=== PATIENT | female | born 1945 | race Caucasian/White ===

== ENCOUNTER 2019-05-09 17:51 | Emergency (ER) | payer MEDICARE, OTHER ==
[~2019-05-09] VITALS: Ht 157.5 cm; Wt 109.1 kg
[2019-05-09] MEDS ORDERED: ALBUTEROL SULFATE 2.5 MG/0.5 ML INH NEB SOLN INH ONE (18:15)
[2019-05-09] MEDS ORDERED: IPRATROPIUM 0.5MG/ALBUTEROL 2.5MG INH SOL UD 3ML (DUONEB)(J7620) NEB ONE (18:15)
[2019-05-09 18:57] LABS: BASO % 0.4 % (0.0-1.0); EOS # 0.2 10^3/uL (0.0-0.5); EOS % 2.1 % (0.0-3.0); HEMATOCRIT 40.2 % (36.0-47.0); HEMOGLOBIN 12.8 g/dl (12.0-15.5); LYMPH # 1.9 10^3/uL (1.5-5.0); LYMPH % 26.2 % (24.0-44.0); MEAN CORPUSCULAR HEMOGLOBIN 29.3 pg (27.0-33.0); MEAN CORPUSCULAR HGB CONC 31.8 g/dl (32.0-36.5); MONO # 0.3 10^3/uL (0.0-0.8); MONO % 4.4 % (0.0-5.0); NEUTROPHILS # 4.8 10^3/uL (1.5-8.5); NEUTROPHILS % 66.5 % (36.0-66.0); PLATELET COUNT, AUTOMATED 215 10^3/uL (150-450); RED BLOOD COUNT 4.37 10^6/uL (4.00-5.40); WHITE BLOOD COUNT 7.3 10^3/uL (4.0-10.0)
[2019-05-09] MEDS ORDERED: FLUO10CA8 (19:01)
[2019-05-09] MEDS ORDERED: ALBU0.63 NEB (19:01)
[2019-05-09] MEDS ORDERED: GLIP10TA18 (19:01)
[2019-05-09] MEDS ORDERED: MELA5CAP2 PO (19:16)
[2019-05-09] MEDS ORDERED: LISI-538 (19:16)
[2019-05-09] MEDS ORDERED: OMEP-218 (19:16)
[2019-05-09] MEDS ORDERED: PRAV40TA2 (19:16)
[2019-05-09] MEDS ORDERED: AZIT-12 (19:16)
[2019-05-09] MEDS ORDERED: METF-791 PO (19:16)
[2019-05-09] MEDS ORDERED: PIOG1TAB37 (19:16)
[2019-05-09] MEDS ORDERED: OMEG1CAP4 (19:16)
[2019-05-09 19:25] LABS: BLOOD UREA NITROGEN 23 MG/DL (7-18); CALCIUM LEVEL 8.8 MG/DL (8.8-10.2); CARBON DIOXIDE LEVEL 29 MEQ/L (21-32); CHLORIDE LEVEL 103 MEQ/L (98-107); CK-MB VALUE MASS 1.5 NG/ML (<3.6); CPK CREATINE PHOSPHOKINASE 106 U/L (26-192); CREATININE FOR GFR 1.15 MG/DL (0.55-1.30); GLOMERULAR FILTRATION RATE 49.4 (>39); GLUCOSE, FASTING 194 MG/DL (70-100); MB/CK RELATIVE INDEX 1.42 (< OR =4); NT-PRO BNP 156 PG/ML (<125); POTASSIUM SERUM 4.1 MEQ/L (3.5-5.1); SODIUM LEVEL 139 MEQ/L (136-145); TROPONIN I < 0.02 NG/ML (< 0.10)
[2019-05-09] MEDS ORDERED: PRED20TA PO (20:03)
[2019-05-09] MEDS ORDERED: DOXY-350 PO (20:03)
[2019-05-09 20:15] VITALS: BP 135/56
[2019-05-09] MEDS ORDERED: DOXYCYCLINE HYCLATE 100 MG TAB PO ONE (20:15)
--- NOTE | 2019-05-10 08:14 | ECGEPIP ---
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
--- NOTE | 2019-05-10 09:17 | REP ---
Portable chest, single AP view with the patient upright, 06:46 p.m.: There are no comparisons. The lung turner are clear. Cardiac size is normal. The jj, mediastinum, skeletal structures are unremarkable. Impression: Negative portable chest. Electronically Signed by Marques Sanchez MD 05/10/2019 09:09 A
== END 2019-05-09 20:28 | disposition home or self-care (01) ==
LOC: EDBD 17:51 → M ED 17:51
DX: J20.9 Acute bronchitis, unspecified (principal); R06.02 Shortness of breath; J44.0 Chronic obstructive pulmonary disease with (acute) lower respiratory infection; E11.9 Type 2 diabetes mellitus without complications; J45.909 Unspecified asthma, uncomplicated; G47.30 Sleep apnea, unspecified; Z79.899 Other long term (current) drug therapy

== ENCOUNTER → 2019-10-11 | Outpatient (CLI) | payer MEDICARE, OTHER ==
[~2019-10-11] MED LIST: ALBU0.63 NEB; AZIT-12; DOXY-350 PO; FLUO10CA15; GLIP10TA18; LISI-538; MELA5CAP2 PO; METF-791 PO; OMEG1CAP4; OMEP-218; PIOG1TAB37; PRAV40TA2; PRED20TA PO
--- NOTE | 2019-10-13 19:39 | SLEEPCENT ---
DATE OF PROCEDURE: 10/11/2019 ORDERED BY: FRANCISCO Mascorro Nocturnal polysomnography was performed for evaluation of sleep physiology in this patient with a history of excessive somnolence and nonrestorative sleep who has comorbidities of hypertension and diabetes. 8 hours and 35 minutes of data were reviewed. There were 341.5 minutes of sleep identified. Sleep latency was short at 12.5 minutes. Rapid eye movement (REM) sleep was delayed at 416 minutes. Sleep architecture showed poor progression. There was only one REM cycle noted. Overall sleep efficiency was 67.1%. The electrocardiogram showed a sinus rhythm with an average heart rate of 65 beats per minute. EEG showed fairly normal waveforms for awake and sleep. There were 91 respiratory events identified of 10 seconds in duration or greater for an apnea-hypopnea index of 16. The events were obstructive, not exclusive to sleep stage, more frequent in the supine posture. Arousals from respiratory events occurred 1.9 times per hour and oxygen desaturations were seen into the low 80s with some limb activity in the limb leads but limb movement arousal index was only 4.9. IMPRESSION: Obstructive sleep apnea syndrome (G47.33). Apnea-hypopnea index 16. RECOMMENDATIONS; The patient should be encouraged to return to the sleep disorder center for pressure therapy. In the interim alcohol and sedative avoidance should be practiced and caution exercised during operation of motor vehicles
== END ==
LOC: M SLEEP 20:00
PROVIDERS: ATTEND Nurse Practitioner Family
DX: R40.0 Somnolence (principal)

== ENCOUNTER → 2019-10-12 | Outpatient (CLI) | payer MEDICARE, OTHER ==
[2019-10-12 07:11] LABS: HEMATOCRIT 40.2 % (36.0-47.0); HEMOGLOBIN 12.7 g/dl (12.0-15.5); MEAN CORPUSCULAR HEMOGLOBIN 29.1 pg (27.0-33.0); MEAN CORPUSCULAR HGB CONC 31.6 g/dl (32.0-36.5); PLATELET COUNT, AUTOMATED 233 10^3/uL (150-450); RED BLOOD COUNT 4.37 10^6/uL (4.00-5.40); WHITE BLOOD COUNT 5.1 10^3/uL (4.0-10.0)
[2019-10-12 07:22] LABS: INR 0.96; PROTHROMBIN TIME 12.5 SECONDS (11.8-14.0)
[2019-10-12 07:38] LABS: ALBUMIN 3.1 GM/DL (3.2-5.2); ALT/SGPT 21 U/L (12-78); BILIRUBIN,TOTAL 0.7 MG/DL (0.2-1.0); BLOOD UREA NITROGEN 21 MG/DL (7-18); CALCIUM LEVEL 8.8 MG/DL (8.8-10.2); CARBON DIOXIDE LEVEL 32 MEQ/L (21-32); CHLORIDE LEVEL 105 MEQ/L (98-107); CHOLESTEROL LEVEL 269 MG/DL (<200); CHOLESTEROL RISK RATIO 4.338 (<5); CREATININE FOR GFR 0.85 MG/DL (0.55-1.30); GLOMERULAR FILTRATION RATE > 60.0 (>39); GLUCOSE, FASTING 170 MG/DL (70-100); HDL CHOLESTEROL 62 MG/DL (>40); LDL CHOLESTEROL 168 MG/DL (<100); MAGNESIUM LEVEL 2.3 MG/DL (1.8-2.4); NON-HDL-C 207 MG/DL; POTASSIUM SERUM 4.5 MEQ/L (3.5-5.1); SODIUM LEVEL 140 MEQ/L (136-145); TOTAL PROTEIN 6.6 GM/DL (6.4-8.2); TRIGLYCERIDES LEVEL 194 MG/DL (<150)
[2019-10-12 07:45] LABS: MALB URINE SIEMENS 47.4 MG/L; MAU/CREAT RATIO 22.6 MCG/MG (0.0-30.0)
[2019-10-12 10:12] LABS: VITAMIN B12 LEVEL 640 PG/ML (247-911)
[2019-10-12 13:32] LABS: HEMOGLOBIN A1c 8.4 %
== END ==
LOC: M LAB 06:40
PROVIDERS: ATTEND Family Medicine
DX: R23.8 Other skin changes (principal); E11.9 Type 2 diabetes mellitus without complications; I11.9 Hypertensive heart disease without heart failure; E78.5 Hyperlipidemia, unspecified; K21.9 Gastro-esophageal reflux disease without esophagitis

== ENCOUNTER → 2019-10-12 | Outpatient (CLI) | payer MEDICARE, OTHER ==
[~2019-10-12] MED LIST changes: +BARIUM SULFATE 700 MG TABLET (E-Z-DISK) As Ordered ONE; +E-Z-PAQUE 96% w/w SUSP 176GM BTL As Ordered ONE; +VARIBAR NECTAR 40% w/v 240ML SUSP BTL As Ordered ONE; +VARIBAR PUDDING 40% w/v 230ML TUBE As Ordered ONE
--- NOTE | 2019-10-12 17:55 | REP ---
COOKIE SWALLOW The procedure was performed under the direct supervision of Dr. Sanchez. The procedure was performed with Fang Kaufman from speech pathology present. 5 ml aliquots of pudding, thin, fruit, soft and solid consistency barium as well as a barium pill were administered. With thin consistency barium there is laryngeal penetration. The detailed report of this examination will be provided by speech pathology. 1.2 minutes of fluoroscopy time was utilized for this procedure. Electronically Signed by HUMERA Hays 10/12/2019 04:14 P Electronically Signed by Celso Sanchez MD 10/12/2019 05:47 P
== END ==
LOC: M RAD 12:07
PROVIDERS: ATTEND Family Medicine
DX: R13.10 Dysphagia, unspecified (principal); R23.8 Other skin changes; E11.9 Type 2 diabetes mellitus without complications; I11.9 Hypertensive heart disease without heart failure; E78.5 Hyperlipidemia, unspecified; K21.9 Gastro-esophageal reflux disease without esophagitis

== ENCOUNTER → 2019-11-16 | Outpatient (CLI) | payer MEDICARE, OTHER ==
[~2019-11-16] MED LIST changes: -BARIUM SULFATE 700 MG TABLET (E-Z-DISK) As Ordered ONE; -E-Z-PAQUE 96% w/w SUSP 176GM BTL As Ordered ONE; -VARIBAR NECTAR 40% w/v 240ML SUSP BTL As Ordered ONE; -VARIBAR PUDDING 40% w/v 230ML TUBE As Ordered ONE
--- NOTE | 2019-11-18 17:39 | SLEEPCENT ---
DATE OF PROCEDURE: 11/16/2019 Ordered by: SCOOTER Mascorro Nocturnal polysomnography was performed for the titration of pressure therapy in this patient with obstructive sleep apnea syndrome. Apnea-hypopnea index is 16. For testing, a ResMed AirTouch F20 full face mask of small size was used, 4 cm of water pressure were applied to the circuit and the lights were extinguished. 7 hours and 17 minutes of data were reviewed. There were 298 minutes of sleep identified. Sleep latency was short at 11.5 minutes. REM latency was delayed at 121.5 minutes. Sleep architecture improved late in the study. Overall sleep efficiency was 68.8%. The patient's electrocardiogram showed a sinus rhythm with an average heart rate of 65 beats per minute. EEG showed normal waveforms for awake and sleep. Occasional likely fluoxetine related eye movements were seen. No other focal events. Respiratory events were fully palliated with C-PAP at a pressure of +7. Activity in the limb leads was seen early in the study, but improved on optimal pressure therapy. The limb movement arousal index was 1.6. IMPRESSION Obstructive sleep apnea syndrome (G47.33) RECOMMENDATIONS Nightly use of pressure therapy 7 cm of water.
== END ==
LOC: M SLEEP 20:00
PROVIDERS: ATTEND Nurse Practitioner Family
DX: G47.33 Obstructive sleep apnea (adult) (pediatric) (principal)

== ENCOUNTER → 2020-01-26 | Outpatient (REF) | payer MEDICARE, OTHER ==
[~2020-01-26] MED LIST changes: +ECOT81TA5 PO; +JANU100T; +JARD1TAB; -METF-791 PO; +METF-838 PO; +ROSU40TA4; +TORS10TA3
[2020-01-26 16:41] LABS: CALCIUM LEVEL 9.4 MG/DL (8.8-10.2); CREATININE FOR GFR 1.16 MG/DL (0.55-1.30); GLOMERULAR FILTRATION RATE 48.8 (>39)
[2020-01-26 17:00] LABS: HEMOGLOBIN A1c 7.9 %
== END ==
LOC: M SFHCCLAY 12:14
PROVIDERS: ATTEND Family Medicine
DX: E11.9 Type 2 diabetes mellitus without complications (principal)
CPT/HCPCS: 80048; 83036; G0463

== ENCOUNTER 2020-02-11 15:20 | Emergency (ER) | payer MEDICARE, OTHER ==
[~2020-02-11] VITALS: Ht 157.5 cm; Wt 113.7 kg
[~2020-02-11 15:20] MED LIST changes: -ECOT81TA5 PO; -JANU100T; -JARD1TAB; -ROSU40TA4; -TORS10TA3
[2020-02-11] MEDS ORDERED: JARD1TAB (15:45)
[2020-02-11] MEDS ORDERED: JANU100T (15:45)
[2020-02-11] MEDS ORDERED: TORS10TA3 (15:45)
[2020-02-11] MEDS ORDERED: ROSU40TA4 (15:45)
[2020-02-11 16:23] LABS: BASO # 0.1 10^3/uL (0.0-0.2); BASO % 0.5 % (0.0-1.0); EOS # 0.1 10^3/uL (0.0-0.5); EOS % 0.9 % (0.0-3.0); HEMATOCRIT 42.2 % (36.0-47.0); HEMOGLOBIN 13.8 g/dl (12.0-15.5); LYMPH # 1.4 10^3/uL (1.5-5.0); LYMPH % 15.5 % (24.0-44.0); MEAN CORPUSCULAR HEMOGLOBIN 28.8 pg (27.0-33.0); MEAN CORPUSCULAR HGB CONC 32.7 g/dl (32.0-36.5); MEAN CORPUSCULAR VOLUME 87.9 fl (80.0-96.0); MONO # 0.5 10^3/uL (0.0-0.8); MONO % 5.9 % (0.0-5.0); NEUTROPHILS # 7.1 10^3/uL (1.5-8.5); NEUTROPHILS % 76.5 % (36.0-66.0); PLATELET COUNT, AUTOMATED 227 10^3/uL (150-450); WHITE BLOOD COUNT 9.2 10^3/uL (4.0-10.0)
[2020-02-11] MEDS: COMBIVENT RESPIMAT 100-20MCG INHALER 4GM INH SCH ×2 (16:36→17:25)
[2020-02-11 16:47] LABS: ALBUMIN 3.7 GM/DL (3.2-5.2); BILIRUBIN,DIRECT 0.2 MG/DL (0.0-0.2); BILIRUBIN,TOTAL 0.9 MG/DL (0.2-1.0); TOTAL PROTEIN 7.2 GM/DL (6.4-8.2)
[2020-02-11] MEDS ORDERED: PRED20TA PO (18:42)
[2020-02-11 18:52] VITALS: BP 92/63
--- NOTE | 2020-02-12 03:25 | REP ---
CHEST PORTABLE: REASON FOR EXAM: Dyspnea and cough. COMPARISON: 05/09/2019 FINDINGS: The technique utilized in obtaining the radiograph has magnified the cardiac silhouette and accentuated the interstitial markings. The superior mediastinal structures are midline. The cardiac silhouette is unremarkable in size, shape, and position. The diaphragmatic surfaces of the lungs are regular, and the costophrenic angles are clear. The pulmonary turner are clear. The imaged osseous structures are intact. IMPRESSION: There is no acute cardiopulmonary disease. No change from the prior exam. Electronically Signed by Christopher Phelps DO 02/12/2020 09:14 A
--- NOTE | 2020-02-12 10:14 | ECGEPIP ---
[facility] - ED Test Date: 2020-02-11 Pat Name: JALYN ALARCON Department: Room: - Gender: Female Stars Specialist: julia : 1945 Requested By: Padmini Raymond Order Number: [id number] Reading MD: Padmini Raymond Measurements Intervals [place] Rate: 82 P: 47 [place]: 139 QRS: 24 QRSD: 93 T: 44 QT: 384 QTc: 449 Interpretive Statements SINUS RHYTHM NSTTW abnormalities DECREASED ECTOPY 05/09/19 Electronically Signed on 02-12-2020 10:14:01 EDT by Padmini Raymond
== END 2020-02-11 20:15 | disposition home or self-care (01) ==
LOC: EDBD 15:20 → M ED 15:20
DX: J12.2 Parainfluenza virus pneumonia (principal); J40 Bronchitis, not specified as acute or chronic; I10 Essential (primary) hypertension; E78.5 Hyperlipidemia, unspecified; G47.33 Obstructive sleep apnea (adult) (pediatric); F17.200 Nicotine dependence, unspecified, uncomplicated; Z91.018 Allergy to other foods; Z79.899 Other long term (current) drug therapy

== ENCOUNTER 2020-02-15 17:10 | Emergency (ER) | payer MEDICARE, OTHER ==
[~2020-02-15] VITALS: Ht 157.5 cm; Wt 113.2 kg
[~2020-02-15 17:10] MED LIST changes: -FLUO10CA15; +FLUO10CA16; +JANU100T PO; +JARD1TAB PO; +ROSU40TA4 PO; +TORS10TA3 PO
[2020-02-15] MEDS ORDERED: ECOT81TA5 PO (17:47)
[2020-02-15 18:21] LABS: BASO % 0.1 % (0.0-1.0); EOS % 0.3 % (0.0-3.0); HEMATOCRIT 41.2 % (36.0-47.0); HEMOGLOBIN 13.1 g/dl (12.0-15.5); LYMPH # 0.8 10^3/uL (1.5-5.0); LYMPH % 9.9 % (24.0-44.0); MEAN CORPUSCULAR HEMOGLOBIN 28.8 pg (27.0-33.0); MEAN CORPUSCULAR HGB CONC 31.8 g/dl (32.0-36.5); MEAN CORPUSCULAR VOLUME 90.5 fl (80.0-96.0); MONO # 0.2 10^3/uL (0.0-0.8); MONO % 2.2 % (0.0-5.0); NEUTROPHILS # 6.7 10^3/uL (1.5-8.5); NEUTROPHILS % 86.6 % (36.0-66.0); RED BLOOD COUNT 4.55 10^6/uL (4.00-5.40); WHITE BLOOD COUNT 7.8 10^3/uL (4.0-10.0)
[2020-02-15 18:22] LABS: VENOUS BASE EXCESS -2.6 (-2.0-2.0); VENOUS HCO3 23.7 MEQ/L (23.0-27.0); VENOUS O2 SATURATION 94.1 % (60.0-80.0); VENOUS PARTIAL PRESSURE CO2 46.5 mmHg (38.0-50.0); VENOUS PH 7.325 UNITS (7.330-7.430); VENOUS STANDARD HCO3 22.3 MEQ/L; VENOUS TOTAL CO2 25.1 MEQ/L (24.0-28.0)
--- NOTE | 2020-02-15 18:54 | REPVR ---
PROCEDURE INFORMATION: Exam: CT Head Without Contrast Exam date and time: 02/15/2020 6:34 PM Age: 74 years old Clinical indication: Other: General weakness; Additional info: Headache, weakness TECHNIQUE: Imaging protocol: Computed tomography of the head without contrast. Radiation optimization: All CT scans at this facility use at least one of these dose optimization techniques: automated exposure control; mA and/or kV adjustment per patient size (includes targeted exams where dose is matched to clinical indication); or iterative reconstruction. COMPARISON: CT Head without contrast 01/24/2015 3:35 PM FINDINGS: Brain: There is no acute cortical infarction, intracranial hemorrhage or mass. Ventricles: No ventriculomegaly. Bones/joints: Hyperostosis frontalis is noted bilaterally. No acute fracture. Sinuses: Visualized sinuses are unremarkable. No fluid levels. Mastoid air cells: The middle ear cavities and mastoid air cells are clear. Vasculature: Atherosclerosis. Soft tissues: Unremarkable. IMPRESSION: No acute intracranial findings. Electronically signed by: Portia Mckeon On 02/15/2020 18:53:53 PM
[2020-02-15 19:30] LABS: PLATELET COUNT, AUTOMATED 191 10^3/uL (150-450)
[2020-02-15 20:01] LABS: HEMOGLOBIN A1c 9.7 %
[2020-02-15 21:24] LABS: OSMOLALITY SERUM 314 MOSM/KG (280-301)
[2020-02-15 21:46] LABS: ACETONE/KETONE 6.03 MG/DL (<2.81); ALBUMIN 3.5 GM/DL (3.2-5.2); ALT/SGPT 23 U/L (12-78); BILIRUBIN,DIRECT 0.2 MG/DL (0.0-0.2); BILIRUBIN,TOTAL 0.6 MG/DL (0.2-1.0); BLOOD UREA NITROGEN 38 MG/DL (7-18); CALCIUM LEVEL 8.9 MG/DL (8.8-10.2); CARBON DIOXIDE LEVEL 25 MEQ/L (21-32); CHLORIDE LEVEL 100 MEQ/L (98-107); CK-MB VALUE MASS < 1.0 NG/ML (<3.6); CPK CREATINE PHOSPHOKINASE 58 U/L (26-192); CREATININE FOR GFR 1.48 MG/DL (0.55-1.30); GLOMERULAR FILTRATION RATE 36.8 (>39); GLUCOSE, FASTING 388 MG/DL (70-100); LIPASE 60 U/L (73-393); MB/CK RELATIVE INDEX 1.72 (< OR =4); NT-PRO BNP 117 PG/ML (<125); POTASSIUM SERUM 4.6 MEQ/L (3.5-5.1); SODIUM LEVEL 136 MEQ/L (136-145); TROPONIN I < 0.02 NG/ML (< 0.10)
[2020-02-15] MEDS ORDERED: HumuLIN R (REGULAR) INSULIN (NovoLIN R) **100U/ML** PER UNIT IV ONE (22:15)
[2020-02-15 22:50] VITALS: BP 131/60
--- NOTE | 2020-02-16 04:49 | REP ---
CHEST: REASON: Dyspnea. PRIORS: Multiple, the latest 02/11/2020, a portable exam. The technique utilized in obtaining the radiograph has magnified the cardiac silhouette and accentuated the interstitial markings. The superior mediastinal structures are midline. The cardiac silhouette is unremarkable in size, shape, and position. The diaphragmatic surfaces of the lungs are regular, and the costophrenic angles are clear. The pulmonary turner are clear. The imaged osseous structures are intact. IMPRESSION: There is no acute cardiopulmonary disease. Electronically Signed by Christopher Phelps DO 02/16/2020 11:37 A
--- NOTE | 2020-02-16 08:17 | ECGEPIP ---
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
[2020-04-22] MEDS ORDERED: METF500T13 PO (12:29)
[2020-04-22] MEDS ORDERED: VENTAER INH (12:29)
[2020-06-03] MEDS ORDERED: GROUND FLAX SEED PO (08:03)
== END 2020-02-16 00:01 | disposition home or self-care (01) ==
LOC: EDBD 17:10 → M ED 17:10 → EDSEX 17:10 → M ED 02-16 00:01
DX: E11.65 Type 2 diabetes mellitus with hyperglycemia (principal); R06.02 Shortness of breath; J12.2 Parainfluenza virus pneumonia; I10 Essential (primary) hypertension; J45.909 Unspecified asthma, uncomplicated; J44.9 Chronic obstructive pulmonary disease, unspecified; G47.33 Obstructive sleep apnea (adult) (pediatric); E78.9 Disorder of lipoprotein metabolism, unspecified; Z87.891 Personal history of nicotine dependence; Z91.018 Allergy to other foods; Z79.899 Other long term (current) drug therapy; Z79.52 Long term (current) use of systemic steroids; Z79.82 Long term (current) use of aspirin; Z79.84 Long term (current) use of oral hypoglycemic drugs

== ENCOUNTER → 2020-03-14 | Outpatient (REF) | payer MEDICARE, OTHER ==
[~2020-03-14] MED LIST changes: +ECOT81TA5 PO; +GROUND FLAX SEED PO; +METF500T13 PO; +VENTAER INH
[2020-04-29 11:40] LABS: CALCIUM LEVEL 9.5 MG/DL (8.8-10.2); CREATININE FOR GFR 1.34 MG/DL (0.55-1.30); GLOMERULAR FILTRATION RATE 41.3 (>39); POTASSIUM SERUM 5.3 MEQ/L (3.5-5.1)
== END ==
LOC: M SFHCCLAY 15:22
PROVIDERS: ATTEND Family Medicine
DX: I89.0 Lymphedema, not elsewhere classified (principal)

== ENCOUNTER → 2020-04-06 | Outpatient (CLI) | payer MEDICARE, OTHER ==
[~2020-04-06] MED LIST changes: +ISOVUE-370 76% 100ML VIAL As Ordered ONE
--- NOTE | 2020-04-06 16:47 | REPVR ---
PROCEDURE INFORMATION: Exam: CT Angiography Chest With Contrast Exam date and time: 04/06/2020 4:03 PM Age: 74 years old Clinical indication: Other: Thoracic aortic aneurysm TECHNIQUE: Imaging protocol: Computed tomographic angiography of the chest with intravenous contrast. 3D rendering (Not supervised by radiologist): MIP and/or 3D reconstructed images were created by the technologist. Radiation optimization: All CT scans at this facility use at least one of these dose optimization techniques: automated exposure control; mA and/or kV adjustment per patient size (includes targeted exams where dose is matched to clinical indication); or iterative reconstruction. Contrast material: ISOVUE 370; Contrast volume: 100 ml; Contrast route: INTRAVENOUS (IV); COMPARISON: CR Chest, 2 view PA, Lat 02/15/2020 6:50 PM FINDINGS: Pulmonary arteries: These are 3 mm thick images. There is no obvious pulmonary emboli but examination is a optimized for pulmonary emboli. Aorta: The ascending aorta is normal at 25 mm. There is no evidence of a dissection. Thyroid: There is a cystic lesion within the right lobe of the thyroid gland measuring 14 x 18 mm. Lungs: Lungs are clear. Pleural space: Unremarkable. No pneumothorax. No pleural effusion. Heart: Unremarkable. No cardiomegaly. No pericardial effusion. Mediastinal space: Distal esophagus has a thickened wall versus a small hiatal hernia. Lymph nodes: Small mediastinal lymph nodes are present. Liver: The liver is fatty. Bones/joints: Unremarkable. No acute fracture. Soft tissues: Unremarkable. 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 IMPRESSION: 1. Thyroid cystic mass. 2. No evidence of a thoracic aortic aneurysm. 3. Small hiatal hernia versus distal esophageal wall thickening. 4. 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 COMMENTS: Consistent with the [employer]'s Incidental Findings Committee white paper (J Am Devon Radiol 2015): In patients aged 35 years and older with an incidental thyroid nodule equal to or greater than 1.[address], MRI or extrathyroidal US, further evaluation with dedicated thyroid US is recommended for patients with normal life expectancy and without comorbidities. For smaller nodules without suspicious features, no further evaluation or follow up is recommended. Electronically signed by: Derek Drew On 04/06/2020 16:47:06 PM
== END ==
LOC: M RAD 15:07
PROVIDERS: ATTEND Internal Medicine Gastroenterology
DX: E07.9 Disorder of thyroid, unspecified (principal); K44.9 Diaphragmatic hernia without obstruction or gangrene; I71.2 Thoracic aortic aneurysm, without rupture; R07.89 Other chest pain
CPT/HCPCS: 71275; Q9967

== ENCOUNTER → 2020-04-20 | Outpatient (CLI) | payer MEDICARE, OTHER ==
[~2020-04-20] MED LIST changes: +E-Z-GAS II EFFERVESCENT PACKET (SODIUM BICARB./CITRIC ACID/SIMETHICONE) As Ordered ONE; +E-Z-HD 98% w/w 340GM SUSP BTL As Ordered ONE; +E-Z-PAQUE 96% w/w SUSP 176GM BTL As Ordered ONE; -ISOVUE-370 76% 100ML VIAL As Ordered ONE
--- NOTE | 2020-05-05 11:21 | REP ---
ESOPHAGRAM AIR CONTRAST: The procedure was performed under the direct supervision of Dr. Sanchez. The images were reviewed with Dr. Sanchez. A single view PA chest x-ray is submitted as a route jumper film. The superior mediastinal structures are midline. The heart size is within normal limits. The lungs are clear. Liquid barium and gas producing granules were given in the erect position as well as liquid as barium in the prone oblique positions in order to perform a double contrast esophagram examination. The oral and pharyngeal stages of deglutition are unremarkable. In the distal esophagus at THE GE junction there is a stricture which demonstrates shouldering and esophageal dilation proximally. There is mucosal irregularity with a possible ulcer. The stricture measures approximately 2cm x 0.5cm.Contrast does pass through the stricture slowly. Recommend endoscopy for further evaluation. IMPRESSION: 1. There is a stricture in the distal esophagus at the GE junction which demonstrates shouldering and esophageal dilation proximally. There is mucosal irregularity with a possible ulcer. Contrast does pass through the stricture albeit slowly. Recommend endoscopy for further evaluation. 2. 1.5 minutes of fluoroscopy time was utilized for this procedure. NEHEMIAHD
== END ==
LOC: M RAD 08:24
PROVIDERS: ATTEND Internal Medicine Gastroenterology
DX: R13.10 Dysphagia, unspecified (principal); K22.2 Esophageal obstruction

== ENCOUNTER → 2020-04-24 | Outpatient (CLI) | payer MEDICARE, OTHER ==
[~2020-04-24] MED LIST changes: -E-Z-GAS II EFFERVESCENT PACKET (SODIUM BICARB./CITRIC ACID/SIMETHICONE) As Ordered ONE; -E-Z-HD 98% w/w 340GM SUSP BTL As Ordered ONE; -E-Z-PAQUE 96% w/w SUSP 176GM BTL As Ordered ONE
== END ==
LOC: M LABSMTC 08:33
PROVIDERS: ATTEND Anesthesiology
DX: Z01.812 Encounter for preprocedural laboratory examination (principal); Z20.828 Contact with and (suspected) exposure to other viral communicable diseases
CPT/HCPCS: C9803; U0003

== ENCOUNTER 2020-04-29 12:48 | Day surgery (SDC) | payer MEDICARE, OTHER ==
[~2020-04-29] VITALS: Ht 157.5 cm; Wt 108.4 kg
[~2020-04-29 12:48] MED LIST changes: -GROUND FLAX SEED PO; +NS 1,000 ML IV ONE
--- NOTE | 2020-04-29 14:45 | ROOR ---
Patient Name: Ana Chavez Procedure Date: 04/29/2020 2:18 PM Date of : 1945 Age: 74 Room: [facility] Gender: Female Note Status: Finalized Procedure: Upper GI endoscopy Indications: Dysphagia, Odynophagia, Abnormal UGI series Providers: Jordin JIN MD Referring MD: Huong WARD DO Requesting Provider: Medicines: Monitored Anesthesia Care Complications: No immediate complications. Procedure: Pre-Anesthesia Assessment: - The heart rate, respiratory rate, oxygen saturations, blood pressure, adequacy of pulmonary ventilation, and response to care were monitored throughout the procedure. The Endoscope was introduced through the mouth, and advanced to the second part of duodenum. The upper GI endoscopy was accomplished without difficulty. The patient tolerated the procedure well. Findings: One indeterminate, intrinsic moderate (circumferential scarring or stenosis; an endoscope may pass) stenosis was found 29 to 32 cm from the incisors. This stenosis measured 3 cm (in length). The stenosis was soft and pliable and was traversed. A TTS dilator was passed through the scope. Dilation with a 12-13.5-15 mm balloon dilator was performed to 13.5 mm. The dilation site was examined and showed mild mucosal disruption. Biopsies were taken with a cold forceps for histology. The entire examined stomach was normal. The cardia and gastric fundus were normal on retroflexion. The examined duodenum was normal. Impression: - Indeterminate appearing soft esophageal stenosis. Dilated. Biopsied-r/o malignancy. - Normal stomach. - Normal examined duodenum. Recommendation: - Return to my office in 2 weeks. - To discuss todays findings, my office will call you in the next few days to schedule a follow up appointment. Jordin Jin MD Jordin JIN MD 04/29/2020 2:45:03 PM Electronically signed by Jordin JIN MD Number of Addenda: 0 Note Initiated On: 04/29/2020 2:18 PM Estimated Blood Loss: Estimated blood loss: none.
[2020-04-29] MEDS ORDERED: LIDOCAINE 2% 100MG/5ML SDV (FOR ANES.) As Ordered ONE (14:47)
[2020-04-29] MEDS ORDERED: propofoL 200 MG/20 ML VIAL As Ordered ONE (14:47)
[2020-04-29 15:07] VITALS: BP 132/63
[2020-06-03] MEDS ORDERED: GROUND FLAX SEED PO (08:03)
== END 2020-04-29 15:08 | disposition home or self-care (01) ==
LOC: M OPP 12:48
PROVIDERS: ATTEND Internal Medicine Gastroenterology
DX: K22.2 Esophageal obstruction (principal); R13.10 Dysphagia, unspecified; R93.3 Abnormal findings on diagnostic imaging of other parts of digestive tract; J44.9 Chronic obstructive pulmonary disease, unspecified; E11.9 Type 2 diabetes mellitus without complications; G47.30 Sleep apnea, unspecified; Z79.82 Long term (current) use of aspirin; Z79.84 Long term (current) use of oral hypoglycemic drugs; Z79.899 Other long term (current) drug therapy; Z91.018 Allergy to other foods

== ENCOUNTER → 2020-05-09 | Outpatient (CLI) | payer MEDICARE, OTHER ==
[~2020-05-09] MED LIST changes: +LIDOCAINE 1% MDV 20ML VIAL As Ordered ONE; -NS 1,000 ML IV ONE; +SODIUM BICARBONATE 8.4% INJ 50MEQ 50 ML VIAL As Ordered ONE
[2020-05-09 13:15] VITALS: BP 135/76
--- NOTE | 2020-05-14 13:42 | REP ---
ULTRASOUND-GUIDED RIGHT THYROID BIOPSY This procedure was performed by HUMERA Mendoza, under the direct supervision of Dr. Bell. The risks and benefits of the procedure were explained to the patient and an informed consent was obtained both verbally and written. Directly prior to the start of the procedure, a formal time-out was completed in the procedure room. The right thyroid nodule was localized using ultrasound guidance. The skin was prepped and draped in a sterile fashion. Approximately 7 mL of buffered Lidocaine was used as a local anesthetic. Using ultrasound guidance, four fine needle aspirations were obtained using 25-gauge needles. The patient tolerated the procedure well and there were no immediate complications. After the appropriate amount of monitored convalescence, the patient was discharged from the department. VESTA
--- NOTE | 2020-05-14 13:44 | REP ---
THYROID ULTRASOUND HISTORY: Right thyroid nodule seen on CT chest 04/06/2020. TECHNIQUE: Real-time sonographic evaluation of the thyroid is performed. FINDINGS: The right lobe measures 5.1 x 3.3 x 3.0 cm and the left lobe 4.6 x 2.1 x 1.7 cm. Echotexture is diffusely heterogeneous. In the right lobe of the thyroid, in the mid to lower aspect, there is a complex cystic and solid nodule, which measures 3.7 x 2.4 x 2.6 cm. On the left, there are multiple subcentimeter complex cystic structures. The three larges are measured in the lower pole. Near the isthmus, a complex cystic nodule measures 8 x 3 x 9 mm and two others more inferiorly in the left lower pole measure 8 mm and 7 mm in maximum diameter. IMPRESSION: Dominant cystic and solid nodule right lobe of thyroid. We will proceed with ultrasound-guided fine needle aspiration (FNA). NEHEMIAHD
== END ==
LOC: M RAD 11:58
PROVIDERS: ATTEND Specialist
DX: E04.1 Nontoxic single thyroid nodule (principal)

== ENCOUNTER → 2020-06-21 | Outpatient (CLI) | payer MEDICARE, OTHER ==
[~2020-06-21] MED LIST changes: +GROUND FLAX SEED PO; -LIDOCAINE 1% MDV 20ML VIAL As Ordered ONE; -SODIUM BICARBONATE 8.4% INJ 50MEQ 50 ML VIAL As Ordered ONE
--- NOTE | 2020-06-22 10:21 | REP ---
INDICATION: STAGING ESOPHAGEAL C15.8. COMPARISON: No prior CT-PET. Prior CT chest 04/06/2020. TECHNIQUE: After the intravenous administration of 8.70 mCi of FDG 18 triplane whole-body PET-CT was performed from the skull base to the mid thigh. FINDINGS: There is evidence of possible circumferential wall thickening of the distal esophagus which is difficult to evaluate by CT. Proximal to the gastroesophageal junction there is hypermetabolic activity in the thickened esophageal zarate having maximal SUV values of 4.95. The esophagus appears somewhat dilated proximal to this area with an air-fluid level. No other areas of abnormal hypermetabolic activity are seen in the neck, chest, abdomen, or pelvis. IMPRESSION: Hypermetabolic activity seen in the esophagus which is a well-known pit fall of PET scanning. This region is often hypermetabolic without known pathology. Since the patient has biopsy proven esophageal carcinoma by history the finding today would be consistent with that biopsy proven diagnosis. This needs to be correlated clinically. <Electronically signed by Christopher Phelps > 06/22/20 [id number]
== END ==
LOC: M PLARAD 13:29
PROVIDERS: ATTEND Specialist
DX: C15.8 Malignant neoplasm of overlapping sites of esophagus (principal)
CPT/HCPCS: 78815; A9552

== ENCOUNTER → 2020-07-08 | Outpatient (CLI) | payer MEDICARE, OTHER ==
[~2020-07-08] MED LIST changes: +FAMO20TA PO; +GLUC1.5L PO; +OXYC5SOL11 PO; +ZOFR4TAB16 PO
--- NOTE | 2020-07-08 14:43 | RADONC.CN ---
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 She is seen for consideration of neoadjuvant chemoradiation. Diagnosis/Treatment History Oncologic History [id number] noted onset of progressive dysphagia and weight loss of ~50 lbs. This prompted EGD on 04/29/20 which revealed a stricture in the distal esophagus which was biopsied and returned adenocarcinoma, moderately differentiated invading the muscularis. She was evaluated by Drs. Gerber and Wesley who performed EUS which r evealed no nodes of concern and deemed her fit for esophagectomy. The tumor was noted extend into the gastric cardia, but emanate from the distal esophagus. She underwent port and PEG placement at that time. She underwent PET-CT on 06/21/20 which revealed no distant disease or suspicious adenopathy. Interval History She has no pain except mild soreness at the PEG tube site. She is unable to take anything PO, causes her to gag and throw up. She has intermittent nausea. Takes zofran for this. Her weight loss has stabilized. She is doing continuous nocturnal tube feeds and just medication and water flushes during the day. Her energy level is poor. She has no fevers, or chills. Past Medical History: DMII HTN Diabetic retinopathy Past Surgical History: Hysterectomy Family History: Brother prostate cancer Sister lung cancer Social History: 30 pack year former smoker quit 25 years ago Non-drinker Allergies / Meds Allergies: Coded Allergies: Kiwi (Unverified Allergy, Severe, 02/15/20) Home Meds Active Scripts Nut.tx.gluc.intoler,Lac-Fr,Soy (Glucerna 1.5 Andrew) 237 Ml Liquid, 1.1 L PO BID for 90 Days, #30 CONTAINER Prov:ALISON PRUETT MD 06/29/20 Reported Medications Ondansetron HCl (Zofran) 4 Mg Tablet, 4 MG PO Q6H for 5 Days, #20 TAB 07/08/20 Oxycodone HCl (Oxycodone HCl) 5 Mg/5 Ml Solution, 5-7.5 ML PO Q4HP PRN for PAIN OR SHORTNESS OF BREATH MDD 30 Milliliter(s) for 5 Days, #150 ML 11/24/20 Famotidine (Famotidine) 20 Mg Tablet, 20 MG PO BID for 30 Days, #60 TAB 06/28/20 Albuterol Sulfate (Ventolin Hfa) 18 Gm Hfa.aer.ad, 2 PUFF INH Q4-6HP PRN for wheezing for 30 Days, #1 INHALER 04/22/20 Aspirin (Ecotrin) 81 Mg Tablet.dr, 81 MG PO DAILY for pain for 30 Days, #30 TAB 02/15/20 Rosuvastatin Calcium (Rosuvastatin Calcium) 40 Mg Tablet, 40 MG PO DAILY 02/11/20 Sitagliptin Phosphate (Januvia) 100 Mg Tablet, 100 MG PO DAILY 02/11/20 Empagliflozin (Jardiance) 10 Mg Tablet, 10 MG PO DAILY 02/11/20 Lisinopril (Lisinopril) 20 Mg Tablet, DAILY 05/09/19 Fluoxetine Hcl (Fluoxetine HCl) 10 Mg Capsule, daily 05/09/19 Albuterol Sulfate (Albuterol Sulfate) 0.63 Mg/3 Ml Vial.neb, 1 VIAL NEB ONCE for 25 Days, #225 ML 05/09/19 Discontinued Reported Medications Metformin HCl (Metformin HCl) 500 Mg Tablet, 500 MG PO BID for 30 Days, #60 TAB 04/22/20 Review of Systems Constitutional: Reports: Fatigue, Weight Loss; Denies: Chills, Fever, Night Sweats Eyes: Reports: Vision change (Legally blind); Denies: Pain HEENT: Denies: Head Aches, Dysphagia, Sore Throat Skin: Denies: Rash, Lesions, Bruising Pulmonary: Denies: Dyspnea, Cough Cardiovascular: Denies: Chest Pain, Palpitations, Edema Gastrointestinal: Reports: Nausea; Denies: Vomiting, Abdominal Pain, Diarrhea Genitourinary: Denies: Dysuria, Frequency, Incontinence Hematologic: Denies: Bruising, Petecchia, Enlarged Lymph Nodes Musculoskeletal: Denies: Neck pain, Back pain Neurological: Denies: Weakness, Numbness, Incoordination Psych: Reports: Mood Normal; Denies: Memory Issues, Thoughts of Self Harm Vital Signs Ht 62" Wt 219 BMI 41 T 97.7 P 80 RR 18 BP 141/79 O2 95% General Exam: Positive: Alert, Cooperative, No Acute Distress Eye Exam: Positive: PERRLA, EOMI ENT EXAM: Positive: Mucous membr. moist/pink, Pharynx Normal Neck Exam: Negative: Thyromegaly, Lymphadenopathy Chest Exam: Positive: Normal air movement; Negative: Rales, Rhonchi, Wheezing Heart Exam: Positive: Rate Normal, Regular Rhythm, Other (Levocardia) Abdomen Exam: Positive: Soft, Tenderness (tender around PEG insertion. site CDI); Negative: Mass Extremity Exam: Negative: Edema, Tenderness Skin Exam: Positive: Nl turgor and temperature; Negative: Rash Neuro Exam: Positive: Normal Gait, Normal Speech, Cranial Nerves 3-12 NL Psych Exam: Positive: Mental status NL, Mood NL, Memory Intact Diagnostic and Laboratory Diagnostic Review Radiologic images, relevant labs and pathology reports were personally reviewed and discussed with Ms. Chavez. Assessment and Plan Impression Ms. 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 She is seen for consideration of neoadjuvant chemoradiation. Stage [id number] adenocarcinoma of the distal esophagus stage IIB Performance Status ECOG 1 Plan We had an extensive discussion with Ms. Chavez regarding the diagnosis at hand and available therapeutic options. She is well stabilized with PEG-based nutrition, and completely staged. She has a good PS. She has localized disease only. I recommend 45 Gy in 25 fractions per the CROSS trial regimen with 3D planning and daily CBCT for localization. She has situs inversus with levocardia, given the position of her tumor, this actually presents as favorable as her heart dose will be lower. I will pay special attention to this anatomic abnormality when planning to ensure adequate coverage of the regional lymphatics. We discussed the logistics of receiving radiation therapy in detail including the need for a 1-time planning session. As her tumor extends infradiaphragmatically I will use 4D CT at simulation to account for respiratory motion when I delineate the target volumes. Simulation can proceed immediately. We reviewed the side effects of treatment, odynophagia, fatigue, skin reaction, nausea, and rarely pneumonitis. After discussing the risks, benefits and alternatives to radiation therapy, Ms. Chavez was amenable to pursuing radiotherapy. All questions were answered to the patient's satisfaction. We instructed the patient that if there were any questions,concerns or changes in clinical status in the interim to contact us. Recommendations Neoadjuvant chemoradiation 45 Gy in 25 fractions with 3D planning and daily CBCT 4D CT simulation next week KAREN ALVES MD Jul 08, 2020 14:43
== END ==
LOC: M ONCR 12:51
PROVIDERS: ATTEND General Practice
DX: C15.5 Malignant neoplasm of lower third of esophagus (principal)

== ENCOUNTER → 2020-08-04 | Outpatient (RCR) | payer MEDICARE, OTHER ==
[~2020-08-04] MED LIST changes: +FLUO20SO PO; +MAGICMW PO; +ONDA8TAB10 PO; +PROC10TA4 PO
== END ==
LOC: M ONCR 07-12 10:21
PROVIDERS: ATTEND General Practice
DX: C15.5 Malignant neoplasm of lower third of esophagus (principal)

== ENCOUNTER 2020-08-16 14:02 | Emergency (ER) | payer MEDICARE, OTHER ==
[~2020-08-16] VITALS: Ht 157.5 cm; Wt 94.1 kg
[~2020-08-16 14:02] MED LIST changes: +SODIUM CHLORIDE 0.9% INJ 10 ML SYR IV SCH
--- OUTSIDE RECORDS SUMMARY | 2020-08-16 14:10 | CCD ---
Author Author [facility] Organization [facility] Address Unknown Phone Unavailable Care Team Providers Care Slip Cover Sewer Name Role Phone Huong Gaffney Unavailable PROBLEMS Type Condition ICD9-CM Code [id number] Code Onset Dates Condition S tatus SNOMED Code Notes Problem Diabetes mellitus E11.9 Active 37711426 Problem Headache R51 Active 39062856 Problem Need for prophylactic vaccin ation with Streptococcus pneumoniae (Pneumococcus) and Influenza vaccines Z23 Active 400773159 Problem Breast screening Z12.39 Active 960936729 Problem Essential hypertension I10 Active 94879545 Problem LEENA (obstructive sleep apnea) G47.33 Active 78 531461 Problem Chronic GERD K21.9 Active 850417544 Problem Type 2 diabetes mellitus wit h diabetic polyneuropathy, without long-term current use of insulin E11.42 Active 40804199 Problem Other and unspecified hyperlipidemia E78.5 Act paulette 44883744 Problem Asthma, mild persistent J45.30 Active 33869965 2 Problem BMI 40.0-44.9, adult Z68.41 Active 822473967 Problem Impingement syndrome, shoulder, left M75.42 Act paulette 837741725 Problem Seborrheic dermatitis L21.9 Active 82702645 Problem Hypercholesterolemia E78.0 Active 30718975 Problem Perianal itch L29.0 Active 61758300 Problem Encounter for general adult medical exam ination with abnormal findings Z00.01 Active 322831333 Problem Depression, unspecified depression type F32.9 Active 70272314 Problem Dysphagia, unspecified type R13.10 Active 4073 9000 Problem Dyslipidemia E78.5 Active 647983887 Problem Age-related cataract of both eyes, unspecified age-related cataract type H25.9 Active 83829561 Problem Need for prophylactic vaccination and inoculatio n against influenza Z23 Active 101024504 Problem Malignant neoplasm of esophagus, unspecified location C15.9 Active 876017623 Problem Depression F32.9 Active 21700916 Problem Esophageal reflux K21.9 Active 938806439 Problem Hypertensive heart disease without heart failure I 11.9 Active 59185227 Problem Diabetes mellitus without complication E11.9 A ctive 744749784 Problem Chronic obstructive pulmonary disease, unspecified COPD ty pe J44.9 Active 61094828 Problem Bilateral hearing loss, unspecified hearing loss type H91.93 Active 92806841 ALLERGIES Allergen (clinical drug ingredient) Drug/Non Drug Allergy do cumented on EMR Reaction Allergy Type Onset Date Status Kiwi Angioedema Non Drug Allergy Active ENCOUNTERS from 1945 to 2020-08-11 Encounter Location Date Provider Diagnosis [facility] [address] [place] [address] Aug Huong Gaffney IMMUNIZATIONS Vaccine Route Administration Date Status Influenza (High Dose 65 & up) IM Intramuscular Jun 02, 2015 A dministered TDAP 0.5mL (Boostrix) IM Intramuscular December 02, 2019 Administe red Pneumococcal 0.5mL (Prevnar 13) IM Intramuscular Jun 02, 2015 Administered SOCIAL HISTORY Tobacco Use: Social History Observation Description Date Details (start date - stop date) Former Smoker Sex Assigned At : Social History Observation Description Sex Assigned At Unknown Audit Question Answer Notes Total Score: 0 Interpretation: Alcohol Education Sexual Hx: Question Answer Notes Had sex in the last 12 months (vaginal, oral, or anal)? No Have you ever had an STD? No Drug and Alcohol Question Answer Notes Total Score: 0 Interpretation: No problems reported Alcohol Screening: Question Answer Notes Did you have a drink containing alcohol in the past year? No Points 0 Interpretation Negative BMI Care Goal Follow-Up Question Answer Notes Above Normal BMI Follow-Up Dietary management educatio n, guidance, and counseling Tobacco Use: Question Answer Notes Are you a: former smoker How long has it been since you last smoked? > 10 years REASON FOR REFERRAL No Information VITAL SIGNS No information MEDICATIONS Medication SIG (Take, Route, Frequency, Duration) Notes Start Da te End Date Status Torsemide 10 MG 1 tablet Orally Once a day for 30 day(s) Not-Taking ProAir HFA 108 (90 Base) MCG/ACT 2 puffs as needed Inh alation every 4 hrs as needed for 90 days Active Lovaza 1 GM 2 capsules Orally Daily for 90 days Not-Taking Januvia 100 mg 1 tablet Orally Once a day for 90 days Active Aspirin 81 81 MG 1 tablet Orally Once a day for 30 day(s) Active Oxycodone HCl 5 MG/5ML 5 ml as needed Orally every 6 hrs Active Albuterol Sulfate (2.5 MG/3ML) 0.083% 3 ml as needed I nhalation every 8 hrs for 90 days Active Glucerna - as directed Orally Active Lancets Misc. 1 as directed accu check tristian, E11.42 SQ daily fo r 90 days Mar, Active Lisinopril 20 mg 1/2 tablet Orally Once a day Active Lactulose 10 GM/15ML 15 ml Orally Once a day for 90 day(s) Active Nebulizer/Tubing/Mouthpiece - as directed Dx: J44.9 _ for 90 day (s) Oct, Active FreeStyle Lite Test - as directed In Vitro Daily for 90 days Active Rosuvastatin Calcium 40 MG 1 capsule Orally Once a day for 30 day(s) Active Ondansetron 4 MG 1 tablet on the tongue and a llow to dissolve Orally tid prn for 90 days Active Nebulizer - as directed Dx: J44.9 _ for 90 day(s) Oct, Active Jardiance 10 MG 1 tablet Orally Once a day for 90 days Jan, Active Famotidine 40 MG/5ML as directed Orally Active Fluoxetine 20 MG/5ML as directed Orally Active FreeStyle Lite - as directed Active Loperamide HCl 2 MG 1 capsule as needed Orally Four times a day Active Flonase Allergy Relief 50 MCG/ACT 1 spray in each nostril Nasall y Once a day Active PROCEDURES No Information RESULTS No Results REASON FOR VISIT no show appt MEDICAL (GENERAL) HISTORY Type Description Date Medical History Asthma Medical History HTN Medical History Hypercholesterol Medical History DM uncontrolled Medical History COPD 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 Hospitalization History Heel Surgery 2013 Hospitalization History infection following a hysterectomy Hospitalization History [facility] for 3 days for port/jtube p lacement 2019 Goals Section No Information Health Concerns No Information MEDICAL EQUIPMENT No Information MENTAL STATUS No Information FUNCTIONAL STATUS No Information ASSESSMENTS No Information PLAN OF TREATMENT Medication Medication Name Sig Start Date Stop Date Lactulose 10 GM/15ML 15 ml Orally Once a day for 90 day(s) Next Appt Details Provider Name:Huong Gulshan, 2020-08 04:00:00 PM, [address] [place], [address], Insurance Providers Payer Name Payer Address Payer Phone Insured Name Patient Relati onship to Insured Coverage Start Date Coverage End Date MEDICARE Part A and B [address] [facility] [phone] JALYN ALARCON 2011 FOR LIFE [address] [facility] [address] JALYN ALARCON
--- OUTSIDE RECORDS SUMMARY | 2020-08-16 14:10 | CCD | Continuity of Care Document ---
Author Author Ana Gerber D.O. 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 Social History Type Date Description Comments Sex Unknown ETOH Use Denies alcohol use Tobacco Use Start: Unknown End: Unknown Patient is a former smoker Tattoo/Piercing Negative For Tattoo Allergies, Adverse Reactions, Alerts Description No Known Drug Allergies Medications Active Medications SIG Qnty Indications Ordering Provide r Date Omeprazole 20mg Capsules DR 1 By Mouth Twice A Day 60caps Unknown Lisinopril 20mg Tablets 1 by mouth every day Unknown Januvia 100mg Tablets 1 by mouth every day Unknown Proair HFA 108(90Base) mcg/Act Aer osol 2 puffs as Needed Unknown Lidoderm 5% Patches apply 1 patch to skin qd Unknown Metformin HCL 500mg Tablets 3 By Mouth Every Day Unknown Nitrostat 0.4mg Tablets Sub 1 By Mouth as Needed Unknown Glipizide 5mg Tablets 1 by mouth every day Unknown Jardiance 10mg Tablets 1 by mouth every day Unknown Zetia 10mg Tablets 1 by mo uth every day Unknown [place] 3 1000mg Capsules 4 by mouth every day Unknown Immunizations Description No Information Available Vital Signs Date Vital Result Comment 03/23/2016 11:54am BP Systolic 120 mmHg BP Diastolic 71 mmHg Heart Rate 76 /min Height 62 inches 5'2" Weight 216.00 lb BMI (Body Mass Index) 39.5 kg/m2 Body Temperature 97.7 F 07/06/2014 2:11pm BP Systolic 133 mmHg BP Diastolic 80 mmHg Heart Rate 65 /min Height 62 inches 5'2" Weight 230.00 lb BMI (Body Mass Index) 42.1 kg/m2 Body Temperature 97.3 F Results Description No Information Available Procedures Date Code Description Status 06/16/2020 89002 Endo W/Endo Ultrasound Exam Comp leted 06/14/2020 56819 Endoscopy,Upper GI W/Or W/O Brus h Completed Medical Devices Description No Information Available Encounters Description No Information Available Assessments Date Code Description Provider 06/16/2020 C15.9 Malignant neoplasm of esophagus, unspecified Lit Gerber, DO 06/16/2020 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 The procedure was explained to the patient, including the risks and benefits (risks including but not limited to bleeding and perforation) and she is agreeable. In the interest of being thorough, I will also send her for a gallbladder ultrasound as this has not been checked in over ten years. Further recommendations will be made after her procedure and ultrasound. Ana also knows to contact our office once she becomes relocated and we will be happy to forward all of her records. The patient is very agreeable with this plan. Functional Status Description No Information Available Mental Status Description No Information Available Referrals Refer to Reason for Referral Status Appt Date Emmy Flynn MD Scheduled [address] [place] [address] [phone]
--- OUTSIDE RECORDS SUMMARY | 2020-08-16 14:10 | CCD | Continuity of Care Document ---
Author Author Ana Gerber D.O. Organization Unknown Address [address], [address] [place] [address] Phone [phone] Care Team Providers Care De Icer Kit Assembler Name Role Phone Huong Gaffney MD AUTM [phone] MD Abel Sy AUTM [phone] Problems Active Problems Provider Date Knox's esophagus [...] 1 by mo uth every day Unknown [place] 3 1000mg Capsules 4 by mouth every [...] Available Procedures Date Code Description Status 06/16/2020 62194 Endoscopy,Upper GI W/Or W/O Brus h Completed Medical Devices Description No Information Available Encounters Description No Information Available Assessments Date Code Description Provider 06/16/2020 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
--- OUTSIDE RECORDS SUMMARY | 2020-08-16 14:10 | CCD | Continuity of Care Document ---
Author Author Ana Elaine [employer] Organization Unknown Address Unknown Phone Unavailable Care Team Providers Care Sound Controller Name Role Phone Huong Gaffney Unavailable Unavailable Unavailable [facility] Unavailable Unavailable Unavailable SamantaneymarFiorella thompson Unavailable Lion Davison Unavailable Problems Name Dates Details Encounter for surgi lawanda aftercare following surgery on the digestive system (Z48.815) 22-Jun-2020 Status: Active Medications Name Dates Details Torsemide 10 MG Huong Gaffney Active SITagliptin Phosphate 100 MG Huong Gaffney* Start : 26-Jun-2020 Active Rosuvastatin Calcium 40 MG Huong Gaffney* Start : 26-Jun-2020 Active Loperamide HCl 2 MG NEEDED for diarrhea Huong Gaffney* Start : 26-Jun-2020 Active Lisinopril 20 MG Huong Gaffney* Start : 26-Jun-2020 Active Jardiance 10 MG Huong Gaffney* Start : 26-Jun-2020 Active Ipratropium-Albuterol 0.5-2.5 (3) MG/3ML inhale every 6 hours NEEDED via nebulizer Huong Gaffney* Start : 26-Jun-2020 Active Aspirin EC 81 MG Huong Gaffney* Start : 26-Jun-2020 Active Albuterol Sulfate HFA 108 (90 Base) MCG/ACT 2 puffs every 4 hours NEEDED for wheezing Huong Gaffney* Start : 26-Jun-2020 Active Zofran ODT 4 MG NEEDED Huong Gaffney* Start : 26-Jun-2020 Active OxyCODONE HCl 5 MG/5ML NEEDED every 4 hoursMAX daily amount 45mg Huong Gaffney* Start : 26-Jun-2020 Active Lactulose 10 GM/15ML STOP for diarrhea Huong Gaffney* Start : 26-Jun-2020 Active FLUoxetine HCl 20 MG/5ML Huong Gaffney* Start : 26-Jun-2020 Active Famotidine 40 MG Huong Gaffney* Start : 26-Jun-2020 Active Allergies and Adverse Reactions Not Known Results Date Description Value Details No Known Results Plan of Care Name Dates Details Instructions Diet: Ins truction Type: Nutrition education Payers * Medicare - [facility]
--- OUTSIDE RECORDS SUMMARY | 2020-08-16 14:10 | CCD | Continuity of Care Document ---
Author Author Ana Elaine [employer] Organization Unknown Address Unknown Phone Unavailable Care Team Providers Care Slp Teacher Name Role Phone Huong Gaffney Unavailable Unavailable Unavailable [facility] Unavailable Unavailable Unavailable SamantaneymarFiorella thompson Unavailable Lion [...] : 26-Jun-2020 Active Allergies and Adverse Reactions Name Dates Details No Known Drug Allergies (Allergy) Onset : 26-Jun-2020 Status: Active Kiwi (Allergy) Onset: 26-Jun-2020 St atus: Active Results Date Description Value Details No Known Results Plan of Care Name Dates Details Instructions Diet:Liquid, soft Ins truction Type: Nutrition education Payers * Medicare - [facility]
--- OUTSIDE RECORDS SUMMARY | 2020-08-16 14:10 | CCD ---
Author Author [facility] Organization [facility] Address Unknown Phone Unavailable Care Team Providers Care Office Service Coordinator Name Role Phone Huong Gaffney Unavailable PROBLEMS Type Condition ICD9-CM Code [id number] Code Onset Dates Condition S tatus SNOMED Code Notes Problem Diabetes mellitus E11.9 Active 13339813 Problem Headache R51 Active 29153322 Problem Need for prophylactic vaccin ation with Streptococcus pneumoniae (Pneumococcus) and Influenza vaccines Z23 Active 960746800 Problem Breast screening Z12.39 Active 098768480 Problem Essential hypertension I10 Active 22263460 Problem LEENA (obstructive sleep apnea) G47.33 Active 78 453683 Problem Chronic GERD K21.9 Active 696639174 Problem Type 2 diabetes mellitus wit h diabetic polyneuropathy, without long-term current use of insulin E11.42 Active 78592676 Problem Other and unspecified hyperlipidemia E78.5 Act paulette 69562731 Problem Asthma, mild persistent J45.30 Active 28761805 2 Problem BMI 40.0-44.9, adult Z68.41 Active 954018578 Problem Impingement syndrome, shoulder, left M75.42 Act paulette 443164213 Problem Seborrheic dermatitis L21.9 Active 47191037 Problem Hypercholesterolemia E78.0 Active 91072100 Problem Perianal itch L29.0 Active 82543927 Problem Encounter for general adult medical exam ination with abnormal findings Z00.01 Active 165154398 Problem Depression, unspecified depression type F32.9 Active 70374898 Problem Dysphagia, unspecified type R13.10 Active 4073 9000 Problem Dyslipidemia E78.5 Active 355827582 Problem Age-related cataract of both eyes, unspecified age-related cataract type H25.9 Active 56073429 Problem Need for prophylactic vaccination and inoculatio n against influenza Z23 Active 868972412 Problem Malignant neoplasm of esophagus, unspecified location C15.9 Active 196130737 Problem Depression F32.9 Active 41785171 Problem Esophageal reflux K21.9 Active 089005720 Problem Hypertensive heart disease without heart failure I 11.9 Active 88343252 Problem Diabetes mellitus without complication E11.9 A ctive 188092619 Problem Chronic obstructive pulmonary disease, unspecified COPD ty pe J44.9 Active 15728934 Problem Bilateral hearing loss, unspecified hearing loss type H91.93 Active 41170649 ALLERGIES Allergen (clinical drug ingredient) Drug/Non Drug Allergy do cumented on EMR Reaction Allergy Type Onset Date Status Kiwi Angioedema Non Drug Allergy Active ENCOUNTERS from 1945 to 2020-06-27 Encounter Location Date Provider Diagnosis [facility] [address] [place] [address] Jun Huong Gaffney IMMUNIZATIONS Vaccine Route Administration Date [...] capsules Orally Daily for 90 days Not-Taking Nebulizer - as directed Dx: J44.9 _ for 90 day(s) Oct, Active Aspirin 81 81 MG 1 tablet Orally Once a day for 30 day(s) Active Lancets Misc. 1 as directed accu check tristian, E11.42 SQ daily fo r 90 days Mar, Active Albuterol Sulfate (2.5 MG/3ML) 0.083% 3 ml as needed I nhalation every 8 hrs for 90 days Active Lisinopril 20 mg 1/2 tablet Orally Once a day Active Glucerna - as directed Orally Active Lactulose 10 GM/15ML 15 ml Orally Once a day for 30 day(s) Active Nebulizer/Tubing/Mouthpiece - as directed Dx: J44.9 _ for 90 day (s) Oct, Active Januvia 100 mg 1 tablet Orally Once a day for 90 days Active Oxycodone HCl 5 MG/5ML 5 ml as needed Orally every 6 hrs Active Rosuvastatin Calcium 40 MG 1 capsule Orally Once a day for 30 day(s) Active Ondansetron 4 MG 1 tablet on the tongue and a llow to dissolve Orally tid prn for 90 days Active Loperamide HCl 2 MG 1 capsule as needed Orally Four times a day Active Jardiance 10 MG 1 tablet Orally Once a day for 90 days Jan, Active Famotidine 40 MG/5ML as directed Orally Active Fluoxetine 20 MG/5ML as directed Orally Active FreeStyle Lite - as directed Active FreeStyle Lite Test - as directed In Vitro Daily for 90 days Active Flonase Allergy Relief 50 MCG/ACT 1 spray in each nostril Nasall y Once a day Active PROCEDURES No Information RESULTS No Results REASON FOR VISIT admission orders MEDICAL (GENERAL) HISTORY Type Description Date Medical [...] [facility] for 3 days for port/jtube p lactaye 2019 Goals Section No Information Health Concerns No Information MEDICAL EQUIPMENT No Information MENTAL STATUS No Information FUNCTIONAL STATUS No Information ASSESSMENTS No Information PLAN OF TREATMENT Next Appt Details Provider Name:Huong Gaffney, 2020-08 03:30:00 PM, [address] , [place], [address], Insurance Providers Payer Name Payer Address Payer Phone Insured Name Patient Relati onship to Insured Coverage Start Date Coverage End Date FOR LIFE [address] [facility] [phone] JALYN ALARCON MEDICARE Part A and B [address] [facility] [address] JALYN ALARCON 2011
--- OUTSIDE RECORDS SUMMARY | 2020-08-16 14:10 | CCD ---
Author Author [facility] Organization [facility] Address Unknown Phone Unavailable Care Team Providers Care Heavy Antiarmor Weapons Infantryman Name Role Phone Huong Gaffney Unavailable PROBLEMS Type Condition ICD9-CM Code [id number] Code Onset Dates Condition S tatus SNOMED Code Notes Problem Diabetes mellitus E11.9 Active 73217256 Problem Headache R51 Active 88625701 Problem Need for prophylactic vaccin ation with Streptococcus pneumoniae (Pneumococcus) and Influenza vaccines Z23 Active 550303613 Problem Breast screening Z12.39 Active 630454156 Problem Essential hypertension I10 Active 27040464 Problem LEENA (obstructive sleep apnea) G47.33 Active 78 446012 Problem Chronic GERD K21.9 Active 066571286 Problem Type 2 diabetes mellitus wit h diabetic polyneuropathy, without long-term current use of insulin E11.42 Active 12428140 Problem Other and unspecified hyperlipidemia E78.5 Act paulette 69468930 Problem Asthma, mild persistent J45.30 Active 19242877 2 Problem BMI 40.0-44.9, adult Z68.41 Active 962519168 Problem Impingement syndrome, shoulder, left M75.42 Act paulette 993948390 Problem Seborrheic dermatitis L21.9 Active 62485051 Problem Hypercholesterolemia E78.0 Active 09947083 Problem Perianal itch L29.0 Active 93739306 Problem Encounter for general adult medical exam ination with abnormal findings Z00.01 Active 713407954 Problem Depression, unspecified depression type F32.9 Active 75844612 Problem Dysphagia, unspecified type R13.10 Active 4073 9000 Problem Dyslipidemia E78.5 Active 612841408 Problem Age-related cataract of both eyes, unspecified age-related cataract type H25.9 Active 47339861 Problem Need for prophylactic vaccination and inoculatio n against influenza Z23 Active 565869497 Problem Malignant neoplasm of esophagus, unspecified location C15.9 Active 955834628 Problem Depression F32.9 Active 12900503 Problem Esophageal reflux K21.9 Active 235802490 Problem Hypertensive heart disease without heart failure I 11.9 Active 46025709 Problem Diabetes mellitus without complication E11.9 A ctive 326363594 Problem Chronic obstructive pulmonary disease, unspecified COPD ty pe J44.9 Active 45045565 Problem Bilateral hearing loss, unspecified hearing loss type H91.93 Active 11050868 ALLERGIES Allergen (clinical drug ingredient) Drug/Non Drug Allergy do cumented on EMR Reaction Allergy Type Onset Date Status Kiwi Angioedema Non Drug Allergy Active ENCOUNTERS from 1945 to 2020-07-21 Encounter Location Date Provider Diagnosis [facility] [address] [place] [address] Jul Huong Gaffney IMMUNIZATIONS Vaccine Route Administration Date [...] Information RESULTS No Results REASON FOR VISIT refill MEDICAL (GENERAL) HISTORY Type Description Date Medical [...] for 3 days for port/jtube p lacement 2020 Goals Section No Information Health Concerns No Information MEDICAL EQUIPMENT No Information MENTAL STATUS No Information FUNCTIONAL STATUS No Information ASSESSMENTS No Information PLAN OF TREATMENT Medication Medication Name Sig Start Date Stop Date Lactulose 10 GM/15ML 15 ml Orally Once a day for 90 day(s) Next Appt Details Provider Name:Huong Gaffney, 2020-08 03:30:00 PM, [address] , [place], [address], Insurance Providers Payer Name Payer Address Payer Phone Insured Name Patient Relati onship to Insured Coverage Start Date Coverage End Date MEDICARE Part A and B [address] [facility] [address] [phone] JALYN ALARCON 2011 FOR LIFE [address] [facility] [address] JALYN ALARCON
--- OUTSIDE RECORDS SUMMARY | 2020-08-16 14:10 | CCD ---
Author Author [facility] Organization [facility] Address Unknown Phone Unavailable Care Team Providers Care Computer Animator Name Role Phone Huong Gaffney Unavailable PROBLEMS Type Condition ICD9-CM Code YQY96-CC Code Onset Dates Condition S tatus SNOMED Code Notes Problem Diabetes mellitus E11.9 Active 55493134 Problem Headache R51 Active 32595134 Problem Need for prophylactic vaccin ation with Streptococcus pneumoniae (Pneumococcus) and Influenza vaccines Z23 Active 309276642 Problem Breast screening Z12.39 Active 546235915 Problem Essential hypertension I10 Active 57659148 Problem LEENA (obstructive sleep apnea) G47.33 Active 78 090078 Problem Chronic GERD K21.9 Active 117762868 Problem Type 2 diabetes mellitus wit h diabetic polyneuropathy, without long-term current use of insulin E11.42 Active 10331726 Problem Other and unspecified hyperlipidemia E78.5 Act paulette 54797610 Problem Asthma, mild persistent J45.30 Active 21166082 2 Problem BMI 40.0-44.9, adult Z68.41 Active 202220193 Problem Impingement syndrome, shoulder, left M75.42 Act paulette 613693255 Problem Seborrheic dermatitis L21.9 Active 64199922 Problem Hypercholesterolemia E78.0 Active 82542837 Problem Perianal itch L29.0 Active 53338808 Problem Encounter for general adult medical exam ination with abnormal findings Z00.01 Active 481724511 Problem Depression, unspecified depression type F32.9 Active 70610079 Problem Dysphagia, unspecified type R13.10 Active 4073 9000 Problem Dyslipidemia E78.5 Active 060772096 Problem Age-related cataract of both eyes, unspecified age-related cataract type H25.9 Active 55179713 Problem Need for prophylactic vaccination and inoculatio n against influenza Z23 Active 961578517 Problem Malignant neoplasm of esophagus, unspecified location C15.9 Active 972898321 Problem Depression F32.9 Active 88290746 Problem Esophageal reflux K21.9 Active 584318478 Problem Hypertensive heart disease without heart failure I 11.9 Active 73568957 Problem Diabetes mellitus without complication E11.9 A ctive 214146700 Problem Chronic obstructive pulmonary disease, unspecified COPD ty pe J44.9 Active 73059385 Problem Bilateral hearing loss, unspecified hearing loss type H91.93 Active 08142958 ALLERGIES Allergen (clinical drug ingredient) Drug/Non Drug Allergy do cumented on EMR Reaction Allergy Type Onset Date Status Kiwi Angioedema Non Drug Allergy Active ENCOUNTERS from 1945 to 2020-06-09 Encounter Location Date Provider Diagnosis [facility] [address] [place] [address] May Huong Schoeneman Non-intractable vomiting with nausea, un specified vomiting type R11.2 ; Malignant neoplasm of esophagus, unspecified location C15.9 ; Diabetes mellitus without complication E11.9 ; Hypertensive heart disease without heart failure I11.9 and Asthma, mild persistent J45.30 IMMUNIZATIONS Vaccine Route Administration Date Status Influenza [...] REASON FOR REFERRAL No Information VITAL SIGNS Weight 226 lbs May, Height 5'1" in May, BMI 42.70 kg/m2 May, Heart Rate 73 /min May, Respiratory Rate 18 /min May, Temperature 98.2 degrees Fahrenheit May, Oximetry 97%RA May, Blood pressure systolic 120 mm Hg May, Blood pressure diastolic 58 manual mm Hg May, MEDICATIONS Medication SIG (Take, Route, Frequency, Duration) Start Date En d Date Status Metformin HCl 500 MG 1 tablet with a meal Orally bid Active GlipiZIDE XL 10 MG 1 tablet with food Orally bid for 90 days Active Aspirin 81 81 MG 1 tablet Orally Once a day for 30 day(s) Active Januvia 100 mg 1 tablet Orally Once a day for 90 days Active ProAir HFA 108 (90 Base) MCG/ACT 2 puffs as needed Inh alation every 4 hrs as needed for 90 days Active Nebulizer/Tubing/Mouthpiece - as directed Dx: J44.9 _ for 90 day(s) Oct, Active Omeprazole 20 mg 2 capsule Orally bid for 90 days Active FreeStyle Lite - as directed Active Ondansetron 4 MG 1 tablet on the tongue and a llow to dissolve Orally tid prn for 90 days Active Lisinopril 20 mg 1/2 tablet Orally Once a day Active PROzac 10 MG 1 capsule Orally Once a day for 90 days Active Lancets Misc. 1 as directed accu check tristian, E11.42 SQ daily for 90 days Mar, Active Nebulizer - as directed Dx: J44.9 _ for 90 day(s) Oct, Active FreeStyle Lite Test - as directed In Vitro Daily for 90 days Active Jardiance 10 MG 1 tablet Orally Once a day for 90 days Jan, Not-Taking Lovaza 1 GM 2 capsules Orally Daily for 90 days Not-Taking Albuterol Sulfate (2.5 MG/3ML) 0.083% 3 ml as needed I nhalation every 8 hrs for 90 days Active Rosuvastatin Calcium 40 MG 1 capsule Orally Once a day for 30 day(s ) Active Torsemide 10 MG 1 tablet Orally Once a day for 30 day(s) Active PROCEDURES No Information RESULTS No Results REASON FOR VISIT [facility] MEDICAL (GENERAL) HISTORY Type Description Date Medical [...] 2013 Hospitalization History infection following a hysterectomy Goals Section No Information Health Concerns No Information MEDICAL EQUIPMENT No Information MENTAL STATUS No Information FUNCTIONAL STATUS No Information ASSESSMENTS Encounter Date Diagnosis Notes May, Hypertensive heart disease without heart failure (ICD-10 - I11.9) May, Diabetes mellitus without complication ( ICD-10 - E11.9) May, Asthma, mild persistent (ICD-10 - J45.30 ) May, Non-intractable vomiting wit h nausea, unspecified vomiting type (ICD-10 - R11.2) May, Malignant neoplasm of esopha eliana, unspecified location (ICD-10 - C15.9) PLAN OF TREATMENT Medication Medication Name Sig Start Date Stop Date Ondansetron 4 MG 1 tablet on the tongue and a llow to dissolve Orally tid prn for 90 days Albuterol Sulfate (2.5 MG/3ML) 0.083% 3 ml as needed I nhalation every 8 hrs for 90 days Treatment Notes Assessment Notes Clinical Notes Non-intractable vomiting with nausea, unspecified vomiting t ype Likely from cancer. Refill of ondansetron sent Malignant neoplasm of esophagus, unspecified location Further care as per oncology Diabetes mellitus without complication F or blood sugars >120: Take all medication. For blood sugars 100-120: Hold glipizide. For blood sugars <100: Hold all medication. Patient was counseled that she should be checking her blood sugar if she develops dizziness, lightheadedness. Call our office if she has any concerns Hypertensive heart disease without heart failure Patient will continue with lisinopril one half tablet, hold for blood pressure <130/85. Call our office for any concerns. Asthma, mild persistent Refill sent Next Appt Details 4 Weeks: follow up blood pressure, blood sugar Reason: Provider Name:Huong Gaffney 2020-06 01:15:00 PM, [address] [place], [address], Insurance Providers Payer Name Payer Address Payer Phone Insured Name Patient Relati onship to Insured Coverage Start Date Coverage End Date MEDICARE Part A and B [address] [facility] [phone] JALYN ALARCON 2011 FOR LIFE [address] [facility] [phone] JALYN ALARCON self
--- OUTSIDE RECORDS SUMMARY | 2020-08-16 14:10 | CCD | Continuity of Care Document ---
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) 22-Jun-2020 Status: Active Personal history of nicotine dependence (Z87.891) 22-Jun-2020 Status: Active half-way (current) use of opiate analgesic (Z79.891) 22-Jun-2020 Status: Active termite exterminator helper (current) use of aspirin (Z79.82) 22-Jun-2020 Status: Active History of falling (Z91.81) 22-Jun-2020 Status: Active Encounter for atten tion to other artificial openings of digestive tract (Z43.4) 22-Jun-2020 Status: Active Anxiety disorder, u nspecified (F41.9) 22-Jun-2020 Status: Active Sleep apnea, unspec ified (G47.30) 22-Jun-2020 Status: Active Essential (primary) hypertension (I10) 22-Jun-2020 Status: Active Gastro-esophageal r eflux disease without esophagitis (K21.9) 22-Jun-2020 Status: Active Dysphagia, unspecif ied (R13.10) 22-Jun-2020 Status: Active Type 2 diabetes bettina litus without complications (E11.9) 22-Jun-2020 Status: Active Unspecified severe protein-calorie malnutrition (E43) 22-Jun-2020 Status: Active Chronic obstructive pulmonary disease with (acute) exacerbation (J44.1) 25-Jun-2020 Status: Active Medications Name Dates Details Torsemide 10 MG Schoeneman, Huong Active SITagliptin Phosphate 100 MG Schoeneman, [place]* Start : 26-Jun-2020 Active Rosuvastatin Calcium 40 MG Schoeneman, [place]* Start : 26-Jun-2020 Active Loperamide HCl 2 MG NEEDED for diarrhea Huong Gaffney* Start : 26-Jun-2020 Active Lisinopril 20 MG Huong Gaffney* Start : 26-Jun-2020 Active Jardiance 10 MG Huong Gaffney* Start : 26-Jun-2020 Active Ipratropium-Albuterol 0.5-2.5 (3) MG/3ML inhale every 6 hours NEEDED for wheezing/SOB via nebulizer Huong Gaffney* Start : 26-Jun-2020 Active Aspirin EC 81 MG Huong Gaffney* Start : 26-Jun-2020 Active Albuterol Sulfate HFA 108 (90 Base) MCG/ACT 2 puffs every 4 hours NEEDED for wheezing Huong Gaffney* Start : 26-Jun-2020 Active Zofran ODT 4 MG NEEDED for nausea/vomiting Huong Gaffney* Start : 26-Jun-2020 Active OxyCODONE HCl 5 MG/5ML NEEDED for pain every 4 hoursMAX daily amount 45mg Huong [...] of Care Name Dates Details Instructions Diet:Liquid, soft; with pump f eeding supplemental Ins truction Type: Nutrition education Payers * Medicare - [facility]
--- OUTSIDE RECORDS SUMMARY | 2020-08-16 14:10 | CCD | Continuity of Care Document ---
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) 22-Jun-2020 Status: Active Personal history of nicotine dependence (Z87.891) 22-Jun-2020 Status: Active skilled nursing (current) use of opiate analgesic (Z79.891) 22-Jun-2020 Status: Active intermodal dispatcher (current) use of aspirin (Z79.82) 22-Jun-2020 Status: [...] Dysphagia, unspecif ied (R13.10) 22-Jun-2020 Status: Active Chronic obstructive pulmonary disease, unspecified (J44.9) 22-Jun-2020 Status: Active Type 2 diabetes bettina litus without complications (E11.9) 22-Jun-2020 Status: Active Unspecified severe protein-calorie malnutrition (E43) 22-Jun-2020 Status: Active Medications Name Dates Details Torsemide 10 MG Schoeneman, Huong Active SITagliptin Phosphate 100 MG Schoeneman, Huong* Start : 26-Jun-2020 Active Rosuvastatin Calcium 40 MG Schoeneman, [place]* Start : 26-Jun-2020 Active Loperamide HCl 2 [...] Type: Nutrition education Payers * Medicare - [facility]
--- OUTSIDE RECORDS SUMMARY | 2020-08-16 14:10 | CCD | Continuity of Care Document ---
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
--- OUTSIDE RECORDS SUMMARY | 2020-08-16 14:10 | CCD | Continuity of Care Document ---
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) 22-Jun-2020 Status: Active Personal history of nicotine dependence (Z87.891) 22-Jun-2020 Status: Active senior living (current) use of opiate analgesic (Z79.891) 22-Jun-2020 Status: Active emt intermediate (current) use of aspirin (Z79.82) 22-Jun-2020 [...] Huong Active SITagliptin Phosphate 100 MG Schoeneman, [place]* Start : 26-Jun-2020 Active Rosuvastatin Calcium 40 MG Schoeneman, [place]* Start : 26-Jun-2020 Active Loperamide HCl 2 MG NEEDED for diarrhea Huong Gaffney* Start : 26-Jun-2020 Active Lisinopril 20 MG Huong Gaffeny* Start : 26-Jun-2020 Active Jardiance 10 MG [...] Type: Nutrition education Payers * Medicare - [facility]
--- OUTSIDE RECORDS SUMMARY | 2020-08-16 14:10 | CCD | Continuity of Care Document ---
Author Author Ana BERNARD MD Organization Unknown Address [address] [place] [address] Phone [phone] Care Team Providers Care Logistics And Planning Manager Name Role Phone Linda Underwood M.D. AUTM AUTM Unavailable Linda Bernard MD AUTM [phone] [facility] Hematology/Oncology - Hematology & Oncology AUTM [phone] Problems Description No Information Available Social History Type Date Description Comments Sex Unknown Cigarette Use Pack Years - 36 ETOH Use Denies alcohol use Tobacco Use Start: 08/05/62 End: 08/05/95 Patient is a forme r smoker hx of 1 ppd Smoking Status Reviewed: 02/01/20 Patient is a former smoker hx of 1 ppd Allergies, Adverse Reactions, Alerts Description No Known Drug Allergies Medications Active Medications SIG Qnty Indications Ordering Provide r Date Omeprazole 40mg Capsules DR 1 by mouth twice a day (Difficult swallowing, Reflux) 60caps iLnda Bernard MD 04/06/2020 Sucralfate 1GM/10ML Suspension 10 milliliters by mouth after the meals upto 4 times daily 400ml R13. 10 Linda Bernard MD 04/06/2020 Nystatin 783814Xdbc/ML Suspension take 4 milliliters by mouth/swallow 4 times per day x 10 days 200ml Linda Bernard MD 04/06/2020 CPAP Device 7cm oscarw Vandana Johnson, N.P. 11/19/2019 Pat Aspirin Ec Low Dose 81mg Tab lets DR daily Unknown Rosuvastatin Calcium 40mg Tablets Unknown Flax Seed Oil 1300mg Capsules Unknown Torsemide 5mg Tablets one tabe twice a day prior to lasix Unknown Metformin HCL 500mg Tablets b id Unknown Calcium Carbonate 600mg Tablets 1 tab by mouth every day Unknown Fluticasone Propionate 50mcg/Act Suspension 2 sprays to each nostril daily Unknown Glipizide XL 10mg Tablets ER 24HR 1 tab by mouth every day Unknown Lisinopril 20mg Tablets 1 tab by mouth every day Unknown Diphenhydramine HCL 12.5mg/5ML Liq uid 5 ml by mouth Unknown Ipratropium [place]/Albuterol Sulfate 0.5-2.5(3)mg/3ML Solution 1 vial three times a day as needed Unknown Albuterol Sulfate HFA 108(90Base) mcg/Act Aerosol inhale two puffs by mouth four times a day as needed Unknown Dextromethorphan-Guaifenesin 20-400mg Tablets 1 tab by mouth every day Unknown Januvia 100mg Tablets 1 tab by mouth every day Unknown Fluoxetine HCL (PMDD) 10mg Tablets 1 tab by mouth every day Unknown Immunizations CPT Code Status Date Vaccine Lot # [id number] Given 06/03/2019 Afluria, Quadrivalent, 0.5ml , [facility]# [id number] Vital Signs Date Vital Result Comment 04/26/2020 10:03am Height 62 inches 5'2" Weight 239.00 lb BMI (Body Mass Index) 43.7 kg/m2 [place] Body Weight 110 lb Weight 108.410 kg BSA (Body Surface Area) 2.06 m2 04/06/2020 2:29pm BP Systolic 139 mmHg Lt arm BP Diastolic 69 mmHg Lt arm Height 62 inches 5'2" Weight 239.00 lb BMI (Body Mass Index) 43.7 kg/m2 [place] Body Weight 110 lb Weight 108.410 kg BSA (Body Surface Area) 2.06 m2 Results Test Acquired Date Facility Test Result H/L Range Note Laboratory test finding 05/09/2020 [facility] [address] [place] [address] [phone] Non Pressed Or Blown Glass Worker/Cytology Req For Servi (SEE NOTE) 1 Surgical Pathology Consult 05/09/2020 [facility] Surgical Pathology Consult Surgical Patholo <SEE NOTE> 2 Laboratory test finding 04/29/2020 [facility] [address] [place] [address] [phone] Pathology Request For Service (SEE NOTE) 3 1 SPECIMEN: FNA Rig ht thyroid Specimen received in Cytolyt SPECIMEN ADEQUACY: Satisfactory for evaluation CATEGORIZATION: Benign DESCRIPTIONS: 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 The background consists predominately of blood elements. COMMENTS: 05/10/2020846 Signed RUBENS GRAY(ASCP) 05/10/2020 0847 (Prelim) Signed STERLING BROWN MD 05/10/2020 7549 2 Surgical Pathology Report Name: ANA ALARCON Collection Date: 05/09/2020 00:00 Received Date: 05/09/2020 07:48 Physician(s): LINDA NGUYỄN MD VYAS, SHIKHAR G, MD Specimen(s) Received A: Material received for consultation Clinical History Dysphagia. Endoscopy with stricture. Adenocarcinoma of esophagus. Please test for HER2 IHC with reflex to FISH. Diagnosis IMMUNOHISTOCHEMISTRY, ESOPHAGUS STRICTURE, BIOPSY ([id number]; 04/29/20): HER2: Negative (1+). Electronically Signed By Duarte Morejon MD;, Attending Pathologist 05/10/2020 16:16:04 Unless 'gross-only' is specified, the final diagnosis is based on a microscopic examination of phone representative sections of tissue. Gross Description Received from [facility] in [place], [place] is one paraffin block labeled [id number] with the corresponding pathology report. /jrs This report may include one or more immunohistochemical stain results that use analyte specific reagents. All positive and negative controls have been reviewed by the attending pathologist and are satisfactory. The tests were developed and their performance characteristics determined by [facility] Pathology department. They have not been cleared or approved by the [place] Food and Drug Administration. The FDA has determined that such clearance or approval is not necessary. 3 Addendum 1 Entered: [phone] This addendum is being issued to report additional results of HER-2 testing. Esophagus, stricture, biopsy: Adenocarcinoma - 4/TR HER-2 IHC: Negative (1+) Please see the scanned documentation for the full consultation report ([id number]). 05/12/2020845 Addendum Signed____ STERLING BROWN MD 05/12/2020845 FINAL DIAGNOSIS Esophagus, stricture, biopsy: Adenocarcinoma, see comment. Comment: The morphology of the tumor is of moderately differentiated adenocarcinoma with infiltrating single cells within the lamina propria. There is a separate ulcerated fragment. Ancillary testing shows that the tumor cells are highlighted by Ceron-cytokeratin immunohistochemical stain, supporting the above diagnosis. H. pylori stain was performed and is negative. The case will be sent out for HER-2 testing, and an addendum will follow with results. 05/04/2020817 CLINICAL DIAGNOSIS Difficulty swallowing 05/02/20201299 GROSS DIAGNOSIS Received in formalin labeled "esophageal stricture" consists of four fragments of poole-brown tissue measuring 0.7 x 0.5 x 0.3 cm in aggregate. All in one. SV 05/02/20201299 Signed STERLING BROWN MD 05/04/2020817 Procedures Date Code Description Status 04/29/2020 82844 Endoscopy Upper GI Balloon Dilat ion Of Esophagus Completed Medical Devices Description No Information Available Encounters Type Date Location Provider Dx Diagnosis Office Visit 04/26/2020 10:00a [facility] E[facility]GI [facility] Nic nunez MD E04.1 Nontoxic single thyroid nodule R13.10 Dysphagia, unspecified Office Visit 04/06/2020 1:15p [facility] ENT[facility]GI Practice Linda plasencia MD R13.10 Dysphagia, unspecified R11.10 Vomiting, unspecified R63.4 Abnormal weight loss Office Visit 02/01/2020 2:15p [facility] Pulmonary/Thoracic Wen Johnson, N.P. G47.33 Obstructive sleep apnea (adult) (pediatr ic) Assessments Date Code Description Provider 04/29/2020 C15.9 Malignant neoplasm of esophagus, unspecified Linda Bernard MD 04/26/2020 E04.1 Nontoxic single thyroid nodule R alberto Salcido MD 04/26/2020 R13.10 Dysphagia, unspecified Nic russell MD 04/06/2020 R13.10 Dysphagia, unspecified Linda whittaker MD 04/06/2020 R11.10 Vomiting, unspecified Linda plasencia MD 04/06/2020 R63.4 Abnormal weight loss Linda miguel MD 02/01/2020 G47.33 Obstructive sleep apnea (adult) (pediatric) Vandana Johnson, N.P. Plan of Treatment Future Appointment(s):* 07/06/2020 1:00 pm - Linda Bernard MD at [facility] ENT/GI Practice 04/26/2020 - Nic Salcido MD* E04.1 Nontoxic single thyroid nodule* Recommendations:* US with FNA * R13.10 Dysphagia, unspecified Functional Status Functional Condition Comment Date Status Independent with all ADL's Activ e Mental Status Mental Condition Comment Date Status Cognitive ability not impaired A ctive Referrals Refer to Reason for Referral Status Appt Date P Hematology/Oncology Closed [phone] Nic Salcido M.D. Scheduled 04/26/2020 [facility] [address] [address] [phone]
--- OUTSIDE RECORDS SUMMARY | 2020-08-16 14:10 | CCD | Continuity of Care Document ---
Author Author Ana Elaine Automated Organization Unknown Address Unknown Phone Unavailable Care Team Providers Care Transaction Advisory Services Manager Name Role Phone Huong Gaffney Unavailable Unavailable Unavailable [facility] Unavailable Unavailable Unavailable SamantaneymarFiorella thompson Unavailable [...] Nutrition education Payers * Medicare - [facility]
--- OUTSIDE RECORDS SUMMARY | 2020-08-16 14:10 | CCD | Continuity of Care Document ---
Author Author Ana Elaine Automated Organization Unknown Address Unknown Phone Unavailable Care Team Providers Care Retail Seasonal Specialist Name Role Phone Huong Gaffney Unavailable Unavailable Unavailable [facility] Unavailable Unavailable Unavailable SamantaneymarFiorella thompson Unavailable [...] Type: Nutrition education Payers * Medicare - [facility]
--- OUTSIDE RECORDS SUMMARY | 2020-08-16 14:13 | CCD ---
Author Author [facility] Organization [facility] Address Unknown Phone Unavailable Care Team Providers Care [facility] Specialist Name Role Phone Echo CARTER PA Unavailable Unavailable EMMAEcho PA Unavailable Unavailable EMMAEcho PA Unavailable Unavailable EMMAEcho PA Unavailable Unavailable EMMAEcho PA Unavailable Unavailable EMMAEcho PA Unavailable Unavailable EMMAEcho PA Unavailable Unavailable EMMA, L TIFF PA Unavailable Unavailable EMMAEcho PA Unavailable Unavailable EMMAEcho PA Unavailable Unavailable EMMA, Echo MATTHEW PA Unavailable Unavailable EMMA, Echo MATTHEW PA Unavailable Unavailable EMMAEcho PA Unavailable Unavailable EMMA, L TIFF PA Unavailable Unavailable EMMA, L TIFF PA Unavailable Unavailable EMMA L TIFF PA Unavailable Unavailable EMMA, L TIFF PA Unavailable Unavailable EMMA L TIFF PA Unavailable Unavailable EMMAEcho PA Unavailable Unavailable BARON, SUSANA EVELINE DENSITY CONTROL PUNCHER-C, MSN Unavailable Unavailab le BARON, SUSANA EVELINE DENSITY CONTROL PUNCHER-C, MSN Unavailable Unavailab le BARON, SUSANA EVELINE DENSITY CONTROL PUNCHER-C, MSN Unavailable Unavailab le BARON, SUSANA EVELINE DENSITY CONTROL PUNCHER-C, MSN Unavailable Unavailab le BARON, SUSANA EVELINE DENSITY CONTROL PUNCHER-C, MSN Unavailable Unavailab le BARON, SUSANA EVELINE DENSITY CONTROL PUNCHER-C, MSN Unavailable Unavailab le BARON, SUSANA EVELINE DENSITY CONTROL PUNCHER-C, MSN Unavailable Unavailab le BARON, SUSANA EVELINE DENSITY CONTROL PUNCHER-C, MSN Unavailable Unavailab le BARON, SUSANA EVELINE DENSITY CONTROL PUNCHER-C, MSN Unavailable Unavailab le BARON, SUSANA EVELINE DENSITY CONTROL PUNCHER-C, MSN Unavailable Unavailab le BARON, SUSANA EVELINE DENSITY CONTROL PUNCHER-C, MSN Unavailable Unavailab le BARON, SUSANA EVELINE DENSITY CONTROL PUNCHER-C, MSN Unavailable Unavailab le BARON, SUSANA EVELINE DENSITY CONTROL PUNCHER-C, MSN Unavailable Unavailab le BARON, SUSANA EVELINE DENSITY CONTROL PUNCHER-C, MSN Unavailable Unavailab le BARON, SUSANA EVELINE DENSITY CONTROL PUNCHER-C, MSN Unavailable Unavailab le BARON, SUSANA EVELINE DENSITY CONTROL PUNCHER-C, MSN Unavailable Unavailab le BARON, SUSANA EVELINE DENSITY CONTROL PUNCHER-C, MSN Unavailable Unavailab le BARON, SUSANA EVELINE DENSITY CONTROL PUNCHER-C, MSN Unavailable Unavailab le BARON, SUSANA EVELINE DENSITY CONTROL PUNCHER-C, MSN Unavailable Unavailab le BARON, SUSANA EVELINE DENSITY CONTROL PUNCHER-C, MSN Unavailable Unavailab le BARON, SUSANA EVELINE DENSITY CONTROL PUNCHER-C, MSN Unavailable Unavailab le BARON, SUSANA EVELINE DENSITY CONTROL PUNCHER-C, MSN Unavailable Unavailab le BARON, SUSANA EVELINE DENSITY CONTROL PUNCHER-C, MSN Unavailable Unavailab le BARON, SUSANA EVELINE DENSITY CONTROL PUNCHER-C, MSN Unavailable Unavailab le BARON, SUSANA EVELINE DENSITY CONTROL PUNCHER-C, MSN Unavailable Unavailab le BARON, SUSANA EVELINE DENSITY CONTROL PUNCHER-C, MSN Unavailable Unavailab le BARON, SUSANA EVELINE DENSITY CONTROL PUNCHER-C, MSN Unavailable Unavailab le BARON, SUSANA EVELINE DENSITY CONTROL PUNCHER-C, MSN Unavailable Unavailab le BARON, SUSANA EVELINE DENSITY CONTROL PUNCHER-C, MSN Unavailable Unavailab le BARON, SUSANA EVELINE DENSITY CONTROL PUNCHER-C, MSN Unavailable Unavailab le BARON, SUSANA EVELINE DENSITY CONTROL PUNCHER-C, MSN Unavailable Unavailab le BARON, SUSANA EVLEINE DENSITY CONTROL PUNCHER-C, MSN Unavailable Unavailab le BARON, SUSANA EVELINE DENSITY CONTROL PUNCHER-C, MSN Unavailable Unavailab le BARON, SUSANA EVELINE DENSITY CONTROL PUNCHER-C, MSN Unavailable Unavailab le BARON, SUSANA EVELINE DENSITY CONTROL PUNCHER-C, MSN Unavailable Unavailab le BARON, SUSANA EVELINE DENSITY CONTROL PUNCHER-C, MSN Unavailable Unavailab le BARON, SUSANA EVELINE DENSITY CONTROL PUNCHER-C, MSN Unavailable Unavailab le BARON, SUSANA VEELINE DENSITY CONTROL PUNCHER-C, MSN Unavailable Unavailab le BARON, SUSANA EVELINE DENSITY CONTROL PUNCHER-C, MSN Unavailable Unavailab le BARON, SUSANA EVELINE DENSITY CONTROL PUNCHER-C, MSN Unavailable Unavailab le BARON, SUSANA EVELINE DENSITY CONTROL PUNCHER-C, MSN Unavailable Unavailab le BARON, SUSANA EVELINE DENSITY CONTROL PUNCHER-C, MSN Unavailable Unavailab le CASAREZ JOHNSON Unavailable Unavailable POPILEVSKAYA, RONIT PA Unavailable Unavailable POPILEVSKAYA, RONIT PA Unavailable Unavailable POPILEVSKAYA, RONIT PA Unavailable Unavailable POPILEVSKAYA, RONIT PA Unavailable Unavailable POPILEVSKAYA, RONIT PA Unavailable Unavailable POPILEVSKAYA, RONIT PA Unavailable Unavailable POPILEVSKAYA, RONIT PA Unavailable Unavailable POPILEVSKAYA, RONIT PA Unavailable Unavailable POPILEVSKAYA, RONIT PA Unavailable Unavailable POPILEVSKAYA, RONIT PA Unavailable Unavailable POPILEVSKAYA, RONIT PA Unavailable Unavailable POPILEVSKAYA, RONIT PA Unavailable Unavailable POPILEVSKAYA, RONIT PA Unavailable Unavailable POPILEVSKAYA, RONIT PA Unavailable Unavailable POPILEVSKAYA, RONIT PA Unavailable Unavailable POPILEVSKAYA, RONIT PA Unavailable Unavailable POPILEVSKAYA, RONIT PA Unavailable Unavailable POPILEVSKAYA, RONIT PA Unavailable Unavailable POPILEVSKAYA, RONIT PA Unavailable Unavailable POPILEVSKAYA, RONIT PA Unavailable Unavailable POPILEVSKAYA, RONIT PA Unavailable Unavailable POPILEVSKAYA, RONIT PA Unavailable Unavailable POPILEVSKAYA, RONIT PA Unavailable Unavailable POPILEVSKAYA, RONIT PA Unavailable Unavailable POPILEVSKAYA, RONIT PA Unavailable Unavailable POPILEVSKAYA, RONIT PA Unavailable Unavailable POPILEVSKAYA, RONIT PA Unavailable Unavailable POPILEVSKAYA, RONIT PA Unavailable Unavailable POPILEVSKAYA, RONIT PA Unavailable Unavailable POPILEVSKAYA, RONIT PA Unavailable Unavailable POPILEVSKAYA, RONIT PA Unavailable Unavailable POPILEVSKAYA, RONIT PA Unavailable Unavailable POPILEVSKAYA, RONIT PA Unavailable Unavailable POPILEVSKAYA, RONIT PA Unavailable Unavailable POPILEVSKAYA, RONIT PA Unavailable Unavailable POPILEVSKAYA, RONIT PA Unavailable Unavailable POPILEVSKAYA, RONIT PA Unavailable Unavailable POPILEVSKAYA, RONIT PA Unavailable Unavailable POPILEVSKAYA, RONIT PA Unavailable Unavailable POPILEVSKAYA, RONIT PA Unavailable Unavailable POPILEVSKAYA, RONIT PA Unavailable Unavailable POPILEVSKAYA, RONIT PA Unavailable Unavailable POPILEVSKAYA, RONIT PA Unavailable Unavailable JOSH, SHERITA SARITA DENSITY CONTROL PUNCHER-C Unavailable Unavailable JOSH, SHERITA SARITA DENSITY CONTROL PUNCHER-C Unavailable Unavailable JOSH, SHERITA SARITA DENSITY CONTROL PUNCHER-C Unavailable Unavailable JOSH, SHERITA SARITA DENSITY CONTROL PUNCHER-C Unavailable Unavailable JOSH, SHERITA SARITA DENSITY CONTROL PUNCHER-C Unavailable Unavailable JOSH, SHERITA SARITA DENSITY CONTROL PUNCHER-C Unavailable Unavailable JOSH, SHERITA SARITA DENSITY CONTROL PUNCHER-C Unavailable Unavailable JOSH, SHERITA SARITA DENSITY CONTROL PUNCHER-C Unavailable Unavailable JOSH, SHERITA SARITA DENSITY CONTROL PUNCHER-C Unavailable Unavailable JOSH, SHERITA SARITA DENSITY CONTROL PUNCHER-C Unavailable Unavailable JOSH, SHERITA SARITA DENSITY CONTROL PUNCHER-C Unavailable Unavailable JOSH, SHERITA SARITA DENSITY CONTROL PUNCHER-C Unavailable Unavailable JOSH, SHERITA SARITA DENSITY CONTROL PUNCHER-C Unavailable Unavailable JOSH, SHERITA SARITA DENSITY CONTROL PUNCHER-C Unavailable Unavailable JOSH, SHERITA SARITA DENSITY CONTROL PUNCHER-C Unavailable Unavailable Michelle Salcido MD Unavailable Unavailable Abriss, Michelle Delgado MD Unavailable Unavailable Abriss, Michelle Delgado MD Unavailable Unavailable Abriss, Michelle Delgado MD Unavailable Unavailable Abriss, Michelle Delgado MD Unavailable Unavailable Abriss, Michelle Delgado MD Unavailable Unavailable Abriss, Michelle Delgado MD Unavailable Unavailable Abriss, Michelle Delgado MD Unavailable Unavailable Abriss, Michelle Delgado MD Unavailable Unavailable Abriss, Michelle Delgado MD Unavailable Unavailable Abriss, Michelle Delgado MD Unavailable Unavailable Abriss, Michelle Delgado MD Unavailable Unavailable Abriss, Michelle Delgado MD Unavailable Unavailable Abriss, Michelle Delgado MD Unavailable Unavailable Abriss, Michelle Delgado MD Unavailable Unavailable Abriss, Michelle Delgado MD Unavailable Unavailable Abriss, Michelle Delgado MD Unavailable Unavailable Abriss, Michelle Delgado MD Unavailable Unavailable RERE, N LALITA Unavailable Unavailable REINDL, LINDA WHITNEY Unavailable Unavailable REINDL, LINDA WHITNEY Unavailable Unavailable REINDL, LINDA WHITNEY Unavailable Unavailable REINDL, LINDA WHITNEY Unavailable Unavailable REINDL, LINDA WHITNEY Unavailable Unavailable REINDL, LINDA WHITNEY Unavailable Unavailable REINDL, LINDA WHITNEY Unavailable Unavailable REINDL, LINDA WHITNEY Unavailable Unavailable REINDL, LINDA WHITNEY Unavailable Unavailable REINDL, LINDA WHITNEY Unavailable Unavailable REINDL, LINDA WHITNEY Unavailable Unavailable REINDL, LINDA WHITNEY Unavailable Unavailable REINDL, LINDA WHITNEY Unavailable Unavailable REINDL, LINDA WHITNEY Unavailable Unavailable REINDL, LINDA WHITNEY Unavailable Unavailable REINDL, LINDA WHITNEY Unavailable Unavailable REINDL, LINDA WHITNEY Unavailable Unavailable REINDL, LINDA WHITNEY Unavailable Unavailable REINDL, LINDA WHITNEY Unavailable Unavailable REINDL, LINDA WHITNEY Unavailable Unavailable REINDL, LINDA WHITNEY Unavailable Unavailable REINDL, LINDA WHITNEY Unavailable Unavailable REINDL, LINDA WHITNEY Unavailable Unavailable REINDL, LINDA WHITNEY Unavailable Unavailable REINDL, LINDA WHITNEY Unavailable Unavailable REINDL, LINDA WHITNEY Unavailable Unavailable REINDL, LINDA WHITNEY Unavailable Unavailable REINDL, LINDA WHITNEY Unavailable Unavailable REINDL, LINDA WHITNEY Unavailable Unavailable REINDL, LINDA WHITNEY Unavailable Unavailable REINDL, LINDA WHITNEY Unavailable Unavailable REINDL, LINDA WHITNEY Unavailable Unavailable REINDL, LINDA WHITNEY Unavailable Unavailable REINDL, LINDA WHITNEY Unavailable Unavailable REINDL, LINDA WHITNEY Unavailable Unavailable REINDL, LINDA WHITNEY Unavailable Unavailable REINDL, LINDA WHITNEY Unavailable Unavailable REINDL, LINDA WHITNEY Unavailable Unavailable REINDL, LINDA WHITNEY Unavailable Unavailable REINDL, LINDA WHITNEY Unavailable Unavailable REINDL, LINDA WHITNEY Unavailable Unavailable REINDL, LINDA WHITNEY Unavailable Unavailable JANEL, CAREN ESTER PA Unavailable Unavailable JANEL, CAREN ESTER PA Unavailable Unavailable JANEL, CAREN ESTER PA Unavailable Unavailable JANEL, CAREN ESTER PA Unavailable Unavailable JANEL, CAREN ESTER PA Unavailable Unavailable JANEL, CAREN ESTER PA Unavailable Unavailable JANEL, CAREN ESTER PA Unavailable Unavailable JANEL, CAREN ESTER PA Unavailable Unavailable JANEL, CAREN ESTER PA Unavailable Unavailable JANEL, CAREN ESTER PA Unavailable Unavailable JANEL, CAREN ESTER PA Unavailable Unavailable JANEL, CAREN ESTER PA Unavailable Unavailable JANEL, CAREN ESTER PA Unavailable Unavailable JANEL, CAREN ESTER PA Unavailable Unavailable JANEL, CAREN ESTER PA Unavailable Unavailable JANEL, CAREN ESTER PA Unavailable Unavailable JANEL, CAREN ESTER PA Unavailable Unavailable JANEL, CAREN ESTER PA Unavailable Unavailable JANEL, CAREN ESTER PA Unavailable Unavailable JANEL, CAREN ESTER PA Unavailable Unavailable JANEL, CAREN ESTER PA Unavailable Unavailable ANTECOL, Roger MCKEON MD Unavailable Unavailable ANTECOL, Roger MCKEON MD Unavailable Unavailable ANTECOL, Roger MCKEON MD Unavailable Unavailable ANTECOL, Roger MCKEON MD Unavailable Unavailable ANTECOL, Roger MCKEON MD Unavailable Unavailable ANTECOL, Roger MCKEON MD Unavailable Unavailable ANTECOL, Roger MCKEON MD Unavailable Unavailable ANTECOL, Roger MCKEON MD Unavailable Unavailable ANTECOL, Roger MCKEON MD Unavailable Unavailable ANTECOL, Roger MCKEON MD Unavailable Unavailable ANTECOL, Roger MCKEON MD Unavailable Unavailable ANTECOL, Roger MCKEON MD Unavailable Unavailable ANTECOL, Roger MCKEON MD Unavailable Unavailable ANTECOL, Roger MCKEON MD Unavailable Unavailable ANTECOL, Roger MCKEON MD Unavailable Unavailable ANTECOL, Roger MCKEON MD Unavailable Unavailable ANTECOL, Roger MCKEON MD Unavailable Unavailable ANTECOL, Roger MCKEON MD Unavailable Unavailable ANTECOL, Roger MCKEON MD Unavailable Unavailable ANTECOL, Roger MCKEON MD Unavailable Unavailable ANTECOL, Roger MCKEON MD Unavailable Unavailable ANTECOL, Roger MCKEON MD Unavailable Unavailable ANTECOL, Roger MCKEON MD Unavailable Unavailable ANTECOL, Roger MCKEON MD Unavailable Unavailable ANTECOL, Roger MCKEON MD Unavailable Unavailable ANTECOL, Roger MCKEON MD Unavailable Unavailable ANTECOL, Roger MCKEON MD Unavailable Unavailable ANTECOL, Roger MCKEON MD Unavailable Unavailable ANTECOL, Roger MCKEON MD Unavailable Unavailable ANTECOL, Roger MCKEON MD Unavailable Unavailable ANTECOL, Roger MCKEON MD Unavailable Unavailable ANTECOL, Roger MCKEON MD Unavailable Unavailable ANTECOL, Roger MCKEON MD Unavailable Unavailable ANTECOL, Roger MCKEON MD Unavailable Unavailable ANTECOL, Roger MCKEON MD Unavailable Unavailable ANTECOL, Roger MCKEON MD Unavailable Unavailable ANTECOL, Roger MCKEON MD Unavailable Unavailable ANTECOL, Roger MCKEON MD Unavailable Unavailable ANTECOL, Roger MCKEON MD Unavailable Unavailable ANTECOL, Roger MCKEON MD Unavailable Unavailable ANTECOL, Roger MCKEON MD Unavailable Unavailable ANTECOL, Roger MCKEON MD Unavailable Unavailable ANTECOL, Roger MCKEON MD Unavailable Unavailable ANTECOL, Roger MCKEON MD Unavailable Unavailable ANTECOL, Roger MCKEON MD Unavailable Unavailable ANTECOL, Roger MCKEON MD Unavailable Unavailable ANTECOL, Roger MCKEON MD Unavailable Unavailable ANTECOL, Roger MCKEON MD Unavailable Unavailable ANTECOL, Roger MCKEON MD Unavailable Unavailable ANTECOL, Roger MCKEON MD Unavailable Unavailable ANTECOL, Roger MCKEON MD Unavailable Unavailable ANTECOL, Roger MCKEON MD Unavailable Unavailable ANTECOL, Roger MCKEON MD Unavailable Unavailable ANTECOL, Roger MCKEON MD Unavailable Unavailable ANTECOL, Roger MCKEON MD Unavailable Unavailable RAINEY SR, EUSEBIA MCKEON MD Unavailable Unavailable RAINEY SR, EUSEBIA MCKEON MD Unavailable Unavailable RAINEY SR, EUSEBIA MCKEON MD Unavailable Unavailable RAINEY SR, EUSEBIA MCKEON MD Unavailable Unavailable RAINEY SR, EUSEBIA MCKEON MD Unavailable Unavailable RAINEY SR, EUSEBIA MCKEON MD Unavailable Unavailable RAINEY SR, EUSEBIA MCKEON MD Unavailable Unavailable RAINEY SR, EUSEBIA MCKEON MD Unavailable Unavailable RAINEY SR, EUSEBIA MCKEON MD Unavailable Unavailable RAINEY SR, EUSEBIA MCKEON MD Unavailable Unavailable RAINEY SR, EUSEBIA MCKEON MD Unavailable Unavailable RAINEY SR, EUSEBIA MCKEON MD Unavailable Unavailable RAINEY SR, EUSEBIA MCKEON MD Unavailable Unavailable RAINEY SR, EUSEBIA MCKEON MD Unavailable Unavailable RAINEY SR, EUSEBIA MCKEON MD Unavailable Unavailable RAINEY SR, EUSEBIA MCKEON MD Unavailable Unavailable RAINEY SR, EUSEBIA MCKEON MD Unavailable Unavailable RAINEY SR, EUSEBIA MCKEON MD Unavailable Unavailable RAINEY SR, EUSEBIA MCKEON MD Unavailable Unavailable RAINEY SR, EUSEBIA MCKEON MD Unavailable Unavailable RAINEY SR, EUSEBIA MCKEON MD Unavailable Unavailable RAINEY SR, EUSEBIA MCKEON MD Unavailable Unavailable RAINEY SR, EUSEBIA MCKEON MD Unavailable Unavailable RAINEY SR, EUSEBIA MCKEON MD Unavailable Unavailable RAINEY SR, EUSEBIA MCKEON MD Unavailable Unavailable RAINEY SR, EUSEBIA MCKEON MD Unavailable Unavailable RAINEY SR, EUSEBIA MCKEON MD Unavailable Unavailable RAINYE SR, EUSEBIA MCKENO MD Unavailable Unavailable RAINEY SR, EUSEBIA MCKEON MD Unavailable Unavailable RAINEY SR, EUSEBIA MCKEON MD Unavailable Unavailable RAINEY SR, EUSEBIA MCKEON MD Unavailable Unavailable RAINEY SR, EUSEBIA MCKEON MD Unavailable Unavailable RAINEY SR, EUSEBIA MCKEON MD Unavailable Unavailable RAINEY SR, EUSEBIA MCKEON MD Unavailable Unavailable RAINEY SR, EUSEBIA MCKEON MD Unavailable Unavailable RAINEY SR, EUSEBIA MCKEON MD Unavailable Unavailable RAINEY SR, EUSEBIA MCKEON MD Unavailable Unavailable RAINEY SR, EUSEBIA MCKEON MD Unavailable Unavailable RAINEY SR, EUSEBIA MCKEON MD Unavailable Unavailable RAINEY SR, EUSEBIA MCKEON MD Unavailable Unavailable RAINEY SR, EUSEBIA MCKEON MD Unavailable Unavailable RAINEY SR, EUSEBIA MCKEON MD Unavailable Unavailable RAINEY SR, EUSEBIA MCKEON MD Unavailable Unavailable RAINEY SR, EUSEBIA MCKEON MD Unavailable Unavailable RAINEY SR, EUSEBIA MCKEON MD Unavailable Unavailable RAINEY SR, EUSEBIA MCKEON MD Unavailable Unavailable RAINEY SR, EUSEBIA MCKEON MD Unavailable Unavailable RAINEY SR, EUSEBIA MCKEON MD Unavailable Unavailable RAINEY SR, EUSEBIA MCKEON MD Unavailable Unavailable RAINEY SR, EUSEBIA MCKEON MD Unavailable Unavailable RAINEY SR, EUSEBIA MCKEON MD Unavailable Unavailable RAINEY SR, EUSEBIA MCKEON MD Unavailable Unavailable RAINEY SR, EUSEBIA MCKEON MD Unavailable Unavailable RAINEY SR, EUSEBIA MCKEON MD Unavailable Unavailable LIONEL, Roger DELGADO MD Unavailable Unavailable LIONEL, Roger DELGADO MD Unavailable Unavailable LIONEL, Roger DELGADO MD Unavailable Unavailable LIONEL, Roger DELGADO MD Unavailable Unavailable LIONEL, Roger DELGADO MD Unavailable Unavailable LIONEL, Roger DELGADO MD Unavailable Unavailable LIONEL, Roger DELGADO MD Unavailable Unavailable LIONEL, Roger DELGADO MD Unavailable Unavailable LIONEL, Roger DELGADO MD Unavailable Unavailable LIONEL, Roger DELGADO MD Unavailable Unavailable LIONEL, Roger DELGADO MD Unavailable Unavailable LIONEL, Roger DELGADO MD Unavailable Unavailable LIONEL, Roger DELGADO MD Unavailable Unavailable LIONEL, Roger DELGADO MD Unavailable Unavailable LIONEL, Roger DELGADO MD Unavailable Unavailable LIONEL, Roger DELGADO MD Unavailable Unavailable LIONEL, Roger DELGADO MD Unavailable Unavailable LIONEL, Roger DELGADO MD Unavailable Unavailable LIONEL, Roger DELGADO MD Unavailable Unavailable LIONEL, Roger DELGADO MD Unavailable Unavailable LIONEL, Roger DELGADO MD Unavailable Unavailable LIONEL, Roger DELGADO MD Unavailable Unavailable LIONEL, Roger DELGADO MD Unavailable Unavailable LIONEL, Roger DELGADO MD Unavailable Unavailable LIONEL, Roger DELGADO MD Unavailable Unavailable LIONEL, Roger DELGADO MD Unavailable Unavailable LIONEL, Roger DELGADO MD Unavailable Unavailable LIONEL, Roger DELGADO MD Unavailable Unavailable LIONEL, Roger DELGADO MD Unavailable Unavailable LIONEL, Roger DELGADO MD Unavailable Unavailable LIONEL, Roger DELGADO MD Unavailable Unavailable LIONEL, Roger DELGADO MD Unavailable Unavailable LIONEL, Roger DELGADO MD Unavailable Unavailable LIONEL, Roger DELGADO MD Unavailable Unavailable LIONEL, Roger DELGADO MD Unavailable Unavailable Francois Love MD Unavailable Unavailable Francois Love MD Unavailable Unavailable Francois Love MD Unavailable Unavailable Francois Love MD Unavailable Unavailable Francois Love MD Unavailable Unavailable Francois Love MD Unavailable Unavailable Francois Love MD Unavailable Unavailable Francois Love MD Unavailable Unavailable CASAREZ, JOHNSON Unavailable Unavailable VINNY FLYNN MD Unavailable Unavailab VINNY Marroquin MD Unavailable Unavailab VINNY Marroquin MD Unavailable Unavailab VINNY Marroquin MD Unavailable Unavailab VINNY Marroquin MD Unavailable Unavailab VINNY Marroquin MD Unavailable Unavailab VINNY Marroquin MD Unavailable Unavailab VINNY Marroquin MD Unavailable Unavailab VINNY Marroquin MD Unavailable Unavailab VINNY Marroquin MD Unavailable Unavailab VINNY Marroquin MD Unavailable Unavailab VINNY Marroquin MD Unavailable Unavailab VINNY Marroquin MD Unavailable Unavailab VINNY Marroquin MD Unavailable Unavailab VINNY Marroquin MD Unavailable Unavailab VINNY Marroquin MD Unavailable Unavailab PATRICIA MarroquinM Unavailable Unavailab VINNY Marroquin MD Unavailable Unavailab VINNY Marroquin MD Unavailable Unavailab VINNY Marroquin MD Unavailable Unavailab PATRICIA MarroquinM Unavailable Unavailab VINNY Marroquin MD Unavailable Unavailab VINNY Marroquin MD Unavailable Unavailab VINNY Marroquin MD Unavailable Unavailab TRACY MarroquinRAMNARGISM Unavailable Unavailab VINNY Marroquin MD Unavailable Unavailab VINNY Marroquin MD Unavailable Unavailab VINNY Mraroquin MD Unavailable Unavailab TOMAS MarroquinASUBRAMGLORIA WHITNEY Unavailable Unavailab VINNY Marroquin MD Unavailable Unavailab VINNY Marroquin MD Unavailable Unavailab VINNY Marroquin MD Unavailable Unavailab VINNY Marroquin MD Unavailable Unavailab VINNY Marroquin MD Unavailable Unavailab VINNY Marroquin MD Unavailable Unavailab VINNY Marroquin MD Unavailable Unavailab VINNY Marroquin MD Unavailable Unavailab VINNY Marroquin MD Unavailable Unavailab VINNY Marroquin MD Unavailable Unavailab VINNY Marroquin MD Unavailable Unavailab VINNY Marroquin MD Unavailable Unavailab VINNY Marroquin MD Unavailable Unavailab VINNY Marroquin MD Unavailable Unavailab VINNY Marroquin MD Unavailable Unavailab VINNY Marroquin MD Unavailable Unavailab TRACY MarroquinRAMGLORIA WHITNEY Unavailable Unavailab VINNY Marroquin MD Unavailable Unavailab VINNY Marroquin MD Unavailable Unavailab VINNY Marroquin MD Unavailable Unavailab VINNY Marroquin MD Unavailable Unavailab VINNY Marroquin MD Unavailable Unavailab VINNY Marroquin MD Unavailable Unavailab VINNY Marroquin MD Unavailable Unavailab VINNY Marroquin MD Unavailable Unavailab VINNY Marroquin MD Unavailable Unavailab VINNY Marroquin MD Unavailable Unavailab VINNY Marroquin MD Unavailable Unavailab VINNY Marroquin MD Unavailable Unavailab VINNY Marroquin MD Unavailable Unavailab VINNY Marroquin MD Unavailable Unavailab VINNY Marroquin MD Unavailable Unavailab VINNY Marroquin MD Unavailable Unavailab VINNY Marroquin MD Unavailable Unavailab VINNY Marroquin MD Unavailable Unavailab VINNY Marroquin MD Unavailable Unavailab VINNY Marroquin MD Unavailable Unavailab VINNY Marroquin MD Unavailable Unavailab VINNY Marroquin MD Unavailable Unavailab VINNY Marroquin MD Unavailable Unavailab VINNY Marroquin MD Unavailable Unavailab le Sun, Lit DO Unavailable Unavailable Sun, Lit DO Unavailable Unavailable Sun, Lit DO Unavailable Unavailable Sun, Lit DO Unavailable Unavailable Sun, Lit DO Unavailable Unavailable Sun, Lit DO Unavailable Unavailable Sun, Lit DO Unavailable Unavailable Sun, Lit DO Unavailable Unavailable Sun, Lit DO Unavailable Unavailable Sun, Lit DO Unavailable Unavailable Sun, Lit DO Unavailable Unavailable Sun, Lit DO Unavailable Unavailable Sun, Lit DO Unavailable Unavailable Sun, Lit DO Unavailable Unavailable Sun, Lit DO Unavailable Unavailable Sun, Lit DO Unavailable Unavailable Sun, Lit DO Unavailable Unavailable Sun, Lit DO Unavailable Unavailable Sun, Lit DO Unavailable Unavailable Sun, Lit DO Unavailable Unavailable Sun, Lit DO Unavailable Unavailable Sun, Lit DO Unavailable Unavailable Sun, Lit DO Unavailable Unavailable Sun, Lit DO Unavailable Unavailable Sun, Lit DO Unavailable Unavailable Sun, Lit DO Unavailable Unavailable Sun, Lit DO Unavailable Unavailable Sun, Lit DO Unavailable Unavailable Sun, Lit DO Unavailable Unavailable Sun, Lit DO Unavailable Unavailable Sun, Lit DO Unavailable Unavailable Sun, Lit DO Unavailable Unavailable Sun, Lit DO Unavailable Unavailable Sun, Lit DO Unavailable Unavailable Sun, Lit DO Unavailable Unavailable Sun, Lit DO Unavailable Unavailable Sun, Lit DO Unavailable Unavailable Sun, Lit DO Unavailable Unavailable Sun, Lit DO Unavailable Unavailable Sun, Lit DO Unavailable Unavailable Sun, Lit DO Unavailable Unavailable Sun, Lit DO Unavailable Unavailable Sun, Lit DO Unavailable Unavailable Sun, Lit DO Unavailable Unavailable Sun, Lit DO Unavailable Unavailable Sun, Lit DO Unavailable Unavailable Sun, Lit DO Unavailable Unavailable Sun, Lit DO Unavailable Unavailable Sun, Lit DO Unavailable Unavailable Sun, Lit DO Unavailable Unavailable Sun, Lit DO Unavailable Unavailable Sun, Lit DO Unavailable Unavailable Sun, Lit DO Unavailable Unavailable Sun, Lit DO Unavailable Unavailable Sun, Lit DO Unavailable Unavailable Sun, Lit DO Unavailable Unavailable Sun, Lit DO Unavailable Unavailable Sun, Lit DO Unavailable Unavailable Sun, Lit DO Unavailable Unavailable Sun, Lit DO Unavailable Unavailable Sun, Lit DO Unavailable Unavailable Sun, Lit DO Unavailable Unavailable Michelle VUONG MD Unavailable Unavailable Michelle VUONG MD Unavailable Unavailable Michelle VUONG MD Unavailable Unavailable Michelle VUONG MD Unavailable Unavailable Michelle VUONG MD Unavailable Unavailable Michelle VUONG MD Unavailable Unavailable Michelle VUONG MD Unavailable Unavailable Michelle VUONG MD Unavailable Unavailable Michelle VUONG MD Unavailable Unavailable Michelle VUONG MD Unavailable Unavailable Michelle VUONG MD Unavailable Unavailable Michelle VUONG MD Unavailable Unavailable CHRIS B WILMER WHITNEY Unavailable Unavailable CHRIS, B WILMER WHITNEY Unavailable Unavailable CHRIS, B WILMER WHITNEY Unavailable Unavailable CHRIS B WILMER WHITNEY Unavailable Unavailable CHRIS B WILMER WHITNEY Unavailable Unavailable CHRIS B WILMRE WHITNEY Unavailable Unavailable CHRIS, B WILMER WHITNEY Unavailable Unavailable CHRIS, B WILMER WHITNEY Unavailable Unavailable CHRIS, B WILMER WHITNEY Unavailable Unavailable CHRIS, B WILMER WHITNEY Unavailable Unavailable CHRIS B WILMER WHITNEY Unavailable Unavailable CHRIS B WILMER WHITNEY Unavailable Unavailable CHRIS, B WILMER WHITNEY Unavailable Unavailable CHRIS, B WILMER WHITNEY Unavailable Unavailable Rydberg, Jodie PA Unavailable Unavailable Rydberg, Jodie PA Unavailable Unavailable Rydberg, Jodie PA Unavailable Unavailable Rydberg, Jodie PA Unavailable Unavailable Rydberg, Jodie PA Unavailable Unavailable Rydberg, Jodie PA Unavailable Unavailable Rydberg, Jodie PA Unavailable Unavailable Rydberg, Jodie PA Unavailable Unavailable Rydberg, Jodie PA Unavailable Unavailable Rydberg, Jodie PA Unavailable Unavailable Rydberg, Jodie PA Unavailable Unavailable Rydberg, Jodie PA Unavailable Unavailable Rydberg, Jodie PA Unavailable Unavailable Rydberg, Jodie PA Unavailable Unavailable Rydberg, Jodie PA Unavailable Unavailable Rydberg, Jodie PA Unavailable Unavailable Rydberg, Jodie PA Unavailable Unavailable Rydberg, Jodie PA Unavailable Unavailable Rydberg, Jodie PA Unavailable Unavailable Rydberg, Jodie PA Unavailable Unavailable Rydberg, Jodie PA Unavailable Unavailable Rydberg, Jodie PA Unavailable Unavailable Re-disclosure Warning The records that you are about to access may contain information from federally-assisted alcohol or drug abuse programs. If such information is present, then the following federally mandated warning applies: This information has been disclosed to you from records protected by federal confidentiality rules (42 CFR part 2). The federal rules prohibit you from making any further disclosure of this information unless further disclosure is expressly permitted by the written consent of the person to whom it pertains or as otherwise permitted by 42 CFR part 2. A general authorization for the release of medical or other information is NOT sufficient for this purpose. The Federal rules restrict any use of the information to criminally investigate or prosecute any alcohol or drug abuse patient.The records that you are about to access may contain highly sensitive health information, the redisclosure of which is protected by Article 27-F of the [facility] Public Health law. If you continue you may have access to information: Regarding HIV / AIDS; Provided by facilities licensed or operated by the [facility] Office of Mental Health; or Provided by the [facility] Office for People With Developmental Disabilities. If such information is present, then the following [facility] mandated warning applies: This information has been disclosed to you from confidential records which are protected by state law. State law prohibits you from making any further disclosure of this information without the specific written consent of the person to whom it pertains, or as otherwise permitted by law. Any unauthorized further disclosure in violation of state law may result in a fine or assisted sentence or both. A general authorization for the release of medical or other information is NOT sufficient authorization for further disc losure. Allergies and Adverse Reactions Type Description Substance Reaction Status Data Source(s ) Kiwi Kiwi Kiwi active NETSMART ([facility]) No Known Drug Allergies No Known Drug Allergies No Known Drug Aller gies active NETSMART ([facility] ) Drug Class NO KNOWN ALLERGIES NO KNOWN ALLERGIES [facility] Kiwi Kiwi Kiwi Angioedema Active eCW1 ([facility]) Kiwi Kiwi Kiwi Angioedema Active eCW1 ([facility]) Family History Family Member Name Family Member Gender Family Member Status Date o f Status Description Data Source(s) Unknown Male Problem MEDENT ([facility]) Encounters Encounter Providers Location Date Indications Data Source(s ) Outpatient Attender: JOHNSON Nelson : JOHNSON Nelson: WILMER VUONG MDAttender: LALITA Huang: DANNY FLOWERS MDAdmitter: WILMER VUONG MDConsultant: VINNY FLYNN MD [id number] 08/13/2020 04:42:00 PM EST - 08/14/2020 12:13:00 PM EST [facility] Patient discharged. [place] [address] [facility] [address] 08/10/2020 12:00:00 AM EST eCW1 ([facility]) NEPEUC-NEPESUR 08/09/2020 01:45:37 PM EST [facility] Unknown [address] [facility] [address] 07/20/2020 12:00:00 AM EST eCW1 ([facility]) Outpatient Attender: RONIT HELMS [id number] 09/18/2019 01:24:45 PM EST - 07/18/2020 01:56:19 PM EST [facility] NEPEUC-NEPESUR 07/06/2020 10:38:27 AM EST [facility] Unknown [address] [facility] [address] 06/27/2020 12:00:00 AM EST eCW1 ([facility]) 06/26/2020 12:00:00 AM EST - 04:19:59 PM EST [facility] Inpatient Attender: VINNY GREEN MDAdmitter: VINNY FLYNN MDReferrer: RONIT HELMS [id number] 06/22/2020 12:28:10 PM EST - 06/24/2020 03:00:00 PM EST [facility] Patient discharged. Outpatient Attender: VINNY GREEN MDReferrer: Lit Gerber DOConsultant: VINNY FLYNN MD [id number] 06/20/2020 12:00:00 AM EST - 06/20/2020 10:43:50 AM EST [facility] Outpatient Attender: Lit Gerber DOAdmitter: Lit Bobbyerrer: Lit Gerber DO [id number].[id number] 06/14/2020 04:24:56 PM EST - 06/16/2020 12:25:00 PM EST [facility] Patient discharged. Outpatient Referrer: Lit Gerber DO MOB-MOB.PAT 06/10/2020 11:13:27 AM EST - 06/10/2020 11:13:35 AM EST [facility] Outpatient Attender: Lit Dinh: Lit Gerber DO MOBTaylorM OB.PAT 06/10/2020 10:39:24 AM EST - 06/10/2020 12:07:56 PM EST [facility] Outpatient Attender: Lit Hicks r: Lit Dinh: Syed Love MD [id number].[id number] 06/09/2020 10:31:48 AM EST - 06/14/2020 01:11:00 PM EST [facility] Patient discharged. [place]patient [address] [facility] [address] 06/02/2020 12:00:00 AM EDT eCW1 ([facility]) Emergency Attender: TIFF Stein: YAYA RAINEY EMERGENCY ROOM-ER 05/11/2020 03:00:00 PM EDT - 05/11/2020 05:32:00 PM EDT [facility] Patient discharged. [place] [address] [facility] [address] 05/11/2020 12:00:00 AM EDT eCW1 ([facility]) Outpatient Admitter: LINDA BERNARD MDReferrer: LINDA BERNARD MD 05/09/2020 12:00:00 AM EDT Malignant neoplasm of esophagus, unspecified [facility] Malignant neoplasm of esophagus, unspeci fied Outpatient Attender: Danny Sanders/Jay Jay/Hal/Re indl 04/26/2020 10:00:00 AM EDT MEDENT ([facility]) Emergency Attender: ESTER Stein: Tonja RAINEY EMERGENCY ROOM-ER 04/12/2020 06:28:00 PM EDT - 04/12/2020 10:12:00 PM EDT [facility] Patient discharged. Outpatient Attender: LINDA Sanders/Jay Jay/Hal/Rein dl 04/06/2020 01:15:00 PM EDT MEDENT ([facility]) Outpatient Attender: LINDA CRUZ MD Main Office 03/02/2020 11:00:00 AM EDT MED[facility] ([facility]) [place] [address] [facility] [address] 02/17/2020 12:00:00 AM EDT [facility] [place] [address] [facility] [address] 02/16/2020 12:00:00 AM EDT eCW1 ([facility]) [place] [address] [facility] [address] 02/15/2020 12:00:00 AM EDT eCW1 ([facility]) Outpatient Attender: SARITA Sanders/Jay Jay/Hal/Jay resendiz 02/01/2020 02:15:00 PM EDT MEDENT ([facility]) [place] [address] [facility] [address] 01/26/2020 12:00:00 AM EDT eCW1 ([facility]) [facility] [address] [facility] [address] 01/26/2020 12:00:00 AM EDT eCW1 ([facility]) [place] [address] [facility] [address] 01/14/2020 12:00:00 AM EDT eCW1 ([facility]) [place] [address] [facility] [address] 01/13/2020 12:00:00 AM EDT eCW1 ([facility]) [place] [address] [facility] [address] 01/07/2020 12:00:00 AM EDT eCW1 ([facility]) [facility] [address] [facility] [address] 12/02/2019 12:00:00 AM EDT eCW1 ([facility]) [facility] [address] [facility] [address] 12/01/2019 12:00:00 AM EDT eCW1 ([facility]) [facility] [address] [facility] [facility] [address] 11/30/2019 12:00:00 AM EDT eCW1 ([facility]) [address] [address] 11/30/2019 12:00:00 AM EDT eCW1 ([facility]) Outpatient Attender: SARITA Sanders/Jay Jay/Hal/R eindl 11/11/2019 02:45:00 PM EDT MEDENT ([facility] Outpatient Attender: LINDA CRUZ MD Main Office 10/28/2019 12:30:00 PM EDT MEDENT ([facility]) [address] [address] 10/22/2019 12:00:00 AM EDT eCW1 ([facility]) [address] [address] 10/22/2019 12:00:00 AM EDT eCW1 ([facility]) [address] [address] 10/22/2019 12:00:00 AM EDT eCW1 ([facility]) Outpatient 10/20/2019 11:29:00 AM EDT [facility] [address] [address] 10/15/2019 12:00:00 AM EDT eCW1 ([facility]) [address] [address] 10/12/2019 12:00:00 AM EDT eCW1 ([facility]) [address] [place] [address] 10/06/2019 12:00:00 AM EST eCW1 ([facility]) Outpatient Attender: SARITA Sanders/Jay Jay/Hal/R eindl 09/30/2019 10:15:00 AM EST MEDENT ([facility] 09/24/2019 12:00:00 AM EST eCW1 ([facility]) [facility] 09/11/2019 12:00:00 AM EST eCW1 ([facility]) Outpatient Attender: EVELINE MEDRANO, MSN 09/10/2019 1 0:20:00 AM EST [facility] C ENTER 09/10/2019 12:00:00 AM EST eCW1 ([facility]) [facility] 09/10/2019 12:00:00 AM EST eCW1 ([facility]) [facility] 08/20/2019 12:00:00 AM EST eCW1 ([facility]) [facility] 08/18/2019 12:00:00 AM EST eCW1 ([facility]) [facility] 08/13/2019 12:00:00 AM EST eCW1 ([facility]) [facility] 08/13/2019 12:00:00 AM EST eCW1 ([facility]) [facility] 08/10/2019 12:00:00 AM EST eCW1 ([facility]) Outpatient Attender: Jodie HELMS 07/13/2019 04:21:00 PM EST [facility] 9 12:00:00 AM EST eCW1 ([facility]) Outpatient Attender: LINDA RAINEY SR 05/26/2019 02:00:00 PM EDT [facility] Immunizations Vaccine Date Status Description Data Source(s) pneumococcal polysaccharide PPV23 06/24/2020 12:00:00 AM EST com pleted Pneumococcal Polysaccharide (aka Pneumovax 23) 06/24/2020 [facility] Tdap 12/02/2019 02:17:00 PM EDT completed e CW1 ([facility]) Tdap 12/02/2019 02:17:00 PM EDT completed e CW1 ([facility]) Tdap 12/02/2019 02:17:00 PM EDT completed e CW1 ([facility]) Tdap 12/02/2019 02:17:00 PM EDT completed e CW1 ([facility]) Tdap 12/02/2019 02:17:00 PM EDT completed e CW1 ([facility]) Tdap 12/02/2019 02:17:00 PM EDT completed e CW1 ([facility]) Tdap 12/02/2019 02:17:00 PM EDT completed e CW1 ([facility]) Tdap 12/02/2019 02:17:00 PM EDT completed e CW1 ([facility]) Tdap 12/02/2019 02:17:00 PM EDT completed e CW1 ([facility]) Tdap 12/02/2019 02:17:00 PM EDT completed e CW1 ([facility]) Tdap 12/02/2019 02:17:00 PM EDT completed e CW1 ([facility]) Tdap 12/02/2019 02:17:00 PM EDT completed e CW1 ([facility]) Tdap 12/02/2019 02:17:00 PM EDT completed e CW1 ([facility]) Medications Medication Brand Name Start Date Product Form Dose Route Admi nistrative Instructions Pharmacy Instructions Status Indications Reaction Description Data Source(s) iopamidol (ISOVUE-250) 51 % injection 100 mL 44016 09:46:51 AM EST 100 mL Intravenous completed 100 mL, Intravenous, Once in imaging, contrast, Starting 08/14/20 at 0946, For 1 dose [facility] Medication administered onsite Fluoxetine 4 MG/ML Oral Solution FLUoxetine (PROzac) 2 0 MG/5ML solution 10 mg FLUoxetine (PROzac) 20 MG/5ML solution 10 mg 08/14/2020 09:00:00 AM EST 10 mg Oral active 10 mg, Oral, D aily, First dose on 08/14/20 at 0900
Patient said now she is actually able to have puree by mouth and take liquid meds
[facility] Medication administered onsite Insulin Lispro 100 UNT/ML Injectable Katelyn ution insulin lispro (HumaLOG) injection 1-6 Units insulin lispro (HumaLOG) injection 1-6 Units 08:00:00 AM EST Subcutaneous active 1-6 Units, Subcutaneous, MEALSS, First dose on 08/14/20 at 0800
Frail 3 units Nutritional and Correction Insulin ScaleBlood Glucose (mg/dl) <70 start hypoglycemiaprotocolGlucose Eats >=50% Eats <50%Eats Nothing (mg/dl) of meal of mealor [id number] units 1 units 0 - 1703 units 2 units 0 [id number] units 2 units 1 evhmy493- 2704 units 3 units 1 [id number] units 3 units 2 - 3705 units 4 units 2 -5107 units 4 units 3 units>420 call MD6 units 5 units 3 unitsTest glucose within 30 minutes of insulin administration.Administer insulin within 15 minutes (before or after) of the patient starting to eat.For patients that are NPO, use theNPO (correction) scale to cover POC glucose at 08:00, 12:00, 17:00.
[facility] Medication administered onsite Acetaminophen 325 MG Oral Tablet acetaminophen (TYLENO L) 325 MG tablet 650 mg acetaminophen (TYLENOL) 325 MG tablet 650 mg 08/14/2020 12:58:32 AM EST 650 mg Oral active 650 mg, Or al, Every 4 hours PRN, mild pain (1-3), moderate pain (4-6), fever, fever greater than 100, Starting 08/14/20 at 0058
"Maximum dose of acetaminophen is 4,000 mg from all sources in 24 hours."
[facility] Medication administered onsite ondansetron (ZOFRAN) injection 4 mg [id number] 08/14/2020 12:58:3 2 AM EST 4 mg Intravenous active 4 mg, In travenous, Every 4 hours PRN, nausea, Starting 08/14/20 at 0058 [facility] Medication administered onsite sodium chloride 0.45% (HALF SALINE) infusion 9822-9465-09 08/14/2020 12:50:00 AM EST Intravenous active at 6 0 mL/hr, Intravenous, Continuous, Starting 08/14/20 at 0050 [facility] Medication administered onsite Famotidine 8 MG/ML Oral Suspension famot idine (PEPCID) 40 MG/5ML suspension 20 mg famotidine (PEPCID) 40 MG/5ML suspension 20 mg 08/14/2020 12:45: 00 AM EST 20 mg Oral active 20 mg, Ora l, Nightly, First dose on 08/14/20 at 0045 [facility] Medication administered onsite Ondansetron 4 MG Disintegrating Oral Tab let ondansetron (ZOFRAN-ODT) disintegrating tablet 4 mg ondansetron (ZOFRAN-ODT) disintegrating tablet 4 mg 08/14/2020 12:27:07 AM EST 4 mg Oral active 4 mg, Oral, Every 4 hours PRN, nausea, vomiting, Starting 08/14/20 at 0027 [facility] Medication administered onsite Oxycodone Hydrochloride 1 MG/ML Oral Katelyn ution oxyCODONE (ROXICODONE) 5 MG/5ML solution 5 mg oxyCODONE (ROXICODONE) 5 MG/5ML solution 5 mg 08/14/19 12:25:42 AM EST 5 mg Oral active 5 mg, Or al, Every 6 hours PRN, severe pain (7- 10), Starting 08/14/20 at 0025, For 7 days
Hold if sedated or confused or hypoxic or hypotensive and call to discuss
[facility] Medication administered onsite Lactulose 667 MG/ML Oral Solution lactul ose (CHRONULAC) 10 GM/15ML solution 10 g lactulose (CHRONULAC) 10 GM/15ML solution 10 g 08/14/2020 12:24: 46 AM EST 10 g active 10 g, Per J Tube, Nightly PRN, constipation, Starting 08/14/20 at 0024
hold for loose stools
[facility] Medication administered onsite Misc. Devices MISC 20334 08/09/2020 12:00:00 AM EST active glucerna 1.5 lawanda at 60 cc/hr for 12 hours through j tube via pump, flush with 100 cc before and after feeds and mesh pole [facility] Misc. Devices [facility] [address] 07/06/2020 12:00:00 AM EST active glucerna with carb steady 1.5 lawanda via j tube for 12 hours, pump and pole [facility] Famotidine 8 MG/ML Oral Suspension famotidine (PEPCID) 40 MG/5ML suspension famotidine (PEPCID) 40 MG/5ML suspension 07/06/2020 12:00:00 AM EST 4 0 mg active 5 mL (40 mg total) by Per J Tube route nightly [facility] Aspirin EC 81 MG Aspirin EC 06/26/2020 12:00:00 AM EST 81.0 {mg} completed NETSMART ([facility]) SITagliptin Phosphate 100 MG SITagliptin Phosphate 06/26/2020 12:00 :00 AM EST 100.0 {mg} completed NETSMART ([facility]) Rosuvastatin Calcium 40 MG Rosuvastatin Calcium 06/26/2020 12:00:00 AM EST 40.0 {mg} completed NETSMART ([facility]) Torsemide 10 MG Torsemide 06/26/2020 12:00:00 AM EST 10.0 {mg} completed NETSMART ([facility]) Jardiance 10 MG Jardiance 06/26/2020 12:00:00 AM EST 10.0 {mg} completed NETSMART ([facility]) Ipratropium-Albuterol 0.5-2.5 (3) MG/3ML Ipratropium-Albuter ol 06/26/2020 12:00:00 AM EST 3.0 {ml} completed NETSMART ([facility]) Loperamide HCl 2 MG Loperamide HCl 06/26/2020 12:00:00 AM EST 2. 0 {mg} completed NETSMART ([facility]) Lisinopril 20 MG Lisinopril 06/26/2020 12:00:00 AM EST 20.0 {mg} completed NETSMART ([facility]) Zofran ODT 4 MG Zofran ODT 06/26/2020 12:00:00 AM EST 1.0 {table t} completed NETSMART ([facility]) Albuterol Sulfate HFA 108 (90 Base) MCG/ACT Albuterol Sulfat e HFA 06/26/2020 12:00:00 AM EST 2.0 {asd} completed NETSMART ([facility]) OxyCODONE HCl 5 MG/5ML OxyCODONE HCl 06/26/2020 12:00:00 AM EST 0 {ml} completed NETSMART ([facility]) Lactulose 10 GM/15ML Lactulose 06/26/2020 12:00:00 AM EST 15.0 { ml} completed NETSMART ([facility]) FLUoxetine HCl 20 MG/5ML FLUoxetine HCl 06/26/2020 12:00:00 AM EST 2.5 {ml} completed NETSMART ([facility]) Famotidine 40 MG Famotidine 06/26/2020 12:00:00 AM EST 2.5 {ml} completed NETSMART ([facility]) torsemide 20 MG Oral Tablet torsemide (DEMADEX) tablet 10 mg torsemide (DEMADEX) tablet 10 mg 06/24/2020 09:00:00 AM EST 10 mg active Malignant neoplasm of lower third of esophagus 10 mg, Per J Tube, Daily, First dose on Sat06/24/20 at 0900 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 Medication administered onsite Fluoxetine 10 MG Oral Capsule FLUoxetine (PROzac) caps ule 10 mg FLUoxetine (PROzac) capsule 10 mg 06/24/2020 09:00:00 AM EST 10 mg active Malignant neoplasm of lower third of esophagus 10 mg, Per J Tube , Daily, First dose on Sat06/24/20 at 0900 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 Medication administered onsite Ondansetron 4 MG Disintegrating Oral Tab let ondansetron (ZOFRAN-ODT) 4 MG disintegrating tablet ondansetron (ZOFRAN-ODT) 4 MG disintegrating tablet 06/24/2020 12:00:00 AM EST 4 mg Oral active Take 1 tablet (4 mg total) by mouth 4 (four) times a day as needed for nausea [facility] Lactulose 667 MG/ML Oral Solution lactulose (CHRONULAC ) 10 GM/15ML solution lactulose (CHRONULAC) 10 GM/15ML solution 06/24/2020 12:00:00 AM EST 10 g aborted Malignant neoplasm of lower third of esophagus 15 mL (10 g total) by Per J Tube route nightly Stop for diarrhea 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 Oxycodone Hydrochloride 1 MG/ML Oral Katelyn ution oxyCODONE (ROXICODONE) 5 MG/5ML solution oxyCODONE (ROXICODONE) 5 MG/5ML solution 06/24/2020 12:00:00 AM EST aborted Malignant neoplasm of lower th ird of esophagus 5-7.5 mL (5-7.5 mg total) by Per J Tube route every 4 (four) hours as needed Max Daily Amount: 45 mg 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 Fluoxetine 4 MG/ML Oral Solution FLUoxetine (PROZAC) 2 0 MG/5ML solution FLUoxetine (PROZAC) 20 MG/5ML solution 06/24/2020 12:00:00 AM EST 10 m g aborted 2.5 mL (10 mg total) by Per J Tu be route daily [facility] Famotidine 8 MG/ML Oral Suspension famotidine (PEPCID) 40 MG/5ML suspension famotidine (PEPCID) 40 MG/5ML suspension 06/24/2020 12:00:00 AM EST 2 0 mg aborted 2.5 mL (20 mg total) by Per J Tube route 2 (two) times a day [facility] Fluoxetine 4 MG/ML Oral Solution FLUoxetine (PROZAC) 2 0 MG/5ML solution FLUoxetine (PROZAC) 20 MG/5ML solution 06/24/2020 12:00:00 AM EST 10 m g active 2.5 mL (10 mg total) by Per J Tu be route daily [facility] Oxycodone Hydrochloride 1 MG/ML Oral Katelyn ution oxyCODONE (ROXICODONE) 5 MG/5ML solution oxyCODONE (ROXICODONE) 5 MG/5ML solution 06/24/2020 12:00:00 AM EST aborted Malignant neoplasm of lower th ird of esophagus 5-7.5 mL (5-7.5 mg total) by Per J Tube route every 4 (four) hours as needed Max Daily Amount: 45 mg 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 Oxycodone Hydrochloride 1 MG/ML Oral Katelyn ution oxyCODONE (ROXICODONE) 5 MG/5ML solution oxyCODONE (ROXICODONE) 5 MG/5ML solution 06/24/2020 12:00:00 AM EST aborted Malignant neoplasm of lower th ird of esophagus 5-7.5 mL (5-7.5 mg total) by Per J Tube route every 4 (four) hours as needed Max Daily Amount: 45 mg 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 Lactulose 667 MG/ML Oral Solution lactulose (CHRONULAC ) 10 GM/15ML solution lactulose (CHRONULAC) 10 GM/15ML solution 06/24/2020 12:00:00 AM EST 10 g active Malignant neoplasm of lower third of esophagus 15 mL (10 g total) by Per J Tube route nightly Stop for diarrhea 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 Misc. Devices MISC [id number] 06/24/2020 12:00:00 AM EST active Tube feed pole and pump [facility] Famotidine 8 MG/ML Oral Suspension famotidine (PEPCID) 40 MG/5ML suspension famotidine (PEPCID) 40 MG/5ML suspension 06/24/2020 12:00:00 AM EST 2 0 mg active 2.5 mL (20 mg total) by Per J Tube route 2 (two) times a day [facility] Misc. Devices MISC [id number] 06/24/2020 12:00:00 AM EST active glucerna 1.5 lawanda at 60 cc/hr for 12 hours through j tube via pump, flush with 100 cc before and after feeds and mesh pole [facility] Oxycodone Hydrochloride 1 MG/ML Oral Katelyn ution oxyCODONE (ROXICODONE) 5 MG/5ML solution oxyCODONE (ROXICODONE) 5 MG/5ML solution 06/24/2020 12:00:00 AM EST active Malignant neoplasm of lower th ird of esophagus 5-7.5 mL (5-7.5 mg total) by Per J Tube route every 4 (four) hours as needed Max Daily Amount: 45 mg 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 Potassium Chloride 0.1 MEQ/ML Injectable Solution potassium chloride 10 mEq in 100 mL IVPB potassium chloride 10 mEq in 100 mL IVPB 06/23/2020 11:00:00 PM EST 10 meq Intravenous completed 10 mEq, In travenous, Administer over 60 Minutes, Every 1 hour, First dose on Ella 06/23/20 at 2300, For 3 doses [facility] Medication administered onsite Lactulose 667 MG/ML Oral Solution lactul ose (CHRONULAC) 10 GM/15ML solution 10 g lactulose (CHRONULAC) 10 GM/15ML solution 10 g 06/23/2020 09:00: 00 PM EST 10 g active Malignant neoplasm of lower th ird of esophagus 10 g, Per J Tube, Nightly, First dose on Ella 06/23/20 at 2100
Hold for loose stool
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 Medication administered onsite HYDROmorphone (DILAUDID) injection 0.5 mg [id number] 06/23/2020 11:20:11 AM EST 0.5 mg Intravenous aborted 0.5 mg, Intravenous, Every 5 min PRN, severe pain (7-10), Starting Ella 06/23/20 at 1120, For 5 doses, PACU (only) [facility] Medication administered onsite fentaNYL Citrate (PF) (SUBLIMAZE) injection 25 mcg [id number] 06/23/2020 11:20:11 AM EST 25 ug Intravenous aborted 25 mcg, Intravenous, Every 5 min PRN, moderate pain (4 to 6), Starting Ella 06/23/20 at 1120, For 5 doses, PACU (only) [facility] Medication administered onsite 4 ML Labetalol hydrochloride 5 MG/ML Car tridge labetalol (NORMODYNE,TRANDATE) injection 5 mg labetalol (NORMODYNE,TRANDATE) injection 5 mg 06/23/20 11:20:11 AM EST 5 mg Intravenous aborted 5 mg , Intravenous, Every 5 min PRN, high blood pressure, for SBP greater than 160, Starting Ella 06/23/20 at 1120, For 4 doses, PACU (only)
Max of 20 MG, hold for HR less than 60
[facility] Medication administered onsite HYDROmorphone (DILAUDID) injection 0.5 mg [id number] 06/23/2020 11:10:35 AM EST 0.5 mg Intravenous active Malignan t neoplasm of lower third of esophagus 0.5 mg, Intravenous, 4 times daily PRN, severe pain (7-10), if not controlled with oral meds, Starting Ella 06/23/20 at 1110, For 7 days 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 Medication administered onsite Oxycodone Hydrochloride 1 MG/ML Oral Katelyn ution oxyCODONE (ROXICODONE) 5 MG/5ML solution 10 mg oxyCODONE (ROXICODONE) 5 MG/5ML solution 10 mg 09:58:39 AM EST 10 mg active Jodi gnant neoplasm of lower third of esophagus 10 mg, Per J Tube, Every 4 h ours PRN, severe pain (7-10), Starting Ella 06/23/20 at 0958, For 7 days 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 Medication administered onsite Oxycodone Hydrochloride 1 MG/ML Oral Katelyn ution oxyCODONE (ROXICODONE) 5 MG/5ML solution 5 mg oxyCODONE (ROXICODONE) 5 MG/5ML solution 5 mg 06/23/20 09:58:25 AM EST 5 mg active Malignant neoplasm of lo wer third of esophagus 5 mg, Per J Tube, Every 4 hours PRN, moderate pain (4-6), Starting Ella 06/23/20 at 0958, For 7 days 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 Medication administered onsite dextrose 10 % infusion [id number] 06/23/2020 09:56:58 AM EST Intravenous active 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
Nutrition Interrupted Orders1. Notify provider and start D10W at tube feeding infusion rate2. Check bedside blood glucose every hour for three hours once [id number] begins:a. If any glucose is under 70, follow hypoglycemia protocol, increase D10W infusion rate by 50%, and call providerb. If any glucose is under 80, increase D10W infusion rate by 50% and call providerc. If any glucose is over 200, decrease D10W infusion rate by 50% and call providerd. If three consecutive Q1 hour bedside glucoseare:i. between 80- 200, reduce bedside blood glucose frequency to every 6 hoursii. not within 80-200, defer to Provider for insulin/bedside blood glucose/IV orders
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
hold for loose stools
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
flush per protocol, D/C Main IV fluid if appropriate
[facility] Medication administered onsite Insulin Lispro 100 UNT/ML Injectable Katelyn ution insulin lispro (HumaLOG) injection 1-8 Units insulin lispro (HumaLOG) injection 1-8 Units 0 05:00:00 PM EST Subcutaneous active Malignant neoplasm of lower third of esophagus 1-8 Units, Subcutaneous, MEALSS, First d ose on Sat06/22/20 at 1700
4 units Nutritional and Correction Insulin ScaleBlood Glucose (mg/dl) <70 start hypoglycemiaprotocolGlucoseEats >=50% Eats <50%Eats Nothing (mg/dl) of meal of mealor NPO70- 1203 units 1 units 0 [id number] units 2 units 0 hqaeb250- 2205 units 3 units 1 [id number] units 3 units 1 astkz730- 3206 units 4 units 2 [id number] units 5 units 3 -8968 units 5 units 3 units>420 call MD8 units 6 units 4 unitsTest glucose within 30 minutes of insulin administration.Administer insulin within 15 minutes (before or after) of the patient starting to eat.For patients that are NPO, use theNPO (correction) scale to cover POC glucose at 08:00, 12:00, 17:00.
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 Medication administered onsite Albuterol 0.833 MG/ML / Ipratropium Brom keke 0.167 MG/ML Inhalant Solution ipratropium-albuterol (DUO-NEB) 0.5-2.5 mg/mL nebulizer solution 3 mL ipratropium-albuterol (DUO-NEB) 0.5-2.5 mg/mL nebulizer solution 3 mL 06/22/2020 03:43:58 PM EST 3 mL Inhalation active Mal ignant neoplasm of lower third of esophagus 3 mL, Inhalation, Every 6 ho urs PRN, for shortness of breath, Starting Sat06/22/20 at 1543 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
med message Rx when dose needed
[facility] Medication administered onsite heparin (porcine) injection 5,000 Units [id number] 06/22/20 02:00:00 PM EST 5000 U Subcutaneous active Malignant neoplas m of lower third of esophagus 5,000 Units, Subcutaneous, Every 8 hours (scheduled), First dose on Sat06/22/20 at 1400
If platelet count is less than 100,000 or hematocrit is less than 25, or if there is a 5 point decrease in hematocrit, do not give the dose and call physician/designee.
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 Medication administered onsite 2 ML Metoclopramide 5 MG/ML Prefilled Sy ringe metoclopramide (REGLAN) injection 10 mg metoclopramide (REGLAN) injection 10 mg 06/22/2020 12:30:[address] 10 mg Intravenous active Malignant neoplasm of lower third of esophagus 10 mg, Intravenous, Every 6 hours PRN, for Nausea/Vomiting not relieved by zofran, Starting Sat06/22/20 at 1230 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 Medication administered onsite ondansetron (ZOFRAN) injection 4 mg [id number] 06/22/2020 12:30:1 6 PM EST 4 mg Intravenous active Malignant neoplasm of lower third of esophagus 4 mg, Intravenous, Every 4 hours PRN, nausea, vomiting, Starting Sat06/22/20 at 1230 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 Medication administered onsite Acetaminophen 325 MG Oral Tablet acetaminophen (TYLENO L) 325 MG tablet 650 mg acetaminophen (TYLENOL) 325 MG tablet 650 mg 06/22/2020 12:30:08 PM EST 650 mg Oral active Malignant neoplasm of lower th ird of esophagus 650 mg, Oral, Every 4 hours PRN, mild pain (1-3), headaches, Starting Sat06/22/20 at 1230
"Maximum dose of acetaminophen is 4,000 mg from all sources in 24 hours."
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 Medication administered onsite Nystatin [id number] UNT/ML Oral Suspension Nystatin 04/06/2020 12:00:00 AM EDT ORAL active MEDENT ([facility], ) Omeprazole 40 MG Delayed Release Oral Capsule Omeprazole 04/06/2020 12:00:00 AM EDT ORAL active MEDENT ([facility], ) Sucralfate 100 MG/ML Oral Suspension Sucralfate 04/06/2020 12:00:00 A M EDT ORAL active MED[facility] ([facility], ) Flax Seeds 03/02/2020 12:00:00 AM EDT active [facility] ([facility]) Aspirin 81 MG Delayed Release Oral Tablet Aspirin 03/01/2020 1 2:00:00 AM EDT ORAL active [facility] ([facility]) torsemide 10 MG Oral Tablet Torsemide 03/01/2020 12:00:00 AM EDT ORAL active [facility] ([facility]) docosahexaenoic acid 120 MG / Eicosapentaenoic Acid 180 MG O ral Capsule Eminence 3 03/01/2020 12:00:00 AM EDT completed MEDENT ([facility]) empagliflozin 10 MG Oral Tablet [Jardiance] Jardiance 10 MG Jardiance 10 MG 01/14/2020 12:00:00 AM EDT 1.0 {tablet} suspended Jardiance 10 MG eCW1 ([facility]) empagliflozin 10 MG Oral Tablet [Jardiance] Jardiance 10 MG Jardiance 10 MG 01/14/2020 12:00:00 AM EDT 1.0 {tablet} active Jardiance 10 MG eCW1 ([facility]) empagliflozin 10 MG Oral Tablet [Jardiance] Jardiance 10 MG Jardiance 10 MG 01/14/2020 12:00:00 AM EDT 1.0 {tablet} active Jardiance 10 MG eCW1 ([facility]) empagliflozin 10 MG Oral Tablet [Jardiance] Jardiance 10 MG Jardiance 10 MG 01/14/2020 12:00:00 AM EDT 1.0 {tablet} active Jardiance 10 MG eCW1 ([facility]) empagliflozin 10 MG Oral Tablet [Jardiance] Jardiance 10 MG Jardiance 10 MG 01/14/2020 12:00:00 AM EDT 1.0 {tablet} active Jardiance 10 MG eCW1 ([facility]) empagliflozin 10 MG Oral Tablet [Jardiance] Jardiance 10 MG Jardiance 10 MG 01/14/2020 12:00:00 AM EDT 1.0 {tablet} active Jardiance 10 MG eCW1 ([facility]) empagliflozin 10 MG Oral Tablet [Jardiance] Jardiance 10 MG Jardiance 10 MG 01/14/2020 12:00:00 AM EDT 1.0 {tablet} active Jardiance 10 MG eCW1 ([facility]) empagliflozin 10 MG Oral Tablet [Jardiance] Jardiance 10 MG Jardiance 10 MG 01/14/2020 12:00:00 AM EDT 1.0 {tablet} active Jardiance 10 MG eCW1 ([facility]) empagliflozin 10 MG Oral Tablet [Jardiance] Jardiance 10 MG Jardiance 10 MG 01/14/2020 12:00:00 AM EDT 1.0 {tablet} active Jardiance 10 MG eCW1 ([facility]) empagliflozin 10 MG Oral Tablet [Jardiance] Jardiance 10 MG Jardiance 10 MG 01/14/2020 12:00:00 AM EDT 1.0 {tablet} active Jardiance 10 MG eCW1 ([facility]) empagliflozin 10 MG Oral Tablet [Jardiance] Jardiance 10 MG Jardiance 10 MG 01/14/2020 12:00:00 AM EDT 1.0 {tablet} active Jardiance 10 MG eCW1 ([facility]) torsemide 10 MG Oral Tablet Torsemide 10 MG Torsemide 10 MG 01/13/2020 12:00:00 AM EDT 1.0 {tablet} active Torsemide 1 0 MG eCW1 ([facility]) torsemide 10 MG Oral Tablet Torsemide 10 MG Torsemide 10 MG 01/13/2020 12:00:00 AM EDT 1.0 {tablet} active Torsemide 1 0 MG eCW1 ([facility]) torsemide 10 MG Oral Tablet Torsemide 10 MG Torsemide 10 MG 01/13/2020 12:00:00 AM EDT 1.0 {tablet} active Torsemide 1 0 MG eCW1 ([facility]) torsemide 10 MG Oral Tablet Torsemide 10 MG Torsemide 10 MG 01/13/2020 12:00:00 AM EDT 1.0 {tablet} active Torsemide 1 0 MG eCW1 ([facility]) torsemide 10 MG Oral Tablet Torsemide 10 MG Torsemide 10 MG 01/13/2020 12:00:00 AM EDT 1.0 {tablet} active Torsemide 1 0 MG eCW1 ([facility]) torsemide 10 MG Oral Tablet Torsemide 10 MG Torsemide 10 MG 01/13/2020 12:00:00 AM EDT 1.0 {tablet} active Torsemide 1 0 MG eCW1 ([facility]) torsemide 10 MG Oral Tablet Torsemide 10 MG Torsemide 10 MG 01/13/2020 12:00:00 AM EDT 1.0 {tablet} active Torsemide 1 0 MG eCW1 ([facility]) CPAP 11/19/2019 12:00:00 AM EDT active [facility] ([facility] ) Rosuvastatin calcium 40 MG Oral Tablet Rosuvastatin Calcium 11/03/2019 12:00:00 AM EDT ORAL active [facility] icosapent ethyl 1000 MG Oral Capsule [Vascepa] Vascepa 10/28/2019 12:00:00 AM EDT ORAL completed [facility] ([facility]) pioglitazone 30 MG Oral Tablet [Actos] Actos 10/27/2019 12:00:00 AM EDT ORAL active [facility] 24 HR Glipizide 10 MG Extended Release Oral Tablet Glipizide XL 10/27/2019 12:00:00 AM EDT ORAL active M EDENT ([facility]) sitagliptin 100 MG Oral Tablet [Januvia] Januvia 10/27/2019 12:00: 00 AM EDT ORAL active [facility] ([facility]) Albuterol 1 MG/ML Inhalant Solution Albuterol Sulfate 10/04 12:00:00 AM EDT active [facility] ([facility] 200 ACTUAT Albuterol 0.09 MG/ACTUAT Metered Dose Inhaler [Pr oAir] Proair HFA 10/27/2019 12:00:00 AM EDT ORAL active [facility] ([facility]) Pravastatin Sodium 40 MG Oral Tablet [Pravachol] Pravachol 10/27/2019 12:00:00 AM EDT ORAL completed [facility] ([facility]) Eminence-3 Acid Ethyl Esters ([facility]) 1000 MG Oral Capsule [Lovaza ] Lovaza 10/27/2019 12:00:00 AM EDT ORAL completed [facility] ([facility]) Fluoxetine 10 MG Oral Capsule [Prozac] Prozac 10/27/2019 12:00:00 AM EDT ORAL active [facility] ([facility]) Omeprazole 20 MG Delayed Release Oral Capsule Omeprazole 10/27/2019 12:00:00 AM EDT ORAL active [facility] ([facility]) Lisinopril 20 MG Oral Tablet Lisinopril 10/27/2019 12:00:00 AM EDT ORAL active [facility] ([facility]) Nebulizer/Tubing/Mouthpiece - Nebulizer/Tubing/Mouthpiece - 10/06/2019 12:00:00 AM EST active Nebulizer/Tubing/ Mouthpiece - eCW1 ([facility]) Nebulizer/Tubing/Mouthpiece - Nebulizer/Tubing/Mouthpiece - 10/06/2019 12:00:00 AM EST active as directed eCW1 ([facility]) Nebulizer - Nebulizer - 10/06/2019 12:00:00 AM EST active as directed eCW1 ([facility]) Nebulizer/Tubing/Mouthpiece - Nebulizer/Tubing/Mouthpiece - 10/06/2019 12:00:00 AM EST active Nebulizer/Tubing/ Mouthpiece - eCW1 ([facility]) Nebulizer - Nebulizer - 10/06/2019 12:00:00 AM EST active Nebulizer - eCW1 ([facility]) Nebulizer - Nebulizer - 10/06/2019 12:00:00 AM EST active Nebulizer - eCW1 ([facility]) Nebulizer/Tubing/Mouthpiece - Nebulizer/Tubing/Mouthpiece - 10/06/2019 12:00:00 AM EST active Nebulizer/Tubing/ Mouthpiece - eCW1 ([facility]) Nebulizer - Nebulizer - 10/06/2019 12:00:00 AM EST active Nebulizer - eCW1 ([facility]) Nebulizer/Tubing/Mouthpiece - Nebulizer/Tubing/Mouthpiece - 10/06/2019 12:00:00 AM EST active Nebulizer/Tubing/ Mouthpiece - eCW1 ([facility]) Nebulizer - Nebulizer - 10/06/2019 12:00:00 AM EST active as directed eCW1 ([facility]) Nebulizer - Nebulizer - 10/06/2019 12:00:00 AM EST active Nebulizer - eCW1 ([facility]) Nebulizer/Tubing/Mouthpiece - Nebulizer/Tubing/Mouthpiece - 10/06/2019 12:00:00 AM EST active Nebulizer/Tubing/ Mouthpiece - eCW1 ([facility]) Nebulizer/Tubing/Mouthpiece - Nebulizer/Tubing/Mouthpiece - 10/06/2019 12:00:00 AM EST active Nebulizer/Tubing/ Mouthpiece - eCW1 ([facility]) Nebulizer - Nebulizer - 10/06/2019 12:00:00 AM EST active Nebulizer - eCW1 ([facility]) Nebulizer - Nebulizer - 10/06/2019 12:00:00 AM EST active Nebulizer - eCW1 ([facility]) Nebulizer/Tubing/Mouthpiece - Nebulizer/Tubing/Mouthpiece - 10/06/2019 12:00:00 AM EST active Nebulizer/Tubing/ Mouthpiece - eCW1 ([facility]) Nebulizer - Nebulizer - 10/06/2019 12:00:00 AM EST active Nebulizer - eCW1 ([facility]) Nebulizer/Tubing/Mouthpiece - Nebulizer/Tubing/Mouthpiece - 10/06/2019 12:00:00 AM EST active Nebulizer/Tubing/ Mouthpiece - eCW1 ([facility]) Nebulizer/Tubing/Mouthpiece - Nebulizer/Tubing/Mouthpiece - 10/06/2019 12:00:00 AM EST active Nebulizer/Tubing/ Mouthpiece - eCW1 ([facility]) Nebulizer - Nebulizer - 10/06/2019 12:00:00 AM EST active Nebulizer - eCW1 ([facility]) Nebulizer - Nebulizer - 10/06/2019 12:00:00 AM EST active Nebulizer - eCW1 ([facility]) Nebulizer/Tubing/Mouthpiece - Nebulizer/Tubing/Mouthpiece - 10/06/2019 12:00:00 AM EST active Nebulizer/Tubing/ Mouthpiece - eCW1 ([facility]) Nebulizer - Nebulizer - 10/06/2019 12:00:00 AM EST active Nebulizer - eCW1 ([facility]) Nebulizer/Tubing/Mouthpiece - Nebulizer/Tubing/Mouthpiece - 10/06/2019 12:00:00 AM EST active as directed eCW1 ([facility]) Nebulizer - Nebulizer - 10/06/2019 12:00:00 AM EST active Nebulizer - eCW1 ([facility]) Nebulizer/Tubing/Mouthpiece - Nebulizer/Tubing/Mouthpiece - 10/06/2019 12:00:00 AM EST active Nebulizer/Tubing/ Mouthpiece - eCW1 ([facility]) Nebulizer - Nebulizer - 10/06/2019 12:00:00 AM EST active Nebulizer - eCW1 ([facility]) Nebulizer/Tubing/Mouthpiece - Nebulizer/Tubing/Mouthpiece - 10/06/2019 12:00:00 AM EST active Nebulizer/Tubing/ Mouthpiece - eCW1 ([facility]) Prednisone 20 MG Oral Tablet PredniSONE 20 MG PredniSONE 20 MG 09/10/2019 12:00:00 AM EST active 2 table ts eCW1 ([facility]) Prednisone 20 MG Oral Tablet PredniSONE 20 MG PredniSONE 20 MG 09/10/2019 12:00:00 AM EST active 2 table t eCW1 ([facility]) Prednisone 20 MG Oral Tablet PredniSONE 20 MG PredniSONE 20 MG 09/10/2019 12:00:00 AM EST active 2 table ts eCW1 ([facility]) CompAir Nebulizer 1 UNK 09/10/2019 12:00:00 AM EST active as directed eCW1 ([facility]) Albuterol 0.833 MG/ML / Ipratropium Brom keke 0.167 MG/ML Inhalant Solution Ipratropium-Albuterol 0.5-2.5 (3) MG/3ML Ipratropium-Albuterol 0.5-2.5 (3) MG/3ML 09/10/2019 12:00:00 AM EST active 3 ml as needed eCW1 ([facility]) Albuterol 0.833 MG/ML / Ipratropium Brom keke 0.167 MG/ML Inhalant Solution Ipratropium-Albuterol 0.5-2.5 (3) MG/3ML Ipratropium-Albuterol 0.5-2.5 (3) MG/3ML 09/10/2019 12:00:00 AM EST active 3 ml as needed eCW1 ([facility]) Albuterol 0.833 MG/ML / Ipratropium Brom keke 0.167 MG/ML Inhalant Solution Ipratropium-Albuterol 0.5-2.5 (3) MG/3ML Ipratropium-Albuterol 0.5-2.5 (3) MG/3ML 09/10/2019 12:00:00 AM EST active 3 ml as needed eCW1 ([facility]) CompAir Nebulizer 1 UNK 09/10/2019 12:00:00 AM EST active 1 eCW1 ([facility]) Comp Air Elite Compact Neb - Comp Air Elite Compact Neb - 12:00:00 AM EST active as directed eCW1 ([facility]) 24 HR Glipizide 10 MG Extended Release Oral Tablet Gli piZIDE XL 10 MG GlipiZIDE XL 10 MG 08/18/2019 12:00:00 AM EST active 1 tablet with breakfast eCW1 ([facility]) 24 HR Glipizide 10 MG Extended Release Oral Tablet Gli piZIDE XL 10 MG GlipiZIDE XL 10 MG 08/18/2019 12:00:00 AM EST active 1 tablet with breakfast eCW1 ([facility]) Albuterol Sulfate 108 (90 Base) MCG/ACT UNK 08/10/2019 12:00:[address] active 2 puffs as needed eCW1 ([facility]) Flonase 50 MCG/ACT Flonase 50 MCG/ACT 07/13/2019 12:00:00 AM EST active 2 sprays eCW1 ([facility]) Flonase 50 MCG/ACT Flonase 50 MCG/ACT 07/13/2019 12:00:00 AM EST active 2 sprays eCW1 ([facility]) benzonatate 200 MG Oral Capsule Benzonatate 200 MG Benzonata te 200 MG 07/13/2019 12:00:00 AM EST active 1 capsu le eCW1 ([facility]) benzonatate 200 MG Oral Capsule Benzonatate 200 MG Benzonata te 200 MG 07/13/2019 12:00:00 AM EST active 1 capsu le eCW1 ([facility]) benzonatate 200 MG Oral Capsule Benzonatate 200 MG Benzonata te 200 MG 07/13/2019 12:00:00 AM EST active 1 capsu le eCW1 ([facility]) Amoxicillin 875 MG Oral Tablet Amoxicillin 875 MG 07/13/2019 12:00: 00 AM EST active 1 tablet eCW1 ([facility]) Flonase 50 MCG/ACT Flonase 50 MCG/ACT 07/13/2019 12:00:00 AM EST active 2 sprays eCW1 ([facility]) Ondansetron 4 MG Disintegrating Oral Tab let ondansetron (ZOFRAN-ODT) 4 MG disintegrating tablet ondansetron (ZOFRAN-ODT) 4 MG disintegrating tablet 4 mg Oral aborted Take 4 mg by mouth every 8 (eight) hours as needed for nausea [facility] Fluoxetine 10 MG Oral Capsule FLUoxetine (PROZAC) 10 M G capsule FLUoxetine (PROZAC) 10 MG capsule 10 mg Oral aborted T kayce 10 mg by mouth daily [facility] 24 HR Glipizide 10 MG Extended Release O ral Tablet glipiZIDE (GLUCOTROL) 10 MG 24 hr tablet glipiZIDE (GLUCOTROL) 10 MG 24 hr tablet 10 mg Or al aborted Take 10 mg by mouth 2 (two) time s a day [facility] Omeprazole 40 MG Delayed Release Oral Ca psule omeprazole (PRILOSEC) 40 MG capsule omeprazole (PRILOSEC) 40 MG capsule 40 mg Oral aborted Take 40 mg by mouth 2 (two) times a day [facility] Flaxseed, Linseed, (FLAXSEED OIL PO) Oral abo rted Take by mouth [facility] Metformin hydrochloride 500 MG Oral Tablet metFORMIN ( GLUCOPHAGE) 500 MG tablet metFORMIN (GLUCOPHAGE) 500 MG tablet 500 mg Oral a borted Take 500 mg by mouth 2 (two) times a day with meals [facility] Insurance Providers Payer name Policy type / Coverage type Policy ID Covered republican ID Covered republican's relationship to oakley Policy [place] Plan Information MEDICARE [id number] SP [id number] [id number] FOR LIFE [id number] SP [id number] Spo [id number] MEDICARE [id number] Jes [id number] MEDICARE [id number] INSURANCE COVID-19 COVID Jes C OVID INSURANCE COVID-19 [id number] Spo [id number] [facility] [place] MEDICARE DIVISION [id number] S [id number] [place] [id number] S [id number] [facility] [id number] SPO [id number] FOR LIFE O [id number] S [id number] MEDICARE C [id number] S [id number] [id number] FOR LIFE U [id number] Self [id number] MEDICARE A [id number] Self [id number] [place] MEDIC[place] DIVISION [id number] S [id number] [place]IC[place] [id number] S [id number] MEDICARE [id number] SP [id number] MEDICARE [id number] SP [id number] A SELF PAY FOR LIFE [id number] SP [id number] MEDICARE [id number] SP [id number] SELF PAY FOR LIFE [id number] SP [id number] MEDICARE [id number] SP [id number] SELF PAY FOR LIFE [id number] SP [id number] MEDICARE [id number] SP [id number] SELF PAY FOR LIFE [id number] SP [id number] MEDICARE [id number] SP [id number] SELF PAY FOR LIFE [id number] SP [id number] MEDICARE [id number] SP [id number] FOR LIFE U [id number] Self [id number] MEDICARE A [id number] Self [id number] A SELF PAY FOR LIFE [id number] SP [id number] MEDICARE [id number] SP [id number] DME Jurisdiction A NHIC C [id number] SELF [id number] For Life F [id number] SPOUSE [id number] Medicare C [id number] SELF [id number] [id number] DME Jurisdiction A PRIC C [id number] SELF [id number] For Life F [id number] SPOUSE [id number] Medicare C [id number] SELF [id number] [id number] SELF PAY FOR LIFE [id number] SP [id number] MEDICARE [id number] SP [id number] [id number] SELF PAY FOR LIFE [id number] SP [id number] MEDICARE [id number] SP [id number] MEDICARE [id number] SP [id number] [id number] SELF PAY FOR LIFE [id number] SP [id number] MEDICARE [id number] SP [id number] [id number] SELF PAY FOR LIFE [id number] SP [id number] MEDICARE [id number] Jes [id number] A MEDICARE [id number] SP [id number] [id number] FOR LIFE [id number] SP [id number] [place] [facility] [id number] SP [id number] MEDICARE [id number] SP [id number] A FOR LIFE [id number] SP [id number] [place] [id number] SP [id number] MEDICARE [id number] SP [id number] A For Life Medigap Part B [id number] Family Dependent [id number] Medicare Medicare Primary [id number] Self [id number] FOR LIFE [id number] SP [id number] MEDICARE [id number] SP [id number] A [place] [facility] ([place] Medigap Part B Family Dep endent [place] Self For Life WPS Medigap Part B Family Depende nt Medicare Formerly [facility] Gov't Servi Medicare Primary Self [place] [id number] FOR LIFE [id number] SP [id number] For Life Medigap Part B Family Dependent Medicare Medicare Primary Self FOR LIFE O [id number] SP [id number] MEDICARE M [id number] S [id number] A SELF PAY 2 UNAVAILABLE 1 UNAVAILA BLE FOR LIFE O [id number] SP [id number] MEDICARE M [id number] S [id number] A /-PRIM O [id number] SP [id number] [facility] [id number] [facility] [phone] Problems, Conditions, and Diagnoses Code Display Name Description Problem Type Effective Dates Data Source(s) Z71.3 Modified consistency diet monitoring enc [facility] Modified consistency diet monitoring encounter [id number] 08/14/2020 12:00:00 AM [facility] T85.528A Jejunostomy tube fell out Jejunostomy tube fell out [id number] 08/14/2020 12:00:00 AM [facility] J44.1 Chronic obstructive pulmonary disease wi th (acute) exacerbation Chronic obstructive pulmonary disease with (acute) exacerbation Problem 2020 12:00:00 AM EST NETSVINODT ([facility] ) Z86.39 Hx malnutrition, severe protein calorie 06/23/2020 Hx malnutrition, severe protein calorie 06/23/2020 [id number] 06/23/2020 12:00:00 AM [facility] 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 06/16/2020 by EGD Carcinoma of cardio-esophageal junction 06/16/2020 by EGD [id number] 12:00:00 AM [facility] E43 Unspecified severe protein-calorie malnu trition Unspecified severe protein- calorie malnutrition Problem 06/22/2020 12:00:00 AM EST NETSMART ([facility]) E11.9 Type 2 diabetes mellitus without complic ations Type 2 diabetes mellitus without complications Problem 06/22/2020 12:00:00 AM EST NETSMART ([facility]) R13.10 Dysphagia, unspecified Dysphagia, unspecified Problem 06/22/2020 12:00:00 AM EST NETSMART ([facility] ) K21.9 Gastro-esophageal reflux disease without esophagitis Gastro-esophageal reflux disease without esophagitis Problem 06/22/2020 12:00:00 AM ES T NETSMART ([facility]) I10 Essential (primary) hypertension Essential (primary) h ypertension Problem 06/22/2020 12:00:00 AM EST NETSMART ([facility] ) G47.30 Sleep apnea, unspecified Sleep apnea, unspecified Prob tiffanie 06/22/2020 12:00:00 AM EST NETSMART ([facility] ) F41.9 Anxiety disorder, unspecified Anxiety disorder, unspec ified Problem 06/22/2020 12:00:00 AM EST NETSMART ([facility] ) Z43.4 Encounter for attention to other artific ial openings of digestive tract Encounter for attention to other artificial openings of digestive tract Problem 06/22/2020 12:00:00 AM EST NETSMART ([facility] ) Z91.81 History of falling History of falling Problem 0 12:00:00 AM EST NETSMART ([facility]) 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 Problem 06/22/2020 12:00:00 AM EST NETSMART ([facility]) Z79.891 prison (current) use of opiate analge sic prison (current) use of opiate analgesic Problem 06/22/2020 12:00:00 AM EST NETSMART ([facility]) Z87.891 Personal history of nicotine dependence Personal history of nicotine dependence Problem 06/22/2020 12:00:00 AM EST NETSMART ([facility]) 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 car shaila Problem 06/22/2020 12:00:00 AM EST NETSMART ([facility] ) J44.9 Chronic obstructive pulmonary disease, u nspecified Chronic obstructive pulmonary disease, unspecified Problem 06/22/2020 12:00:00 AM EST NE TSMART ([facility]) C15.9 [id number] Malignant neoplasm of esophagus, unspecif ied location Problem 06/02/2020 12:00:00 AM EDT eCW1 ([facility]) [id number] Dyspnea Dyspnea Problem 10/28/2019 12:00:00 AM ED T MEDENT ([facility]) 07973013 Premature beats Premature beats Problem 10/28/2019 12:0 0:00 AM EDT MEDENT ([facility]) 871551392 Dietary management surveillance Dietary manageme nt surveillance Problem 10/28/2019 12:00:00 AM EDT MEDENT ([facility] 074953887 Morbid obesity Morbid obesity Problem 10/28/2019 12:00: 00 AM EDT MEDENT ([facility]) 082692343 Mixed hyperlipidemia Mixed hyperlipidemia Problem 10/28/2019 12:00:00 AM EDT MEDENT ([facility]) 94218095 Essential hypertension Essential hypertension Problem 10/28/2019 12:00:00 AM EDT MEDENT ([facility]) 19594845 Chest pain Chest pain Problem 10/28/2019 12:00:00 AM ED T MEDENT ([facility]) H91.93 05839954 Bilateral hearing loss, unspecified heari ng loss type Problem 10/06/2019 12:00:00 AM EST eCW1 ([facility]) J44.9 73379921 Chronic obstructive pulmonary di sease, unspecified COPD type Problem 10/06/2019 12:00:00 AM EST eCW1 ([facility]) E11.9 089404105 Diabetes mellitus without complication Pr oblem 10/06/2019 12:00:00 AM EST eCW1 ([facility]) I11.9 79058556 Hypertensive heart disease without heart failure Problem 10/06/2019 12:00:00 AM EST eCW1 ([facility]) H25.9 16693006 Age-related cataract of both eyes, unspecified age-related cataract type Problem 10/06/2019 12:00:00 AM EST eCW1 ([facility]) E78.5 018630203 Dyslipidemia Problem 10/06/2019 12:00:00 AM EST eCW1 ([facility]) R13.10 53899985 Dysphagia, unspecified type Problem 10/06/19 12:00:00 AM EST eCW1 ([facility]) F32.9 Major depression, single episode Depression, uns pecified depression type Problem 10/06/2019 12:00:00 AM EST eCW1 ([facility]) K21.9 832982652 Chronic GERD Problem 10/06/2019 12:00:00 AM EST eCW1 ([facility]) I11.9 42744131 Hypertensive heart disease without heart failure Problem 10/06/2019 12:00:00 AM EST eCW1 ([facility]) H25.9 29653999 Age-related cataract of both eyes, unspecified age-related cataract type Problem 10/06/2019 12:00:00 AM EST eCW1 ([facility]) H91.93 09437420 Bilateral hearing loss, unspecified heari ng loss type Problem 10/06/2019 12:00:00 AM EST eCW1 ([facility]) R13.10 11064909 Dysphagia, unspecified type Problem 10/06/19 12:00:00 AM EST eCW1 ([facility]) J44.9 35473544 Chronic obstructive pulmonary di sease, unspecified COPD type Problem 10/06/2019 12:00:00 AM EST eCW1 ([facility]) J45.901 607019194 Exacerbation of asth ma, unspecified asthma severity, unspecified whether persistent Problem 09/10/2019 12:00:00 AM EST eC W1 ([facility]) K94.13 Enterostomy malfunction Enterostomy malfunction Diagno sis 08/13/2020 08:51:56 PM [facility] 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 car shaila Diagnosis 06/22/2020 12:28:10 PM EST [facility] 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 Malignant neoplasm of lower third of eso Diagnosis 06/22/2020 12:28:10 PM [facility] R62.51 Failure to thrive (child) Failure to thrive (child) Di agnosis 06/22/2020 12:28:10 PM [facility] R13.10 Dysphagia, unspecified Dysphagia, unspecified Diagnosi s 06/20/2020 09:17:29 AM [facility] U07.1 COVID-19 COVID-19 Diagnosis 06/10/2020 11:13:27 AM ES T [facility] C15.9 Malignant neoplasm of esophagus, unspeci fied Malignant neoplasm of esophagus, unspeci Diagnosis 06/10/2020 10:39:24 AM EST [facility] Z87.891 Personal history of nicotine dependence PERSONAL HISTORY OF NICOTINE DEPENDENCE Diagnosis 05/11/2020 03:00:00 PM [facility] Z79.899 Other fpc (current) drug therapy O THER SKILLED NURSING (CURRENT) DRUG THERAPY Diagnosis 05/11/2020 03:00:00 PM [facility] 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 EMIC DRUGS SKILLED NURSING (CURRENT) USE OF ORAL HYPOGLYCEMIC DRUGS Diagnosis 05/11/2020 03:00:00 PM [facility] Z85.01 Personal history of malignant neoplasm o f esophagus PERSONAL HISTORY OF MALIGNANT NEOPLASM OF ESOPHAGU Diagnosis 05/11/2020 03:00:00 PM [facility] 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 VEHICLE SYSTEMS MAINTAINER (CU RRENT) USE OF ASPIRIN Diagnosis 05/11/2020 03:00:00 PM [facility] Z79.51 prison (current) use of inhaled stero ids SKILLED NURSING (CURRENT) USE OF INHALED STEROIDS Diagnosis 05/11/2020 03:00:00 PM [facility] E78.00 PURE HYPERCHOLESTEROLEMIA, UNSPECIFIED P URE HYPERCHOLESTEROLEMIA, UNSPECIFIED Diagnosis 05/11/2020 03:00:00 PM [facility] I10 Essential (primary) hypertension ESSENTIAL (PRIMARY) H YPERTENSION Diagnosis 05/11/2020 03:00:00 PM [facility] J45.909 Unspecified asthma, uncomplicated UNSPECIFIED THMA, UNCOMPLICATED Diagnosis 05/11/2020 03:00:00 PM [facility] E11.9 Type 2 diabetes mellitus without complic ations TYPE 2 DIABETES MELLITUS WITHOUT COMPLICATIONS Diagnosis 05/11/2020 03:00:00 PM [facility] E86.0 Dehydration DEHYDRATION Diagnosis 05/11/2020 03:00:00 PM [facility] R11.2 Nausea with vomiting, unspecified NAUSEA WITH VO MITING, UNSPECIFIED Diagnosis 05/11/2020 03:00:00 PM [facility] C15.9 Malignant neoplasm of esophagus, unspeci fied Malignant neoplasm of esophagus, unspecified Diagnosis 05/09/2020 07:45:00 AM [facility] K29.00 Acute gastritis without bleeding ACUTE GASTRITIS WITHOUT BLEEDING Diagnosis 04/12/2020 06:28:00 PM [facility] R19.7 Diarrhea, unspecified DIARRHEA, UNSPECIFIED Diagnosis 04/12/2020 06:28:00 PM [facility] J45.901 Unspecified asthma with (acute) exacerba tion UNSPECIFIED ASTHMA WITH (ACUTE) EXACERBATION Diagnosis 09/10/2019 [facility] Acute maxillary sinusitis, unspecified A CUTE MAXILLARY SINUSITIS, UNSPECIFIED Diagnosis 07/13/2019 04:21:[facility]ced[facility] Procedure Description Date Indications Data Source(s) GLUC BLD GLUC MNTR DEV CLEARED FDA SPEC HOME USE POCT GLUCOSE Routine 08/14/2020 10:22 AM EST 08/14/2020 03:22:00 PM [facility] REPLACE DUODENOSTOMY/JEJUNOSTOMY TUBE PERQ IR G OR J TUBE C HANGE Pending Discharge 08/14/2020 9:46 AM EST 08/14/2020 02:46:05 PM [facility] GLUC BLD GLUC MNTR DEV CLEARED FDA SPEC HOME USE POCT GLUCOSE Routine 08/14/2020 5:45 AM EST 08/14/2020 10:45:00 AM [facility] COVID/FLU AB/RSV PCR COVID/FLU AB/RSV PCR STAT 08/13/2020 9:00 PM EST 08/14/2020 02:00:00 AM [facility] THROMBOPLASTIN TIME PARTIAL PLASMA/WHOLE BLOOD APTT STAT 08/13/2020 8:18 PM EST 08/14/2020 01:18:00 AM [facility] PROTHROMBIN TIME PROTIME-INR STAT 08/13/2020 8:18 PM EST 08/14/2020 01:18:00 AM [facility] BLOOD COUNT COMPLETE AUTO&AUTO DIFRNTL WBC COUNT CBC AND DIFFER ENTIAL STAT 08/13/2020 8:18 PM EST 08/14/2020 01:18:00 AM EST [facility] MAGNESIUM MAGNESIUM STAT 08/13/2020 8:18 PM EST 08/14/2020 01:18:00 AM EST [facility] LIPASE LIPASE STAT 08/13/2020 8:18 PM EST 08/14/19 01:18:00 AM EST [facility] COMPREHENSIVE METABOLIC PANEL COMPREHENSIVE METABOLIC PANEL STA T 08/13/2020 8:18 PM EST 08/14/2020 01:18:00 AM [facility] GLUC BLD GLUC MNTR DEV CLEARED FDA SPEC HOME USE POCT GLUCOSE Routine 08/13/2020 5:58 PM EST 08/13/2020 10:58:00 PM [facility] BLOOD COUNT COMPLETE AUTOMATED CBC Routine 06/24/2020 6:43 A M EST 06/24/2020 11:43:00 AM [facility] BASIC METABOLIC PANEL CALCIUM TOTAL BASIC METABOLIC PANEL Routi ne 06/24/2020 6:43 AM EST 06/24/2020 11:43:00 AM EST [facility] GLUC BLD GLUC MNTR DEV CLEARED FDA SPEC HOME USE POCT GLUCOSE Routine 06/24/2020 6:09 AM EST 06/24/2020 11:09:00 AM [facility] GLUC BLD GLUC MNTR DEV CLEARED FDA SPEC HOME USE POCT GLUCOSE Routine 06/23/2020 11:42 PM EST 06/24/2020 04:42:00 AM [facility] GLUC BLD GLUC MNTR DEV CLEARED FDA SPEC HOME USE POCT GLUCOSE Routine 06/23/2020 5:52 PM EST 06/23/2020 10:52:00 PM EST [facility] XR CHEST PORTABLE XR CHEST PORTABLE Routine 06/23/2020 11:52 AM EST 06/23/2020 04:52:11 PM [facility] GLUC BLD GLUC MNTR DEV CLEARED FDA SPEC HOME USE POCT GLUCOSE Routine 06/23/2020 11:30 AM EST 06/23/2020 04:30:00 PM EST [facility] FLUORO CENTRAL VENOUS ACCESS DEV PLACEMENT XR OR FLUORO HANK OUS ACCESS DEVICE STAT 06/23/2020 10:42 AM EST 06/23/2020 03:42:15 PM EST [facility] REVISION, INSERTION, OR REMOVAL, GASTROSTOMY OR JEJUNO STOMY TUBE REVISION, INSERTION, OR REMOVAL, GASTROSTOMY OR JEJUNOSTOMY TUBE 06/23/2020 9:58 AM EST Carcinoma of cardio-esophageal junction 06/23/2020 02: 58:00 PM EST - 06/23/2020 04:37:00 PM EST Carcinoma of cardio-esophageal junction [facility] Carcinoma of cardio-esophageal junction INSERTION, CENTRAL VENOUS ACCESS DEVICE, TUNNELED INS ERTION, CENTRAL VENOUS ACCESS DEVICE, TUNNELED 06/23/2020 9:58 AM EST Carcinoma of cardio-esophageal junction 06/23/2020 02: 58:00 PM EST - 06/23/2020 04:37:00 PM EST Carcinoma of cardio-esophageal junction [facility] Carcinoma of cardio-esophageal junction BLOOD COUNT COMPLETE AUTOMATED CBC Routine 06/23/2020 5:47 A M EST 06/23/2020 10:47:00 AM [facility] BASIC METABOLIC PANEL CALCIUM TOTAL BASIC METABOLIC PANEL Routi ne 06/23/2020 5:47 AM EST 06/23/2020 10:47:00 AM [facility] GLUC BLD GLUC MNTR DEV CLEARED FDA SPEC HOME USE POCT GLUCOSE Routine 06/22/2020 4:25 PM EST 06/22/2020 09:25:00 PM [facility] 2019 NCOV AMPLIFIED 2019 NCOV AMPLIFIED STAT 06/22/2020 2:30 PM EST 06/22/2020 07:30:00 PM [facility] BLOOD COUNT COMPLETE AUTOMATED CBC Routine 06/22/2020 1:04 P M EST 06/22/2020 06:04:00 PM [facility] COMPREHENSIVE METABOLIC PANEL COMPREHENSIVE METABOLIC PANEL Rou minh 06/22/2020 1:04 PM EST 06/22/2020 06:04:00 PM [facility] Endo W/Endo Ultrasound Exam 06/16/2020 12:00:00 AM EST MEDTYESHA ([facility]) UPPER GI NDSC DX W/WO COLLECTION SPECIMEN 06/14/2020 1 2:00:00 AM EST MEDENT ([facility]) BLOOD COUNT COMPLETE AUTOMATED CBC Routine 0 12:00 PM EST Malignant neoplasm of esophagus, unspecified location 06/10/2020 05:00:00 PM EST Malignant neoplasm of esophagus, unspecified location [facility] Malignant neoplasm of esophagus, unspeci fied location HEMOGLOBIN GLYCOSYLATED A1C HEMOGLOBIN A1C Routine 06/10/2020 12:00 PM EST Malignant neoplasm of esophagus, unspecified location 06/10/2020 05:00:00 PM EST Malignant neoplasm of esophagus, unspecified location [facility] Malignant neoplasm of esophagus, unspeci fied location BASIC METABOLIC PANEL CALCIUM TOTAL BASIC METABOLIC PANEL Routi ne 06/10/2020 12:00 PM EST Malignant neoplasm of esophagus, unspecified location 06/10/2020 05:00:00 PM EST Malignant neoplasm of esophagus, unspecified location [facility] Malignant neoplasm of esophagus, unspeci fied location ECG ROUTINE ECG W/LEAST 12 LDS TRCG ONLY W/O I&R ECG 12-LEAD Routine 06/10/2020 11:50 AM EST Malignant neoplasm of esophagus, unspecified location 06/10/2020 04:50:48 PM EST Malignant neoplasm of esophagus, unspecified location [facility] Malignant neoplasm of esophagus, unspeci fied location Endoscopy Upper GI Balloon Dilation Of Esophagus 04/29 12:00:00 AM EDT MEDTYESHA ([facility]) Arterial Pressure Waveform Analysis For Assessment Of Centra l Art 03/02/2020 12:00:00 AM EDT MEDENT ([facility]) TDAP 0.5mL (Boostrix) 12/02/2019 12:00:00 AM EDT eCW1 ([facility]) IM ADMIN 1ST/ONLY COMPONENT 12/02/2019 12:00:00 AM EDT eCW1 ([facility]) IM ADMIN EACH ADDL COMPONENT 12/02/2019 12:00:00 AM ED T eCW1 ([facility]) ECHO TTHRC R-T 2D W/WOM-MODE COMPL SPEC&COLR DOP 11/23 12:00:00 AM EDT MEDTYESHA ([facility]) MYOCRD IMAGE PET PERFUS MULTPL STUDY REST/STRESS 11/10 12:00:00 AM EDT MEDENT ([facility]) CV STRS TST XERS&/OR RX CONT ECG I&R ONLY 11/11/2019 1 2:00:[facility] [address] [facility] XTRNL ECG < 48 HR RECORDING 10/29/2019 12:00:00 AM [facility] XTRNL ECG CONTINUOUS RHYTHM PHYS REVIEW&INTERPJ 2019 12:00:00 AM EDT MEDENT ([facility]) ECG ROUTINE ECG W/LEAST 12 LDS W/I&R 10/28/2019 12:00: [address] [facility] Arterial Pressure Waveform Analysis For Assessment Of Centra l Art 10/28/2019 12:00:00 AM ED[facility]) Office Visit, New Pt., Level 3 PC 10/06/2019 12:00:00 AM EST eCW1 ([facility]) Office Visit, New Pt., Level 2 FC 10/06/2019 12:00:00 AM EST eCW1 ([facility]) Results ID Date Data Source [id number] 08/14/2020 03:41:57 PM EST [facility]E NT INFORMATIONPatient MRN Name Date of Age Gend*PT [id number] Ana Alarcon 1945 75 years F OBSPT Location Admission Date/Time Visit ID Attending [id number] 08/13/202050 --- --- EPI ID CSN Admitting Provider [id number] Wilmer Vuong MD([id number]) Attestation signed by Johnson Casarez MD at 08/14/2020 3:41 PMI discussed case and reviewed SCOOTER Harris 's note. I agree with thehistory, physical and medical decision making.--- DISCHARGE SUMMARYAna [id number]/25/1944dmit date: 08/13/2020dmitting Physician: STARR Combsischarge date and time:Discharge Orders Placed(From admission, onward) Start Ordered 08/14/20 1022 Discharge patient OnceComments: After appropriate monitoring post- IRExpected Discharge Date: 08/14/20Discharge Disposition: Home or Self Care 08/14/20 1024Discharge Physician: Toribio Beal PAAdmission Diagnosis:Jejunostomy tube fell outSecondary Diagnoses:Principal Problem: Jejunostomy tube fell outActive Problems: Diabetes mellitus treated with oral medication (A1c 8) Esophageal reflux Hypertension 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 She had no bleeding, pain, nausea, vomiting. In the ED, case wasdiscussed with general surgery. A Maguire catheter was temporarily placed andadmission to the medicine service was requested. Patient was taken tointerventional radiology for J-tube reinsertion. She tolerated the procedure well and has no complaints. Her vital signs are stable and she is very eagerfor discharge. Close outpatient follow-up with her primary providers wasadvised.Consultations:General surgeryInterventional radiologyPost discharge instructions:1. Follow-up with PCP in 7-10 daysPAST MEDICAL HISTORY:Past Medical History:Diagnosis Date Anxiety Asthma COPD (chronic obstructive pulmonary disease) Uses oxygen PRN Diabetes mellitus treated with oral medication (A1c 8) 01/31/2012 Diabetes mellitus, type II Esophageal cancer GERD (gastroesophageal reflux disease) High cholesterol Hypertension PVC (premature ventricular contraction) Seen by Dr Cruz Sleep apnea not currently using CPAP due to excessive vomiting.Past Surgical History:Procedure Laterality Date ADENOIDECTOMY CENTRAL VENOUS CATHETER INSERTION N/A 06/23/2020 Procedure: INSERTION, CENTRAL VENOUS ACCESS DEVICE, TUNNELED PORTACATH;Surgeon: Vinny frost MD; Laterality: N/A; GASTROSTOMY-JEJEUNOSTOMY TUBE CHANGE/PLACEMENT N/A 06/23/2020 Procedure: INSERTION,feeding JEJUNOSTOMY TUBE; Surgeon: MD Ely; Laterality: N/A; HEEL SPUR SURGERY Right HYSTERECTOMY PANENDOSCOPY N/A 06/14/2020 Procedure: endoscopy; Surgeon: Lit Gerber DO; Laterality: N/A; TIME OKAY PERLISA H PANENDOSCOPY N/A 06/16/2020 Procedure: ULTRASOUND, UPPER GASTROINTESTINAL (GI) TRACT, ENDOSCOPIC; Surgeon:Lit Gerber DO; Laterality: N/A;PHYSICAL EXAMVital Signs: Temp: [96.8 F-97.5 F] 97.4 FHeart Rate: [61-105] 61Resp: [12-18] 15BP: (121-139)/(70-82) 121/70I/O:Intake/Output Summary (Last 24 hours) at 08/14/2020 1024Last data filed at 08/14/2020 1000Gross per 24 hourIntake 493 mlOutput Net 493 mlPhysical ExamConstitutional: She is oriented to person, place, and time. She appearswell-developed. No distress.HENT:Head: Normocephalic and atraumatic.Mouth/Throat: Oropharynx is clear and moist.Eyes: Conjunctivae and EOM are normal.Neck: Normal range of motion.Cardiovascular: Normal rate, regular rhythm, normal heart sounds and intactdistal pulses.No murmur heard.Pulmonary/Chest: Effort normal and breath sounds normal. No respiratorydistress. She has no wheezes. She has no rales.Abdominal: Soft. Bowel sounds are normal. She exhibits no distension. There isno tenderness. There is no rebound and no guarding.J-tube in place, no drainage, no erythema, no tenderness surroundingNeurological: She is alert and oriented to person, place, and time.Skin: Skin is warm.Psychiatric: She has a normal mood and affect.S ignificant Labs:Recent Labs NA 138K 4.9CL 102CO2 31ANIONGAP 5*GLU 336*BUN 20CREATININE 0.84GFRAA >60GFRNONAA >60CALCIUM 9.1ALKPHOS 92ALT 17AST 9*ALBUMIN 3.5Results from last 7 daysLab Units WBC 10*3/uL 6.7HEMOGLOBIN g/dL 12.4HEMATOCRIT % 38.7PLATELETS 10*3/uL 165Coags:Lab ResultsComponent Value Date PROTIME 10.3 08/13/2020 INR 0.98 08/13/2020 APTT 21.2 (L) 08/13/2020Magnesium:Lab ResultsComponent Value Date MG 2.2 08/13/2020ancreatic:Lab ResultsComponent Value Date LIPASE 44 (L) 08/13/2020Imaging and Procedures:J tube change IR:Findings: After the risks and benefits of the procedure were explained to thepatient, informed consent was obtained. The patient was sterilely prepped anddraped using maximum sterile barrier technique. The old J-tube tract was probedusing a Kumpe catheter. Contrast injection opacifies small bowel loops. TheKumpe catheter and Glidewire were used to advance the wire and catheterdistally. A 16 Solomon Islander dilator was used to estimate the tube size required. An 18French ELIZABETH J-tube was advanced over the wire under fluoroscopic guidance andpositioned with its distal aspect in the small bowel. Contrast injectionconfirms satisfactory position of function of the new J-tube. The balloon wasinflated with 10 cc of sterile water. The bumper was cinched to the skin. Providers: Dr. Fabian. Complications: None. IMPRESSIONIMPRESSION: Status post successful J-tube reinsertion.Discharged Condition:stableDisposition:Home or Self CareDischarge Instructions:An After Visit Summary was printed and given to the patient.Your medication listCONTINUE taking these medications Instructions Last Dose Given Morning Afternoon Evening Bedtime As Neededalbuterol 108 (90 Base) MCG/ACT inhalerCommonly known as: PROVENTIL HFA;VENTOLIN HFA Inhale 2 puffs every 4 (four) hours as needed for whe ezingaspirin EC 81 MG EC tablet Take 81 mg by mouth dailyfamotidine 40 MG/5ML suspensionCommonly known as: PEPCID 5 mL (40 mg total) by Per J Tube route nightlyFLUoxetine 20 MG/5ML solutionCommonly known as: PROzac 2.5 mL (10 mg total) by Per J Tube route dailyipratropium-albuterol 0.5-2.5 mg/mL nebulizerCommonly known as: DUO-NEB Inhale 3 mL every 6 (six) hours as needed (for shortness of breath)Jardiance 10 MG TabsGeneric drug: Empagliflozin Take 10 mg by mouth dailylactulose 10 GM/15ML solutionCommonly known as: CHRONULAC 15 mL (10 g total) by Per J Tube route nightly Stop for diarrhealisinopril 20 MG tabletCommonly known as: PRINIVIL,ZESTRIL Take 20 mg by mouth dailyloperamide 2 MG capsuleCommonly known as: IMODIUM Take 2 mg by mouth 4 (four) times a day as needed for diarrheaMisc. Devices Misc Tube feed pole and pumpMisc. Devices Misc glucerna with carb steady 1.5 lawanda via j tube for 12 hours, pump and poleMisc. Devices Misc glucerna 1.5 lawanda at 60 cc/hr for 12 hours through j tube via pump, flush [id number] cc before and after feeds and mesh poleondansetron 4 MG disintegrating tabletCommonly known as: ZOFRAN-ODT Take 1 tablet (4 mg total) by mouth 4 (four) times a day as needed for nauseaoxyCODONE 5 MG/5ML solutionCommonly known as: ROXICODONE 5-7.5 mL (5-7.5 mg total) by Per J Tube route every 4 (four) hours as neededMax Daily Amount: 45 mgrosuvastatin 40 MG tabletCommonly known as: CRESTOR Take 40 mg by mouth dailysitaGLIPtin 100 MG tabletCommonly known as: JANUVIA Take 100 mg by mouth dailytorsemide 10 MG tabletCommonly known as: DEMADEX Take 10 mg by mouth dailyDiscussed assessment and plan with Dr. Casarez who is in agreement.Total time spent for discharge was: 30 minutes or lessSignature: ROSA Harrisate: August 14, 2020Time: 10:24 AM Name Value Range Interpretation Code Description Data Anyi rce(s) Supporting Document(s) ID Date Data Source [id number] 08/14/2020 10:24:26 AM EST [facility] [place] [facility] [place] Name Value Range Interpretation Code Description Data Anyi rce(s) Supporting Document(s) POC NOVA GLU 196 mg/dL (70-99) H [facility] [place] [facility] [place] [facility] CLINICAL STAFF ID Date Data Source [id number] 08/14/2020 09:51:53 AM EST [address] [id number] Name: ANA HOANGB: 1945Sex: FOrdering Provider: WILMER Stone Prov: WILMER Cotton Provider: Procedure Performed: IR G OR J TUBE CHANGEExam Date: 08/14/2020 09:46MRN: [id number] Number: [id number] Class: OutpatientAccount #: [id number] for Exam: J tube fell out in sleep - Maguire temporarily put in placed in ED without issue which is now draining to gravity - patient usual gets multiple meds down her tubeTechnique: See findingsFluoroscopy time: 252 SecondsNumber of Spot Images: 9Comparison: NoneFindings: After the risks and benefits of the procedure were explained to the patient, informed consent was obtained. The patient was sterilely prepped and draped using maximum sterile barrier technique. The old J- tube tract was probed using a Kumpe catheter. Contrast injection opacifies small bowel loops. The Kumpe catheter and Glidewire were used to advance the wire and catheter distally. A 16 Solomon Islander dilator was used to estimate the tube size required. An 18 Solomon Islander ELIZABETH J-tube was advanced over the wire under fluoroscopic guidance and positioned with its distal aspect in the small bowel. Contrast injection confirms satisfactory position of function of the new J-tube. The balloon was inflated with 10 cc of sterile water. The bumper was cinched to the skin.Providers: Dr. Fabian.Complications: None.IMPRESSION: Status post successful J-tube reinsertion.Report electronically signed by: WALE FABIAN On 08/14/2020 9:51 AMWorkstation ID: [id number] Name Value Range Interpretation Code Description Data Anyi rce(s) Supporting Document(s) ID Date Data Source [id number] 08/14/2020 09:44:59 AM EST [facility] NT INFORMATIONPatient MRN Name Date of Age Gend*PT [id number] Ana Alarcon 1945 75 years F OBSPT Location Admission Date/Time Visit ID Attending [id number] 08/13/202050 --- Johnson Casarez MD([id number]) EPI ID CSN Admitting Provider [id number] Wilmer Vuong MD([id number])Brief Operative/Invasive Procedure NoteSylvday AlarconDATE OF : 1945MRN # [id number] DATE: 08/14/2020ROVIDER:Wale Fabian MD 08/14/2020 9:44 AMASSISTANCE(S): NonePROCEDURE:J-tube reinsertionPRE-PROCEDURE DIAGNOSIS:Jtube fell outPOST PROCEDURE DIAGNOSIS:Jtube fell outANESTHESIA TYPE:noneDRAINS:18F ELIZABETH J-tubeSPECIMENS:0ESTIMATED BLOOD LOSS: NoneGRAFTS OR IMPLANTS:0FINDINGS: Consistent with operative diagnosisCOMPLICATIONS: Lucille Fabian, STARRepartment of Interventional Radiology Name Value Range Interpretation Code Description Data Anyi rce(s) Supporting Document(s) ID Date Data Source [id number] 08/14/2020 08:28:32 AM EST [facility] NT INFORMATIONPatient MRN Name Date of Age Gend*PT [id number] Ana Alarcon 1945 75 years F OBSPT Location Admission Date/Time Visit ID Attending [id number] 08/13/202050 --- Johnson Casarez MD([id number]) EPI ID CSN Admitting Provider [id number] Wilmer Vuong MD([id number])Inpatient History & PhysicalSylvia Reg AlarconMRN: [id number] and Plan:Principal Problem: Jejunostomy tube fell outActive Problems: 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 Jtube fell out during sleep06/23/2020 open J-tube by Dr. Flynn general surgeryDr. Tran aware vocational horticulture instructor for Dr. Douglas placed easily in ED and some bile coming out leave to gravity as d/w Not planning on using it for meds right nowNPOIR called by ED who agrees to arrange replacement later todayHold her ASA 81 mgiVF for now2. Hx Esoph CA 06/2020stage 3B @ cardio-esophageal junction s/p EGD Bx 06/16/[address] Gerber3. Malnutrition severe 06/2020 and > 40 lb weight lossAlbumin now normal and electrolytes normalTube feeds can resume once clear by IR after new tubeTract well established so should be able to resume rapidly hopefully4. Hx GERD continue acid reduction5. Modified diet due to difficult swallowing and CATakes liquids and pureeCan give her liquid and IV meds until new J tube in place6. Asthma COPD mild without oxygen or steroids7. Hx LEENA not using BiPAP and likely improved after > 40 lb weight loss8. DM2 on oral meds a1c 8 recentlyhumalog "frail scale" for nowResume oral meds on discharge9. DVT Px - heparin subQ10. FULL CODE status continues as prior she agreesHistory of Present Illness: The patient's J-tube (placed 06/[address] Dr. Flynn) fell out during sleep. No major pain or bleeding orcomplaints. In ED Maguire placed in the site temporarily without issues and it isdraining some bile now WNL. No other acute complaints. IR and surgery called andthe recommended plan is this am IR J-tube placement. The patient eats puree andliquids okay. If pills s mall liquid she can tolerate.Past Medical History:Past Medical History:Diagnosis Date Anxiety Asthma COPD (chronic obstructive pulmonary disease) Uses oxygen PRN Diabetes mellitus treated with oral medication (A1c 8) 01/31/2012 Diabetes mellitus, type II Esophageal cancer GERD (gastroesophageal reflux disease) High cholesterol Hypertension PVC (premature ventricular contraction) Seen by Dr Cruz Sleep apnea not currently using CPAP due to excessive vomiting.Past Surgical History:Past Surgical History:Procedure Laterality Date ADENOIDECTOMY CENTRAL VENOUS CATHETER INSERTION N/A 06/23/2020 Procedure: INSERTION, CENTRAL VENOUS ACCESS DEVICE, TUNNELED PORTACATH;Surgeon: Vinny Flynn MD; Laterality: N/A; GASTROSTOMY-JEJEUNOSTOMY TUBE CHANGE/PLACEMENT N/A 06/23/2020 Procedure: INSERTION,feeding JEJUNOSTOMY TUBE; Surgeon: MD Ely; Laterality: N/A; HEEL SPUR SURGERY Right HYSTERECTOMY PANENDOSCOPY N/A 06/14/2020 Procedure: endoscopy; Surgeon: Lit Gerber DO; Laterality: N/A; TIME OKAY PERLISA H PANENDOSCOPY N/A 06/16/2020 Procedure: ULTRASOUND, UPPER GASTROINTESTINAL (GI) TRACT, ENDOSCOPIC; Surgeon:Lit Gerber DO; Laterality: N/A;Medications:Medication reconciliation has been input by the nursing/triage staff and I havereviewed. Official pharmacy analyst consult requested.Allergies:Kiwi extractFamily History:Family HistoryProblem Relation Age of Onset Cancer Mother Breast cancer Sister Brain cancer SisterSocial History:Social HistorySocioeconomic History Marital status: Spouse name: Not on file Number of children: Not on file Years of education: Not on file Highest education level: Not on fileOccupational History Not on fileSocial Needs Financial resource strain: Not on file Food insecurity: Worry: Not on file Inability: Not on file Transportation needs: Medical: Not on file Non-medical: Not on fileTobacco Use Smoking status: Former Smoker Packs/day: 1.00 Years: 31.00 Pack years: 31.00 Types: Cigarettes Last attempt to quit: 1994 Years since quittin.0 Smokeless tobacco: Never UsedSubstance and Sexual Activity Alcohol use: No Drug use: Never Sexual activity: Not on fileLifestyle Physical activity: Days per week: Not on file Minutes per session: Not on file Stress: Not on fileRelationships Social connections: Talks on phone: Not on file Gets together: Not on file Attends presybeterian service: Not on file Active member of club or organization: Not on file Attends meetings of clubs or organizations: Not on file Relationship status: Not on file Intimate partner violence: Fear of current or ex partner: Not on file Emotionally abused: Not on file Physically abused: Not on file Forced sexual activity: Not on fileOther Topics Concern Not on fileSocial History Narrative Not on fileReview of SystemsAll other systems reviewed and are negative.All systems were reviewed and foundto be negative except for those mentioned in the HPI.Temp: [96.8 F-97.5 F] 96.8 FHeart Rate: [93-95] 95Resp: [18] 18BP: (121-139)/(79-80) 139/80Physical ExamConstitutional: She is oriented to person, place, and time. She appearswell- nourished. No distress.HENT:Head: Normocephalic and atraumatic.Right Ear: External ear normal.Left Ear: External ear normal.Nose: Nose normal.Mouth/Throat: Oropharynx is clear and moist. No oropharyngeal exudate.Eyes: Pupils are equal, round, and reactive to light. Conjunctivae and EOM arenormal. Right conjunctiva is not injected. Left conjunctiva is not injected. Noscleral icterus.Neck: Neck supple. No JVD present.Cardiovascular: Normal rate, regular rhythm and intact distal pulses. Examreveals no gallop and no friction rub.No murmur heard.Peripheral Edema: no lower extremity edema.Pulmonary/Chest: Effort normal and breath sounds normal. No respiratorydistress. She has no wheezes. She has no rhonchi. She has no rales. She exhibitsno tenderness.Abdominal: Soft. Bowel sounds are normal. She exhibits no distension and nomass. There is no tenderness. There is no rebound and no guarding. No hernia.Maguire in J-tube ostomy site with drainage to gravityMusculoskeletal: Normal range of motion.Lymphadenopathy: She has no cer vical adenopathy.Neurological: She is alert and oriented to person, place, and time. No cranialnerve deficit. She exhibits normal muscle tone. Coordination normal.Skin: Skin is warm and dry. No rash noted. She is not diaphoretic. No erythema.No pallor.Psychiatric: She has a normal mood and affect. Her behavior is normal. Judgmentand thought content normal.Vitals reviewed.Labs, Imaging and Other Diagnostic Tests:Diagnostic test reviewed for today's visit include: Labs and Old RecordsReviewed.Significant findings: Results for ANA ALARCON ( ) as of08/14/2020 00:0908/13/2020 20:18Sodium: 138Potassium: 4.9Chloride: 102CO2: 31Anion Gap: 5 (L)Urea nitrogen: 20Creatinine, Ser: 0.84BUN/Creatinine Ratio: 23.8 (H)GLUCOSE: 336 (H)Calcium: 9.1Total Protein: 7.1Albumin: 3.5Globulin: 3.6Alb/Glob ratio: 1.0Bilirubin, Total: 0.5AST: 9 (L)ALT: 17GFR MDRD Non Af Amer: >60GFR MDRD Af Amer: >60Glom Filt Rate, Est: SEE NOTESLipase: 44 (L)Magnesium: 2.2Alkaline Phosphatase: 92WBC: 6.7RBC: 4.34Hematocrit: 38.7Hemoglobin: 12.4MCV: 89.1MCH: 28.6MCHC: 32.1RDW: 15.3 (H)Platelets: 165MPV: 9.3Neutrophils %: 92.1 (H)Lymphocytes Relative: 3.2 (L)Monocytes Relative: 3.2Eosinophils Relative: 1.1Basophils Relative: 0.4Neutrophils Absolute: 6.2Lymphocytes Absolute: 0.2 (L)Monocytes Absolute: 0.2Basophils Absolute: 0.08/13/2020 21:18DPBQB11 RESULT: NOT DETECTEDInfluenza A: NEGATIVERSV: NEGATIVEInfluenza B: NEGATIVE.Signature: STARR Combsate: August 14, 2020Time: 12:41 AM Name Value Range Interpretation Code Description Data Anyi rce(s) Supporting Document(s) ID Date Data Source [id number] 08/14/2020 05:47:49 AM EST [facility] [place] [facility] Name Value Range Interpretation Code Description Data Anyi rce(s) Supporting Document(s) POC NOVA GLU 146 mg/dL (70-99) H [facility] [place] [facility] PERFORMED BY [facility] CLINICAL STAFF ID Date Data Source [id number] 08/13/2020 09:00:00 PM EST [facility] Name Value Range Interpretation Code Description Data Anyi rce(s) Supporting Document(s) SARS coronavirus 2 RNA [Presence] in Res piratory specimen by POLO with probe detection NOT DETECTED [facility] This lab was reported by [facility] [place] [facility]. ID Date Data Source [id number] 08/13/2020 10:07:05 PM EST [facility] Name Value Range Interpretation Code Description Data Anyi rce(s) Supporting Document(s) SPECIMEN DESCRIPTION [facility] INFLUENZA A (NEG) [facility] [place] [facility] INFLUENZA B (NEG) [facility] [place] [facility] RSV (NEG) [facility] [place] [facility] COMMENT [facility] [place] [facility] UNDER AN EMERGENCY USE AUTHORIZATION(EUA ) FOR THE DETECTION AND/OR DIAGNOSISOF THE VIRUS THAT CAUSES COVID-19.PERFORMED AT [address] [place] [id number] COVID19 RESULT (NDET) [facility] [place] [facility] THIS ASSAY AMPLIFIES AND DETECTSTHE TARG ET RNA USING REAL-TIME PCR.NEGATIVE 2019_NCOV RT-PCR RESULTS DONOT PRECLUDE 2019_NCOV INFECTION ANDSHOULD NOT BE USED THE SOLE BASISFOR PATIENT MANAGEMENT DECISIONS. FIRST TEST [facility] [place] [facility] EMPLOYED IN HLTHCARE [facility] SYMPTOMATIC [facility] [place] DATE OF SYMPT ONSET [facility] HOSPITALIZED [facility] [place] [facility] ICU [facility] [place] [facility] CONGREGATE CARE SET [facility] [place] [facility] ID Date Data Source [id number] 08/14/2020 05:21:48 AM EST [facility] [place] [facility] Name Value Range Interpretation Code Description Data Anyi rce(s) Supporting Document(s) PT 10.3 s (9.2-11.9) [facility] [place] [facility] INR 0.98 [facility] [place] [facility] SUGGESTED THERAPEUTIC RANGES USING INR F ORSTABILIZED ANTICOAGULATED PATIENTS:STANDARD DOSE THERAPY INR 2.0-3.0 DVT, PE, PREVENT DVT OR EMBOLISMHIGH DOSE THERAPY INR 2.5-3.5 PREVENT EMBOLISM FROM MECHANICAL HEART VALVE ID Date Data Source [id number] 08/14/2020 05:21:48 AM EST [facility] [place] [facility] Name Value Range Interpretation Code Description Data Anyi rce(s) Supporting Document(s) APTT 21.2 s (22.0-34.3) L [facility] [place] [facility] ID Date Data Source [id number] 08/13/2020 09:24:43 PM EST [facility] [place] [facility] Name Value Range Interpretation Code Description Data Anyi rce(s) Supporting Document(s) SODIUM 138 mmol/L (136-145) [facility] [place] [facility] POTASSIUM 4.9 mmol/L (3.6-5.2) [facility] [place] [facility] CHLORIDE 102 mmol/L (100-108) [facility] [place] [facility] CO2 31 mmol/L (22-31) [facility] [place] [facility] ANION GAP 5 mmol/L (7-16) L [facility] [place] [facility] UREA NITROGEN 20 mg/dL (7-24) [facility] [place] [facility] CREATININE 0.84 mg/dL (0.60-1.00) [facility] [place] [facility] BUN/CREAT RATIO 23.8 RATIO (10.0-20.0) H [facility] GLUCOSE 336 mg/dL (70-99) H [facility] [place] [facility] CALCIUM 9.1 mg/dL (8.4-10.2) [facility] [place] [facility] TOTAL PROTEIN 7.1 g/dL (6.4-8.2) [facility] [place] [facility] ALBUMIN 3.5 g/dL (3.2-4.5) [facility] [place] [facility] GLOBULIN 3.6 g/dL (2.7-4.3) [facility] [place] [facility] ALB/GLOB RATIO 1.0 RATIO [facility] [place] [facility] ALKALINE PHOSPHATASE 92 U/L (45-117) [facility] BILIRUBIN,TOTAL 0.5 mg/dL (0.0-1.0) [facility] [place] [facility] PLEASE NOTE:Total bilirubin results may be falselyelevated in patients taking Eltrombopag. AST (SGOT) 9 U/L (11-39) L [facility] [place] [facility] ALT (SGPT) 17 U/L (12-78) [facility] [place] [facility] GFR >60 ml/min/1.73m2 (>59) [facility] [place] [facility] GFR ( AMER) >60 ml/min/1.73m2 (>59) [facility] [place] [facility] GFR INTERPRETATION [facility] --NORMAL KIDNEY FUNCTION OR MILD DISEASE - GFR >OR= 60CHRONIC KIDNEY DISEASE - GFR 15 - 59RENAL FAILURE - GFR <15 Est. GFR calculation based on the MDRDstudy equation, which assumes a steadystate for creatinine. Est. GFR should notbe used for medication dosing. ID Date Data Source [id number] 08/13/2020 09:22:07 PM EST [facility] [place] [facility] [place] Name Value Range Interpretation Code Description Data Anyi rce(s) Supporting Document(s) MAGNESIUM 2.2 mg/dL (1.7-2.4) [facility] [place] [facility] ID Date Data Source [id number] 08/13/2020 09:22:07 PM EST [facility] [place] [facility] Name Value Range Interpretation Code Description Data Anyi rce(s) Supporting Document(s) LIPASE 44 U/L (65-230) L [facility] [place] [facility] ID Date Data Source [id number] 08/13/2020 09:10:36 PM EST [facility] [place] [facility] [place] Name Value Range Interpretation Code Description Data Anyi rce(s) Supporting Document(s) WBC 6.7 10*3/uL (4.1-11.0) [place] [facility] [place] RBC 4.34 10*6/uL (4.00-5.40) [facility] [place] [facility] HGB 12.4 g/dL (12.0-16.0) [facility] [place] [facility] HCT 38.7 % (36.0-47.0) [facility] [place] [facility] MCV 89.1 fL (80.0-95.0) [facility] [place] [facility] MCH 28.6 pg (27.0-32.0) [facility] [place] [facility] [place] MCHC 32.1 g/dL (32.0-36.0) [facility] [place] [facility] [place] RDW 15.3 % (10.5-14.5) H [facility] [place] [facility] PLT 165 10*3/uL (150-450) [facility] [place] [facility] MPV 9.3 fL (7.1-10.7) [facility] [place] [facility] NEUT % 92.1 % (35.0-75.0) H [facility] [place] [facility] LYMPH % 3.2 % (16.0-52.0) L [facility] [place] [facility] [place] MONO % 3.2 % (0.0-8.0) [facility] [place] [facility] EOS % 1.1 % (0.0-5.0) [facility] [place] [facility] BASO % 0.4 % (0.0-4.0) [facility] [place] [facility] NEUT # 6.2 10*3/uL (1.8-7.7) [facility] [place] [facility] [place] LYMPH # 0.2 10*3/uL (1.2-4.8) L [facility] [place] [facility] [place] MONO # 0.2 10*3/uL (0.0-0.8) [facility] [place] [facility] [place] Eosinophils [#/volume] in Blood by Automated count 0.1 10*3/uL (0.0-0 .5) [facility] [place] [facility] BASO # 0.0 10*3/uL (0.0-0.2) [facility] [place] [facility] ID Date Data Source [id number] 08/13/2020 06:00:08 PM EST [facility] [place] [facility] Name Value Range Interpretation Code Description Data Anyi rce(s) Supporting Document(s) POC NOVA GLU 261 mg/dL (70-99) H [facility] [place] [facility] [place] [facility] CLINICAL STAFF ID Date Data Source [id number] 08/09/2020 01:45:37 PM EST [facility] INFORMATIONPatient MRN Name Date of Age Gend*PT [id number] Ana Alarcon 1945 75 years F ---PT Location Admission Date/Time Visit ID Attending Provider --- --- --- --- EPI ID CSN Admitting Provider [id number] ---Addended by: RONIT MOON on: 08/09/2020 01:45 PM Modules accepted: Orders Name Value Range Interpretation Code Description Data Anyi rce(s) Supporting Document(s) ID Date Data Source [id number] 08/02/2020 03:03:18 PM EST [facility] INFORMATIONPatient MRN Name Date of Age Gend*PT [id number] Ana Alarcon 1945 75 years F ---PT Location Admission Date/Time Visit ID Attending Provider --- --- --- --- EPI ID CSN Admitting Provider [id number] ---Service during this phone call was provided as telemedicine. Patient was advisedof this prior to start of call and consent obtained. Patient name and date ofbirth confirmed at start of conversation. Patient is advised of difference ofvideo or phone visit. Patient preferred a phone.Subjective:Patient was identified by name and date of .Verbal consent was obtained from the patient for this telemedicine visit.Patient is aware of the risks, limitations, and benefits of a telemedicinevisit.Patient ID: Ana Alarcon is a 75 years female.Chief Complaint: NoneHPIPatient underwent a jejunostomy placement for nutrition. Telemedicine wasperformed with daughter via phone , approved by patient . She is doing well withno pain or discomfort. Tolerating tube feeds at 60 ml/ hr. No drainage around it. No pain is noted The following portions of the patient's history were reviewed and updated asappropriate: allergies, current medications were reconciled with dischargemedications if applicable, past family history, past medical history, pastsocial history, past surgical history and problem listObjective:Vital Signs: Unable to be obtained from the patient. Patient does not have a BPCuff available to obtain a blood pressure.Physical Exam: Deferred due to Telemedicine encounterAssessment/Plan:feeding jejunostomyThis telemedicine assessment was conducted remotely with the assistance ofAchates Poweric communication technology: Telephone Only Codes 42516: 5-10 minutesof medical discussion:Telephone OnlyI have spent 10 minutes with the patient discussing the above diagnoses andcounseling/coordinating the patient's care.we discussed care of the j tube. daughter will remove the nylon sutures anddress the tube appropriately. patient willpatient will contact office with any questions or concerns Name Value Range Interpretation Code Description Data Anyi rce(s) Supporting Document(s) ID Date Data Source [id number] 07/06/2020 11:31:34 AM EST [facility] NT INFORMATIONPatient MRN Name Date of Age Gend*PT [id number] Ana Alarcon 1945 75 years F ---PT Location Admission Date/Time Visit ID Attending Provider --- --- --- --- EPI ID CSN Admitting Provider [id number] ---Addended by: RONIT MOON on: 07/06/2020 11:31 AM Modules accepted: Orders Name Value Range Interpretation Code Description Data Anyi rce(s) Supporting Document(s) ID Date Data Source [id number] 07/06/2020 10:38:27 AM EST [facility] NT INFORMATIONPatient MRN Name Date of Age Gend*PT [id number] Ana Alarcon 1945 75 years F ---PT Location Admission Date/Time Visit ID Attending Provider --- --- --- --- EPI ID CSN Admitting Provider [id number] ---Addended by: RONIT MOON on: 07/06/2020 10:38 AM Modules accepted: Orders Name Value Range Interpretation Code Description Data Anyi rce(s) Supporting Document(s) ID Date Data Source [id number] 06/24/2020 08:24:14 AM EST [facility] Name Value Range Interpretation Code Description Data Anyi rce(s) Supporting Document(s) SODIUM 141 mmol/L (136-145) [facility] POTASSIUM 4.6 mmol/L (3.6-5.2) [facility] CHLORIDE 107 mmol/L (100-108) [facility] CO2 24 mmol/L (22-31) [facility] ANION GAP 10 mmol/L (7-16) [facility] UREA NITROGEN 10 mg/dL (7-24) [facility] CREATININE 0.96 mg/dL (0.60-1.00) [facility] BUN/CREAT RATIO 10.4 RATIO (10.0-20.0) [facility] GLUCOSE 164 mg/dL (70-99) H [facility] CALCIUM 8.2 mg/dL (8.4-10.2) L [facility] GFR 57 ml/min/1.73m2 (>59) L [facility] GFR ( AMER) >60 ml/min/1.73m2 (>59) [facility] GFR INTERPRETATION [facility] --NORMAL KIDNEY FUNCTION OR MILD DISEASE - GFR >OR= 60CHRONIC KIDNEY DISEASE - GFR 15 - 59RENAL FAILURE - GFR <15 Est. GFR calculation based on the MDRDstudy equation, which assumes a steadystate for creatinine. Est. GFR should notbe used for medication dosing. ID Date Data Source [id number] 06/24/2020 07:43:21 AM EST [facility] Name Value Range Interpretation Code Description Data Anyi rce(s) Supporting Document(s) WBC 7.6 10*3/uL (4.1-11.0) [facility] RBC 4.28 10*6/uL (4.00-5.40) [facility] HGB 12.5 g/dL (12.0-16.0) [facility] HCT 38.5 % (36.0-47.0) [facility] PERFORMED AT [address] [place] [address] [address] [place] [address] MCV 89.9 fL (80.0-95.0) [facility] MCH 29.2 pg (27.0-32.0) [facility] MCHC 32.4 g/dL (32.0-36.0) [facility] RDW 14.3 % (10.5-14.5) [facility] PLT 182 10*3/uL (150-450) [facility] MPV 8.5 fL (7.1-10.7) [facility] ID Date Data Source [id number] 06/24/2020 06:10:27 AM EST [facility] Name Value Range Interpretation Code Description Data Anyi rce(s) Supporting Document(s) POC NOVA GLU 170 mg/dL (70-99) H [facility] [place] [facility] ID Date Data Source [id number] 06/23/2020 11:43:17 PM EST [facility] Name Value Range Interpretation Code Description Data Anyi rce(s) Supporting Document(s) POC NOVA GLU 171 mg/dL (70-99) H [facility] [place] [facility] ID Date Data Source [id number] 06/23/2020 05:54:10 PM EST [facility] Name Value Range Interpretation Code Description Data Anyi rce(s) Supporting Document(s) POC NOVA GLU 177 mg/dL (70-99) H [facility] ID Date Data Source [id number] 06/23/2020 12:06:39 PM EST [address] [id number] Name: ANA HOANGB: 1945Sex: FOrdering Provider: RONIT MOONAuthorizing Prov: RONIT MOONReferrharis Provider: Procedure Performed: XR CHEST PORTABLEExam Date: 06/23/2020 11:52MRN: [id number] Number: [id number] Class: OutpatientAccount #: [id number] for Exam: post central venous access deviceTechnique: AP portable view obtained.Comparison: 04/06/2014Findings: Left-sided port is seen with the tip at the SVC right atrial junction. No evidence of pneumothorax post placement. Some consolidation at the lung bases.IMPRESSION: Left-sided port is described. No evidence of pneumothorax.Bibasilar atelectasis.Report electronically signed by: ERIK COELHO On 06/23/2020 12:06 PMWorkstation ID: [id number] Name Value Range Interpretation Code Description Data Anyi rce(s) Supporting Document(s) ID Date Data Source [id number] 06/23/2020 11:31:31 AM EST [facility] Name Value Range Interpretation Code Description Data Anyi rce(s) Supporting Document(s) POC NOVA GLU 173 mg/dL (70-99) H [facility] [place] [facility] ID Date Data Source [id number] 06/23/2020 10:58:51 AM EST [facility] NT INFORMATIONPatient MRN Name Date of Age Gend*PT [id number] Ana Alarcon 1945 74 years F OBSPT Location Admission Date/[facility] --- Vinny Flynn MD([id number]) EPI ID CSN Admitting Provider [id number] Vinny Flynn MD([id number])Patient: Ana AlarconSurgery Date: 06/23/2020Surgeon(s):Shelby Crews MDOR Patient Portal Concierge: ZULMA Bhattiurgical Assist: Ronit Moon, PARadiology Tech: Aneesh Urban Relief Patient Portal Concierge: Emy Cody RNOR Scrub Person: Agnieszka Fish; Agnieszka CarvalhoPre-operative Diagnosis: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 Patient appeared to understand the benefits and risksof this procedure. Informed consent was obtained from the patient afterproviding opportunity for questions.Procedure DetailsDescription:Patient in supine position.Left chest wall was prepped and draped.1%Lidocaine was infiltrated for local anesthesia. Subcalvian vein cannulatedwithout difficulty. A guide wire passed into the vein. Adequate placementestimated by the length of the wire passed without resistance. A peel awaycatheter was placed over the guide wire.; Open ended lobo type catheterpassed into the vein.A sub cutaneous pocket for accommodating the port devicewas prepared and the catheter tunneled to the pocket. Placement of the catheterwas confirmed and adjusted with fluoroscopy. Position confirmed. Excess cathetertrimmed and the port assembled on to the catheter with the included connector.Port positioned in the pocket and secured with a 0-Vicryl suture. Wound closedwith 3-0 vicryl for sub cutaneous tissue and Monocryl for the skin wounds.Cathter function confirmed with a sherman needle freely aspirating blood andinfusing with heparin solution. 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 Apropriate sitedetermined close to the ligament for the tube placement. 18 Esperanza jim acteter was modified. Cut down to about inches distal to the balloon Additionalside holes placed at the tip and this was then tunneled in via a stab incision.A purse string suture positioned on the anti mesenteric aspect of the jejunum.Small enterotomy made with the Bovie and the tube passed int the distal jejunumand catheter secured snuggling the purse string suture. The catheter was Witzelfor about 3 cms with the 3-0 suture. The jejunum anchored to the abdominal wallwith 3-0 silk.A sponge and needle count obtained. Fascia closed with 2-0 PDS suture. . Skinapproximated with 3-0 monocryl sutures.The patient tolerated the whole procedure well without any operativecomplications and with minimal blood loss.Specimens:* No specimens in log *Complications: findings; complications tube chest: None; patient tolerated theprocedure well.Estimated Blood Loss: Minimal* No blood loss amount entered *Vinny Flynn MD10:56 AM Name Value Range Interpretation Code Description Data Anyi rce(s) Supporting Document(s) ID Date Data Source [id number] 06/23/2020 10:44:16 AM EST [address] [id number] Name: ANA ALARCONDOB: 1945Sex: FOrdering Provider: RONIT MOONAuthorisouth Prov: RONIT MOONReferrharis Provider: Procedure Performed: XR OR FLUORO VENOUS ACCESS DEVICEExam Date: 06/23/2020 10:42MRN: [id number] Number: [id number] Class: OutpatientAccount #: [id number] for Exam: portTechnique: Fluoroscopy with no digital spot images obtained.Fluoroscopy time: 1 SecondsNumber of Spot Images: 0Comparison: NoneFindings: Fluoroscopy used for port placement. The tip of the port on the image provided is in the right atrium.IMPRESSION: Fluoroscopy for port placement.Report electronically signed by: ERIK COELHO On 06/23/2020 10:44 AMWorkstation ID: [id number] Name Value Range Interpretation Code Description Data Anyi rce(s) Supporting Document(s) ID Date Data Source [id number] 06/23/2020 09:07:28 AM EST [facility] INFORMATIONPatient MRN Name Date of Age Gend*PT [id number] Ana Alarcon 1945 74 years F OBSPT Location Admission Date/Time Visit ID Attending [id number] 06/22/20 1228 --- Vinny Flynn MD([id number]) EPI ID [facility] Admitting Provider [id number] Vinny Flynn MD([id number])H&P reviewed. The patient was examined and there are no changes to the H&P.Vinny Flynn MD9:07 AM Name Value Range Interpretation Code Description Data Anyi rce(s) Supporting Document(s) ID Date Data Source [id number] 06/23/2020 07:24:58 AM EST [facility] NT INFORMATIONPatient MRN Name Date of Age Gend*PT [id number] Ana Alarcon 1945 74 years F SDCXPT Location Admission Date/Time Visit ID Attending [id number] 06/22/20 1228 --- Vinny Flynn MD([id number]) EPI ID CSN Admitting Provider [id number] Vinny Flynn MD([id number]) Attestation signed by Vinny Flynn MD at 06/23/2020 7:24 AMI saw and evaluated the patient and reviewed Ronit's note. I agree with thehistory, physical and medical decision making with the following additions,exceptions, and/or observations:Signature: Vinny Flynn MDDate: June 23, 2020Time: 7:24 AM --Inpatient History & PhysicalSylvia Reg AlarconN: [id number] and Plan :Active Problems: * No active hospital problems. *1. Admission for hydration and jejunostomy.Will arrange home care and feedings at home .HPIPatient was seen in office with noted diagnosis of esophageal cancer. She wasreferred for a j tube placement. For the past 4 months she has had worseningdysphagia and weight loss. Further evaluation noted her to have a stage IIbesophageal cancer. Over the past 3-4 months she has lost 50 lbs . States thatshe takes in a few bites and then spits it outPast Medical History:Past Medical History:Diagnosis Date Anxiety Asthma COPD (chronic obstructive pulmonary disease) Uses oxygen PRN Diabetes mellitus, type II Esophageal cancer GERD (gastroesophageal reflux disease) High cholesterol Hypertension PVC (premature ventricular contraction) Seen by Dr Cruz Sleep apnea not currently using CPAP due to excessive vomiting.Past Surgical History:Past Surgical History:Procedure Laterality Date ADENOIDECTOMY HEEL SPUR SURGERY Right HYSTERECTOMY PANENDOSCOPY N/A 06/14/2020 Procedure: endoscopy; Surgeon: Lit Gerber DO; Laterality: N/A; TIME OKAY PERLISA H PANENDOSCOPY N/A 06/16/2020 Procedure: ULTRASOUND, UPPER GASTROINTESTINAL (GI) TRACT, ENDOSCOPIC; Surgeon:Lit Gerber DO; Laterality: N/A;Medications:Medications Prior to AdmissionMedication Sig Dispense Refill La st Dose albuterol (PROVENTIL HFA;VENTOLIN HFA) 108 (90 Base) MCG/ACT inhaler Inhale 2puffs every 4 (four) hours as needed for wheezing More than a month at Unknowntime aspirin EC 81 MG EC tablet Take 81 mg by mouth daily 06/15/2020 Empagliflozin (JARDIANCE) 10 MG TABS Take 10 mg by mouth daily 06/14/2020 Flaxseed, Linseed, (FLAXSEED OIL PO) Take by mouth Unknown at Unknown time FLUoxetine (PROZAC) 10 MG capsule Take 10 mg by mouth daily 06/15/2020 glipiZIDE (GLUCOTROL) 10 MG 24 hr tablet Take 10 mg by mouth 2 (two) times aday 06/14/2020 ipratropium-albuterol (DUO-NEB) 0.5-2.5 mg/mL nebulizer Inhale 3 mL every 6(six) hours as needed (for shortness of breath) More than a month at Unknowntime lisinopril (PRINIVIL,ZESTRIL) 20 MG tablet Take 20 mg by mouth daily06/14/2020 loperamide (IMODIUM) 2 MG capsule Take 2 mg by mouth 4 (four) times a day asneeded for diarrhea More than a month at Unknown time metFORMIN (GLUCOPHAGE) 500 MG tablet Take 500 mg by mouth 2 (two) times a daywith meals 06/14/2020 omeprazole (PRILOSEC) 40 MG capsule Take 40 mg by mouth 2 (two) times a day06/15/2020 ondansetron (ZOFRAN-ODT) 4 MG disintegrating tablet Take 4 mg by mouth every 8(eight) hours as needed for nausea 06/15/2020 rosuvastatin (CRESTOR) 40 MG tablet Take 40 mg by mouth daily 06/15/2020 sitaGLIPtin (JANUVIA) 100 MG tablet Take 100 mg by mouth daily 06/14/2020 torsemide (DEMADEX) 10 MG tablet Take 10 mg by mouth daily More than a monthat Unknown timeAllergies:Kiwi extractFamily History:Family HistoryProblem Relation Age of Onset Cancer Mother Breast cancer Sister Brain cancer SisterSocial History:Social HistorySocioeconomic History Marital status: Spouse name: Not on file Number of children: Not on file Years of education: Not on file Highest education level: Not on fileOccupational History Not on fileSocial Needs Financial resource strain: Not on file Food insecurity: Worry: Not on file Inability: Not on file Transportation needs: Medical: Not on file Non-medical: Not on fileTobacco Use Smoking status: Former Smoker Packs/day: 1.00 Years: 31.00 Pack years: 31.00 Types: Cigarettes Last attempt to quit: 1994 Years since quittin.8 Smokeless tobacco: Never UsedSubstance and Sexual Activity Alcohol use: No Drug use: Never Sexual activity: Not on fileLifestyle Physical activity: Days per week: Not on file Minutes per session: Not on file Stress: Not on fileRelationships Social connections: Talks on phone: Not on file Gets together: Not on file Attends presybeterian service: Not on file Active member of club or organization: Not on file Attends meetings of clubs or organizations: Not on file Relationship status: Not on file Intimate partner violence: Fear of current or ex partner: Not on file Emotionally abused: Not on file Physically abused: Not on file Forced sexual activity: Not on fileOther Topics Concern Not on fileSocial History Narrative Not on fileReview of SystemsConstitutional: Positive for fatigue.HENT: Negative.Cardiovascular: Negative.Gastrointestinal: Positive for abdominal pain.Genitourinary: Negative.Musculoskeletal: Negative.Skin: Negative.Neurological: Negative.Temp: [97.7 F] 97.7 FHeart Rate: [65] 65BP: (118)/(68) 118/68Physical ExamHENT:Head: Normocephalic.Eyes: Pupils are equal, round, and reactive to light.Pulmonary/Chest: Effort normal.Abdominal: Soft.Musculoskeletal: Normal range of motion.Neurological: She is alert.Diagnostic ReviewSignature: ROSA Valdezate: June 22, 2020Time: 1:34 PM Name Value Range Interpretation Code Description Data Anyi rce(s) Supporting Document(s) ID Date Data Source [id number] 06/23/2020 09:10:41 AM EST [facility] Name Value Range Interpretation Code Description Data Anyi rce(s) Supporting Document(s) SODIUM 149 mmol/L (136-145) H [facility] POTASSIUM 3.1 mmol/L (3.6-5.2) L [facility] CHLORIDE 118 mmol/L (100-108) H [facility] CO2 24 mmol/L (22-31) [facility] ANION GAP 7 mmol/L (7-16) [facility] UREA NITROGEN 6 mg/dL (7-24) L [facility] CREATININE 0.57 mg/dL (0.60-1.00) L [facility] BUN/CREAT RATIO 10.5 RATIO (10.0-20.0) [facility] GLUCOSE 84 mg/dL (70-99) [facility] CALCIUM 6.3 mg/dL (8.4-10.2) L [facility] GFR >60 ml/min/1.73m2 (>59) [facility] GFR ( AMER) >60 ml/min/1.73m2 (>59) [facility] GFR INTERPRETATION [facility] --NORMAL KIDNEY FUNCTION OR MILD DISEASE - GFR >OR= 60CHRONIC KIDNEY DISEASE - GFR 15 - 59RENAL FAILURE - GFR <15 Est. GFR calculation based on the MDRDstudy equation, which assumes a steadystate for creatinine. Est. GFR should notbe used for medication dosing. ID Date Data Source [id number] 06/23/2020 08:51:59 AM EST [facility] Name Value Range Interpretation Code Description Data Anyi rce(s) Supporting Document(s) WBC 3.9 10*3/uL (4.1-11.0) L [facility] RBC 3.34 10*6/uL (4.00-5.40) L [facility] HGB 9.7 g/dL (12.0-16.0) L [facility] HCT 30.0 % (36.0-47.0) L [facility] PER[facility] AT [address] [place] [address] [address] [place] [address] MCV 89.6 fL (80.0-95.0) [facility] MCH 29.0 pg (27.0-32.0) [facility] MCHC 32.4 g/dL (32.0-36.0) [facility] RDW 14.1 % (10.5-14.5) [facility] PLT 141 10*3/uL (150-450) L [facility] MPV 8.8 fL (7.1-10.7) [facility] ID Date Data Source [id number] 06/22/2020 07:43:27 PM EST [facility]PAT[facility] NT INFORMATIONPatient MRN Name Date of Age Gend*PT [id number] Ana Alarcon 1945 74 years F SDCXPT Location Admission Date/Time Visit ID Attending [id number] 06/22/20 1228 --- Vinny Flynn MD([id number]) EPI ID CSN Admitting Provider [id number] Vinny Flynn MD([id number])Helene Krishnamurthy NPNurse PractitionerInternal MedicineH&PSignedEncounter Date: 06/10/2020 Related encounter: Office Visit from 06/10/2020 in Pre Admission TestingSignedShow:Clear all[x]Manual[x]Template[]CopiedAdded by:[x]Helene Krishnamurthy NP[]Rock for detailsOUTPATIENT / OBSERVATIONAL SURGICAL OR INVASIVE PROCEDURE Name: Ana Alarcon : 1945 Sex: female Primary Care Provider: Huong Gaffney MD Attending Physician: Dr. Gerber. HISTORY OF PRESENT ILLNESS: 74 years old white female who reports christine nfuldifficult swallowing that has developed over the last 3 to 4 months. Shereports a 46 pound weight loss over the last year. She has nausea and vomitingwhich is increased with eating or drinking. Patient reports night sweats. Sheunderwent endoscopy and was diagnosed with esophageal cancer. She has now beenadvised ultrasound upper gastrointestinal tract endoscopic. PAST MEDICAL HISTORY:Past Medical History:Diagnosis Date Anxiety Asthma COPD (chronic obstructive pulmonary disease) Uses oxygen PRN Diabetes mellitus, type II Esophageal cancer GERD (gastroesophageal reflux disease) High cholesterol Hypertension PVC (premature ventricular contraction) Seen by Dr Cruz Sleep apnea not currently using CPAP due to excessive vomiting. PAST SURGICAL HISTORY:Past Surgical History:Procedure Laterality Date ADENOIDECTOMY HEEL SPUR SURGERY Right HYSTERECTOMY ALLERGIES:AllergiesAllergen Reactions Kiwi Extract Shortness Of Breath MEDICATIONS:Prior to Admission medicationsMedication Sig Start Date End Date Taking? Authorizing Provideralbuterol (PROVENTIL HFA;VENTOLIN HFA) 108 (90 Base) MCG/ACT inhaler Inhale 2puffs every 4 (four) hours as needed for wheezing Historical Provider, Gildaspirin EC 81 MG EC tablet Take 81 mg by mouth daily Historical Provider,Empagliflozin (JARDIANCE) 10 MG TABS Take 10 mg by mouth daily HistoricalProvider, Flaxseed, Linseed, (FLAXSEED OIL PO) Take by mouth Historical Provider, FLUoxetine (PROZAC) 10 MG capsule Take 10 mg by mouth daily HistoricalProviderMDglipiZIDE (GLUCOTROL) 10 MG 24 hr tablet Take 10 mg by mouth 2 (two) times a dayHistorical Provider, ipratropium-albuterol (DUO-NEB) 0.5-2.5 mg/mL nebulizer Inhale 3 mL every 6(six) hours as needed (for shortness of breath) Historical Provider, lisinopril (PRINIVIL,ZESTRIL) 20 MG tablet Take 20 mg by mouth daily Historical Provider, loperamide (IMODIUM) 2 MG capsule Take 2 mg by mouth 4 (four) times a day asneeded for diarrhea Historical Provider, DougetFORMIN (GLUCOPHAGE) 500 MG tablet Take 500 mg by mouth 2 (two) times a daywith meals Historical Provider, omeprazole (PRILOSEC) 40 MG capsule Take 40 mg by mouth 2 (two) times a day Historical Provider, ondansetron (ZOFRAN-ODT) 4 MG disintegrating tablet Take 4 mg by mouth every 8(eight) hours as needed for nausea Historical Provider, MDrosuvastatin (CRESTOR) 40 MG tablet Take 40 mg by mouth daily HistoricalProvider, OmayraitaGLIPtin (JANUVIA) 100 MG tablet Take 100 mg by mouth daily HistoricalProvider, torsemide (DEMADEX) 10 MG tablet Take 10 mg by mouth daily HistoricalProvider, glipiZIDE (GLUCOTROL) 10 MG tablet Take 10 mg by mouth 2 (two) times a daybefore meals 06/10/20 Historical Provider, glipiZIDE (GLUCOTROL) 5 MG tablet Take 5 mg by mouth 2 (two) times a day beforemeals 06/10/20 Historical Provider, Katiaga-3 acid ethyl esters (LOVAZA) 1 G capsule Take 2 g by mouth 2 (two) times aday 06/10/20 Historical Provider, MDpravastatin (PRAVACHOL) 40 MG tablet Take 20 mg by mouth daily 06/10/20 Historical Provider, Social History Tobacco Use Smoking status: Former Smoker Packs/day: 1.00 Years: 31.00 Pack years: 31.00 Types: Cigarettes Last attempt to quit: 1994 Years since quittin.8 Smokeless tobacco: Never UsedSubstance Use Topics Alcohol use: No Drug use: Not on file Family HistoryProblem Relation Age of Onset Cancer Mother Breast cancer Sister Brain cancer Sister REVIEW OF SYSTEMS: Constitutional: Reports 46 pound unintentional weight loss over the last year. Respiratory: Denies any shortness of breath, cough, yellow sputum production orwheezing. Cardiovascular: Denies any chest pain, pressure or tightness. Denies anyparoxysmal nocturnal dyspnea or orthopnea. GI: Reports nausea, vomiting, abdominal pain. Denies diarrhea, constipation ormelena. Neurologic: Denies any numbness, tingling, tremors or syncope. Vascular: Denies any edema. Denies claudication. Endocrine: She checks blood sugars 2 times daily. PHYSICAL EXAM:GENERAL: She is a 74 years old, pleasant white female, in no acute distress attime of examination. Vitals on arrival to the office are BP 130/70 (BP Location:Right upper arm, Patient Position: Sitting) | Ht 1.575 m (5' 2") | Wt (!)101.3 kg (223 lb 5 oz) | SpO2 96% | BMI 40.84 kg/m Body mass index is 40.84kg/m ..Skin is pink, warm, and dry. NECK: She has a grade 2 airway. Neck is supple, midline, without cervicaladenopathy. No thyromegaly. No carotid bruits. MENTAL / NEUROLOGICAL STATUS: AAOx3 LUNGS: Clear to auscultation. No wheezes, rhonchi or crackles. HEART: Rate rhythm regular. S1, S2. No murmur, rub or gallop. ABDOMEN: Bowel sounds positive times four. Soft, epigastric tenderness. Norebound tenderness. No hepatosplenomegaly. Negative CVAT. EXTREMITIES: Pulses are symmetrical. No edema. Anesthesia complications: Denies Stop Bang Questionnaire - Total Score: ASSESSMENT: Primary Diagnosis/Indication: Esophageal cancer. PLAN: Procedure: Ultrasound upper gastrointestinal tract endoscopic. 06/10/2020 12:02 PMHelene Krishnamurthy, NAZIAPatient presents with high-grade esophageal obstruction and dysphagia. Due toher failure to thrive she was admitted for hydration and placement of ajejunostomy tube along with a Por t-A-Cath. I will request a consult with while she is here patient's PET scan reveals disease limited to thedistal esophagus and GE junction This document or parts of this document, were dictated using [employer] speaking software. A reasonable attempt at proofreading has beenmade to minimize errors. Please call with any questions or corrections. Name Value Range Interpretation Code Description Data Anyi rce(s) Supporting Document(s) ID Date Data Source [id number] 06/22/2020 04:27:07 PM EST [facility] [place] Name Value Range Interpretation Code Description Data Anyi rce(s) Supporting Document(s) POC NOVA GLU 108 mg/dL (70-99) H [facility] [place] PERFORMED BY [facility] CLINICAL STAFF ID Date Data Source [id number] 06/22/2020 02:30:00 PM EST [facility] [place] [facility] [place] Name Value Range Interpretation Code Description Data Anyi rce(s) Supporting Document(s) SARS coronavirus 2 RNA [Presence] in Res piratory specimen by POLO with probe detection [facility] This lab was reported by [facility]. ID Date Data Source [id number] 06/22/2020 07:27:00 PM EST [facility] Name Value Range Interpretation Code Description Data Anyi rce(s) Supporting Document(s) SPECIMEN DESCRIPTION [facility] COVID19 RESULT (NDET) [facility] THIS ASSAY AMPLIFIES AND DETECTSTHE TARG ET RNA USING REAL-TIME PCR.NEGATIVE 2019_NCOV RT-PCR RESULTS DONOT PRECLUDE 2019_NCOV INFECTION ANDSHOULD NOT BE USED THE SOLE BASISFOR PATIENT MANAGEMENT DECISIONS. COMMENT [facility] [place] [facility] [place] UNDER AN EMERGENCY USE AUTHORIZATION(EUA ) FOR THE DETECTION AND/OR DIAGNOSISOF THE VIRUS THAT CAUSES COVID-19.RESULTS EMAILED TO [facility] IC AT 2215. [phone]. FIRST TEST [facility] [place] [facility] EMPLOYED IN HLTHCARE [facility] SYMPTOMATIC [facility] [place] [facility] [place] DATE OF SYMPT ONSET [facility] HOSPITALIZED [facility] ICU [facility] [place] [facility] CONGREGATE CARE SET [facility] [place] [facility] ID Date Data Source [id number] 06/22/2020 03:20:29 PM EST [facility] Name Value Range Interpretation Code Description Data Anyi rce(s) Supporting Document(s) SODIUM 144 mmol/L (136-145) [facility] [place] [facility] POTASSIUM 4.0 mmol/L (3.6-5.2) [facility] [place] [facility] [place] CHLORIDE 108 mmol/L (100-108) [facility] [place] [facility] [place] CO2 31 mmol/L (22-31) [facility] [place] [facility] [place] ANION GAP 5 mmol/L (7-16) L [facility] [place] [facility] [place] UREA NITROGEN 8 mg/dL (7-24) [facility] [place] [facility] [place] CREATININE 1.01 mg/dL (0.60-1.00) H [facility] [place] [facility] [place] BUN/CREAT RATIO 7.9 RATIO (10.0-20.0) L [facility] [place] [facility] [place] GLUCOSE 140 mg/dL (70-99) H [facility] [place] [facility] [place] CALCIUM 9.7 mg/dL (8.4-10.2) [facility] [place] [facility] [place] TOTAL PROTEIN 7.0 g/dL (6.4-8.2) [facility] [place] [facility] ALBUMIN 3.6 g/dL (3.2-4.5) [facility] [place] [facility] GLOBULIN 3.4 g/dL (2.7-4.3) [facility] [place] [facility] ALB/GLOB RATIO 1.1 RATIO [facility] [place] [facility] ALKALINE PHOSPHATASE 99 U/L (45-117) [facility] BILIRUBIN,TOTAL 1.1 mg/dL (0.0-1.0) H [facility] [place] [facility] PLEASE NOTE:Total bilirubin results may be falselyelevated in patients taking Eltrombopag. AST (SGOT) 22 U/L (11-39) [facility] [place] [facility] ALT (SGPT) 24 U/L (12-78) [facility] [place] [facility] GFR 54 ml/min/1.73m2 (>59) L [facility] [place] [facility] GFR ( AMER) >60 ml/min/1.73m2 (>59) [facility] [place] [facility] GFR INTERPRETATION [facility] --NORMAL KIDNEY FUNCTION OR MILD DISEASE - GFR >OR= 60CHRONIC KIDNEY DISEASE - GFR 15 - 59RENAL FAILURE - GFR <15 Est. GFR calculation based on the MDRDstudy equation, which assumes a steadystate for creatinine. Est. GFR should notbe used for medication dosing. ID Date Data Source [id number] 06/22/2020 02:41:40 PM EST [facility] [place] [facility] Name Value Range Interpretation Code Description Data Anyi rce(s) Supporting Document(s) WBC 6.8 10*3/uL (4.1-11.0) [facility] [place] [facility] [place] RBC 4.84 10*6/uL (4.00-5.40) [facility] [place] [facility] HGB 14.5 g/dL (12.0-16.0) [facility] [place] [facility] [place] HCT 42.4 % (36.0-47.0) [facility] [place] [facility] [place] [address] [place] [address] MCV 87.7 fL (80.0-95.0) [facility] [place] [facility] [place] MCH 29.9 pg (27.0-32.0) [facility] [place] [facility] [place] MCHC 34.1 g/dL (32.0-36.0) [facility] [place] [facility] [place] RDW 14.8 % (10.5-14.5) H [facility] [place] [facility] [place] PLT 240 10*3/uL (150-450) [facility] [place] [facility] [place] MPV 8.8 fL (7.1-10.7) [facility] [place] [facility] ID Date Data Source [id number] 06/20/2020 03:46:28 PM EST [facility] NT INFORMATIONPatient MRN Name Date of Age Gend*PT [id number] Ana Alarcon 1945 74 years F ---PT Location Admission Date/Time Visit ID Attending Provider --- --- --- --- EPI ID CSN Admitting Provider [id number] ---Ana AlarconMRN: [id number] for consult: Patient presents to the office referred by Dr Gerber for a newevaluation and consult for a J tube placement. Patient diagnosed with esophagealcancer.Patient reports that for the past 4 months she has brought to her primary caresymptoms of progressively worsening dysphagia and not feeling well herswallowing difficulty was more acute and recently referred to GI where she wasnoted to have a stage IIb esophageal cancer she is referred here for furthermanagementPast Medical History:Past Medical His tory:Diagnosis Date Anxiety Asthma COPD (chronic obstructive pulmonary disease) Uses oxygen PRN Diabetes mellitus, type II Esophageal cancer GERD (gastroesophageal reflux disease) High cholesterol Hypertension PVC (premature ventricular contraction) Seen by Dr Cruz Sleep apnea not currently using CPAP due to excessive vomiting.Past Surgical History:Past Surgical History:Procedure Laterality Date ADENOIDECTOMY HEEL SPUR SURGERY Right HYSTERECTOMY PANENDOSCOPY N/A 06/14/2020 Procedure: endoscopy; Surgeon: Lit Gerber DO; Laterality: N/A; TIME OKAY PERLISA H PANENDOSCOPY N/A 06/16/2020 Procedure: ULTRASOUND, UPPER GASTROINTESTINAL (GI) TRACT, ENDOSCOPIC; Surgeon:Lit Gerber DO; Laterality: N/A;Allergies:Kiwi extractFamily History:Family HistoryProblem Relation Age of Onset Cancer Mother Breast cancer Sister Brain cancer SisterSocial History:Social HistoryTobacco Use Smoking status: Former Smoker Packs/day: 1.00 Years: 31.00 Pack years: 31.00 Types: Cigarettes Last attempt to quit: 1994 Years since quittin.8 Smokeless tobacco: Never UsedSubstance Use Topics Alcohol use: No Drug use: NeverReview of Systems: Review of SystemsConstitutional: Positive for fatigue. Negative for fever.HENT: Negative for congestion, rhinorrhea and sore throat.Respiratory: Negative for cough and shortness of breath.Cardiovascular: Negative for chest pain and palpitations.Gastrointestinal: Positive for nausea and vomiting. Negative for abdominaldistention and abdominal pain.Musculoskeletal: Negative for back pain, gait problem and myalgias.Skin: Negative for color change, pallor, rash and wound.Neurological: Negative for syncope and headaches.Physical E xam:@[email or web address]@General Appearance: well developed, well nourished, in no apparent distressEyes: clear, aniecteric, PERRLLungs: clear to auscultationHeart: regular rate and rhythm and without murmurSkin: skin is warm and dryExtremities: normal appearanceNeuro: awake, A&Ox3, grossly intactImpression and Reccommendation:Ana Alarcon is a 74 y/o female with a PMH of HTN, HLD, LEENA, COPD, tobaccosmoker (31 pack-years). 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 Pt with 3-4 months of vomitingand difficulty swallowing foods/liquids and 20 to 30 pound weight loss. Pt seenby Dr. Gerber and diagnosed with esophageal cancer with a circumferential friablemoderate malignant stricture at the GE junction that extends into the proximalgastric cardia less than 2 cm. Patient currently with stage II esophagealcancer, but PET scan pending tomorrow 06/21.Due to the patient's malnutrition and inability to swallowfood/liquids/medications a G-tube placement is indicated for nutritionalimprovement. Pt scheduled to be admitted on the 06/22 and surgery on 06/23.Patient will also need port placement for chemotherapy/medication management ofher cancer. Pt to see cardiovascular surgeon to establish care for futureresection of esophageal cancer after chemo/radiation. Pt understands the needfor G-tube and port placement and agrees with treatment plan.Patient was seen and Examined by me personally during this visit.I fully reviewed the History and Physical findings and obtained my own hi storyand findings as outlined by Dr. Michael BobExam was completed by me and notable findins esophageal carcinoma with severedysphagia and obstructive symptoms. Patient noted to have situs inversus withthe liver in the left upper quadrant at the spleen on the right side noassociated dextrocardia noted Discussed findings and plansDiscussed with the patient at length her diagnosis treatment plans in detail andfirst stage of surgery for placement of her jejunostomy tube and a Ansd-Y-Dkrvjfh initial neoadjuvant therapy I will also ask Dr. Carrington to consult and onherThis office visit is completed on my behalf by Dr. Michael Flynn MD06/20/20 Name Value Range Interpretation Code Description Data Anyi rce(s) Supporting Document(s) ID Date Data Source [id number] 06/16/2020 03:06:24 PM EST [facility] NT INFORMATIONPatient MRN Name Date of Age Gend*PT [id number] Ana Alarcon 1945 74 years F OPPT Location Admission Date/Time Visit ID Attending Provider --- --- --- --- EPI ID CSN Admitting Provider [id number] ---Addendum created 06/16/20 1506 by Rolo Whitman CRNA Intraprocedure Flowsheets edited Name Value Range Interpretation Code Description Data Anyi [facility](s) Supporting Document(s) ID Date Data Source [id number] 06/16/2020 11:48:23 AM EST [facility] NT INFORMATIONPatient MRN Name Date of Age Gend*PT [id number] Ana Alarcon 1945 74 years F OPPT Location Admission Date/Time Visit ID [facility] 06/16/20 0836 --- Lit Gerber DO([id number]) EPI ID CSN Admitting Provider [id number] Lit Gerber DO([id number])Endoscopic Gastroduodenoscopy with Endoscopic Ultrasound Procedure NotePatient: Ana Sheehanrnadir Date: June 16, 2020Surgeon(s):MAXIMINO Ibarrare-Operative Diagnosis: Malignant neoplasm of esophagus [C15.9]Post-Op Diagnosis Codes: * Malignant neoplasm of esophagus [C15.9]: T2N0Mx * Cholelithiasis * Fatty liverRecommendations:1. Awaits for PET scan result for final pre-treatment cancer staging2. Proceed with neoadjuvant treatmentProcedure(s):ULTRASOUND, UPPER GASTROINTESTINAL (GI) TRACT, ENDOSCOPICSedation: Monitored Anesthesia Care (MAC) (see anesthesia report).ASA Class: IIIOther Equipment Type Equipment Setting Setting Low Setting High Applied By Endoscope ENDOSCOPE [id number] Lit Gerber DO ERCP Scope (ENDO) Radial Endoscope Ultrasound (ENDO) ENDOSCOPE RADIAL ULTRASOUND [id number] DO Agustina Linear Endoscope Ultrasound (ENDO) Endoscopic Ultrasound MachineConsent:After obtaining history and performing the physical examination, the procedure,indications, potential complications, including but not limited to bleeding,perforation, infection, adverse medication reaction, and alternatives wereexplained to the patient. Patient appeared to understand the benefits and risksof this procedure. Informed consent was obtained from the patient afterproviding opportunity for questions.Procedure Details:The gastroscope was inserted into the mouth and advanced under directvisualization to second portion of the duodenum. A careful inspection was madeas the gastroscope was withdrawn, including a retroflexed view of the proximalstomach. Subsequently, an echo endoscope was inserted into the mouth andadvanced to the second portion of the duodenum. After completion of theexamination, the patient was transferred to the recovery room.* No implants in log *Endoscopic Findings:GEJ is at 33 cm. There is a circumferential friable moderate malignantstricture at the GE junction. The cancer has extended into the gastric cardiabut epicenter of the cancer is located less than 2 cm into the proximal stomach.EUS Findings:Mediastinum: No pleural effusion, pericardial effusion, posterior mediastinummass, and mediastinum adenopathy. At The GE junction, the cancer has invadedthe muscularis propria layer (T2)Celiac Region: No adenopathyPancreas: Appeared normal and homogenous. The main PD is measured 3 mm in thebody of pancreas. No peripancreatic adenopathy or fluid collectionStomach: Normal; no perigastric/gastrohepatic ligament adenopathy. Noperigastric fluid collection or ascitesHepatobiliary: CBD is measured 6 mm; No stonesAmpulla: NormalGall Bladder: Sludge within the GB; gallbladder wall is measured 1.6 mmLiver: Diffusely hyperechoicSpecimens:* No specimens in log *Complications: None; patient tolerated the procedure well.Estimated Blood Loss: noneLit Gerber DO06/16/202011:40 AM Name Value Range Interpretation Code Description Data Anyi rce(s) Supporting Document(s) ID Date Data Source [id number] 06/16/2020 11:04:28 AM EST [facility] NT INFORMATIONPatient MRN Name Date of Age Gend*PT [id number] Ana Alarcon 1945 74 years F OPPT Location Admission Date/Time Visit ID [facility] [place] 06/16/20 0836 --- Lit Gerber DO([id number]) EPI ID CSN Admitting Provider [id number] Lit Gerber DO([id number])H&P reviewed. The patient was examined and there are no changes to the H&P.Lit Gerber DO11:04 AM Name Value Range Interpretation Code Description Data Anyi rce(s) Supporting Document(s) ID Date Data Source [id number] 06/16/2020 05:36:18 PM EST [facility] Name Value Range Interpretation Code Description Data [facility] Supporting Document(s) POC NOVA GLU 103 mg/dL (70-99) H [facility] [place] [facility] PERFORMED BY [facility] CLINICAL STAFF ID Date Data Source [id number] 06/16/2020 07:10:00 AM EST [facility] Name Value Range Interpretation Code Description Data Anyi rce(s) Supporting Document(s) SARS coronavirus 2 RNA [Presence] in Res piratory specimen by POLO with probe detection [facility] [place] [facility] [place] This lab was reported by [facility] [place] [facility]. ID Date Data Source [id number] 06/16/2020 08:14:03 AM EST [facility] [place] [facility] Name Value Range Interpretation Code Description Data Anyi rce(s) Supporting Document(s) SPECIMEN DESCRIPTION [facility] INFLUENZA A (NEG) [facility] [place] [facility] [place] INFLUENZA B (NEG) [facility] [place] [facility] [place] RSV (NEG) [facility] [place] [facility] COMMENT [facility] [place] [facility] UNDER AN EMERGENCY USE AUTHORIZATION(EUA ) FOR THE DETECTION AND/OR DIAGNOSISOF THE VIRUS THAT CAUSES COVID-19.PERFORMED AT [address] [place] [id number] COVID19 RESULT (NDET) [facility] [place] [facility] THIS ASSAY AMPLIFIES AND DETECTSTHE TARG ET RNA USING REAL-TIME PCR.NEGATIVE 2019_NCOV RT-PCR RESULTS DONOT PRECLUDE 2019_NCOV INFECTION ANDSHOULD NOT BE USED THE SOLE BASISFOR PATIENT MANAGEMENT DECISIONS. FIRST TEST [facility] [place] [facility] EMPLOYED IN HLTHCARE [facility] SYMPTOMATIC [facility] [place] [facility] [place] DATE OF SYMPT ONSET [facility] [place] [facility] ICU [facility] [place] [facility] CONGREGATE CARE SET [facility] [place] [facility] ID Date Data Source [id number] 06/14/2020 12:36:27 PM EST [facility] NT INFORMATIONPatient MRN Name Date of Age Gend*PT [id number] Ana Alarcon 1945 74 years F OPPT Location Admission Date/Time Visit ID Attending ProviderArabella Pearson 06/14/20 0944 --- Lit Gerber DO([id number]) EPI ID CSN Admitting Provider [id number] Lit Gerber DO([id number])Endoscopic Gastroduodenoscopy Procedure NotePatient: Ana MunozramsesSurgery Date: June 14, 2020Surgeon(s):MAXIMINO Ibarrare-Operative Diagnosis:Esophageal cancer [C15.9]Post-Op Diagnosis Codes: * Esophageal cancer [C15.9]: Staging EUS was not able to performed todaybecause there was food debris found within the esophagusRecommendations:Reschedule staging EUS to this SaturdayPatient needs to be on liquid diet for 24 hours before the procedurePatient needs to be on a soft diet and she needs to chew her food very well inorder to prevent esophageal food impactionProcedure(s):endoscopySedation: Monitored Anesthesia Care (MAC) (see anesthesia report).ASA Class: IIIOther Equipment Type Equipment Setting Setting Low Setting High Applied By Endoscope ENDOSCOPE [id number] Lit Gerber DO ERCP Scope (ENDO) Radial Endoscope Ultrasound (ENDO) ENDOSCOPE RADIAL ULTRASOUND Lit Gerber DO Linear Endoscope Ultrasound (ENDO) Endoscopic Ultrasound MachineConsent:After obtaining history and performing the physical examination, the procedure,indications, potential complications, including but not limited to bleeding,perforation, infection, adverse medication reaction, and alternatives wereexplained to the patient. Patient appeared to understand the benefits and risksof this procedure. Informed consent was obtained from the patient afterproviding opportunity for questions.Procedure Details:The patient was placed in the left lateral decubitus position and monitored perendoscopy protocol. The gastroscope was inserted into the mouth and advancedunder direct visualization to second portion of the duodenum. A carefulinspection was made as the gastroscope was withdrawn, including a retroflexedview of the proximal s tomach; findings and interventions are described below.After completion of the examination, the patient was transferred to the recoveryroom.* No implants in log *Findings:Oropharynx: NormalEsophagus: Retained food in the esophagus: corns, beans, and vegetable matters.Did not perform EUS due to high risk of aspirationEG Junction: Malignant stricture encountered. I was able to push the scopegently into the stomach with some resistance.Cardia: NormalFundus: NormalBody: NormalAntrum: NormalPylorus: NormalDuodenum Bulb: NormalDuodenum 2nd Portion: NormalSpecimens:* No specimens in log *Complications: None; patient tolerated the procedure well.Estimated Blood Loss: noneLit Gerber DO06/14/202012:31 PM Name Value Range Interpretation Code Description Data Anyi rce(s) Supporting Document(s) ID Date Data Source [id number] 06/14/2020 11:48:57 AM EST [facility]PAT[facility] NT INFORMATIONPatient MRN Name Date of Age Gend*PT [id number] Scott Ana M 1945 74 years F OPPT Location Admission Date/Time Visit ID Attending ProviderSherrio Michel 06/14/20 0944 --- Lit Gerber DO([id number]) EPI ID [facility] Admitting Provider [id number] Lit Gerber DO([id number])HISTORY AND PHYSICALSylvia Reg AlarconMRN: [id number]: Esophageal cancerPLAN:1. Proceed with EUS for cancer stagingHPI: Patient presents today for an EUS exam to stage her esophageal cancerAllergies:Kiwi extractMedications:Medications Prior to AdmissionMedication Sig Dispense Refill Last Dose albuterol (PROVENTIL HFA;VENTOLIN HFA) 108 (90 Base) MCG/ACT inhaler Inhale 2puffs every 4 (four) hours as needed for wheezing 06/13/2020 at 0800 aspirin EC 81 MG EC tablet Take 81 mg by mouth daily 06/13/2020 at 0800 Empagliflozin (JARDIANCE) 10 MG TABS Take 10 mg by mouth daily 06/13/2020 [id number] Flaxseed, Linseed, (FLAXSEED OIL PO) Take by mouth Past Week at Unknown time FLUoxetine (PROZAC) 10 MG capsule Take 10 mg by mouth daily 06/13/2020 [id number] glipiZIDE (GLUCOTROL) 10 MG 24 hr tablet Take 10 mg by mouth 2 (two) times aday 06/13/2020 at 0800 ipratropium-albuterol (DUO-NEB) 0.5-2.5 mg/mL nebulizer Inhale 3 mL every 6(six) hours as needed (for shortness of breath) Past Month at Unknown time lisinopril (PRINIVIL,ZESTRIL) 20 MG tablet Take 20 mg by mouth daily06/13/2020 at 0800 metFORMIN (GLUCOPHAGE) 500 MG tablet Take 500 mg by mouth 2 (two) times a daywith meals 06/13/2020 at 0800 omeprazole (PRILOSEC) 40 MG capsule Take 40 mg by mouth 2 (two) times a day06/13/2020 at 0800 ondansetron (ZOFRAN-ODT) 4 MG disintegrating tablet Take 4 mg by mouth every 8(eight) hours as needed for nausea Past Week at Unknown time rosuvastatin (CRESTOR) 40 MG tablet Take 40 mg by mouth daily 06/13/2020 [id number] sitaGLIPtin (JANUVIA) 100 MG tablet Take 100 mg by mouth daily 06/13/2020 [id number] torsemide (DEMADEX) 10 MG tablet Take 10 mg by mouth daily Unknown atUnknown time loperamide (IMODIUM) 2 MG capsule Take 2 mg by mouth 4 (four) times a day asneeded for diarrhea More than a month at Unknown timePast Medical History:Past Medical History:Diagnosis Date Anxiety Asthma COPD (chronic obstructive pulmonary disease) Uses oxygen PRN Diabetes mellitus, type II Esophageal cancer GERD (gastroesophageal reflux disease) High cholesterol Hypertension PVC (premature ventricular contraction) Seen by Dr Cruz Sleep apnea not currently using CPAP due to excessive vomiting.Past Surgical History:Past Surgical History:Procedure Laterality Date ADENOIDECTOMY HEEL SPUR SURGERY Right HYSTERECTOMYFamily History:Family HistoryProblem Relation Age of Onset Cancer Mother Breast cancer Sister Brain cancer SisterSocial History:Social HistoryTobacco Use Smoking status: Former Smoker Packs/day: 1.00 Years: 31.00 Pack years: 31.00 Types: Cigarettes Last attempt to quit: 1994 Years since quittin.8 Smokeless tobacco: Never UsedSubstance Use Topics Alcohol use: No Drug use: NeverReview of Systems:Const: Denies constitutional symptoms.Eyes: Denies eye symptoms.ENMT: Denies ear symptoms. Denies nasal symptoms. Denies mouth or throatsymptoms.CV: Denies cardiovascular symptoms.Resp: Denies respiratory symptoms.GI: some dysphagiaGU: Denies genitourinary symptomsMusculo: Denies musculoskeletal symptoms.Skin: Denies skin, hair and nail symptoms.Breast: Denies breast problems.Neuro: Denies neurologic symptoms.Psych: Denies psychiatric symptoms.Endocrine: Denies endocrine symptoms.[place]/Lymph: Denies hematologic symptoms.Physical Exam:Temp: [97.9 F] 97.9 FResp: [16] 16BP: (131)/(91) 131/91Const: Appeared healthy and well developed. No signs of apparent distresspresent.Head/Face: Atraumatic, normocephalic on inspection.Eyes: Conjunctivae clear. Sclerae clear and anict ester.Resp: Auscultate good airflow. Lungs are clear bilaterally.CV: Rate is regular by auscultation. Rhythm is regular. S1 is normal. S2 isnormal. No heart murmur appreciated. Pedal pulses: 2+ and equal bilaterally.Extremities: No clubbing, cyanosis or edema.Abdomen: Abdomen is soft, nontender, and nondistended without guarding, rigidityor rebound tenderness. No pulsatile masses present.Signature: Lit Gerber BASILate: June 14, 2020Time: 11:47 AM Name Value Range Interpretation Code Description Data Anyi rce(s) Supporting Document(s) ID Date Data Source [id number] 06/10/2020 12:07:11 PM EST [facility] Name Value Range Interpretation Code Description Data Anyi rce(s) Supporting Document(s) EKG [facility] [id number] [file] [id number]== ID Date Data Source [id number] 06/10/2020 12:02:59 PM EST [facility]PAT[facility] NT INFORMATIONPatient MRN Name Date of Age Gend*PT [id number] Ana Alarcon 1945 74 years F OPPT Location Admission Date/Time Visit ID Attending Provider --- --- --- Lit Gerber DO([id number]) EPI ID CSN Admitting Provider [id number] ---OUTPATIENT / OBSERVATIONAL SURGICAL OR INVASIVE PROCEDUREName: Ana Alarcon : 1945 Sex: female Care Provider: Efrain Salasending Physician: Dr. Gerber.HISTORY OF PRESENT ILLNESS: 74 years old white female who reports painfuldifficult swallowing that has developed over the last 3 to 4 months. Shereports a 46 pound weight loss over the last year. She has nausea and vomitingwhich is increased with eating or drinking. Patient reports night sweats. Sheunderwent endoscopy and was shaila gnosed with esophageal cancer. She has now beenadvised ultrasound upper gastrointestinal tract endoscopic.PAST MEDICAL HISTORY:Past Medical History:Diagnosis Date Anxiety Asthma COPD (chronic obstructive pulmonary disease) Uses oxygen PRN Diabetes mellitus, type II Esophageal cancer GERD (gastroesophageal reflux disease) High cholesterol Hypertension PVC (premature ventricular contraction) Seen by Dr Cruz Sleep apnea not currently using CPAP due to excessive vomiting.PAST SURGICAL HISTORY:Past Surgical History:Procedure Laterality Date ADENOIDECTOMY HEEL SPUR SURGERY Right HYSTERECTOMYALLERGIES:AllergiesAllergen Reactions Kiwi Extract Shortness Of BreathMEDICATIONS:Prior to Admission medicationsMe dication Sig Start Date End Date Taking? Authorizing Provideralbuterol (PROVENTIL HFA;VENTOLIN HFA) 108 (90 Base) MCG/ACT inhaler Inhale 2puffs every 4 (four) hours as needed for wheezing Historical Provider, Gildaspirin EC 81 MG EC tablet Take 81 mg by mouth daily Historical Provider, Empagliflozin (JARDIANCE) 10 MG TABS Take 10 mg by mouth daily HistoricalProvider, Flaxseed, Linseed, (FLAXSEED OIL PO) Take by mouth Historical Provider, FLUoxetine (PROZAC) 10 MG capsule Take 10 mg by mouth daily HistoricalProvider, glipiZIDE (GLUCOTROL) 10 MG 24 hr tablet Take 10 mg by mouth 2 (two) times a dayHistorical Provider, ipratropium-albuterol (DUO-NEB) 0.5-2.5 mg/mL nebulizer Inhale 3 mL every 6(six) hours as needed (for shortness of breath) Historical Provider, lisinopril (PRINIVIL,ZESTRIL) 20 MG tablet Take 20 mg by mouth dailyHistorical Provider, loperamide (IMODIUM) 2 MG capsule Take 2 mg by mouth 4 (four) times a day asneeded for diarrhea Historical Provider, MDmetFORMIN (GLUCOPHAGE) 500 MG tablet Take 500 mg by mouth 2 (two) times a daywith meals Historical Provider, omeprazole (PRILOSEC) 40 MG capsule Take 40 mg by mouth 2 (two) times a dayHistorical Provider, ondansetron (ZOFRAN-ODT) 4 MG disintegrating tablet Take 4 mg by mouth every 8(eight) hours as needed for nausea Historical Provider, MDrosuvastatin (CRESTOR) 40 MG tablet Take 40 mg by mouth daily HistoricalProvider, OmayraitaGLIPtin (JANUVIA) 100 MG tablet Take 100 mg by mouth daily HistoricalProvider, torsemide (DEMADEX) 10 MG tablet Take 10 mg by mouth daily HistoricalProvider, glipiZIDE (GLUCOTROL) 10 MG tablet Take 10 mg by mouth 2 (two) times a daybefore meals 06/10/20 Historical Provider, glipiZIDE (GLUCOTROL) 5 MG tablet Take 5 mg by mouth 2 (two) times a day beforemeals 06/10/20 Historical Provider, Katiaga-3 acid ethyl esters (LOVAZA) 1 G capsule Take 2 g by mouth 2 (two) times aday 06/10/20 Historical Provider, Bellaravastatin (PRAVACHOL) 40 MG tablet Take 20 mg by mouth daily 06/10/20Historical Provider, MDSocial HistoryTobacco Use Smoking status: Former Smoker Packs/day: 1.00 Years: 31.00 Pack years: 31.00 Types: Cigarettes Last attempt to quit: 1994 Years since quittin.8 Smokeless tobacco: Never UsedSubstance Use Topics Alcohol use: No Drug use: Not on fileFamily HistoryProblem Relation Age of Onset Cancer Mother Breast cancer Sister Brain cancer SisterREVIEW OF SYSTEMS:Constitutional: Reports 46 pound unintentional weight loss over the last year.Respiratory: Denies any shortness of breath, cough, yellow sputum production orwheezing.Cardiovascular: Denies any chest pain, pressure or tightness. Denies anyparoxysmal nocturnal dyspnea or orthopnea.GI: Reports nausea, vomiting, abdominal pain. Denies diarrhea, constipation ormelena.Neurologic: Denies any numbness, tingling, tremors or syncope.Vascular: Denies any edema. Denies claudication.Endocrine: She checks blood sugars 2 times daily.PHYSICAL EXAM:GENERAL: She is a 74 years old, pleasant white female, in no acute distress attime of examination. Vitals on arrival to the office are BP 130/70 (BP Location:Right upper arm, Patient Position: Sitting) | Ht 1.575 m (5' 2") | Wt (!)101.3 kg (223 lb 5 oz) | SpO2 96% | BMI 40.84 kg/m Body mass index is 40.84kg/m ..Skin is pink, warm, and dry.NECK: She has a grade 2 airway. Neck is supple, midline, without cervicaladenopathy. No thyromegaly. No carotid bruits.MENTAL / NEUROLOGICAL STATUS: [id number]: Clear to auscultation. No wheezes, rhonchi or crackles.HEART: Rate rhythm regular. S1, S2. No murmur, rub or gallop.ABDOMEN: Bowel sounds positive times four. Soft, epigastric tenderness. Norebound tenderness. No hepatosplenomegaly. Negative CVAT.EXTREMITIES: Pulses are symme trical. No edema.Anesthesia complications: GabeStchris Bang Questionnaire - Total Score:ASSESSMENT: Primary Diagnosis/Indication: Esophageal cancer.PLAN: Procedure: Ultrasound upper gastrointestinal tract endoscopic.06/10/2020 12:02 PMDyan Escalante document or parts of this document, were dictated using [employer] software. A reasonable attempt at proofreading has beenmade to minimize errors. Please call with any questions or corrections.* Name Value Range Interpretation Code Description Data Anyi rce(s) Supporting Document(s) ID Date Data Source [id number] 06/10/2020 08:11:31 PM EST [facility] Name Value Range Interpretation Code Description Data [facility] rce(s) Supporting Document(s) HEMOGLOBIN A1C @ 8.2 % (4.0-6.0) H [facility] Performed using Siemens Lincoln immunoassa y.Care must be taken when interpreting [id number] in patients with a hemoglobin variantor decreased erythrocyte lifespan. Values 5.7 - 6.4% suggest prediabetes.Values >=6.5% are diagnostic for diabetes.REFERENCE: DIABETES CARE 2018: 41(S13-S27). EST AVERAGE GLUCOSE 189 mg/dL [facility] ID Date Data Source [id number] 06/10/2020 07:11:46 PM EST [facility] Name Value Range Interpretation Code Description Data [facility] Document(s) SODIUM 141 mmol/L (136-145) [facility] POTASSIUM 4.8 mmol/L (3.6-5.2) [facility] CHLORIDE 103 mmol/L (100-108) [facility] CO2 30 mmol/L (22-31) [facility] ANION GAP 8 mmol/L (7-16) [facility] UREA NITROGEN 10 mg/dL (7-24) [facility] CREATININE 1.30 mg/dL (0.60-1.00) H [facility] BUN/CREAT RATIO 7.7 RATIO (10.0-20.0) L [facility] GLUCOSE 146 mg/dL (70-99) H [facility] CALCIUM 9.4 mg/dL (8.4-10.2) [facility] GFR 40 ml/min/1.73m2 (>59) L [facility] GFR ( AMER) 49 ml/min/1.73m2 (>59) L [facility] GFR INTERPRETATION [facility] --NORMAL KIDNEY FUNCTION OR MILD DISEASE - GFR >OR= 60CHRONIC KIDNEY DISEASE - GFR 15 - 59RENAL FAILURE - GFR <15 Est. GFR calculation based on the MDRDstudy equation, which assumes a steadystate for creatinine. Est. GFR should notbe used for medication dosing. ID Date Data Source [id number] 06/10/2020 06:05:00 PM EST [facility] Name Value Range Interpretation Code Description Data Anyi rce(s) Supporting Document(s) WBC 6.3 10*3/uL (4.1-11.0) [facility] [place] RBC 4.72 10*6/uL (4.00-5.40) [facility] HGB 13.7 g/dL (12.0-16.0) [facility] HCT 42.2 % (36.0-47.0) [facility] MCV 89.4 fL (80.0-95.0) [facility] MCH 29.0 pg (27.0-32.0) [facility] MCHC 32.4 g/dL (32.0-36.0) [facility] RDW 14.2 % (10.5-14.5) [facility] PLT 229 10*3/uL (150-450) [facility] MPV 8.5 fL (7.1-10.7) [facility] ID Date Data Source [id number] 06/10/2020 10:10:00 AM EST [facility] Name Value Range Interpretation Code Description Data Anyi rce(s) Supporting Document(s) SARS coronavirus 2 RNA [facility] This lab was ordered by [facility] and reported by [employer]. ID Date Data Source [id number] 06/11/2020 03:07:37 PM EST [facility] Name Value Range Interpretation Code Description Data Anyi rce(s) Supporting Document(s) SARS-COV-2 POLO [facility] Not DetectedReference range: Not Detecte d Testing was performed using the janina(R) SARS-CoV-2 test. This nucleic acid amplification test was developed and its performance characteristics determined by [employer]. Nucleic acid amplification tests include PCR and TMA. This test has not been FDA cleared or approved. This test has been authorized by FDA under an Emergency Use Authorization (EUA). This test is only authorized for the duration of time the declaration that circumstances exist justifying the authorization of the emergency use of in vitro diagnostic tests for detection of SARS-CoV-2 virus and/or diagnosis of COVID-19 infection under section 564(b)(1) of the Act, 21 U.S.C. 360bbb-3(b) (1), unless the authorization is terminated or revoked sooner. When diagnostic testing is negative, the possibility of a false negative result should be considered in the context of a patient's recent exposures and the presence of clinical signs and symptoms consistent with COVID-19. An individual without symptoms of COVID- 19 and who is not shedding SARS-CoV-2 virus would expect to have a negative (not detected) result in this assay. Performed At: [facility] [id number] Lewis Martinez MD Ph:[phone] ID Date Data Source [id number] 05/12/2020 09:27:00 AM EDT [facility] Patient: ANA ALARCON Observation Report - [facility].VisitID: [id number] [place] [address] [phone], FRegistration Date/Time: 05/11/2020 12:28 Weight:103.4 kg (S). Height/Length:62 inches (S). 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 Additional Surgeries:Partial hyster.Partial hysterectomy.Right heel surgery .Tonsillectomy. Medications:Albuterol Sulfate HFA Inhalation 2 puffs, q4h as needed.metFORMIN HCl Oral (Tablet 500 mg) 1 tablet, 2x a day.Flaxseed (Linseed) Oral 2 capsules, daily, last dose today .FLUoxetine HCl Oral (Tablet 10 mg) 1 tablet, daily, last dose today .Glipizide Oral 10 mg, daily, last dose today .Januvia Oral (Tablet 100 mg) 1 tablet, daily, last dose today .Lisinopril Oral (Tablet 20 mg) 1 tablet, daily, last dose today .Nebulizer 1 vial , as needed, last dose unknown .Omeprazole Oral (Capsule Delayed Release 40 mg) 1 capsule, 2x a day, last dose today .ProAir HFA Inhalation 2 puffs, as needed, last dose unknown .Rosuvastatin Calcium Oral (Capsule Sprinkle 40 mg) 1 capsule, daily, last dose today .Torsemide Oral (Tablet 10 mg) 1 tablet, daily, last dose today .Pat Aspirin Oral 81mg, daily, last dose today .Empagliflozin Oral (Tablet 10 mg) 1 tablet, daily, last dose today . Allergies:Kiwi. (throat closes). FAMILY HISTORYNegative. No significant family medical history. (Electronically signed by Damien Palumbo 05/12/2020 09:17) Name Value Range Interpretation Code Description Data [facility](s) Supporting Document(s) ID Date Data Source [id number] 05/11/2020 04:47:00 PM [facility] TSYSORDER [id number] Name Value Range Interpretation Code Description Data [facility] Supporting Document(s) URINE RBC 3-5 /hpf 0-3 H [facility] URINE WBC 1-3 /hpf 0-5 [facility] URINE EPITHELIAL CELLS 1+ /hpf 0 [facility] URINE BACTERIA TRACE NONE SEEN [facility] URINE MUCUS TRACE NEGATIVE [facility] ID Date Data Source [id number] 05/11/2020 04:40:00 PM T [facility] ital TSYSORDER [id number] Name Value Range Interpretation Code Description Data Anyi rce(s) Supporting Document(s) URINE COLOR. [facility] URINE APPEARANCE CLEAR [facility] GLUCOSE (UA) 500 mg/dL NE[facility]IVE [facility] URINE BILIRUBIN NEGATIVE NEGATIVE [facility] URINE KETONE NEGATIVE mg/dL NEGATIVE [facility] SPECIFIC GRAVITY,URINE 1.010 1.001-1.035 [facility] URINE BLOOD 1+(SMALL) NEGATIVE [facility] PH,URINE 6.0 5.0-9.0 [facility] URINE PROTEIN 2+(100) mg/dL NEGATIVE [facility] URINE UROBILINOGEN NORMAL(0.2-1) mg/dL 0-1 [facility] URINE NITRATE NEGATIVE NEGATIVE [facility] URINE LEUKOCYTE ESTERASE NEGATIVE NEGATIVE [facility] ID Date Data Source [id number] 05/11/2020 01:35:00 PM EDT [facility] l TSYSORDER [id number] Name Value Range Interpretation Code Description Data Anyi rce(s) Supporting Document(s) MAGNESIUM 2.1 mg/dL 1.8-2.4 [facility] ID Date Data Source [id number] 05/11/2020 01:35:00 PM EDT [facility] l TSYSORDER [id number] Name Value Range Interpretation Code Description Data Anyi rce(s) Supporting Document(s) LIPASE 64 U/L 73-393 L [facility] ID Date Data Source [id number] 05/11/2020 01:35:00 PM EDT [facility] l TSYSORDER [id number] Name Value Range Interpretation Code Description Data Anyi rce(s) Supporting Document(s) GLUCOSE 176 mg/dL 74-106 H [facility] BLOOD UREA NITROGEN 18 mg/dL 7-18 [facility] ital CREATININE 1.6 mg/dL 0.6-1.0 H [facility] SODIUM 138 mmol/L 136-145 [facility] POTASSIUM 4.2 mmol/L 3.5-5.1 [facility] CHLORIDE 100 mmol/L 98-107 [facility] CO2 27 mmol/L 21-32 [facility] CALCIUM 9.4 mg/dL 8.5-10.1 [facility] ANION GAP 11.0 mmol/L 5-12 [facility] GLOMERULAR FILTRATION RATE 32 mL/min [facility] GFR IS CALCULATED IN mL/min/1.73m2 FELIZ L FUNCTION: >90MILDLY DECREASED: 60-89MILDY TO MODERATELY DECREASED: 45-59 MODERATELY TO SEVERELY DECREASED: 30-44SEVERELY DECREASED: 15-29RENAL FAILURE: <15 AST 17 U/L 15-37 [facility] ALT 20 U/L 12-78 [facility] ALKALINE PHOSPHATASE 93 U/L 46-116 [facility] TOTAL BILIRUBIN 1.0 mg/dL 0.2-1.0 [facility] TOTAL PROTEIN 7.7 g/dl 6.4-8.2 [facility] ALBUMIN 3.8 gm/dL 3.4-5.0 [facility] ID Date Data Source [id number] 05/11/2020 01:19:00 PM EDT [facility] TSYSORDER [id number] Name Value Range Interpretation Code Description Data Anyi rce(s) Supporting Document(s) WHITE BLOOD COUNT 6.6 K/mm3 4.0-10.0 [facility] al RED BLOOD COUNT 4.90 M/mm3 4.00-5.50 [facility] HEMOGLOBIN 14.0 gm/dL 12.0-16.0 [facility] HEMATOCRIT 42.9 % 36.0-48.8 [facility] MEAN CELL VOLUME 87.6 fl 80-96 [facility] MEAN CORPUSCULAR HEMOGLOBIN 28.6 pg 27.0-31.0 [facility] MEAN CORPUSCULAR HGB CONC 32.6 g/dl 32.0-36.0 [facility] RED CELL DISTRIBUTION WIDTH 13.2 % 10.0-14.5 [facility] PLATELET COUNT 259 K/mm3 172-450 [facility] MEAN PLATELET VOLUME 9.7 fl 9.0-13.0 [facility] pital GRAN % 65.4 % 50-80.0 [facility] IG% 0.5 % 0.0-0.2 H [facility] LYMPH % 23.6 % 25.0-50.0 L [facility] MONO % 8.2 % 2.0-10.0 [facility] EOS % 2.0 % 0-5.0 [facility] BASO % 0.3 % 0.0-2.0 [facility] GRAN # 4.3 K/mm3 2.0-8.00 [facility] IG# 0.0 K/mm3 0.0-0.2 [facility] LYMPH # 1.6 K/mm3 1.0-5.0 [facility] MONO # 0.5 K/mm3 0.10-1.20 [facility] EOS # 0.1 K/mm3 0.0-0.5 [facility] BASO # 0.0 K/mm3 0.0-0.2 [facility] ID Date Data Source [id number] 05/09/2020 01:18:00 PM EDT [facility] Name Value Range Interpretation Code Description Data Anyi rce(s) Supporting Document(s) Microscopic observation [Identifier] in Unspecified specimen by Non- gynecological cytology method Laboratory test result 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 The background consists predominately of blood elements. COMMENTS: 05/10/2020 - [address](ASCP) 05/10/2020 0847 (Prelim) Signed STERLING BROWN MD 05/10/2020 1117 ID Date Data Source [id number] 05/09/2020 07:46:00 AM EDT [facility] Name Value Range Interpretation Code Description Data Anyi rce(s) Supporting Document(s) Surgical Pathology Consult Laboratory test result [facility] Surgical Pathology Report Name: ANA ALARCON Collection Date: 05/09/2020 00:00 Received Date: 05/09/2020 07:48 Physician(s): LINDA NGUYỄN MD VYAS,STERLING Haynes MD Specimen(s) Received A: Material received for consultation Clinical History Dysphagia. Endoscopy with stricture. Adenocarcinoma of esophagus. Please test for HER2 IHC with reflex to FISH. Diagnosis IMMUNOHISTOCHEMISTRY, ESOPHAGUS STRICTURE, BIOPSY ([id number]; 04/29/20): HER2: Negative (1+). Electronically Signed By Duarte Morejon MD;, Attending Pathologist 05/10/2020 16:16:04 Unless 'gross-only' is specified, the final diagnosis is based on a microscopic examination of bank representative sections of tissue. Gross Description Received from [facility] in [place], [place] is one paraffin block labeled [id number] with the corresponding pathology report. /jrs This report may include one or more immunohistochemical stain results that use analyte specific reagents. All positive and negative controls have been reviewed by the attending pathologist and are satisfactory. The tests were developed and their performance characteristics determined by [facility] Pathology department. They have not been cleared or approved by the US Food and Drug Administration. The FDA has determined that such clearance or approval is not necessary. ID Date Data Source [id number] 05/10/2020 04:16:00 PM [facility] Surgical Pathology ReportName: Mary ALARCONMRN: [id number] Number: [id number] Date: 05/09/2020 00:00Received Date: 05/09/2020 07:48Physician(s): LINDA NGUYỄN MD VYAS, SHIKHAR G, MDSpecimen(s) ReceivedA: Material received for consultationClinical HistoryDysphagia. Endoscopy with stricture. Adenocarcinoma of esophagus. Please test for HER2 IHC with reflex to FISH.DiagnosisIMMUNOHISTOCHEMISTRY, ESOPHAGUS STRICTURE, BIOPSY ([id number]; 04/29/20): HER2: Negative (1+). Electronically Signed By Duarte Morejon MD;, Attending Tcwqeolwxll22/6/2020 16:16:04 Unless 'gross-only' is specified, the final diagnosis is based on amicroscopic examination of bank representative sections of tissue.Gross DescriptionReceived from [facility] in [place], [place] is one paraffinblock labeled [id number] with the corresponding pathology report./jrsThis report may include one or more immunohistochemical stain results thatuse analyte specific reagents. All positive and negative controls havebeen reviewed by the attending pathologist and are satisfactory. The testswere developed and their performance characteristics determined by [facility] Pathology department. They have not been cleared or approved by the USFood and Drug Administration. The FDA has determined that such clearanceor approval is not necessary. Name Value Range Interpretation Code Description Data Anyi rce(s) Supporting Document(s) ID Date Data Source [id number] 04/29/2020 02:39:00 PM EDT [facility] ([facility]) Name Value Range Interpretation Code Description Data [facility](s) Supporting Document(s) Surgical pathology study Laboratory test result [facility] ([facility]) Addendum 1 Entered: 05/12/2020-0846 This addendum is being issued to report additional results of HER-2 testing. Esophagus, stricture, biopsy: Adenocarcinoma - 4/TR HER-2 IHC: Negative (1+) Please see the scanned documentation for the full consultation report ([id number]). 05/12/2020845 Addendum Signed____ STERLING BROWN MD 05/12/2020845 [...] SV 05/02/20201299 Signed STERLING BROWN MD 05/04/2020817 ID Date Data Source [id number] 04/24/2020 10:00:00 AM EDT [facility] Name Value Range Interpretation Code Description Data Anyi rce(s) Supporting Document(s) SARS coronavirus 2 RNA [facility] This lab was ordered by [facility] and reported by [facility]. ID Date Data Source [id number] 04/12/2020 10:39:00 PM EDT [facility] Patient: ANA ALARCON Observation Report - [facility]Visit[facility] [id number] [place] [address] [phone], FRegistration Date/Time: 04/12/2020 18:08 Weight:106.5 kg. Height/Length:62 inches. 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 Additional Surgeries:Partial hyster.Partial hysterectomy.Right heel surgery .Tonsillectomy. Medications:Nebulizer 1 vial , as needed, last dose unknown .ProAir HFA Inhalation 2 puffs, as needed, last dose unknown .Pat Aspirin Oral 81mg, daily, last dose today .Empagliflozin Oral unknown , daily, last dose today .FLUoxetine HCl Oral (Tablet 10 mg) 1 tablet, daily, last dose today .Januvia Oral (Tablet 100 mg) 1 tablet, daily, last dose today .Omeprazole Oral (Tablet Delayed Release 20 mg) 1 tablet, daily, last dose today .Lisinopril Oral (Tablet 20 mg) 1 tablet, daily, last dose today .Rosuvastatin Calcium Oral (Capsule Sprinkle 40 mg) 1 capsule, daily, last dose today .Glipizide Oral 10 mg, daily, last dose today .Flaxseed (Linseed) Oral 1 capsule, daily, last dose today .Torsemide Oral unkown , daily, last dose today . Allergies:Kiwi. (throat closes). FAMILY HISTORYNo significant family medical history. (Electronically signed by Ester Romo PОльга 04/12/2020 22:25) Name Value Range Interpretation Code Description Data Anyi rce(s) Supporting Document(s) ID Date Data Source [id number] 04/12/2020 09:48:00 PM EDT [facility] l TSYSORDER [id number] Name Value Range Interpretation Code Description Data Anyi rce(s) Supporting Document(s) URINE RBC 3-5 /hpf 0-3 H [facility] URINE WBC 1-3 /hpf 0-5 [facility] URINE EPITHELIAL CELLS 1+ /hpf [facility] URINE BACTERIA 1+ NONE SEEN [facility] URINE AMORPHOUS SEDIMENT 1+ [facility] ID Date Data Source [id number] 04/12/2020 09:40:00 PM EDT [facility] ital TSYSORDER [id number] Name Value Range Interpretation Code Description Data Anyi rce(s) Supporting Document(s) URINE COLOR. [facility] URINE APPEARANCE CLEAR [facility] SPECIFIC GRAVITY,URINE 1.010 1.001-1.035 [facility] URINE LEUKOCYTE ESTERASE TRACE NEGATIVE [facility] URINE NITRATE NEGATIVE NEGATIVE [facility] PH,URINE 5.0 5.0-9.0 [facility] URINE PROTEIN 1+(30) mg/dL NEGATIVE [facility] l URINE GLUCOSE (UA) 500 mg/dL NEGATIVE [facility] URINE KETONE NEGATIVE mg/dL NEGATIVE [facility] al URINE UROBILINOGEN NORMAL(0.2-1) mg/dL 0-1 [facility] URINE BILIRUBIN NEGATIVE NEGATIVE [facility] URINE BLOOD TRACE NEGATIVE [facility] ID Date Data Source [id number] 04/12/2020 08:06:00 PM EDT [facility] l TSYSORDER [id number] Name Value Range Interpretation Code Description Data Anyi rce(s) Supporting Document(s) ACETONE,SERUM OR URINE NEGATIVE NEGATIVE [facility] ID Date Data Source [id number] 04/12/2020 07:53:00 PM EDT [facility] l TSYSORDER [id number] Name Value Range Interpretation Code Description Data Anyi rce(s) Supporting Document(s) PH 7.31 7.31-7.41 [facility] VENOUS PCO2 51.8 mmHg 41-51 H [facility] VENOUS PO2 39 mmHg 35-42 [facility] VENOUS BLODD O2 SATURATION 62.7 % 68-77 L [facility] VENOUS BLOOD HCO3 25.2 meq/L 24.0-25.0 H [facility] VENOUS BASE EXCESS -1.1 -3.0-3.0 [facility] VENOUS BLOOD CO2 26.8 mmol/L 23.0-32.0 [facility] ID Date Data Source [id number] 04/14/2020 10:05:00 AM EDT [facility] Name Value Range Interpretation Code Description Data Anyi rce(s) Supporting Document(s) THYROXINE (T4) 6.3 ug/dL 4.5-12.0 [facility] Performed at: RN - [facility] [place] [id number] Director: Naya Saucedo MD, Phone: [phone] ID Date Data Source [id number] 04/14/2020 10:05:00 AM EDT [facility] Name Value Range Interpretation Code Description Data Anyi rce(s) Supporting Document(s) Thyroxine (T4) 6.3 ug/dL 4.5-12.0 [facility] ID Date Data Source [id number] 04/12/2020 07:51:00 PM EDT [facility] TSYSORDER [id number] Name Value Range Interpretation Code Description Data Anyi rce(s) Supporting Document(s) Adenovirus Not Detected Detected Not [facility] Coronavirus 229E Not Detected Detected Not [facility] Coronavirus HKU1 Not Detected Detected Not [facility] Coronavirus NL63 Not Detected Detected Not [facility] Coronavirus OC43 Not Detected Detected Not [facility] Sars Cov 2 Not Detected Detected Not [facility] Human Metapneumovirus Not Detected Detected Not [facility] Human Rhinovirus Not Detected Detected Not [facility] Influenza A Not Detected Detected [facility] Influenza B Not Detected Detected Not [facility] Parainfluenza Virus 1 Not Detected Detected Not [facility] Parainfluenza Virus 2 Not Detected Detected Not [facility] Parainfluenza Virus 3 Not Detected Detected Not [facility] Parainfluenza Virus 4 Not Detected Detected Not [facility] Respiratory Syncytial Virus Not Detected Detected Not [facility] Bordetella parapertus ([id number]) Not Detected Detected Not [facility] Bordetella pertussis (ptxP) Not Detected Detected Not [facility] Chlamydia pneumoniae Not Detected Detected Not [facility] Mycoplasma pneumoniae Not Detected Detected Not [facility] The Above results have been determined b y using the [employer] system.[employer] is an automated in vitro diagnostic system thatutilizes nested multiplex Polymerase Chain Reaction (PCR)and high-resolution melting analysis to detect and identifymultiple nucleic acid targets from clinical specimens. ID Date Data Source [id number] 04/12/2020 07:47:00 PM EDT [facility] TSYSORDER [id number] Name Value Range Interpretation Code Description Data Anyi rce(s) Supporting Document(s) MAGNESIUM 1.6 mg/dL 1.8-2.4 L [facility] ID Date Data Source [id number] 04/12/2020 07:47:00 PM EDT [facility] [id number] Name Value Range Interpretation Code Description Data Anyi rce(s) Supporting Document(s) CREATINE PHOSPHOKINASE 63 U/L 26-192 [facility] ID Date Data Source [id number] 04/12/2020 07:47:00 PM EDT [facility] l TSYSORDER [id number] Name Value Range Interpretation Code Description Data Anyi rce(s) Supporting Document(s) GLUCOSE 225 mg/dL 74-106 H [facility] BLOOD UREA NITROGEN 30 mg/dL 7-18 H [facility] ital CREATININE 2.0 mg/dL 0.6-1.0 H [facility] SODIUM 137 mmol/L 136-145 [facility] POTASSIUM 4.2 mmol/L 3.5-5.1 [facility] CHLORIDE 98 mmol/L 98-107 [facility] CO2 31 mmol/L 21-32 [facility] CALCIUM 9.0 mg/dL 8.5-10.1 [facility] ANION GAP 8.0 mmol/L 5-12 [facility] GLOMERULAR FILTRATION RATE 24 mL/min [facility] GFR IS CALCULATED IN mL/min/1.73m2 FELIZ L FUNCTION: >90MILDLY DECREASED: 60-89MILDY TO MODERATELY DECREASED: 45-59 MODERATELY TO SEVERELY DECREASED: 30-44SEVERELY DECREASED: 15-29RENAL FAILURE: <15 AST 15 U/L 15-37 [facility] ALT 21 U/L 12-78 [facility] ALKALINE PHOSPHATASE 94 U/L 46-116 [facility] pital TOTAL BILIRUBIN 0.9 mg/dL 0.2-1.0 [facility] TOTAL PROTEIN 7.4 g/dl 6.4-8.2 [facility] ALBUMIN 3.5 gm/dL 3.4-5.0 [facility] ID Date Data Source [id number] 04/12/2020 07:47:00 PM EDT [facility] l TSYSORDER [id number] R [id number] Name Value Range Interpretation Code Description Data Anyi rce(s) Supporting Document(s) LIPASE 60 U/L 73-393 L [facility] ID Date Data Source [id number] 04/12/2020 07:32:00 PM EDT [facility] l TSYSORDER [id number] Name Value Range Interpretation Code Description Data Anyi rce(s) Supporting Document(s) TSH 2.21 uIU/mL 0.36-3.74 [facility] ID Date Data Source [id number] 04/12/2020 07:20:00 PM EDT [facility] TSYSORDER [id number] Name Value Range Interpretation Code Description Data Anyi rce(s) Supporting Document(s) PARTIAL THROMBOPLASTIN TIME 22.7 SECONDS 21.4-30.2 [facility] ID Date Data Source [id number] 04/12/2020 07:20:00 PM EDT [facility] TSYSORDER [id number] Name Value Range Interpretation Code Description Data Anyi rce(s) Supporting Document(s) PROTHROMBIN TIME (PATIENT) 10.2 SECONDS 9.2-11.6 [facility] INR 0.98 0.87-1.06 [facility] ID Date Data Source [id number] 04/12/2020 07:06:00 PM EDT [facility] l TSYSORDER [id number] Name Value Range Interpretation Code Description Data Anyi rce(s) Supporting Document(s) HGBA1C 11.6 % 3.8-5.6 H [facility] Diabetic > or = to 6.5%Prediabetes 5.7-6 .4%Normal <5.7 ID Date Data Source [id number] 04/12/2020 06:54:00 PM EDT [facility] l TSYSORDER [id number] Name Value Range Interpretation Code Description Data Anyi rce(s) Supporting Document(s) WHITE BLOOD COUNT 7.9 K/mm3 4.0-10.0 [facility] RED [facility]LOOD COUNT 4.68 M/mm3 4.00-5.50 [facility] HEMOGLOBIN 13.7 gm/dL 12.0-16.0 [facility] HEMATOCRIT 41.5 % 36.0-48.8 [facility] MEAN CELL VOLUME 88.7 fl 80-96 [facility] MEAN CORPUSCULAR HEMOGLOBIN 29.3 pg 27.0-31.0 [facility] MEAN CORPUSCULAR HGB CONC 33.0 g/dl 32.0-36.0 [facility] RED CELL DISTRIBUTION WIDTH 12.9 % 10.0-14.5 [facility] PLATELET COUNT 245 K/mm3 172-450 [facility] MEAN PLATELET VOLUME 10.1 fl 9.0-13.0 [facility] pital GRAN % 65.6 % 50-80.0 [facility] IG% 0.4 % 0.0-0.2 H [facility] LYMPH % 23.6 % 25.0-50.0 L [facility] MONO % 7.6 % 2.0-10.0 [facility] EOS % 2.3 % 0-5.0 [facility] BASO % 0.5 % 0.0-2.0 [facility] GRAN # 5.2 K/mm3 2.0-8.00 [facility] IG# 0.0 K/mm3 0.0-0.2 [facility] LYMPH # 1.9 K/mm3 1.0-5.0 [facility] MONO # 0.6 K/mm3 0.10-1.20 [facility] EOS # 0.2 K/mm3 0.0-0.5 [facility] BASO # 0.0 K/mm3 0.0-0.2 [facility] ID Date Data Source [id number] 04/12/2020 12:00:00 AM EDT [facility] Name Value Range Interpretation Code Description Data Anyi rce(s) Supporting Document(s) 2019 Novel Coronavirus RNA [facility] This lab was ordered by [facility] L aboratory and reported by [facility]. ID Date Data Source [id number] 10/28/2019 02:00:00 PM EDT [facility] ([facility]) Name Value Range Interpretation Code Description Data Anyi rce(s) Supporting Document(s) Magnesium [Mass/volume] in Serum or Plasma 1.9 mg/dL 1.6-2.3 [facility] ([facility]) Natriuretic peptide.B prohormone N-Terminal [Mass/volu me] in Serum or Plasma 105 pg/mL 0-301 [facility]) <content>The following cut-points have b een suggested for the</content>
<content>use of proBNP for the diagnostic evaluation of heart</content>
<content>failure (HF) in patients with acute dy spnea:</content>
<content>Modality Age Optimal Cut</content>
<content>(years) Point</content>
<content> ---</content>
<content>Diagnosis (rule in HF) <50 450 pg/mL</content>
<content>50 - 75 900 pg/mL</content>
<content>>75 1800 pg/mL</content>
<content> Exclusion (rule out HF) Age independent 300 pg/mL</content>
<content></content> Laboratory test finding (navigational concept) Laboratory test result [facility] ([facility]) ID Date Data Source [id number] 10/29/2019 08:05:00 AM EDT [facility] Name Value Range Interpretation Code Description Data Anyi rce(s) Supporting Document(s) Magnesium 1.9 mg/dL 1.6-2.3 [facility] ID Date Data Source [id number] 10/30/2019 06:05:00 AM EDT [facility] Name Value Range Interpretation Code Description Data Anyi rce(s) Supporting Document(s) NT-proBNP 105 pg/mL 0-301 [facility] The following cut-points have been suggested for the use of proBNP for the diagnostic evaluation of heart failure (HF) in patients with acute dyspnea: Modality Age Optimal Cut (years) Point Diagnosis (rule in HF) <50 450 pg/mL 50 - 75 900 pg/mL > 75 1800 pg/mL Exclusion (rule out HF) Age independent 300 pg/mL ID Date Data Source [id number] 10/12/2019 05:20:00 PM EDT [facility] ([facility]) Name Value Range Interpretation Code Description Data Anyi rce(s) Supporting Document(s) Hemoglobin A1c/Hemoglobin.total in Blood 8.4 [facility] ([facility]) ID Date Data Source [id number] 10/12/2019 05:20:00 PM EDT [facility] Name Value Range Interpretation Code Description Data Anyi rce(s) Supporting Document(s) Red Blood Count 4.37 4.00-5.40 [facility] ([facility]) White Blood Count 5.1 4.0-10.0 [facility] ([facility]) Platelets 233 172-450 [facility] ([facility]) Hematocrit 40.2 [facility] ([facility]) Hemoglobin 12.7 [facility] ([facility]) ID Date Data Source [id number] 10/12/2019 05:20:00 PM EDT [facility] Name Value Range Interpretation Code Description Data Anyi rce(s) Supporting Document(s) Magnesium Level 2.3 1.8-2.4 [facility] ([facility]) ID Date Data Source [id number] 10/12/2019 05:20:00 PM EDT [facility] Name Value Range Interpretation Code Description Data Anyi rce(s) Supporting Document(s) Triglycerides 194 [facility] ([facility]) Cholesterol in LDL [Mass/volume] in Serum or Plasma by calculation 16 8 [facility] ([facility]) Cholesterol 269 [facility] ([facility]) HDL 62 [facility] ([facility]) Chol/HDL Ratio 4.338 [facility] ([facility]) ID Date Data Source [id number] 10/12/2019 05:20:00 PM EDT [facility] ([facility]) Name Value Range Interpretation Code Description Data Anyi rce(s) Supporting Document(s) Albumin [Mass/volume] in Serum or Plasma 3.1 [facility] ([facility]) Calcium [Mass/volume] in Serum or Plasma 8.8 [facility] ([facility]) Alanine aminotransferase [Enzymatic activity/volume] in Serum or Pl asma 21 [facility] ([facility]) Chloride [Moles/volume] in Serum or Plasma 105 [facility] ([facility]) Carbon dioxide, total [Moles/volume] in Serum or Plasma 32 [facility] ([facility]) Alkaline phosphatase [Enzymatic activity/volume] in Serum or Plasma 1 01 [facility] ([facility]) Aspartate aminotransferase [Enzymatic activity/volume] in Serum or Plasma 14 [facility] ([facility]) Potassium [Moles/volume] in Serum or Plasma 4.5 [facility] ([facility]) Protein [Mass/volume] in Serum or Plasma 6.6 [facility] ([facility]) Sodium 140 [facility] ([facility]) Glucose 170 83-110 [facility] ([facility]) Urea nitrogen [Mass/volume] in Serum or Plasma 21 [facility] ([facility]) Creatinine For GFR 0.85 [facility] ([facility]) Procedure Social History Code Duration Value Status Description Data Source(s ) Alcohol intake 08/14/2020 12:00:00 AM EST No completed [facility] Cigarette pack-years 08/14/2020 12:00:00 AM EST UNK completed [facility] Cigarettes smoked current (pack per day) - Reported 08/14/19 12:00:00 AM EST UNK completed [facility] Smoking 08/14/2020 12:00:00 AM EST Former smoker completed Former smoker [facility] Smoking 06/27/2020 12:00:00 AM EST Former Smoker completed Former Smoker eCW1 ([facility]) Smoking 06/27/2020 12:00:00 AM EST Former Smoker completed Former Smoker eCW1 ([facility]) Smoking 06/27/2020 12:00:00 AM EST Former Smoker completed Former Smoker eCW1 ([facility]) Alcohol intake 06/24/2020 12:00:00 AM EST No completed [facility] Cigarette pack-years 06/24/2020 12:00:00 AM EST UNK completed [facility] Cigarettes smoked current (pack per day) - Reported 06/24/20 12:00:00 AM EST UNK completed [facility] Smoking 06/24/2020 12:00:00 AM EST Former smoker completed Former smoker [facility] Alcohol intake 06/10/2020 12:00:00 AM EST No completed [facility] Cigarette pack-years 06/10/2020 12:00:00 AM EST UNK completed [facility] Cigarettes smoked current (pack per day) - Reported 06/10/20 12:00:00 AM EST UNK completed [facility] Smoking 06/10/2020 12:00:00 AM EST Former smoker completed Former smoker [facility] Smoking 06/02/2020 12:00:00 AM EDT Former Smoker completed Former Smoker eCW1 ([facility]) Smoking 03/02/2020 12:00:00 AM EDT Patient is a former smoker completed Patient is a former smoker [facility] ([facility]) Smoking 02/17/2020 12:00:00 AM EDT Former Smoker completed Former Smoker eCW1 ([facility]) Smoking 02/17/2020 12:00:00 AM EDT Former Smoker completed Former Smoker eCW1 ([facility]) Smoking 02/17/2020 12:00:00 AM EDT Former Smoker completed Former Smoker eCW1 ([facility]) Smoking 02/01/2020 12:00:00 AM EDT - 08/05/1995 12:00:00 AM EST Patient is a former smoker completed Patient is a former smoker [facility] Smoking 01/26/2020 12:00:00 AM EDT Former Smoker completed Former Smoker eCW1 ([facility]) Smoking 01/26/2020 12:00:00 AM EDT Former Smoker completed Former Smoker eCW1 ([facility]) Smoking 01/13/2020 12:00:00 AM EDT Former Smoker completed Former Smoker eCW1 ([facility]) Smoking 01/13/2020 12:00:00 AM EDT Former Smoker completed Former Smoker eCW1 ([facility]) Smoking 10/22/2019 12:00:00 AM EDT Former Smoker completed Former Smoker eCW1 ([facility]) Vital Signs ID Date Data Source UNK Name Value Range Interpretation Code Description Data Source(s) Oxygen saturation in Arterial blood by Pulse oximetry 98 % 98 % [facility] Respiratory rate 15 /min 15 /min [facility] Body temperature 36.[address] [facility] Heart rate 61 /min 61 /min [facility] Diastolic blood pressure 70 mm[Hg] 70 mm[Hg] [facility] Systolic blood pressure 121 mm[Hg] 121 mm[Hg] [facility] Body mass index (BMI) [Ratio] 37.86 kg/m2 37.86 kg/m2 [facility] Body weight 93.895 kg 93.895 kg [facility] Body height 157.5 cm 157.5 cm [facility] Oxygen saturation in Arterial blood by Pulse oximetry 99 % 99 % [facility] Respiratory rate 16 /min 16 /min [facility] Body temperature 36.[address] [facility] Heart rate 84 /min 84 /min [facility] Diastolic blood pressure 72 mm[Hg] 72 mm[Hg] [facility] Systolic blood pressure 125 mm[Hg] 125 mm[Hg] [facility] Body mass index (BMI) [Ratio] 40.85 kg/m2 40.85 kg/m2 [facility] Body weight 101.3 kg 101.3 kg [facility] Body height 157.5 cm 157.5 cm [facility] Oxygen saturation in Arterial blood by Pulse oximetry 96 % 96 % [facility] Diastolic blood pressure 70 mm[Hg] 70 mm[Hg] [facility] Systolic blood pressure 130 mm[Hg] 130 mm[Hg] [facility] Body mass index (BMI) [Ratio] 40.84 kg/m2 40.84 kg/m2 [facility] Body weight 101.294 kg 101.294 kg [facility] Body height 157.5 cm 157.5 cm [facility] Diastolic blood pressure mm[Hg] eCW1 ([facility]) Systolic blood pressure 120 mm[Hg] 120 mm[Hg] e CW1 ([facility]) Body temperature 98.2 [degF] 98.2 [degF] eCW1 ( [facility]) Respiratory rate 18 /min 18 /min eCW1 ([facility]) Heart rate 73 /min 73 /min eCW1 ([facility]) Body mass index (BMI) [Ratio] 42.70 kg/m2 42.70 kg/m2 eCW1 ([facility]) Body height [in_i] eCW1 ([facility]) Body weight 226 [lb_av] 226 [lb_av] [facility]CW1 ([facility]) Body surface area Derived from formula 2.06 m2 2.06 m2 [facility] ([facility]) Body weight 108.410 kg 108.410 kg [facility] ([facility]) [place] body weight 110 [lb_av] 110 [lb_av] [facility] T ([facility]) Body mass index (BMI) [Ratio] 43.7 kg/m2 43.7 k g/m2 [facility] ([facility]) Body weight 239.00 [lb_av] 239.00 [lb_av] [facility] T ([facility]) Body height 62 [in_i] 62 [in_i] [facility] 5'2" Body surface area Derived from formula 2.06 m2 2.06 m2 [facility] ([facility]) Body weight 108.410 kg 108.410 kg [facility] ([facility]) [place] body weight 110 [lb_av] 110 [lb_av] [facility] T ([facility]) Body mass index (BMI) [Ratio] 43.7 kg/m2 43.7 k g/m2 [facility] ([facility]) Body weight 239.00 [lb_av] 239.00 [lb_av] [facility] T ([facility]) Body height 62 [in_i] 62 [in_i] [facility] ([facility]) 5'2" Diastolic blood pressure 69 mm[Hg] 69 mm[Hg] [facility] ([facility]) Lt arm Systolic blood pressure 139 mm[Hg] 139 mm[Hg] M [facility] ([facility]) Lt arm Diastolic blood pressure 53 mm[Hg] 53 mm[Hg] [facility] ([facility]) Rt Arm Systolic blood pressure 94 mm[Hg] 94 mm[Hg] M [facility] ([facility]) Rt Arm Diastolic blood pressure--sitting 66 mm[Hg] 66 mm[Hg] [facility] CBP, larhe cuff/Ra Systolic blood pressure--sitting 112 mm[Hg] 112 mm[Hg] [facility] ([facility]) CBP, larhe cuff/Ra Heart rate 73 /min 73 /min [facility]) Body mass index (BMI) [Ratio] 45.2 kg/m2 45.2 k g/m2 [facility]) Body height 62 [in_i] 62 [in_i] [facility] ([facility]) 5'2" Body weight 247.00 [lb_av] 247.00 [lb_av] [facility] T ([facility]) Diastolic blood pressure 65 mm[Hg] 65 mm[Hg] eCW1 ([facility]) Systolic blood pressure 110 mm[Hg] 110 mm[Hg] e CW1 ([facility]) Body temperature 98.6 [degF] 98.6 [degF] eCW1 ( [facility]) Respiratory rate 18 /min 18 /min eCW1 ([facility]) Heart rate 74 /min 74 /min eCW1 ([facility]) Body mass index (BMI) [Ratio] 47.42 kg/m2 47.42 kg/m2 eCW1 ([facility]) Body height [in_i] eCW1 ([facility]) Body weight 251 [lb_av] 251 [lb_av] eCW1 ([facility]) Diastolic blood pressure 62 mm[Hg] 62 mm[Hg] eCW1 ([facility]) Systolic blood pressure 137 mm[Hg] 137 mm[Hg] e CW1 ([facility]) Body temperature 98 [degF] 98 [degF] eCW1 ([facility]) Respiratory rate 18 /min 18 /min eCW1 ([facility]) Heart rate 79 /min 79 /min eCW1 ([facility]) Body mass index (BMI) [Ratio] 50.25 kg/m2 50.25 kg/m2 eCW1 ([facility]) Body height [in_i] eCW1 ([facility]) Body weight 266 [lb_av] 266 [lb_av] eCW1 ([facility]) Body weight 114.534 kg 114.534 kg [facility] ([facility], ) Body mass index (BMI) [Ratio] 46.2 kg/m2 46.2 k g/m2 [facility] ([facility], ) Body weight 252.50 [lb_av] 252.50 [lb_av] [facility] T ([facility], ) Body height 62 [in_i] 62 [in_i] [facility] ([facility], ) 5'2" Body temperature 97.9 [degF] 97.9 [degF] [facility] ) Oxygen saturation in Arterial blood by Pulse oximetry 96 % 96 % [facility], ) Heart rate 72 /min 72 /min [facility] ([facility], ) Diastolic blood pressure 68 mm[Hg] 68 mm[Hg] [facility] ([facility], ) Systolic blood pressure 126 mm[Hg] 126 mm[Hg] M [facility] ([facility], ) Diastolic blood pressure--sitting 68 mm[Hg] 68 mm[Hg] [facility] ([facility]) CBP large adult cuff, Ra Systolic blood pressure--sitting 126 mm[Hg] 126 mm[Hg] [facility] ([facility]) CBP large adult cuff, Ra Heart rate 64 /min 64 /min [facility] ([facility]y [facility]) Body mass index (BMI) [Ratio] 45.4 kg/m2 45.4 k g/m2 MEDENT ([facility]) Body height 62 [in_i] 62 [in_i] MEDENT ([facility]i [facility]) 5'2" Body weight 248.00 [lb_av] 248.00 [lb_av] MEDEN T ([facility]) Diastolic blood pressure 64 mm[Hg] 64 mm[Hg] eCW1 ([facility]) Systolic blood pressure 139 mm[Hg] 139 mm[Hg] e CW1 ([facility]) Body temperature 97.6 [degF] 97.6 [degF] eCW1 ( [facility]) Respiratory rate 18 /min 18 /min eCW1 ([facility]) Heart rate 64 /min 64 /min eCW1 ([facility]) Body mass index (BMI) [Ratio] 48.37 kg/m2 48.37 kg/m2 eCW1 ([facility]) Body height [in_us] eCW1 ([facility]) Body weight Measured 256 [lb_av] 256 [lb_av] eC W1 ([facility]) Diastolic blood pressure 63 mm[Hg] 63 mm[Hg] eCW1 ([facility]) Systolic blood pressure 103 mm[Hg] 103 mm[Hg] e CW1 ([facility]) Body temperature 98.7 [degF] 98.7 [degF] eCW1 ( [facility]) Respiratory rate 18 /min 18 /min eCW1 ([facility]) Heart rate 79 /min 79 /min eCW1 ([facility]) Body mass index (BMI) [Ratio] 47.23 kg/m2 47.23 kg/m2 eCW1 ([facility]) Body height [in_us] eCW1 ([facility]) Body weight Measured 250 [lb_av] 250 [lb_av] eC W1 ([facility]) Body weight 113.910 kg 113.[address] [facility] Body mass index (BMI) [Ratio] 45.9 kg/m2 45.9 k g/m2 MEDENT ([facility]) Body weight 251.12 [lb_av] 251.12 [lb_av] MEDEN T ([facility]) Body height 62 [in_i] 62 [in_i] [facility] ([facility]) 5'2" Oxygen saturation in Arterial blood by Pulse oximetry 97 % 97 % [facility] ([facility]) Heart rate 72 /min 72 /min [facility] Diastolic blood pressure 82 mm[Hg] 82 mm[Hg] [facility] ([facility]) Systolic blood pressure 130 mm[Hg] 130 mm[Hg] [facility] Deprecated Oxygen saturation in Capillary blood by Oximetry 95 % 95 % eCW1 ([facility]) Respiratory rate 22 /min 22 /min eCW1 ([facility]) Heart rate 79 /min 79 /min eCW1 ([facility]) Body temperature 98.1 [degF] 98.1 [degF] eCW1 ( [facility]) Body mass index (BMI) [Ratio] 45.65 kg/m2 45.65 kg/m2 eCW1 ([facility]) Body weight Measured 249.6 [lb_av] 249.6 [lb_av ] eCW1 ([facility]) Body height 62 [in_us] 62 [in_us] eCW1 ([facility]) Deprecated Oxygen saturation in Capillary blood by Oximetry 96 % 96 % eCW1 ([facility]) Respiratory rate 22 /min 22 /min eCW1 ([facility]) Heart rate 86 /min 86 /min eCW1 ([facility]) Body temperature 98.1 [degF] 98.1 [degF] eCW1 ( [facility]) Body mass index (BMI) [Ratio] 45.43 kg/m2 45.43 kg/m2 eCW1 ([facility]) Body weight Measured 248.4 [lb_av] 248.4 [lb_av ] eCW1 ([facility]) Body height 62 [in_us] 62 [in_us] eCW1 ([facility]) Patient Treatment Plan of Care Planned Activity Planned Date Details Description Data Source (s) Misc. Devices MIS 08/09/2020 12:00:00 AM [facility] Misc. Devices [facility] 07/06/2020 12:00:00 AM [facility] Famotidine 8 MG/ML Oral Suspension 07/06/2020 12:00:00 AM [facility] Famotidine 40 MG 06/26/2020 12:00:00 AM EST [facility]) FLUoxetine HCl 20 MG/5ML 06/26/2020 12:00:00 AM EST [facility]) Lactulose 10 GM/15ML 06/26/2020 12:00:00 AM EST [facility] ([facility]) OxyCODONE HCl 5 MG/5ML 06/26/2020 12:00:00 AM EST [facility]) Zofran ODT 4 MG 06/26/2020 12:00:00 AM EST [facility] ([facility]) Albuterol Sulfate HFA 108 (90 Base) MCG/ACT 06/26/2020 12:00:00 AM EST [facility]) Aspirin EC 81 MG 06/26/2020 12:00:00 AM EST [facility]) Ipratropium-Albuterol 0.5-2.5 (3) MG/3ML 06/26/2020 12:00:00 AM EST [facility] ([facility]) Jardiance 10 MG 06/26/2020 12:00:00 AM [facility] ([facility]) Lisinopril 20 MG 06/26/2020 12:00:00 AM [facility] ([facility]) Loperamide HCl 2 MG 06/26/2020 12:00:00 AM [facility]) Rosuvastatin Calcium 40 MG 06/26/2020 12:00:00 AM [facility] ([facility]) SITagliptin Phosphate 100 MG 06/26/2020 12:00:00 AM [facility]) Torsemide 10 MG 06/26/2020 12:00:00 AM [facility]) Oxycodone Hydrochloride 1 MG/ML Oral Solution 06/24/2020 12:00:00 A M [facility] Lactulose 667 MG/ML Oral Solution 06/24/2020 12:00:00 AM [facility] Fluoxetine 4 MG/ML Oral Solution 06/24/2020 12:00:00 AM [facility] Misc. Devices MISC 06/24/2020 12:00:00 AM [facility] Ondansetron 4 MG Disintegrating Oral Tablet 06/24/2020 12:00:00 AM [facility] Misc. Devices MISC 06/24/2020 12:00:00 AM [facility] Oxycodone Hydrochloride 1 MG/ML Oral Solution 06/24/2020 12:00:00 A M [facility] Oxycodone Hydrochloride 1 MG/ML Oral Solution 06/24/2020 12:00:00 A M [facility] Famotidine 8 MG/ML Oral Suspension 06/24/2020 12:00:00 AM [facility] Lactulose 667 MG/ML Oral Solution 06/24/2020 12:00:00 AM [facility] Oxycodone Hydrochloride 1 MG/ML Oral Solution 06/24/2020 12:00:00 A M [facility] Fluoxetine 4 MG/ML Oral Solution 06/24/2020 12:00:00 AM EST [facility] Famotidine 8 MG/ML Oral Suspension 06/24/2020 12:00:00 AM [facility] empagliflozin 10 MG Oral Tablet [Jardiance] 01/14/2020 12:00:00 AM EDT eCW1 ([facility]) empagliflozin 10 MG Oral Tablet [Jardiance] 01/14/2020 12:00:00 AM EDT eCW1 ([facility]) empagliflozin 10 MG Oral Tablet [Jardiance] 01/14/2020 12:00:00 AM EDT eCW1 ([facility]) empagliflozin 10 MG Oral Tablet [Jardiance] 01/14/2020 12:00:00 AM EDT eCW1 ([facility]) empagliflozin 10 MG Oral Tablet [Jardiance] 01/14/2020 12:00:00 AM EDT eCW1 ([facility]) empagliflozin 10 MG Oral Tablet [Jardiance] 01/14/2020 12:00:00 AM EDT eCW1 ([facility]) empagliflozin 10 MG Oral Tablet [Jardiance] 01/14/2020 12:00:00 AM EDT eCW1 ([facility]) torsemide 10 MG Oral Tablet 01/13/2020 12:00:00 AM EDT eCW1 ([facility]) torsemide 10 MG Oral Tablet 01/13/2020 12:00:00 AM EDT eCW1 ([facility]) torsemide 10 MG Oral Tablet 01/13/2020 12:00:00 AM EDT eCW1 ([facility]) torsemide 10 MG Oral Tablet 01/13/2020 12:00:00 AM EDT eCW1 ([facility]) torsemide 10 MG Oral Tablet 01/13/2020 12:00:00 AM EDT eCW1 ([facility]) torsemide 10 MG Oral Tablet 01/13/2020 12:00:00 AM EDT eCW1 ([facility]) torsemide 10 MG Oral Tablet 01/13/2020 12:00:00 AM EDT eCW1 ([facility]) Nebulizer - 10/06/2019 12:00:00 AM EST e CW1 ([facility]) Nebulizer/Tubing/Mouthpiece - 10/06/2019 12:00:00 AM EST eCW1 ([facility]) Nebulizer/Tubing/Mouthpiece - 10/06/2019 12:00:00 AM EST eCW1 ([facility]) Nebulizer - 10/06/2019 12:00:00 AM EST e CW1 ([facility]) Nebulizer/Tubing/Mouthpiece - 10/06/2019 12:00:00 AM EST eCW1 ([facility]) Nebulizer - 10/06/2019 12:00:00 AM EST e CW1 ([facility]) Prednisone 20 MG Oral Tablet 09/10/2019 12:00:00 AM EST eCW1 ([facility]) CompAir Nebulizer 1 09/10/2019 12:00:00 AM EST eCW1 ([facility]) Albuterol 0.833 MG/ML / Ipratropium [place] 0.167 MG/M L Inhalant Solution 09/10/2019 12:00:00 AM EST eCW1 ([facility]) CompAir Nebulizer 1 09/10/2019 12:00:00 AM EST eCW1 ([facility]) Albuterol 0.833 MG/ML / Ipratropium [place] 0.167 MG/M L Inhalant Solution 09/10/2019 12:00:00 AM EST eCW1 ([facility]) Prednisone 20 MG Oral Tablet 09/10/2019 12:00:00 AM EST eCW1 ([facility]) Comp Air Elite Compact Neb - 09/10/2019 12:00:00 AM EST eCW1 ([facility]) Albuterol 0.833 MG/ML / Ipratropium [place] 0.167 MG/M L Inhalant Solution 09/10/2019 12:00:00 AM EST eCW1 ([facility]) Prednisone 20 MG Oral Tablet 09/10/2019 12:00:00 AM EST eCW1 ([facility]) 24 HR Glipizide 10 MG Extended Release Oral Tablet 08/18/2019 12 :00:00 AM EST eCW1 ([facility]) Albuterol Sulfate 108 (90 Base) MCG/ACT 08/10/2019 12:00:00 AM EST eCW1 ([facility]) benzonatate 200 MG Oral Capsule 07/13/2019 12:00:00 AM EST eCW1 ([facility]) Flonase 50 MCG/ACT 07/13/2019 12:00:00 AM EST eCW1 ([facility]) Amoxicillin 875 MG Oral Tablet 07/13/2019 12:00:00 AM EST eCW1 ([facility]) Flonase 50 MCG/ACT 07/13/2019 12:00:00 AM EST eCW1 ([facility]) benzonatate 200 MG Oral Capsule 07/13/2019 12:00:00 AM EST eCW1 ([facility]) Metformin hydrochloride 500 MG Oral Tablet [facility] Flaxseed, Linseed, (FLAXSEED OIL PO) [facility] Omeprazole 40 MG Delayed Release Oral Capsule [facility] 24 HR Glipizide 10 MG Extended Release Oral Tablet [facility] Fluoxetine 10 MG Oral Capsule [facility] Ondansetron 4 MG Disintegrating Oral Tablet [facility]
[2020-08-16] MEDS ORDERED: ONDANSETRON 4MG/2ML VIAL IV ONE (14:30)
--- OUTSIDE RECORDS SUMMARY | 2020-08-16 15:09 | CCD ---
Author Author [facility] Organization [facility] Address Unknown Phone Unavailable Care Team Providers Care Chair Mender Name Role Phone Echo CARTER PA Unavailable [...] EMMAEcho PA Unavailable Unavailable BARON, SUSANA EVELINE DRAIN TILE PRESS OPERATOR-C, MSN Unavailable Unavailab le BARON, SUSANA EVELINE DRAIN TILE PRESS OPERATOR-C, MSN Unavailable Unavailab le BARON, SUSANA EVELINE DRAIN TILE PRESS OPERATOR-C, MSN Unavailable Unavailab le BARON, SUSANA EVELINE DRAIN TILE PRESS OPERATOR-C, MSN Unavailable Unavailab le BARON, SUSANA EVELINE DRAIN TILE PRESS OPERATOR-C, MSN Unavailable Unavailab le BARON, SUSANA EVELINE DRAIN TILE PRESS OPERATOR-C, MSN Unavailable Unavailab le BARON, SUSANA EVELINE DRAIN TILE PRESS OPERATOR-C, MSN Unavailable Unavailab le BARON, SUSANA EVELINE DRAIN TILE PRESS OPERATOR-C, MSN Unavailable Unavailab le BARON, SUSANA EVELINE DRAIN TILE PRESS OPERATOR-C, MSN Unavailable Unavailab le BARON, SUSANA EVELINE DRAIN TILE PRESS OPERATOR-C, MSN Unavailable Unavailab le BARON, SUSANA EVELINE DRAIN TILE PRESS OPERATOR-C, MSN Unavailable Unavailab le BARON, SUSANA EVELINE DRAIN TILE PRESS OPERATOR-C, MSN Unavailable Unavailab le BARON, SUSANA EVELINE DRAIN TILE PRESS OPERATOR-C, MSN Unavailable Unavailab le BARON, SUSANA EVELINE DRAIN TILE PRESS OPERATOR-C, MSN Unavailable Unavailab le BARON, SUSANA EVELINE DRAIN TILE PRESS OPERATOR-C, MSN Unavailable Unavailab le BARON, SUSANA EVELINE DRAIN TILE PRESS OPERATOR-C, MSN Unavailable Unavailab le BARON, SUSANA EVELINE DRAIN TILE PRESS OPERATOR-C, MSN Unavailable Unavailab le BARON, SUSANA EVELINE DRAIN TILE PRESS OPERATOR-C, MSN Unavailable Unavailab le BARON, SUSANA EVELINE DRAIN TILE PRESS OPERATOR-C, MSN Unavailable Unavailab le BARON, SUSANA EVELINE DRAIN TILE PRESS OPERATOR-C, MSN Unavailable Unavailab le BARON, SUSANA EVELINE DRAIN TILE PRESS OPERATOR-C, MSN Unavailable Unavailab le BARON, SUSANA EVELINE DRAIN TILE PRESS OPERATOR-C, MSN Unavailable Unavailab le BARON, SUSANA EVELINE DRAIN TILE PRESS OPERATOR-C, MSN Unavailable Unavailab le BARON, SUSANA EVELINE DRAIN TILE PRESS OPERATOR-C, MSN Unavailable Unavailab le BARON, SUSANA EVELINE DRAIN TILE PRESS OPERATOR-C, MSN Unavailable Unavailab le BARON, SUSANA EVELINE DRAIN TILE PRESS OPERATOR-C, MSN Unavailable Unavailab le BARON, SUSANA EVELINE DRAIN TILE PRESS OPERATOR-C, MSN Unavailable Unavailab le BARON, SUSANA EVELINE DRAIN TILE PRESS OPERATOR-C, MSN Unavailable Unavailab le BARON, SUSANA EVELINE DRAIN TILE PRESS OPERATOR-C, MSN Unavailable Unavailab le BARON, SUSANA EVELINE DRAIN TILE PRESS OPERATOR-C, MSN Unavailable Unavailab le BARON, SUSANA EVELINE DRAIN TILE PRESS OPERATOR-C, MSN Unavailable Unavailab le BARON, SUSANA EVELINE DRAIN TILE PRESS OPERATOR-C, MSN Unavailable Unavailab le BARON, SUSANA EVELINE DRAIN TILE PRESS OPERATOR-C, MSN Unavailable Unavailab le BARON, SUSANA EVELINE DRAIN TILE PRESS OPERATOR-C, MSN Unavailable Unavailab le BARON, SUSANA EVELINE DRAIN TILE PRESS OPERATOR-C, MSN Unavailable Unavailab le BARON, SUSANA EVELINE DRAIN TILE PRESS OPERATOR-C, MSN Unavailable Unavailab le BARON, SUSANA EVELINE DRAIN TILE PRESS OPERATOR-C, MSN Unavailable Unavailab le BARON, SUSANA EVELINE DRAIN TILE PRESS OPERATOR-C, MSN Unavailable Unavailab le BARON, SUSANA EVELINE DRAIN TILE PRESS OPERATOR-C, MSN Unavailable Unavailab le BARON, SUSANA EVELINE DRAIN TILE PRESS OPERATOR-C, MSN Unavailable Unavailab le BARON, SUSANA EVELINE DRAIN TILE PRESS OPERATOR-C, MSN Unavailable Unavailab le BARON, SUSANA EVELINE DRAIN TILE PRESS OPERATOR-C, MSN Unavailable Unavailab le CASAREZ JOHNSON Unavailable [...] RONIT PA Unavailable Unavailable JOSH, SHERITA SARITA DRAIN TILE PRESS OPERATOR-C Unavailable Unavailable JOSH, SHERITA SARITA DRAIN TILE PRESS OPERATOR-C Unavailable Unavailable JOSH, SHERITA SARITA DRAIN TILE PRESS OPERATOR-C Unavailable Unavailable JOSH, SHERITA SARITA DRAIN TILE PRESS OPERATOR-C Unavailable Unavailable JOSH, SHERITA SARITA DRAIN TILE PRESS OPERATOR-C Unavailable Unavailable JOSH, SHERITA SARITA DRAIN TILE PRESS OPERATOR-C Unavailable Unavailable JOSH, SHERITA SARITA DRAIN TILE PRESS OPERATOR-C Unavailable Unavailable JOSH, SHERITA SARITA DRAIN TILE PRESS OPERATOR-C Unavailable Unavailable JOSH, SHERITA SARITA DRAIN TILE PRESS OPERATOR-C Unavailable Unavailable JOSH, SHERITA SARITA DRAIN TILE PRESS OPERATOR-C Unavailable Unavailable JOSH, SHERITA SARITA DRAIN TILE PRESS OPERATOR-C Unavailable Unavailable JOSH, SHERITA SARITA DRAIN TILE PRESS OPERATOR-C Unavailable Unavailable JOSH, SHERITA SARITA DRAIN TILE PRESS OPERATOR-C Unavailable Unavailable JOSH, SHERITA SARITA DRAIN TILE PRESS OPERATOR-C Unavailable Unavailable JOSH, SHERITA SARITA DRAIN TILE PRESS OPERATOR-C Unavailable Unavailable Michelle Salcido MD Unavailable Unavailable [...] ANTECOL, Roger MCKEON MD Unavailable Unavailable ANTECOL, Rogre MCKEON MD Unavailable Unavailable ANTECOL, Roger MCKEON [...] RAINEY SR, EUSEBIA MCKEON MD Unavailable Unavailable RAIENY SR, EUSEBIA MCKEON MD Unavailable Unavailable RAINEY [...] Unavailable Unavailab VINNY Marroquin MD Unavailable Unavailab TOMAS MarroquinASUBRAMGLORIA WHITNEY Unavailable [...] is protected by Article 27-F of the [facility] Public Health law. If you continue you may have access to information: Regarding HIV / AIDS; Provided by facilities licensed or operated by the [facility] Office of Mental Health; or Provided by the [facility] Office for People With Developmental Disabilities. If such information is present, then the following [facility] mandated warning applies: This information has [...] law may result in a fine or custodial sentence or both. A general authorization for the release of medical or other information is NOT sufficient authorization for further disc losure. Allergies and Adverse Reactions Type Description Substance Reaction Status Data Source(s ) Kiwi Kiwi Kiwi active NETSMART ([facility]) No Known Drug Allergies No Known Drug Allergies No Known Drug Aller gies active NETSMART ([facility] ) Drug Class NO KNOWN ALLERGIES NO KNOWN ALLERGIES [facility] Kiwi Kiwi Kiwi Angioedema Active eCW1 ([facility]) Kiwi Kiwi Kiwi Angioedema Active eCW1 ([facility]) Family History Family Member Name Family Member Gender Family Member Status Date o f Status Description Data Source(s) Unknown Male Problem MEDENT ([facility]) Encounters Encounter Providers Location Date Indications Data Source(s ) Outpatient Attender: JOHNSON Nelson : JOHNSON Nelson: WILMER VUONG MDAttender: LALITA Huang: DANNY FLOWERS MDAdmitter: WILMER VUONG MDConsultant: VINNY FLYNN MD [id number] 08/13/2020 04:42:00 PM EST - 08/14/2020 12:13:00 PM EST [facility] Patient discharged. [place] [address] [address] 08/10/2020 12:00:00 AM EST eCW1 ([facility]) NEPEUC-NEPESUR 08/09/2020 01:45:37 PM EST [facility] [place] [address] [address] 07/20/2020 12:00:00 AM EST eCW1 ([facility]) Outpatient Attender: RONIT HELMS [id number] 09/18/2019 01:24:45 PM EST - 07/18/2020 01:56:19 PM EST [facility] NEPEUC-NEPESUR 07/06/2020 10:38:27 AM EST [facility] [place] [address] [address] 06/27/2020 12:00:00 AM EST eCW1 ([facility]) 06/26/2020 12:00:00 AM EST - 04:19:59 PM EST [facility] Inpatient Attender: VINNY GREEN MDAdmitter: VINNY FLYNN MDReferrer: RONIT HELMS [id number] 06/22/2020 12:28:10 PM EST - 06/24/2020 03:00:00 PM EST [facility] Patient discharged. Outpatient Attender: VINNY GREEN MDReferrer: Lit Gerber DOConsultant: VINNY FLYNN MD [id number] 06/20/2020 12:00:00 AM EST - 06/20/2020 10:43:50 AM EST [facility] Outpatient Attender: Lit Gerber DOAdmitter: Lit Bobbyerrer: Lit Gerber DO ES1-SJ.[id number] 06/14/2020 04:24:56 PM EST - 06/16/2020 12:25:00 PM EST [facility] Patient discharged. Outpatient Referrer: Lit Gerber DO MOB-MOB.PAT 06/10/2020 11:13:27 AM EST - 06/10/2020 11:13:35 AM EST [facility] Outpatient Attender: Lit Dinh: Lit Gerber DO MOBTaylorM OB.PAT 06/10/2020 10:39:24 AM EST - 06/10/2020 12:07:56 PM EST [facility] Outpatient Attender: Lit Hicks r: Lit Dinh: Syed Love MD [id number].[id number] 06/09/2020 10:31:48 AM EST - 06/14/2020 01:11:00 PM EST [facility] Patient discharged. [place] [address] [address] 06/02/2020 12:00:00 AM EDT eCW1 ([facility]) Emergency Attender: TIFF Stein: YAYA RAINEY EMERGENCY ROOM-ER 05/11/2020 03:00:00 PM EDT - 05/11/2020 05:32:00 PM EDT [facility] Patient discharged. [place] [address] [address] 05/11/2020 12:00:00 AM EDT eCW1 ([facility]) Outpatient Admitter: LINDA BERNARD MDReferrer: LINDA BERNARD MD 05/09/2020 12:00:00 AM EDT Malignant neoplasm of esophagus, unspecified [facility] Malignant neoplasm of esophagus, unspeci fied Outpatient Attender: Danny Sanders/Jay Jay/Hal/Re indl 04/26/2020 10:00:00 AM EDT MEDENT ([facility]) Emergency Attender: ESTER Stein: Tonja RAINEY EMERGENCY ROOM-ER 04/12/2020 06:28:00 PM EDT - 04/12/2020 10:12:00 PM EDT [facility] Patient discharged. Outpatient Attender: LINDA Sanders/Jay Jay/Hal/Rein dl 04/06/2020 01:15:00 PM EDT MEDENT ([facility]) Outpatient Attender: LINDA CRUZ MD Main Office 03/02/2020 11:00:00 AM EDT MEDENT ([facility]) [place] [address] [address] 02/17/2020 12:00:00 AM EDT eCW1 ([facility]) [place] [address] [address] 02/16/2020 12:00:00 AM EDT eCW1 ([facility]) [place] [address] [address] 02/15/2020 12:00:00 AM EDT eCW1 ([facility]) Outpatient Attender: SARITA Sanders/Jay Jay/Hal/Jay resendiz 02/01/2020 02:15:00 PM EDT MEDENT ([facility]) [place] [address] [address] 01/26/2020 12:00:00 AM EDT eCW1 ([facility]) [facility] [address] [address] 01/26/2020 12:00:00 AM EDT eCW1 ([facility]) [place] [address] [address] 01/14/2020 12:00:00 AM EDT eCW1 ([facility]) [place] [address] [address] 01/13/2020 12:00:00 AM EDT eCW1 ([facility]) [place] [address] [address] 01/07/2020 12:00:00 AM EDT eCW1 ([facility] [address] [address] 12/02/2019 12:00:00 AM EDT eCW1 ([facility] [address] [address] 12/01/2019 12:00:00 AM EDT eCW1 ([facility] [address] [address] 11/30/2019 12:00:00 AM EDT eCW1 ([facility] [address] [address] 11/30/2019 12:00:00 AM EDT eCW1 ([facility]) Outpatient Attender: SARITA Sanders/Jay Jay/Hal/R eindl 11/11/2019 02:45:00 PM EDT MEDENT ([facility]) Outpatient Attender: LINDA CRUZ MD Main Office 10/28/2019 12:30:00 PM EDT MEDENT ([facility]) [address] [address] 10/22/2019 12:00:00 AM EDT eCW1 ([facility]) [address] [address] 10/22/2019 12:00:00 AM EDT eCW1 ([facility]) [address] [address] 10/22/2019 12:00:00 AM EDT eCW1 ([facility]) Outpatient 10/20/2019 11:29:00 AM EDT [facility] [address] [address] 10/15/2019 12:00:00 AM EDT eCW1 ([facility]) [address] [address] 10/12/2019 12:00:00 AM EDT eCW1 ([facility]) [address] [place] [address] 10/06/2019 12:00:00 AM EST eCW1 ([facility]) Outpatient Attender: SARITA Sanders/Jay Jay/Hal/R eindl 09/30/2019 10:15:00 AM EST MEDENT ([facility]) [facility] 09/24/2019 12:00:00 AM EST eCW1 ([facility]) [facility] 09/11/2019 12:00:00 AM EST eCW1 ([facility]) Outpatient Attender: EVELINE MEDRANO, MSN 09/10/2019 1 0:20:00 AM EST [facility] C ENTER 09/10/2019 12:00:00 AM EST eCW1 ([facility]) [facility] 09/10/2019 12:00:00 AM EST eCW1 ([facility]) [facility] 08/20/2019 12:00:00 AM EST eCW1 ([facility]) [facility] 08/18/2019 12:00:00 AM EST eCW1 ([facility]) [facility] 08/13/2019 12:00:00 AM EST eCW1 ([facility]) [facility] 08/13/2019 12:00:00 AM EST eCW1 ([facility]) [facility] 08/10/2019 12:00:00 AM EST eCW1 ([facility]) Outpatient Attender: Jodie HELMS 07/13/2019 04:21:00 PM EST [facility] 9 12:00:00 AM EST eCW1 ([facility]) Outpatient Attender: LINDA RAINEY SR 05/26/2019 02:00:00 PM EDT [facility] Immunizations Vaccine Date Status Description Data Source(s) pneumococcal polysaccharide PPV23 06/24/2020 12:00:00 AM EST com pleted Pneumococcal Polysaccharide (aka Pneumovax 23) 06/24/2020 [facility] Tdap 12/02/2019 02:17:00 PM EDT completed e CW1 ([facility]) Tdap 12/02/2019 02:17:00 PM EDT completed e CW1 ([facility]) Tdap 12/02/2019 02:17:00 PM EDT completed e CW1 ([facility]) Tdap 12/02/2019 02:17:00 PM EDT completed e CW1 ([facility]) Tdap 12/02/2019 02:17:00 PM EDT completed e CW1 ([facility]) Tdap 12/02/2019 02:17:00 PM EDT completed e CW1 ([facility]) Tdap 12/02/2019 02:17:00 PM EDT completed e CW1 ([facility]) Tdap 12/02/2019 02:17:00 PM EDT completed e CW1 ([facility]) Tdap 12/02/2019 02:17:00 PM EDT completed e CW1 ([facility]) Tdap 12/02/2019 02:17:00 PM EDT completed e CW1 ([facility]) Tdap 12/02/2019 02:17:00 PM EDT completed e CW1 ([facility]) Tdap 12/02/2019 02:17:00 PM EDT completed e CW1 ([facility]) Tdap 12/02/2019 02:17:00 PM EDT completed e CW1 ([facility]) Medications Medication Brand Name Start Date Product Form Dose Route Admi nistrative Instructions Pharmacy Instructions Status Indications Reaction Description Data Source(s) iopamidol (ISOVUE-250) 51 % injection 100 mL [id number] 09:46:51 AM EST 100 mL Intravenous completed 100 mL, Intravenous, Once in imaging, contrast, Starting 08/14/20 at 0946, For 1 dose [facility] Medication administered onsite Fluoxetine 4 MG/ML Oral Solution FLUoxetine (PROzac) 2 0 MG/5ML solution 10 mg FLUoxetine (PROzac) 20 MG/5ML solution 10 mg 08/14/2020 09:00:00 AM EST 10 mg Oral active 10 mg, Oral, D aily, First dose on 08/14/20 at 0900
Patient said now she is actually able to have puree by mouth and take liquid meds
[facility] Medication administered onsite Insulin Lispro 100 UNT/ML Injectable Katelyn ution insulin lispro (HumaLOG) injection 1-6 Units insulin lispro (HumaLOG) injection 1-6 Units 08:00:00 AM EST Subcutaneous active 1-6 Units, Subcutaneous, MEALSS, First dose on 08/14/20 at 0800
Frail 3 units Nutritional and Correction Insulin ScaleBlood Glucose (mg/dl) <70 start hypoglycemiaprotocolGlucose Eats >=50% Eats <50%Eats Nothing (mg/dl) of meal of mealor [id number] units 1 units 0 - 1703 units 2 units 0 [id number] units 2 units 1 - 2704 units 3 units 1 [id number] units 3 units 2 vpqfa550- 3705 units 4 units 2 [id number] units 4 units 3 units>420 call MD6 units 5 units 3 unitsTest glucose within 30 minutes of insulin administration.Administer insulin within 15 minutes (before or after) of the patient starting to eat.For patients that are NPO, use theNPO (correction) scale to cover POC glucose at 08:00, 12:00, 17:00.
[facility] Medication administered onsite Acetaminophen 325 MG Oral [...] mg from all sources in 24 hours."
[facility] Medication administered onsite ondansetron (ZOFRAN) injection 4 mg [id number] 08/14/2020 12:58:3 2 AM EST 4 mg Intravenous active 4 mg, In travenous, Every 4 hours PRN, nausea, Starting 08/14/20 at 0058 [facility] Medication administered onsite sodium chloride 0.45% (HALF SALINE) infusion [id number] 08/14/2020 12:50:00 AM EST Intravenous active at 6 0 mL/hr, Intravenous, Continuous, Starting 08/14/20 at 0050 [facility] Medication administered onsite Famotidine 8 MG/ML Oral Suspension famot idine (PEPCID) 40 MG/5ML suspension 20 mg famotidine (PEPCID) 40 MG/5ML suspension 20 mg 08/14/2020 12:45: 00 AM EST 20 mg Oral active 20 mg, Ora l, Nightly, First dose on 08/14/20 at 0045 [facility] Medication administered onsite Ondansetron 4 MG Disintegrating Oral Tab let ondansetron (ZOFRAN-ODT) disintegrating tablet 4 mg ondansetron (ZOFRAN-ODT) disintegrating tablet 4 mg 08/14/2020 12:27:07 AM EST 4 mg Oral active 4 mg, Oral, Every 4 hours PRN, nausea, vomiting, Starting 08/14/20 at 0027 [facility] Medication administered onsite Oxycodone Hydrochloride 1 MG/ML [...] hypoxic or hypotensive and call to discuss
[facility] Medication administered onsite Lactulose 667 MG/ML Oral Solution lactul ose (CHRONULAC) 10 GM/15ML solution 10 g lactulose (CHRONULAC) 10 GM/15ML solution 10 g 08/14/2020 12:24: 46 AM EST 10 g active 10 g, Per J Tube, Nightly PRN, constipation, Starting 08/14/20 at 0024
hold for loose stools
[facility] Medication administered onsite Misc. Devices MISC [id number] 08/09/2020 12:00:00 AM EST active glucerna 1.5 lawanda at 60 cc/hr for 12 hours through j tube via pump, flush with 100 cc before and after feeds and mesh pole [facility] Misc. Devices [facility] [address] 07/06/2020 12:00:00 AM EST active glucerna with carb steady 1.5 lawanda via j tube for 12 hours, pump and pole [facility] Famotidine 8 MG/ML Oral Suspension famotidine (PEPCID) 40 MG/5ML suspension famotidine (PEPCID) 40 MG/5ML suspension 07/06/2020 12:00:00 AM EST 4 0 mg active 5 mL (40 mg total) by Per J Tube route nightly [facility] Aspirin EC 81 MG Aspirin EC 06/26/2020 12:00:00 AM EST 81.0 {mg} completed NETSMART ([facility]) SITagliptin Phosphate 100 MG SITagliptin Phosphate 06/26/2020 12:00 :00 AM EST 100.0 {mg} completed NETSMART ([facility]) Rosuvastatin Calcium 40 MG Rosuvastatin Calcium 06/26/2020 12:00:00 AM EST 40.0 {mg} completed NETSMART ([facility]) Torsemide 10 MG Torsemide 06/26/2020 12:00:00 AM EST 10.0 {mg} completed NETSMART ([facility]) Jardiance 10 MG Jardiance 06/26/2020 12:00:00 AM EST 10.0 {mg} completed NETSMART ([facility]) Ipratropium-Albuterol 0.5-2.5 (3) MG/3ML Ipratropium-Albuter ol 06/26/2020 12:00:00 AM EST 3.0 {ml} completed NETSMART ([facility]) Loperamide HCl 2 MG Loperamide HCl 06/26/2020 12:00:00 AM EST 2. 0 {mg} completed NETSMART ([facility]) Lisinopril 20 MG Lisinopril 06/26/2020 12:00:00 AM EST 20.0 {mg} completed NETSMART ([facility]) Zofran ODT 4 MG Zofran ODT 06/26/2020 12:00:00 AM EST 1.0 {table t} completed NETSMART ([facility]) Albuterol Sulfate HFA 108 (90 Base) MCG/ACT Albuterol Sulfat e HFA 06/26/2020 12:00:00 AM EST 2.0 {asd} completed NETSMART ([facility]) OxyCODONE HCl 5 MG/5ML OxyCODONE HCl 06/26/2020 12:00:00 AM EST 0 {ml} completed NETSMART ([facility]) Lactulose 10 GM/15ML Lactulose 06/26/2020 12:00:00 AM EST 15.0 { ml} completed NETSMART ([facility]) FLUoxetine HCl 20 MG/5ML FLUoxetine HCl 06/26/2020 12:00:00 AM EST 2.5 {ml} completed NETSMART ([facility]) Famotidine 40 MG Famotidine 06/26/2020 12:00:00 AM EST 2.5 {ml} completed NETSMART ([facility]) torsemide 20 MG Oral Tablet torsemide (DEMADEX) tablet 10 mg torsemide (DEMADEX) tablet 10 mg 06/24/2020 09:00:00 AM EST 10 mg active Malignant neoplasm of lower third of esophagus 10 mg, Per J Tube, Daily, First dose on Sat06/24/20 at 0900 [facility] 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 Medication administered onsite Fluoxetine 10 MG Oral Capsule FLUoxetine (PROzac) caps ule 10 mg FLUoxetine (PROzac) capsule 10 mg 06/24/2020 09:00:00 AM EST 10 mg active Malignant neoplasm of lower third of esophagus 10 mg, Per J Tube , Daily, First dose on Sat06/24/20 at 0900 [facility] 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 Medication administered onsite Ondansetron 4 MG Disintegrating Oral Tab let ondansetron (ZOFRAN-ODT) 4 MG disintegrating tablet ondansetron (ZOFRAN-ODT) 4 MG disintegrating tablet 06/24/2020 12:00:00 AM EST 4 mg Oral active Take 1 tablet (4 mg total) by mouth 4 (four) times a day as needed for nausea [facility] Lactulose 667 MG/ML Oral Solution lactulose (CHRONULAC ) 10 GM/15ML solution lactulose (CHRONULAC) 10 GM/15ML solution 06/24/2020 12:00:00 AM EST 10 g aborted Malignant neoplasm of lower third of esophagus 15 mL (10 g total) by Per J Tube route nightly Stop for diarrhea [facility] 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 Oxycodone Hydrochloride 1 MG/ML Oral Katelyn ution oxyCODONE (ROXICODONE) 5 MG/5ML solution oxyCODONE (ROXICODONE) 5 MG/5ML solution 06/24/2020 12:00:00 AM EST aborted Malignant neoplasm of lower th ird of esophagus 5-7.5 mL (5-7.5 mg total) by Per J Tube route every 4 (four) hours as needed Max Daily Amount: 45 mg [facility] 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 Fluoxetine 4 MG/ML Oral Solution FLUoxetine (PROZAC) 2 0 MG/5ML solution FLUoxetine (PROZAC) 20 MG/5ML solution 06/24/2020 12:00:00 AM EST 10 m g aborted 2.5 mL (10 mg total) by Per J Tu be route daily [facility] Famotidine 8 MG/ML Oral Suspension famotidine (PEPCID) 40 MG/5ML suspension famotidine (PEPCID) 40 MG/5ML suspension 06/24/2020 12:00:00 AM EST 2 0 mg aborted 2.5 mL (20 mg total) by Per J Tube route 2 (two) times a day [facility] Fluoxetine 4 MG/ML Oral Solution FLUoxetine (PROZAC) 2 0 MG/5ML solution FLUoxetine (PROZAC) 20 MG/5ML solution 06/24/2020 12:00:00 AM EST 10 m g active 2.5 mL (10 mg total) by Per J Tu be route daily [facility] Oxycodone Hydrochloride 1 MG/ML Oral Katelyn ution oxyCODONE (ROXICODONE) 5 MG/5ML solution oxyCODONE (ROXICODONE) 5 MG/5ML solution 06/24/2020 12:00:00 AM EST aborted Malignant neoplasm of lower th ird of esophagus 5-7.5 mL (5-7.5 mg total) by Per J Tube route every 4 (four) hours as needed Max Daily Amount: 45 mg [facility] 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 Oxycodone Hydrochloride 1 MG/ML Oral Katelyn ution oxyCODONE (ROXICODONE) 5 MG/5ML solution oxyCODONE (ROXICODONE) 5 MG/5ML solution 06/24/2020 12:00:00 AM EST aborted Malignant neoplasm of lower th ird of esophagus 5-7.5 mL (5-7.5 mg total) by Per J Tube route every 4 (four) hours as needed Max Daily Amount: 45 mg [facility] 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 Lactulose 667 MG/ML Oral Solution lactulose (CHRONULAC ) 10 GM/15ML solution lactulose (CHRONULAC) 10 GM/15ML solution 06/24/2020 12:00:00 AM EST 10 g active Malignant neoplasm of lower third of esophagus 15 mL (10 g total) by Per J Tube route nightly Stop for diarrhea [facility] 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 Misc. Devices MISC [id number] 06/24/2020 12:00:00 AM EST active Tube feed pole and pump [facility] Famotidine 8 MG/ML Oral Suspension famotidine (PEPCID) 40 MG/5ML suspension famotidine (PEPCID) 40 MG/5ML suspension 06/24/2020 12:00:00 AM EST 2 0 mg active 2.5 mL (20 mg total) by Per J Tube route 2 (two) times a day [facility] Misc. Devices MISC [id number] 06/24/2020 12:00:00 AM EST active glucerna 1.5 lawanda at 60 cc/hr for 12 hours through j tube via pump, flush with 100 cc before and after feeds and mesh pole [facility] Oxycodone Hydrochloride 1 MG/ML Oral Katelyn ution oxyCODONE (ROXICODONE) 5 MG/5ML solution oxyCODONE (ROXICODONE) 5 MG/5ML solution 06/24/2020 12:00:00 AM EST active Malignant neoplasm of lower th ird of esophagus 5-7.5 mL (5-7.5 mg total) by Per J Tube route every 4 (four) hours as needed Max Daily Amount: 45 mg [facility] 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 Potassium Chloride 0.1 MEQ/ML Injectable Solution potassium chloride 10 mEq in 100 mL IVPB potassium chloride 10 mEq in 100 mL IVPB 06/23/2020 11:00:00 PM EST 10 meq Intravenous completed 10 mEq, In travenous, Administer over 60 Minutes, Every 1 hour, First dose on Ella 06/23/20 at 2300, For 3 doses [facility] Medication administered onsite Lactulose 667 MG/ML Oral Solution lactul ose (CHRONULAC) 10 GM/15ML solution 10 g lactulose (CHRONULAC) 10 GM/15ML solution 10 g 06/23/2020 09:00: 00 PM EST 10 g active Malignant neoplasm of lower th ird of esophagus 10 g, Per J Tube, Nightly, First dose on Ella 06/23/20 at 2100
Hold for loose stool
[facility] 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 Medication administered onsite HYDROmorphone (DILAUDID) injection 0.5 mg [id number] 06/23/2020 11:20:11 AM EST 0.5 mg Intravenous aborted 0.5 mg, Intravenous, Every 5 min PRN, severe pain (7-10), Starting Ella 06/23/20 at 1120, For 5 doses, PACU (only) [facility] Medication administered onsite fentaNYL Citrate (PF) (SUBLIMAZE) injection 25 mcg [id number] 06/23/2020 11:20:11 AM EST 25 ug Intravenous aborted 25 mcg, Intravenous, Every 5 min PRN, moderate pain (4 to 6), Starting Ella 06/23/20 at 1120, For 5 doses, PACU (only) [facility] Medication administered onsite 4 ML Labetalol hydrochloride [...] MG, hold for HR less than 60
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 0.5 mg, Intravenous, 4 times daily PRN, severe pain (7-10), if not controlled with oral meds, Starting Ella 06/23/20 at 1110, For 7 days [facility] Malignant neoplasm of lower third of eso [...] Ella 06/23/20 at 0958, For 7 days [facility] Malignant neoplasm of lower third of eso [...] Ella 06/23/20 at 0958, For 7 days [facility] 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 Medication administered onsite dextrose 10 % infusion [id number] 06/23/2020 09:56:58 AM EST Intravenous active 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
Nutrition Interrupted Orders1. Notify provider and start D10W at tube feeding infusion rate2. Check bedside blood glucose every hour for three hours once [id number] begins:a. If any glucose is under 70, [...] to Provider for insulin/bedside blood glucose/IV orders
[facility] 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 Medication administered onsite Melatonin 3 MG Oral Tablet melatonin tablet 3 mg melatonin t ablet 3 mg 06/23/2020 01:00:00 AM EST 3 mg Oral aborted 3 mg, Oral, Nightly, First dose on Sat06/23/20 at 0100 [facility] Medication administered onsite Docusate Sodium 50 MG / sennosides, GROUP HOME 8.6 MG Oral Tablet senna-docusate (PERICOLACE) 8.6-50 MG 2 tablet senna-docusate (PERICOLACE) 8.6-50 MG 2 tablet 06/22/2020 09:00:00 PM EST 2 {tbl} Oral abo rted Malignant neoplasm of lower third of esophagus 2 tablet, Oral, Nightly, Fir st dose on Sat06/22/20 at 2100
hold for loose stools
[facility] 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 Medication administered onsite normal saline flush 0.9 % injection 3 mL [id number] 06/22/2020 06:00:00 PM EST 3 mL Intravenous aborted 3 mL , Intravenous, Every 8 hours (scheduled), First dose on Sat06/22/20 at 1800, PACU (only)
flush per protocol, D/C Main IV fluid if appropriate
[facility] Medication administered onsite Insulin [...] mealor NPO70- 1203 units 1 units 0 [id number] units 2 units 0 fjsre431- 2205 units 3 units 1 [id number] units 3 units 1 - 3206 units 4 units 2 [id number] units 5 units 3 [id number] units 5 units 3 units>420 call MD8 units 6 units 4 unitsTest glucose within 30 minutes of insulin administration.Administer insulin within 15 minutes (before or after) of the patient starting to eat.For patients that are NPO, use theNPO (correction) scale to cover POC glucose at 08:00, 12:00, 17:00.
[facility] 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 Medication administered onsite Albuterol 0.83 MG/ML Inhalant Solution a lbuterol (PROVENTIL) nebulizer solution 2.5 mg albuterol (PROVENTIL) nebulizer solution 2.5 mg 2019 03:44:35 PM EST 2.5 mg active Malignant neoplasm of lo wer third of esophagus 2.5 mg, Nebulization, RT 4 times daily as needed, wheezing, Starting Sat06/22/20 at 1544 [facility] Malignant neoplasm of lower third of eso [...] shortness of breath, Starting Sat06/22/20 at 1543 [facility] Malignant neoplasm of lower third of eso [...] dose
med message Rx when dose needed
[facility] Medication administered onsite heparin (porcine) injection 5,000 Units [id number] 06/22/20 02:00:00 PM EST 5000 U Subcutaneous active Malignant neoplas m of lower third of esophagus 5,000 Units, Subcutaneous, Every 8 hours (scheduled), First dose on Sat06/22/20 at 1400
If platelet count is less than 100,000 or hematocrit is less than 25, or if there is a 5 point decrease in hematocrit, do not give the dose and call physician/designee.
[facility] 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 Medication administered onsite sodium chloride 0.9% (NS) infusion [id number] 06/22/2020 01:00:00 P M EST Intravenous active Malignant neoplasm of lower third o f esophagus at 50 mL/hr, Intravenous, Continuous, Starting Sat06/22/20 at 1300 [facility] 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 Medication administered onsite 2 ML Metoclopramide 5 MG/ML Prefilled Sy ringe metoclopramide (REGLAN) injection 10 mg metoclopramide (REGLAN) injection 10 mg 06/22/2020 12:30:[address] 10 mg Intravenous active Malignant neoplasm of lower third of esophagus 10 mg, Intravenous, Every 6 hours PRN, for Nausea/Vomiting not relieved by zofran, Starting Sat06/22/20 at 1230 [facility] 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 Medication administered onsite ondansetron (ZOFRAN) injection 4 mg [id number] 06/22/2020 12:30:1 6 PM EST 4 mg Intravenous active Malignant neoplasm of lower third of esophagus 4 mg, Intravenous, Every 4 hours PRN, nausea, vomiting, Starting Sat06/22/20 at 1230 [facility] Malignant neoplasm of lower third of eso [...] mg from all sources in 24 hours."
[facility] 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 Medication administered onsite Nystatin [id number] UNT/ML Oral Suspension Nystatin 04/06/2020 12:00:00 AM EDT ORAL active [facility] ([facility], ) Omeprazole 40 MG Delayed Release Oral Capsule Omeprazole 04/06/2020 12:00:00 AM EDT ORAL active [facility] ([facility], ) Sucralfate 100 MG/ML Oral Suspension Sucralfate 04/06/2020 12:00:00 A M EDT ORAL active [facility] ([facility], ) Flax Seeds 03/02/2020 12:00:00 AM EDT active [facility] ([facility]) Aspirin 81 MG Delayed Release Oral Tablet Aspirin 03/01/2020 1 2:00:00 AM EDT ORAL active [facility] ([facility]) torsemide 10 MG Oral Tablet Torsemide 03/01/2020 12:00:00 AM EDT ORAL active [facility] ([facility]) docosahexaenoic acid 120 MG / Eicosapentaenoic Acid 180 MG O ral Capsule [facility] 3 03/01/2020 12:00:00 AM EDT completed [facility] ([facility]) empagliflozin 10 MG Oral Tablet [Jardiance] Jardiance 10 MG Jardiance 10 MG 01/14/2020 12:00:00 AM EDT 1.0 {tablet} suspended Jardiance 10 MG eCW1 ([facility]) empagliflozin 10 MG Oral Tablet [Jardiance] Jardiance 10 MG Jardiance 10 MG 01/14/2020 12:00:00 AM EDT 1.0 {tablet} active Jardiance 10 MG eCW1 ([facility]) empagliflozin 10 MG Oral Tablet [Jardiance] Jardiance 10 MG Jardiance 10 MG 01/14/2020 12:00:00 AM EDT 1.0 {tablet} active Jardiance 10 MG eCW1 ([facility]) empagliflozin 10 MG Oral Tablet [Jardiance] Jardiance 10 MG Jardiance 10 MG 01/14/2020 12:00:00 AM EDT 1.0 {tablet} active Jardiance 10 MG eCW1 ([facility]) empagliflozin 10 MG Oral Tablet [Jardiance] Jardiance 10 MG Jardiance 10 MG 01/14/2020 12:00:00 AM EDT 1.0 {tablet} active Jardiance 10 MG eCW1 ([facility]) empagliflozin 10 MG Oral Tablet [Jardiance] Jardiance 10 MG Jardiance 10 MG 01/14/2020 12:00:00 AM EDT 1.0 {tablet} active Jardiance 10 MG eCW1 ([facility]) empagliflozin 10 MG Oral Tablet [Jardiance] Jardiance 10 MG Jardiance 10 MG 01/14/2020 12:00:00 AM EDT 1.0 {tablet} active Jardiance 10 MG eCW1 ([facility]) empagliflozin 10 MG Oral Tablet [Jardiance] Jardiance 10 MG Jardiance 10 MG 01/14/2020 12:00:00 AM EDT 1.0 {tablet} active Jardiance 10 MG eCW1 ([facility]) empagliflozin 10 MG Oral Tablet [Jardiance] Jardiance 10 MG Jardiance 10 MG 01/14/2020 12:00:00 AM EDT 1.0 {tablet} active Jardiance 10 MG eCW1 ([facility]) empagliflozin 10 MG Oral Tablet [Jardiance] Jardiance 10 MG Jardiance 10 MG 01/14/2020 12:00:00 AM EDT 1.0 {tablet} active Jardiance 10 MG eCW1 ([facility]) empagliflozin 10 MG Oral Tablet [Jardiance] Jardiance 10 MG Jardiance 10 MG 01/14/2020 12:00:00 AM EDT 1.0 {tablet} active Jardiance 10 MG eCW1 ([facility]) torsemide 10 MG Oral Tablet Torsemide 10 MG Torsemide 10 MG 01/13/2020 12:00:00 AM EDT 1.0 {tablet} active Torsemide 1 0 MG eCW1 ([facility]) torsemide 10 MG Oral Tablet Torsemide 10 MG Torsemide 10 MG 01/13/2020 12:00:00 AM EDT 1.0 {tablet} active Torsemide 1 0 MG eCW1 ([facility]) torsemide 10 MG Oral Tablet Torsemide 10 MG Torsemide 10 MG 01/13/2020 12:00:00 AM EDT 1.0 {tablet} active Torsemide 1 0 MG eCW1 ([facility]) torsemide 10 MG Oral Tablet Torsemide 10 MG Torsemide 10 MG 01/13/2020 12:00:00 AM EDT 1.0 {tablet} active Torsemide 1 0 MG eCW1 ([facility]) torsemide 10 MG Oral Tablet Torsemide 10 MG Torsemide 10 MG 01/13/2020 12:00:00 AM EDT 1.0 {tablet} active Torsemide 1 0 MG eCW1 ([facility]) torsemide 10 MG Oral Tablet Torsemide 10 MG Torsemide 10 MG 01/13/2020 12:00:00 AM EDT 1.0 {tablet} active Torsemide 1 0 MG eCW1 ([facility]) torsemide 10 MG Oral Tablet Torsemide 10 MG Torsemide 10 MG 01/13/2020 12:00:00 AM EDT 1.0 {tablet} active Torsemide 1 0 MG eCW1 ([facility]) CPAP 11/19/2019 12:00:00 AM EDT active [facility] ([facility], ) Rosuvastatin calcium 40 MG Oral Tablet Rosuvastatin Calcium 11/03/2019 12:00:00 AM EDT ORAL active [facility] icosapent ethyl 1000 MG Oral Capsule [Vascepa] Vascepa 10/28/2019 12:00:00 AM EDT ORAL completed [facility] ([facility]) pioglitazone 30 MG Oral Tablet [Actos] Actos 10/27/2019 12:00:00 AM EDT ORAL active [facility] ([facility] 24 HR Glipizide 10 MG Extended Release Oral Tablet Glipizide XL 10/27/2019 12:00:00 AM EDT ORAL active M EDENT ([facility]) sitagliptin 100 MG Oral Tablet [Januvia] Januvia 10/27/2019 12:00: 00 AM EDT ORAL active [facility] ([facility]) Albuterol 1 MG/ML Inhalant Solution Albuterol Sulfate 10/04 12:00:00 AM EDT active [facility] ([facility] 200 ACTUAT Albuterol 0.09 MG/ACTUAT Metered Dose Inhaler [Pr oAir] Proair HFA 10/27/2019 12:00:00 AM EDT ORAL active [facility] ([facility]) Pravastatin Sodium 40 MG Oral Tablet [Pravachol] Pravachol 10/27/2019 12:00:00 AM EDT ORAL completed [facility] ([facility]) [facility]-3 Acid Ethyl Esters ([facility]) 1000 MG Oral Capsule [Lovaza ] Lovaza 10/27/2019 12:00:00 AM EDT ORAL completed [facility] ([facility]) Fluoxetine 10 MG Oral Capsule [Prozac] Prozac 10/27/2019 12:00:00 AM EDT ORAL active [facility] ([facility]) Omeprazole 20 MG Delayed Release Oral Capsule Omeprazole 10/27/2019 12:00:00 AM EDT ORAL active [facility] ([facility]) Lisinopril 20 MG Oral Tablet Lisinopril 10/27/2019 12:00:00 AM EDT ORAL active [facility] ([facility]) Nebulizer/Tubing/Mouthpiece - Nebulizer/Tubing/Mouthpiece - 10/06/2019 12:00:00 AM EST active Nebulizer/Tubing/ Mouthpiece - eCW1 ([facility]) Nebulizer/Tubing/Mouthpiece - Nebulizer/Tubing/Mouthpiece - 10/06/2019 12:00:00 AM EST active as directed eCW1 ([facility]) Nebulizer - Nebulizer - 10/06/2019 12:00:00 AM EST active as directed eCW1 ([facility]) Nebulizer/Tubing/Mouthpiece - Nebulizer/Tubing/Mouthpiece - 10/06/2019 12:00:00 AM EST active Nebulizer/Tubing/ Mouthpiece - eCW1 ([facility]) Nebulizer - Nebulizer - 10/06/2019 12:00:00 AM EST active Nebulizer - eCW1 ([facility]) Nebulizer - Nebulizer - 10/06/2019 12:00:00 AM EST active Nebulizer - eCW1 ([facility]) Nebulizer/Tubing/Mouthpiece - Nebulizer/Tubing/Mouthpiece - 10/06/2019 12:00:00 AM EST active Nebulizer/Tubing/ Mouthpiece - eCW1 ([facility]) Nebulizer - Nebulizer - 10/06/2019 12:00:00 AM EST active Nebulizer - eCW1 ([facility]) Nebulizer/Tubing/Mouthpiece - Nebulizer/Tubing/Mouthpiece - 10/06/2019 12:00:00 AM EST active Nebulizer/Tubing/ Mouthpiece - eCW1 ([facility]) Nebulizer - Nebulizer - 10/06/2019 12:00:00 AM EST active as directed eCW1 ([facility]) Nebulizer - Nebulizer - 10/06/2019 12:00:00 AM EST active Nebulizer - eCW1 ([facility]) Nebulizer/Tubing/Mouthpiece - Nebulizer/Tubing/Mouthpiece - 10/06/2019 12:00:00 AM EST active Nebulizer/Tubing/ Mouthpiece - eCW1 ([facility]) Nebulizer/Tubing/Mouthpiece - Nebulizer/Tubing/Mouthpiece - 10/06/2019 12:00:00 AM EST active Nebulizer/Tubing/ Mouthpiece - eCW1 ([facility]) Nebulizer - Nebulizer - 10/06/2019 12:00:00 AM EST active Nebulizer - eCW1 ([facility]) Nebulizer - Nebulizer - 10/06/2019 12:00:00 AM EST active Nebulizer - eCW1 ([facility]) Nebulizer/Tubing/Mouthpiece - Nebulizer/Tubing/Mouthpiece - 10/06/2019 12:00:00 AM EST active Nebulizer/Tubing/ Mouthpiece - eCW1 ([facility]) Nebulizer - Nebulizer - 10/06/2019 12:00:00 AM EST active Nebulizer - eCW1 ([facility]) Nebulizer/Tubing/Mouthpiece - Nebulizer/Tubing/Mouthpiece - 10/06/2019 12:00:00 AM EST active Nebulizer/Tubing/ Mouthpiece - eCW1 ([facility]) Nebulizer/Tubing/Mouthpiece - Nebulizer/Tubing/Mouthpiece - 10/06/2019 12:00:00 AM EST active Nebulizer/Tubing/ Mouthpiece - eCW1 ([facility]) Nebulizer - Nebulizer - 10/06/2019 12:00:00 AM EST active Nebulizer - eCW1 ([facility]) Nebulizer - Nebulizer - 10/06/2019 12:00:00 AM EST active Nebulizer - eCW1 ([facility]) Nebulizer/Tubing/Mouthpiece - Nebulizer/Tubing/Mouthpiece - 10/06/2019 12:00:00 AM EST active Nebulizer/Tubing/ Mouthpiece - eCW1 ([facility]) Nebulizer - Nebulizer - 10/06/2019 12:00:00 AM EST active Nebulizer - eCW1 ([facility]) Nebulizer/Tubing/Mouthpiece - Nebulizer/Tubing/Mouthpiece - 10/06/2019 12:00:00 AM EST active as directed eCW1 ([facility]) Nebulizer - Nebulizer - 10/06/2019 12:00:00 AM EST active Nebulizer - eCW1 ([facility]) Nebulizer/Tubing/Mouthpiece - Nebulizer/Tubing/Mouthpiece - 10/06/2019 12:00:00 AM EST active Nebulizer/Tubing/ Mouthpiece - eCW1 ([facility]) Nebulizer - Nebulizer - 10/06/2019 12:00:00 AM EST active Nebulizer - eCW1 ([facility]) Nebulizer/Tubing/Mouthpiece - Nebulizer/Tubing/Mouthpiece - 10/06/2019 12:00:00 AM EST active Nebulizer/Tubing/ Mouthpiece - eCW1 ([facility]) Prednisone 20 MG Oral Tablet PredniSONE 20 MG PredniSONE 20 MG 09/10/2019 12:00:00 AM EST active 2 table ts eCW1 ([facility]) Prednisone 20 MG Oral Tablet PredniSONE 20 MG PredniSONE 20 MG 09/10/2019 12:00:00 AM EST active 2 table t eCW1 ([facility]) Prednisone 20 MG Oral Tablet PredniSONE 20 MG PredniSONE 20 MG 09/10/2019 12:00:00 AM EST active 2 table ts eCW1 ([facility]) CompAir Nebulizer 1 UNK 09/10/2019 12:00:00 AM EST active as directed eCW1 ([facility]) Albuterol 0.833 MG/ML / Ipratropium Brom keke 0.167 MG/ML Inhalant Solution Ipratropium-Albuterol 0.5-2.5 (3) MG/3ML Ipratropium-Albuterol 0.5-2.5 (3) MG/3ML 09/10/2019 12:00:00 AM EST active 3 ml as needed eCW1 ([facility]) Albuterol 0.833 MG/ML / Ipratropium Brom keke 0.167 MG/ML Inhalant Solution Ipratropium-Albuterol 0.5-2.5 (3) MG/3ML Ipratropium-Albuterol 0.5-2.5 (3) MG/3ML 09/10/2019 12:00:00 AM EST active 3 ml as needed eCW1 ([facility]) Albuterol 0.833 MG/ML / Ipratropium Brom keke 0.167 MG/ML Inhalant Solution Ipratropium-Albuterol 0.5-2.5 (3) MG/3ML Ipratropium-Albuterol 0.5-2.5 (3) MG/3ML 09/10/2019 12:00:00 AM EST active 3 ml as needed eCW1 ([facility]) CompAir Nebulizer 1 UNK 09/10/2019 12:00:00 AM EST active 1 eCW1 ([facility]) Comp Air Elite Compact Neb - Comp Air Elite Compact Neb - 12:00:00 AM EST active as directed eCW1 ([facility]) 24 HR Glipizide 10 MG Extended Release Oral Tablet Gli piZIDE XL 10 MG GlipiZIDE XL 10 MG 08/18/2019 12:00:00 AM EST active 1 tablet with breakfast eCW1 ([facility]) 24 HR Glipizide 10 MG Extended Release Oral Tablet Gli piZIDE XL 10 MG GlipiZIDE XL 10 MG 08/18/2019 12:00:00 AM EST active 1 tablet with breakfast eCW1 ([facility]) Albuterol Sulfate 108 (90 Base) MCG/ACT UNK 08/10/2019 12:00:[address] active 2 puffs as needed eCW1 ([facility]) Flonase 50 MCG/ACT Flonase 50 MCG/ACT 07/13/2019 12:00:00 AM EST active 2 sprays eCW1 ([facility]) Flonase 50 MCG/ACT Flonase 50 MCG/ACT 07/13/2019 12:00:00 AM EST active 2 sprays eCW1 ([facility]) benzonatate 200 MG Oral Capsule Benzonatate 200 MG Benzonata te 200 MG 07/13/2019 12:00:00 AM EST active 1 capsu le eCW1 ([facility]) benzonatate 200 MG Oral Capsule Benzonatate 200 MG Benzonata te 200 MG 07/13/2019 12:00:00 AM EST active 1 capsu le eCW1 ([facility]) benzonatate 200 MG Oral Capsule Benzonatate 200 MG Benzonata te 200 MG 07/13/2019 12:00:00 AM EST active 1 capsu le eCW1 ([facility]) Amoxicillin 875 MG Oral Tablet Amoxicillin 875 MG 07/13/2019 12:00: 00 AM EST active 1 tablet eCW1 ([facility] [place]note 2[facility] Flonase 50 MCG/ACT Flonase 50 MCG/ACT 07/13/2019 12:00:00 AM EST active 2 sprays eCW1 ([facility]) Ondansetron 4 MG Disintegrating Oral Tab let ondansetron (ZOFRAN-ODT) 4 MG disintegrating tablet ondansetron (ZOFRAN-ODT) 4 MG disintegrating tablet 4 mg Oral aborted Take 4 mg by mouth every 8 (eight) hours as needed for nausea [facility] Fluoxetine 10 MG Oral Capsule FLUoxetine (PROZAC) 10 M G capsule FLUoxetine (PROZAC) 10 MG capsule 10 mg Oral aborted T kayce 10 mg by mouth daily [facility] 24 HR Glipizide 10 MG Extended Release O ral Tablet glipiZIDE (GLUCOTROL) 10 MG 24 hr tablet glipiZIDE (GLUCOTROL) 10 MG 24 hr tablet 10 mg Or al aborted Take 10 mg by mouth 2 (two) time s a day [facility] Omeprazole 40 MG Delayed Release Oral Ca psule omeprazole (PRILOSEC) 40 MG capsule omeprazole (PRILOSEC) 40 MG capsule 40 mg Oral aborted Take 40 mg by mouth 2 (two) times a day [facility] Flaxseed, Linseed, (FLAXSEED OIL PO) Oral abo rted Take by mouth [facility] Metformin hydrochloride 500 MG Oral Tablet metFORMIN ( GLUCOPHAGE) 500 MG tablet metFORMIN (GLUCOPHAGE) 500 MG tablet 500 mg Oral a borted Take 500 mg by mouth 2 (two) times a day with meals [facility] Insurance Providers Payer name Policy type / Coverage type Policy ID Covered green party ID Covered green party's relationship to oak[place] Policy [place] Plan Information MEDICARE [id number] SP [id number] FOR LIFE [id number] SP [id number] Spo [id number] MEDICARE [id number] Jes [id number] MEDICARE [id number] INSURANCE COVID-19 COVID Jes C OVID INSURANCE COVID-19 [id number] Spo [id number] [facility] MEDICARE DIVISION [id number] S [id number] [place]ICARE - [place] [id number] S [id number] [facility] [id number] SPO [id number] FOR LIFE O [id number] S [id number] MEDICARE C [id number] S [id number] [id number] FOR LIFE U [id number] Self [id number] MEDICARE A [id number] Self [id number] [id number] [employer] MEDICARE DIVISION [id number] S [id number] [place]IC[place] [id number] S [id number] MEDICARE [id number] SP [id number] MEDICARE [id number] SP [id number] A SELF PAY FOR LIFE [id number] SP [id number] MEDICARE [id number] SP [id number] SELF PAY FOR LIFE [id number] SP [id number] MEDICARE [id number] SP [id number] SELF PAY FOR LIFE [id number] SP [id number] MEDICARE [id number] SP [id number] SELF PAY FOR LIFE [id number] SP [id number] MEDICARE [id number] SP [id number] SELF PAY FOR LIFE [id number] SP [id number] MEDICARE [id number] SP [id number] [id number] FOR LIFE U [id number] Self [id number] MEDICARE A [id number] Self [id number] A SELF PAY FOR LIFE [id number] SP [id number] MEDICARE [id number] SP [id number] [id number] DME Jurisdiction A NHIC C [id number] SELF [id number] For Life F [id number] SPOUSE 0 [id number] Medicare C [id number] SELF [id number] [id number] DME Jurisdiction A [place] C [id number] SELF [id number] For Life F [id number] SPOUSE [id number] Medicare C [id number] SELF [id number] A79 SELF PAY FOR LIFE [id number] SP [id number] MEDICARE [id number] SP [id number] [id number] SELF PAY FOR LIFE [id number] SP [id number] MEDICARE [id number] SP [id number] [id number] MEDICARE [id number] SP [id number] [id number] SELF PAY FOR LIFE [id number] SP [id number] MEDICARE [id number] SP [id number] [id number] SELF PAY FOR LIFE [id number] SP [id number] MEDICARE [id number] Jes [id number] A MEDICARE [id number] SP [id number] FOR LIFE [id number] SP [id number] [facility] [facility] [id number] SP [id number] MEDICARE [id number] SP [id number] A FOR LIFE [id number] SP [id number] [place] [facility] [id number] SP [id number] MEDICARE [id number] SP [id number] A For Life Medigap Part B [id number] Family Dependent [id number] Medicare Medicare Primary [id number] Self [id number] FOR LIFE [id number] SP [id number] MEDICARE [id number] SP [id number] A [place] [facility] ([place]) Medigap Part B Family Dep endent [place] For Life WPS Medigap Part B Family Depende nt Medicare [facility] Gov't Servi Medicare Primary Self PGBA [place] [id number] 2 [id number] FOR LIFE [id number] SP [id number] For Life Medigap Part B Family Dependent Medicare Medicare Primary Self FOR LIFE O [id number] SP [id number] MEDICARE M [id number] S [id number] A SELF PAY 2 UNAVAILABLE 1 UNAVAILA BLE FOR LIFE O [id number] SP [id number] MEDICARE M [id number] S [id number] A /-PRIM O [id number] SP [id number] [facility] REGION 1-[facility] [id number] [facility] 6 [phone] Problems, Conditions, and Diagnoses Code Display Name Description Problem Type Effective Dates Data Source(s) Z71.3 Modified consistency diet monitoring enc [facility] Modified consistency diet monitoring encounter [id number] 08/14/2020 12:00:00 AM [facility] T85.528A Jejunostomy tube fell out Jejunostomy tube fell out [id number] 08/14/2020 12:00:00 AM [facility] J44.1 Chronic obstructive pulmonary disease wi th (acute) exacerbation Chronic obstructive pulmonary disease with (acute) exacerbation Problem 2020 12:00:00 AM EST NETSVINODT ([facility] ) Z86.39 Hx malnutrition, severe protein calorie 06/23/2020 Hx malnutrition, severe protein calorie 06/23/2020 [id number] 06/23/2020 12:00:00 AM [facility] 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 06/16/2020 by EGD Carcinoma of cardio-esophageal junction 06/16/2020 by EGD [id number] 12:00:00 AM [facility] E43 Unspecified severe protein-calorie malnu trition Unspecified severe protein- calorie malnutrition Problem 06/22/2020 12:00:00 AM EST NETSMART ([facility]) E11.9 Type 2 diabetes mellitus without complic ations Type 2 diabetes mellitus without complications Problem 06/22/2020 12:00:00 AM EST NETSMART ([facility]) R13.10 Dysphagia, unspecified Dysphagia, unspecified Problem 06/22/2020 12:00:00 AM EST NETSMART ([facility] ) K21.9 Gastro-esophageal reflux disease without esophagitis Gastro-esophageal reflux disease without esophagitis Problem 06/22/2020 12:00:00 AM ES T NETSMART ([facility]) I10 Essential (primary) hypertension Essential (primary) h ypertension Problem 06/22/2020 12:00:00 AM EST NETSMART ([facility] ) G47.30 Sleep apnea, unspecified Sleep apnea, unspecified Prob tiffanie 06/22/2020 12:00:00 AM EST NETSMART ([facility] ) F41.9 Anxiety disorder, unspecified Anxiety disorder, unspec ified Problem 06/22/2020 12:00:00 AM EST NETSMART ([facility] ) Z43.4 Encounter for attention to other artific ial openings of digestive tract Encounter for attention to other artificial openings of digestive tract Problem 06/22/2020 12:00:00 AM EST NETSMART ([facility] ) Z91.81 History of falling History of falling Problem 0 12:00:00 AM EST NETSMART ([facility]) 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 (cu rrent) use of aspirin Problem 06/22/2020 12:00:00 AM EST NETSMART ([facility]) Z79.891 [facility] (current) use of opiate analge sic [facility] (current) use of opiate analgesic Problem 06/22/2020 12:00:00 AM EST NETSMART ([facility]) Z87.891 Personal history of nicotine dependence Personal history of nicotine dependence Problem 06/22/2020 12:00:00 AM EST NETSMART ([facility]) 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 car shaila Problem 06/22/2020 12:00:00 AM EST NETSMART ([facility] ) J44.9 Chronic obstructive pulmonary disease, u nspecified Chronic obstructive pulmonary disease, unspecified Problem 06/22/2020 12:00:00 AM EST NE TSMART ([facility]) C15.9 [id number] Malignant neoplasm of esophagus, unspecif ied location Problem 06/02/2020 12:00:00 AM EDT eCW1 ([facility]) 298199487 Dyspnea Dyspnea Problem 10/28/2019 12:00:00 AM ED T MEDENT ([facility]) 10698195 Premature beats Premature beats Problem 10/28/2019 12:0 0:00 AM EDT MEDENT ([facility]) [id number] Dietary management surveillance Dietary manageme nt surveillance Problem 10/28/2019 12:00:00 AM EDT MEDENT ([facility]) 329411416 Morbid obesity Morbid obesity Problem 10/28/2019 12:00: 00 AM EDT MEDENT ([facility]) 417534590 Mixed hyperlipidemia Mixed hyperlipidemia Problem 10/28/2019 12:00:00 AM EDT MEDENT ([facility]) 76297953 Essential hypertension Essential hypertension Problem 10/28/2019 12:00:00 AM EDT MEDENT ([facility]) 14175267 Chest pain Chest pain Problem 10/28/2019 12:00:00 AM ED T MEDENT ([facility]) H91.93 [id number] Bilateral hearing loss, unspecified heari ng loss type Problem 10/06/2019 12:00:00 AM EST eCW1 ([facility]) J44.9 73443244 Chronic obstructive pulmonary di sease, unspecified COPD type Problem 10/06/2019 12:00:00 AM EST eCW1 ([facility]) E11.9 884117047 Diabetes mellitus without complication Pr oblem 10/06/2019 12:00:00 AM EST eCW1 ([facility]) I11.9 83629436 Hypertensive heart disease without heart failure Problem 10/06/2019 12:00:00 AM EST eCW1 ([facility]) H25.9 69529899 Age-related cataract of both eyes, unspecified age-related cataract type Problem 10/06/2019 12:00:00 AM EST eCW1 ([facility]) E78.5 495696561 Dyslipidemia Problem 10/06/2019 12:00:00 AM EST eCW1 ([facility]) R13.10 24232513 Dysphagia, unspecified type Problem 10/06/19 12:00:00 AM EST eCW1 ([facility]) F32.9 Major depression, single episode Depression, uns pecified depression type Problem 10/06/2019 12:00:00 AM EST eCW1 ([facility]) K21.9 374262061 Chronic GERD Problem 10/06/2019 12:00:00 AM EST eCW1 ([facility]) I11.9 91305484 Hypertensive heart disease without heart failure Problem 10/06/2019 12:00:00 AM EST eCW1 ([facility]) H25.9 59886306 Age-related cataract of both eyes, unspecified age-related cataract type Problem 10/06/2019 12:00:00 AM EST eCW1 ([facility]) H91.93 81430520 Bilateral hearing loss, unspecified heari ng loss type Problem 10/06/2019 12:00:00 AM EST eCW1 ([facility]) R13.10 57129247 Dysphagia, unspecified type Problem 10/06/19 12:00:00 AM EST eCW1 ([facility]) J44.9 92770854 Chronic obstructive pulmonary di sease, unspecified COPD type Problem 10/06/2019 12:00:00 AM EST eCW1 ([facility]) J45.901 088680065 Exacerbation of asth ma, unspecified asthma severity, unspecified whether persistent Problem 09/10/2019 12:00:00 AM EST eC W1 (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 Malignant neoplasm of lower third of eso Diagnosis 06/22/2020 12:28:10 PM [facility] R62.51 Failure to thrive (child) Failure to thrive (child) Di agnosis 06/22/2020 12:28:10 PM [facility] R13.10 Dysphagia, unspecified Dysphagia, unspecified Diagnosi s 06/20/2020 09:17:29 AM [facility] U07.1 COVID-19 COVID-19 Diagnosis 06/10/2020 11:13:27 AM ES T [facility] C15.9 Malignant neoplasm of esophagus, unspeci fied Malignant neoplasm of esophagus, unspeci Diagnosis 06/10/2020 10:39:24 AM EST [facility] Z87.891 Personal history of nicotine dependence PERSONAL HISTORY OF NICOTINE DEPENDENCE Diagnosis 05/11/2020 03:00:00 PM [facility] Z79.899 Other usp (current) drug therapy O THER DETENTION (CURRENT) DRUG THERAPY Diagnosis 05/11/2020 03:00:00 PM [facility] 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 Z85.01 Personal history of malignant neoplasm o f esophagus PERSONAL HISTORY OF MALIGNANT NEOPLASM OF ESOPHAGU Diagnosis 05/11/2020 03:00:[address] 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 CHURN OPERATOR MARGARINE (CU RRENT) USE OF ASPIRIN Diagnosis 05/11/2020 03:00:00 PM [facility] Z79.51 CHCF (current) use of inhaled stero ids DETENTION (CURRENT) USE OF INHALED STEROIDS Diagnosis 05/11/2020 03:00:00 PM [facility] E78.00 PURE HYPERCHOLESTEROLEMIA, UNSPECIFIED P URE HYPERCHOLESTEROLEMIA, UNSPECIFIED Diagnosis 05/11/2020 03:00:00 PM [facility] I10 Essential (primary) hypertension ESSENTIAL (PRIMARY) H YPERTENSION Diagnosis 05/11/2020 03:00:00 PM [facility] J45.909 Unspecified asthma, uncomplicated UNSPECIFIED THMA, UNCOMPLICATED Diagnosis 05/11/2020 03:00:00 PM [facility] E11.9 Type 2 diabetes mellitus without complic ations TYPE 2 DIABETES MELLITUS WITHOUT COMPLICATIONS Diagnosis 05/11/2020 03:00:00 PM [facility] E86.0 Dehydration DEHYDRATION Diagnosis 05/11/2020 03:00:00 PM [facility] R11.2 Nausea with vomiting, unspecified NAUSEA WITH VO MITING, UNSPECIFIED Diagnosis 05/11/2020 03:00:00 PM [facility] C15.9 Malignant neoplasm of esophagus, unspeci fied Malignant neoplasm of esophagus, unspecified Diagnosis 05/09/2020 07:45:00 AM [facility] K29.00 Acute gastritis without bleeding ACUTE GASTRITIS WITHOUT BLEEDING Diagnosis 04/12/2020 06:28:00 PM [facility] R19.7 Diarrhea, unspecified DIARRHEA, UNSPECIFIED Diagnosis 04/12/2020 06:28:00 PM [facility] J45.901 Unspecified asthma with (acute) exacerba tion UNSPECIFIED ASTHMA WITH (ACUTE) EXACERBATION Diagnosis 09/10/2019 [facility] Acute maxillary sinusitis, unspecified A CUTE MAXILLARY SINUSITIS, UNSPECIFIED Diagnosis 07/13/2019 04:21:[facility] Procedure Description Date Indications Data Source(s) GLUC BLD GLUC MNTR DEV CLEARED FDA SPEC HOME USE POCT GLUCOSE Routine 08/14/2020 10:22 AM EST 08/14/2020 03:22:00 PM [facility] REPLACE DUODENOSTOMY/JEJUNOSTOMY TUBE PERQ IR G OR J TUBE C HANGE Pending Discharge 08/14/2020 9:46 AM EST 08/14/2020 02:46:05 PM [facility] GLUC BLD GLUC MNTR DEV CLEARED FDA SPEC HOME USE POCT GLUCOSE Routine 08/14/2020 5:45 AM EST 08/14/2020 10:45:00 AM [facility] COVID/FLU AB/RSV PCR COVID/FLU AB/RSV PCR STAT 08/13/2020 9:00 PM EST 08/14/2020 02:00:00 AM [facility] THROMBOPLASTIN TIME PARTIAL PLASMA/WHOLE BLOOD APTT STAT 08/13/2020 8:18 PM EST 08/14/2020 01:18:[address] [facility] PROTHROMBIN TIME PROTIME-INR STAT 08/13/2020 8:18 PM EST 08/14/2020 01:18:00 AM [facility] BLOOD COUNT COMPLETE AUTO&AUTO DIFRNTL WBC COUNT CBC AND DIFFER ENTIAL STAT 08/13/2020 8:18 PM EST 08/14/2020 01:18:00 AM EST [facility] MAGNESIUM MAGNESIUM STAT 08/13/2020 8:18 PM EST 08/14/2020 01:18:00 AM EST [facility] LIPASE LIPASE STAT 08/13/2020 8:18 PM EST 08/14/19 01:18:00 AM EST [facility] COMPREHENSIVE METABOLIC PANEL COMPREHENSIVE METABOLIC PANEL STA T 08/13/2020 8:18 PM EST 08/14/2020 01:18:[address] [facility] GLUC BLD GLUC MNTR DEV CLEARED FDA SPEC HOME USE POCT GLUCOSE Routine 08/13/2020 5:58 PM EST 08/13/2020 10:58:00 PM [facility] BLOOD COUNT COMPLETE AUTOMATED CBC Routine 06/24/2020 6:43 A M EST 06/24/2020 11:43:00 AM [facility] BASIC METABOLIC PANEL CALCIUM TOTAL BASIC METABOLIC PANEL Routi ne 06/24/2020 6:43 AM EST 06/24/2020 11:43:00 AM EST [facility] GLUC BLD GLUC MNTR DEV CLEARED FDA SPEC HOME USE POCT GLUCOSE Routine 06/24/2020 6:09 AM EST 06/24/2020 11:09:00 AM [facility] GLUC BLD GLUC MNTR DEV CLEARED FDA SPEC HOME USE POCT GLUCOSE Routine 06/23/2020 11:42 PM EST 06/24/2020 04:42:00 AM [facility] GLUC BLD GLUC MNTR DEV CLEARED FDA SPEC HOME USE POCT GLUCOSE Routine 06/23/2020 5:52 PM EST 06/23/2020 10:52:00 PM EST [facility] XR CHEST PORTABLE XR CHEST PORTABLE Routine 06/23/2020 11:52 AM EST 06/23/2020 04:52:11 PM [facility] GLUC BLD GLUC MNTR DEV CLEARED FDA SPEC HOME USE POCT GLUCOSE Routine 06/23/2020 11:30 AM EST 06/23/2020 04:30:00 PM EST [facility] FLUORO CENTRAL VENOUS ACCESS DEV PLACEMENT XR OR FLUORO HANK OUS ACCESS DEVICE STAT 06/23/2020 10:42 AM EST 06/23/2020 03:42:15 PM EST [facility] REVISION, INSERTION, OR REMOVAL, GASTROSTOMY OR JEJUNO STOMY TUBE REVISION, INSERTION, OR REMOVAL, GASTROSTOMY OR JEJUNOSTOMY TUBE 06/23/2020 9:58 AM EST Carcinoma of cardio-esophageal junction 06/23/2020 02: 58:00 PM EST - 06/23/2020 04:37:00 PM EST Carcinoma of cardio-esophageal junction [facility] Carcinoma of cardio-esophageal junction INSERTION, CENTRAL VENOUS ACCESS DEVICE, TUNNELED INS ERTION, CENTRAL VENOUS ACCESS DEVICE, TUNNELED 06/23/2020 9:58 AM EST Carcinoma of cardio-esophageal junction 06/23/2020 02: 58:00 PM EST - 06/23/2020 04:37:00 PM EST Carcinoma of cardio-esophageal junction [facility] Carcinoma of cardio-esophageal junction BLOOD COUNT COMPLETE AUTOMATED CBC Routine 06/23/2020 5:47 A M EST 06/23/2020 10:47:00 AM [facility] BASIC METABOLIC PANEL CALCIUM TOTAL BASIC METABOLIC PANEL Routi ne 06/23/2020 5:47 AM EST 06/23/2020 10:47:[address] [facility] GLUC BLD GLUC MNTR DEV CLEARED FDA SPEC HOME USE POCT GLUCOSE Routine 06/22/2020 4:25 PM EST 06/22/2020 09:25:00 PM [facility] 2019 NCOV AMPLIFIED 2019 NCOV AMPLIFIED STAT 06/22/2020 2:30 PM EST 06/22/2020 07:30:00 PM [facility] BLOOD COUNT COMPLETE AUTOMATED CBC Routine 06/22/2020 1:04 P M EST 06/22/2020 06:04:00 PM [facility] COMPREHENSIVE METABOLIC PANEL COMPREHENSIVE METABOLIC PANEL Rou minh 06/22/2020 1:04 PM EST 06/22/2020 06:04:[address] [facility] Endo W/Endo Ultrasound Exam 06/16/2020 12:00:00 AM EST MEDTYESHA ([facility]) UPPER GI NDSC DX W/WO COLLECTION SPECIMEN 06/14/2020 1 2:00:00 AM EST MEDENT ([facility]) BLOOD COUNT COMPLETE AUTOMATED CBC Routine 0 12:00 PM EST Malignant neoplasm of esophagus, unspecified location 06/10/2020 05:00:00 PM EST Malignant neoplasm of esophagus, unspecified location [facility] Malignant neoplasm of esophagus, unspeci fied location HEMOGLOBIN GLYCOSYLATED A1C HEMOGLOBIN A1C Routine 06/10/2020 12:00 PM EST Malignant neoplasm of esophagus, unspecified location 06/10/2020 05:00:00 PM EST Malignant neoplasm of esophagus, unspecified location [facility] Malignant neoplasm of esophagus, unspeci fied location BASIC METABOLIC PANEL CALCIUM TOTAL BASIC METABOLIC PANEL Routi ne 06/10/2020 12:00 PM EST Malignant neoplasm of esophagus, unspecified location 06/10/2020 05:00:00 PM EST Malignant neoplasm of esophagus, unspecified location [facility] Malignant neoplasm of esophagus, unspeci fied location ECG ROUTINE ECG W/LEAST 12 LDS TRCG ONLY W/O I&R ECG 12-LEAD Routine 06/10/2020 11:50 AM EST Malignant neoplasm of esophagus, unspecified location 06/10/2020 04:50:48 PM EST Malignant neoplasm of esophagus, unspecified location [facility] Malignant neoplasm of esophagus, unspeci fied location Endoscopy Upper GI Balloon Dilation Of Esophagus 04/29 12:00:00 AM EDT MEDTYESHA ([facility]) Arterial Pressure Waveform Analysis For Assessment Of Centra l Art 03/02/2020 12:00:00 AM EDT MEDENT ([facility]) TDAP 0.5mL (Boostrix) 12/02/2019 12:00:00 AM EDT eCW1 ([facility]) IM ADMIN 1ST/ONLY COMPONENT 12/02/2019 12:00:00 AM EDT eCW1 ([facility]) IM ADMIN EACH ADDL COMPONENT 12/02/2019 12:00:00 AM ED T eCW1 ([facility]) ECHO TTHRC R-T 2D W/WOM-MODE COMPL SPEC&COLR DOP 11/23 12:00:00 AM EDT MEDTYESHA ([facility]) MYOCRD IMAGE PET PERFUS MULTPL STUDY REST/STRESS 11/10 12:00:00 AM EDT MEDENT ([facility]) CV STRS TST XERS&/OR RX CONT ECG I&R ONLY 11/11/2019 1 2:00:00 AM [facility] XTRNL ECG < 48 HR RECORDING 10/29/2019 12:00:00 AM [facility]T [facility]) XTRNL ECG CONTINUOUS RHYTHM PHYS REVIEW&INTERPJ 2019 12:00:00 AM EDT MEDENT ([facility]) ECG ROUTINE ECG W/LEAST 12 LDS W/I&R 10/28/2019 12:00: 00 AM [facility] Arterial Pressure Waveform Analysis For Assessment Of Centra l Art 10/28/2019 12:00:00 AM [facility]) Office Visit, New Pt., Level 3 PC 10/06/2019 12:00:00 AM EST eCW1 ([facility]) Office Visit, New Pt., Level 2 FC 10/06/2019 12:00:00 AM EST eCW1 ([facility]) Results ID Date Data Source [id number] 08/14/2020 03:41:57 PM [facility] NT INFORMATIONPatient MRN Name Date of Age Gend*PT [id number] Ana Alarcon 1945 75 years F OBSPT Location Admission Date/Time Visit ID Attending [id number] 08/13/202050 --- --- EPI ID CSN Admitting Provider [id number] Wilmer Vuong MD([id number]) Attestation signed by Johnson Casarez MD at [...] advance the wire and catheterdistally. A 16 Citizen [place] dilator was used to estimate the tube [...] hours through j tube via pump, flush [id number] cc before and after feeds and mesh [...] rce(s) Supporting Document(s) ID Date Data Source [id number] 08/14/2020 10:24:26 AM EST [facility] [place] Name Value Range Interpretation Code Description Data Anyi rce(s) Supporting Document(s) POC NOVA GLU 196 mg/dL (70-99) H [facility] [place] [facility]FORMED BY [facility] ID Date Data Source [id number] 08/14/2020 09:51:53 AM EST [address] [address] Name: ANA HOANGB: 1945Sex: FOrdering Provider: WILMER Stone Prov: WILMER Cotton Provider: Procedure Performed: IR G OR J TUBE CHANGEExam Date: 08/14/2020 09:46MRN: [id number] Number: [id number] Class: OutpatientAccount #: [id number] for Exam: J tube fell out in [...] the wire and catheter distally. A 16 [place] dilator was used to estimate the tube size required. An 18 Citizen [place] ELIZABETH J-tube was advanced over the wire [...] WALE FABIAN On 08/14/2020 9:51 AMWorkstation ID: [id number] Name Value Range Interpretation Code Description Data Anyi rce(s) Supporting Document(s) ID Date Data Source [id number] 08/14/2020 09:44:59 AM EST [facility] NT INFORMATIONPatient MRN Name Date of Age Gend*PT [id number] Ana Alarcon 1945 75 years F OBSPT Location Admission Date/Time Visit ID Attending [id number] 08/13/202050 --- Johnson Casarez MD([id number]) EPI ID CSN Admitting Provider [id number] Wilmer Vuong MD([id number])Brief Operative/Invasive Procedure NoteSylvday AlarconDATE OF : 1945MRN # [id number] DATE: 08/14/2020ROVIDER:Wale Fabian MD 08/14/2020 9:44 AMASSISTANCE(S): NonePROCEDURE:J-tube reinsertionPRE-PROCEDURE DIAGNOSIS:Jtube fell outPOST PROCEDURE DIAGNOSIS:Jtube fell outANESTHESIA TYPE:noneDRAINS:18F ELIZABETH J-tubeSPECIMENS:0ESTIMATED BLOOD LOSS: NoneGRAFTS OR IMPLANTS:0FINDINGS: Consistent with operative diagnosisCOMPLICATIONS: Lucille Fabian, STARRepartment of Interventional Radiology Name Value Range Interpretation Code Description Data Anyi rce(s) Supporting Document(s) ID Date Data Source [id number] 08/14/2020 08:28:32 AM EST [facility] NT INFORMATIONPatient MRN Name Date of Age Gend*PT [id number] Ana Alarcon 1945 75 years F OBSPT Location Admission Date/Time Visit ID Attending [id number] 08/13/202050 --- Johnson Casarez MD([id number]) EPI ID CSN Admitting Provider [id number] Wilmer Vuong MD([id number])Inpatient History & PhysicalSylvia Reg AlarconMRN: [id number] and Plan:Principal Problem: Jejunostomy tube fell outActive Problems: 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 Jtube fell out during sleep06/23/2020 open J-tube by Dr. Flynn general surgeryDr. Tran aware programmer operator numerical control for Dr. Douglas placed easily in ED [...] the nursing/triage staff and I havereviewed. Official paint prep technician consult requested.Allergies:Kiwi extractFamily History:Family HistoryProblem Relation Age [...] file Gets together: Not on file Attends sikh service: Not on file Active member of [...] Absolute: 0.2 (L)Monocytes Absolute: 0.2Basophils Absolute: 0.08/13/2020 21:47DECVC36 RESULT: NOT DETECTEDInfluenza A: NEGATIVERSV: NEGATIVEInfluenza B: NEGATIVE.Signature: STARR Combsate: August 14, 2020Time: 12:41 AM Name Value Range Interpretation Code Description Data Anyi rce(s) Supporting Document(s) ID Date Data Source [id number] 08/14/2020 05:47:49 AM EST [facility] Name Value Range Interpretation Code Description Data Anyi rce(s) Supporting Document(s) POC NOVA GLU 146 mg/dL (70-99) H [facility] PERFORMED BY [facility] ID Date Data Source [id number] 08/13/2020 09:00:00 PM EST [facility] Name Value Range Interpretation Code Description Data Anyi rce(s) Supporting Document(s) SARS coronavirus 2 RNA [Presence] in Res piratory specimen by POLO with probe detection NOT DETECTED [facility] This lab was reported by [facility]. ID Date Data Source [id number] 08/13/2020 10:07:05 PM EST [facility] Name Value Range Interpretation Code Description Data Anyi rce(s) Supporting Document(s) SPECIMEN DESCRIPTION [facility] INFLUENZA A (NEG) [facility] INFLUENZA B (NEG) [facility] RSV (NEG) [facility] COMMENT [facility] UNDER AN EMERGENCY USE AUTHORIZATION(EUA ) FOR THE DETECTION AND/OR DIAGNOSISOF THE VIRUS THAT CAUSES COVID-19.PERFORMED AT [address] [place] [id number] COVID19 RESULT (NDET) [facility] THIS ASSAY AMPLIFIES AND DETECTSTHE TARG ET RNA USING REAL-TIME PCR.NEGATIVE 2019_NCOV RT-PCR RESULTS DONOT PRECLUDE 2019_NCOV INFECTION ANDSHOULD NOT BE USED THE SOLE BASISFOR PATIENT MANAGEMENT DECISIONS. FIRST TEST [facility] EMPLOYED IN HLTHCARE [facility] SY[facility]TOMATIC [facility] [place] DATE OF SYMPT ONSET [facility] HOSPITALIZED [facility] [place] [facility] ICU [facility] [place] [facility] CONGREGATE CARE SET [facility] [place] [facility] ID Date Data Source [id number] 08/14/2020 05:21:48 AM EST [facility] [place] Name Value Range Interpretation Code Description Data Anyi rce(s) Supporting Document(s) PT 10.3 s (9.2-11.9) [facility] [place] [facility] INR 0.98 [facility] [place] [facility] SUGGESTED THERAPEUTIC RANGES USING INR F ORSTABILIZED ANTICOAGULATED PATIENTS:STANDARD DOSE THERAPY INR 2.0-3.0 DVT, PE, PREVENT DVT OR EMBOLISMHIGH DOSE THERAPY INR 2.5-3.5 PREVENT EMBOLISM FROM MECHANICAL HEART VALVE ID Date Data Source [id number] 08/14/2020 05:21:48 AM EST [facility] [place] [facility] Name Value Range Interpretation Code Description Data Anyi rce(s) Supporting Document(s) APTT 21.2 s (22.0-34.3) L [facility] [place] [facility] [place] ID Date Data Source [id number] 08/13/2020 09:24:43 PM EST [facility] [place] [facility] Name Value Range Interpretation Code Description Data Anyi rce(s) Supporting Document(s) SODIUM 138 mmol/L (136-145) [facility] [place] [facility] POTASSIUM 4.9 mmol/L (3.6-5.2) [facility] [place] [facility] CHLORIDE 102 mmol/L (100-108) [facility] [place] [facility] CO2 31 mmol/L (22-31) [facility] [place] [facility] ANION GAP 5 mmol/L (7-16) L [facility] [place] [facility] UREA NITROGEN 20 mg/dL (7-24) [facility] [place] [facility] CREATININE 0.84 mg/dL (0.60-1.00) [facility] [place] [facility] BUN/CREAT RATIO 23.8 RATIO (10.0-20.0) H [facility] GLUCOSE 336 mg/dL (70-99) H [facility] [place] [facility] CALCIUM 9.1 mg/dL (8.4-10.2) [facility] [place] [facility] TOTAL PROTEIN 7.1 g/dL (6.4-8.2) [facility] [place] [facility] ALBUMIN 3.5 g/dL (3.2-4.5) [facility] [place] [facility] GLOBULIN 3.6 g/dL (2.7-4.3) [facility] [place] [facility] ALB/GLOB RATIO 1.0 RATIO [facility] [place] [facility] ALKALINE PHOSPHATASE 92 U/L (45-117) [facility] BILIRUBIN,TOTAL 0.5 mg/dL (0.0-1.0) [facility] [place] [facility] [place] PLEASE NOTE:Total bilirubin results may be falselyelevated in patients taking Eltrombopag. AST (SGOT) 9 U/L (11-39) L [facility] [place] [facility] ALT (SGPT) 17 U/L (12-78) [facility] [place] [facility] GFR >60 ml/min/1.73m2 (>59) [facility] [place] [facility] [place] GFR ( AMER) >60 ml/min/1.73m2 (>59) [facility] [place] [facility] GFR INTERPRETATION [facility] --NORMAL KIDNEY FUNCTION OR MILD DISEASE - GFR >OR= 60CHRONIC KIDNEY DISEASE - GFR 15 - 59RENAL FAILURE - GFR <15 Est. GFR calculation based on the MDRDstudy equation, which assumes a steadystate for creatinine. Est. GFR should notbe used for medication dosing. ID Date Data Source [id number] 08/13/2020 09:22:07 PM EST [facility] [place] [facility] [place] Name Value Range Interpretation Code Description Data Anyi rce(s) Supporting Document(s) MAGNESIUM 2.2 mg/dL (1.7-2.4) [facility] [place] [facility] ID Date Data Source [id number] 08/13/2020 09:22:07 PM EST [facility] [place] [facility] Name Value Range Interpretation Code Description Data Anyi rce(s) Supporting Document(s) LIPASE 44 U/L (65-230) L [facility] [place] [facility] [place] ID Date Data Source [id number] 08/13/2020 09:10:36 PM EST [facility] [place] [facility] [place] Name Value Range Interpretation Code Description Data Anyi rce(s) Supporting Document(s) WBC 6.7 10*3/uL (4.1-11.0) [facility] [place] [facility] [place] RBC 4.34 10*6/uL (4.00-5.40) [facility] [place] [facility] HGB 12.4 g/dL (12.0-16.0) [facility] [place] [facility] [place] HCT 38.7 % (36.0-47.0) [facility] [place] [facility] [place] MCV 89.1 fL (80.0-95.0) [facility] [place] [facility] [place] MCH 28.6 pg (27.0-32.0) [facility] [place] [facility] [place] MCHC 32.1 g/dL (32.0-36.0) [facility] [place] [facility] [place] RDW 15.3 % (10.5-14.5) H [facility] [place] [facility] [place] PLT 165 10*3/uL (150-450) [facility] [place] [facility] [place] MPV 9.3 fL (7.1-10.7) [facility] [place] [facility] NEUT % 92.1 % (35.0-75.0) H [facility] [place] [facility] [place] LYMPH % 3.2 % (16.0-52.0) L [facility] [place] [facility] [place] MONO % 3.2 % (0.0-8.0) [facility] [place] [facility] EOS % 1.1 % (0.0-5.0) [facility] [place] [facility] BASO % 0.4 % (0.0-4.0) [facility] [place] [facility] [place] NEUT # 6.2 10*3/uL (1.8-7.7) [facility] [place] [facility] [place] LYMPH # 0.2 10*3/uL (1.2-4.8) L [facility] [place] [facility] [place] MONO # 0.2 10*3/uL (0.0-0.8) [facility] [place] [facility] [place] Eosinophils [#/volume] in Blood by Automated count 0.1 10*3/uL (0.0-0 .5) [facility] [place] [facility] [place] BASO # 0.0 10*3/uL (0.0-0.2) [facility] [place] [facility] [place] ID Date Data Source [id number] 08/13/2020 06:00:08 PM EST [facility] [place] [facility] Name Value Range Interpretation Code Description Data Anyi rce(s) Supporting Document(s) POC NOVA GLU 261 mg/dL (70-99) H [facility] [place] [facility] [place] [facility] ID Date Data Source [id number] 08/09/2020 01:45:37 PM EST [facility] NT INFORMATIONPatient MRN Name Date of Age Gend*PT [id number] Ana Alarcon 1945 75 years F ---PT Location Admission Date/Time Visit ID Attending Provider --- --- --- --- EPI ID CSN Admitting Provider [id number] ---Addended by: RONIT MOON on: 08/09/2020 01:45 PM Modules accepted: Orders Name Value Range Interpretation Code Description Data Anyi rce(s) Supporting Document(s) ID Date Data Source [id number] 08/02/2020 03:03:18 PM EST [facility] NT INFORMATIONPatient MRN Name Date of Age Gend*PT [id number] Ana Alarcon 1945 75 years F ---PT Location Admission Date/Time Visit ID Attending Provider --- --- --- --- EPI ID CSN Admitting Provider [id number] ---Service during this phone call was provided [...] assessment was conducted remotely with the assistance ofClarity Health Servicesic communication technology: Telephone Only Codes 39230: 5-10 minutesof medical discussion:Telephone OnlyI have spent 10 minutes with the patient discussing the above diagnoses andcounseling/coordinating the patient's care.we discussed care of the j tube. daughter will remove the nylon sutures anddress the tube appropriately. patient willpatient will contact office with any questions or concerns Name Value Range Interpretation Code Description Data Anyi rce(s) Supporting Document(s) ID Date Data Source [id number] 07/06/2020 11:31:34 AM EST [facility] NT INFORMATIONPatient MRN Name Date of Age Gend*PT [id number] Ana Alarcon 1945 75 years F ---PT Location Admission Date/Time Visit ID Attending Provider --- --- --- --- EPI ID CSN Admitting Provider [id number] ---Addended by: RONIT MOON on: 07/06/2020 11:31 AM Modules accepted: Orders Name Value Range Interpretation Code Description Data Anyi rce(s) Supporting Document(s) ID Date Data Source [id number] 07/06/2020 10:38:27 AM EST [facility] NT INFORMATIONPatient MRN Name Date of Age Gend*PT [id number] Ana Alarcon 1945 75 years F ---PT Location Admission Date/Time Visit ID Attending Provider --- --- --- --- EPI ID CSN Admitting Provider [id number] ---Addended by: RONIT MOON on: 07/06/2020 10:38 AM Modules accepted: Orders Name Value Range Interpretation Code Description Data Anyi rce(s) Supporting Document(s) ID Date Data Source [id number] 06/24/2020 08:24:14 AM EST [facility] [place] [facility] Name Value Range Interpretation Code Description Data Anyi rce(s) Supporting Document(s) SODIUM 141 mmol/L (136-145) [facility] [place] [facility] POTASSIUM 4.6 mmol/L (3.6-5.2) [facility] [place] [facility] [place] CHLORIDE 107 mmol/L (100-108) [facility] [place] [facility] [place] CO2 24 mmol/L (22-31) [facility] [place] [facility] ANION GAP 10 mmol/L (7-16) [facility] [place] [facility] [place] UREA NITROGEN 10 mg/dL (7-24) [facility] [place] [facility] [place] CREATININE 0.96 mg/dL (0.60-1.00) [facility] [place] [facility] [place] BUN/CREAT RATIO 10.4 RATIO (10.0-20.0) [facility] GLUCOSE 164 mg/dL (70-99) H [facility] [place] [facility] [place] CALCIUM 8.2 mg/dL (8.4-10.2) L [facility] [place] [facility] [place] GFR 57 ml/min/1.73m2 (>59) L [facility] [place] [facility] [place] GFR ( AMER) >60 ml/min/1.73m2 (>59) [facility] [place] [facility] [place] GFR INTERPRETATION [facility] --NORMAL KIDNEY FUNCTION OR MILD DISEASE - GFR >OR= 60CHRONIC KIDNEY DISEASE - GFR 15 - 59RENAL FAILURE - GFR <15 Est. GFR calculation based on the MDRDstudy equation, which assumes a steadystate for creatinine. Est. GFR should notbe used for medication dosing. ID Date Data Source [id number] 06/24/2020 07:43:21 AM EST [facility] [place] [facility] [place] Name Value Range Interpretation Code Description Data Anyi rce(s) Supporting Document(s) WBC 7.6 10*3/uL (4.1-11.0) [place] [facility] [place] RBC 4.28 10*6/uL (4.00-5.40) [facility] [place] [facility] [place] HGB 12.5 g/dL (12.0-16.0) [facility] [place] [facility] [place] HCT 38.5 % (36.0-47.0) [facility] [place] [facility] [place] PERFORMED AT [address] [place] [address] [place] [address] MCV 89.9 fL (80.0-95.0) [facility] [place] [facility] [place] MCH 29.2 pg (27.0-32.0) [facility] [place] [facility] [place] MCHC 32.4 g/dL (32.0-36.0) [facility] [place] [facility] [place] RDW 14.3 % (10.5-14.5) [facility] [place] [facility] [place] PLT 182 10*3/uL (150-450) [facility] [place] [facility] [place] MPV 8.5 fL (7.1-10.7) [facility] [place] [facility] [place] ID Date Data Source [id number] 06/24/2020 06:10:27 AM EST [facility] [place] [facility] [place] Name Value Range Interpretation Code Description Data Anyi rce(s) Supporting Document(s) POC NOVA GLU 170 mg/dL (70-99) H [facility] [place] [facility] [place] [facility] ID Date Data Source [id number] 06/23/2020 11:43:17 PM EST [facility] [place] [facility] [place] Name Value Range Interpretation Code Description Data Anyi rce(s) Supporting Document(s) POC NOVA GLU 171 mg/dL (70-99) H [facility] [place] [facility] [place] [facility] ID Date Data Source [id number] 06/23/2020 05:54:10 PM EST [facility] [place] [facility] [place] Name Value Range Interpretation Code Description Data Anyi rce(s) Supporting Document(s) POC NOVA GLU 177 mg/dL (70-99) H [facility] [place] [facility] [place] [facility] ID Date Data Source [id number] 06/23/2020 12:06:39 PM EST [address] [address]Augaxbr Name: ANA HOANGB: 1945Sex: FOrdering Provider: RONIT MOONAuthorizing Prov: RONIT MOONReferrharis Provider: Procedure Performed: XR CHEST PORTABLEExam Date: 06/23/2020 11:52MRN: [id number] Number: [id number] Class: OutpatientAccount #: [id number] for Exam: post central venous access deviceTechnique: AP portable view obtained.Comparison: 04/06/2014Findings: Left-sided port is seen with the tip at the SVC right atrial junction. No evidence of pneumothorax post placement. Some consolidation at the lung bases.IMPRESSION: Left-sided port is described. No evidence of pneumothorax.Bibasilar atelectasis.Report electronically signed by: ERIK COELHO On 06/23/2020 12:06 PMWorkstation ID: [id number] Name Value Range Interpretation Code Description Data Anyi rce(s) Supporting Document(s) ID Date Data Source [id number] 06/23/2020 11:31:31 AM EST [facility] [place] [facility] [place] Name Value Range Interpretation Code Description Data Anyi rce(s) Supporting Document(s) POC NOVA GLU 173 mg/dL (70-99) H [facility] [place] of [place] PERFOR[facility] BY [facility] ID Date Data Source [id number] 06/23/2020 10:58:51 AM EST [facility] NT INFORMATIONPatient MRN Name Date of Age Gend*PT [id number] Ana Alarcon 1945 74 years F OBSPT Location Admission Date/Time Visit ID [facility]/22/20 1228 --- Vinny Flynn MD([id number]) EPI ID CSN Admitting Provider [id number] Vinny Flynn MD([id number])Patient: Ana AlarconSurgery Date: 06/23/2020Surgeon(s):Shelby Crews MDOR Tire Beader Maker: ZULMA Bhattiurgical Assist: Ronit Moon, PARadiology Tech: Aneesh Urban Relief Tire Beader Maker: Emy Cody RNOR Scrub Person: Agnieszka Fish; [...] rce(s) Supporting Document(s) ID Date Data Source [id number] 06/23/2020 10:44:16 AM EST [address] [address]Gwmnaww Name: ANA ALARCONDOB: 1945Sex: FOrdering Provider: RONIT MOONAuthorisouth Prov: RONIT MOONReferrharis Provider: Procedure Performed: XR OR FLUORO VENOUS ACCESS DEVICEExam Date: 06/23/2020 10:42MRN: [id number] Number: [id number] Class: OutpatientAccount #: [id number] for Exam: portTechnique: Fluoroscopy with no digital spot images obtained.Fluoroscopy time: 1 SecondsNumber of Spot Images: 0Comparison: NoneFindings: Fluoroscopy used for port placement. The tip of the port on the image provided is in the right atrium.IMPRESSION: Fluoroscopy for port placement.Report electronically signed by: ERIK COELHO On 06/23/2020 10:44 AMWorkstation ID: [id number] Name Value Range Interpretation Code Description Data Anyi rce(s) Supporting Document(s) ID Date Data Source [id number] 06/23/2020 09:07:28 AM EST [facility] NT INFORMATIONPatient MRN Name Date of Age Gend*PT [id number] Ana Alarcon 1945 74 years F OBSPT Location Admission Date/Time Visit ID Attending [id number] 06/22/20 1228 --- Vinny Flynn MD([id number]) EPI ID [facility] Admitting Provider [id number] Vinny Flynn MD([id number])H&P reviewed. The patient was examined and there are no changes to the H&P.Vinny Flynn MD9:07 AM Name Value Range Interpretation Code Description Data Anyi rce(s) Supporting Document(s) ID Date Data Source [id number] 06/23/2020 07:24:58 AM EST [facility] NT INFORMATIONPatient MRN Name Date of Age Gend*PT [id number] Ana Alarcon 1945 74 years F SDCXPT Location Admission Date/Time Visit ID Attending [id number] 06/22/20 1228 --- Vinny Flynn MD([id number]) EPI ID CSN Admitting Provider [id number] Vinny Flynn MD([id number]) Attestation signed by Vinny Flynn MD at 06/23/2020 7:24 AMI saw and evaluated the patient and reviewed Ronit's note. I agree with thehistory, physical and medical decision making with the following additions,exceptions, and/or observations:Signature: Vinny Flynn MDDate: June 23, 2020Time: 7:24 AM --Inpatient History & PhysicalSylvia Reg AlarconN: [id number] and Plan :Active Problems: * No active [...] file Gets together: Not on file Attends sikh service: Not on file Active member of [...] rce(s) Supporting Document(s) ID Date Data Source [id number] 06/23/2020 09:10:41 AM EST [facility] [place] [facility] Name Value Range Interpretation Code Description Data Anyi rce(s) Supporting Document(s) SODIUM 149 mmol/L (136-145) H [facility] [place] [facility] [place] POTASSIUM 3.1 mmol/L (3.6-5.2) L [facility] [place] [facility] [place] CHLORIDE 118 mmol/L (100-108) H [facility] [place] [facility] [place] CO2 24 mmol/L (22-31) [facility] [place] [facility] [place] ANION GAP 7 mmol/L (7-16) [facility] [place] [facility] [place] UREA NITROGEN 6 mg/dL (7-24) L [facility] [place] [facility] [place] CREATININE 0.57 mg/dL (0.60-1.00) L [facility] [place] [facility] [place] BUN/CREAT RATIO 10.5 RATIO (10.0-20.0) [facility] GLUCOSE 84 mg/dL (70-99) [facility] [place] [facility] [place] CALCIUM 6.3 mg/dL (8.4-10.2) L [facility] [place] [facility] [place] GFR >60 ml/min/1.73m2 (>59) [facility] [place] [facility] [place] GFR ( AMER) >60 ml/min/1.73m2 (>59) [facility] [place] [facility] [place] GFR INTERPRETATION [facility] [place] --NORMAL KIDNEY FUNCTION OR MILD DISEASE - GFR >OR= 60CHRONIC KIDNEY DISEASE - GFR 15 - 59RENAL FAILURE - GFR <15 Est. GFR calculation based on the MDRDstudy equation, which assumes a steadystate for creatinine. Est. GFR should notbe used for medication dosing. ID Date Data Source [id number] 06/23/2020 08:51:59 AM EST [facility] [place] [facility] [place] Name Value Range Interpretation Code Description Data Anyi rce(s) Supporting Document(s) WBC 3.9 10*3/uL (4.1-11.0) L [facility] [place] [facility] [place] RBC 3.34 10*6/uL (4.00-5.40) L [facility] [place] [facility] [place] HGB 9.7 g/dL (12.0-16.0) L [facility] [place] [facility] [place] HCT 30.0 % (36.0-47.0) L [facility] [place] [facility] [place] PERFORMED AT [address] [place] [address] [place] [address] MCV 89.6 fL (80.0-95.0) [facility] [place] [facility] [place] MCH 29.0 pg (27.0-32.0) [facility] [place] [facility] [place] MCHC 32.4 g/dL (32.0-36.0) [facility] [place] [facility] [place] RDW 14.1 % (10.5-14.5) [facility] [place] [facility] [place] PLT 141 10*3/uL (150-450) L [facility] [place] [facility] [place] MPV 8.8 fL (7.1-10.7) [facility] [place] [facility] [place] ID Date Data Source [id number] 06/22/2020 07:43:27 PM EST [facility] NT INFORMATIONPatient MRN Name Date of Age Gend*PT [id number] Ana Alarcon 1945 74 years F SDCXPT Location Admission Date/Time Visit ID Attending [id number] 06/22/20 1228 --- Vinny Flynn MD([id number]) EPI ID CSN Admitting Provider [id number] Vinny Flynn MD([id number])Helene Krishnamurthy NPNurse PractitionerInternal MedicineH&PSignedEncounter Date: 06/10/2020 Related [...] parts of this document, were dictated using [employer] speaking software. A reasonable attempt at proofreading has beenmade to minimize errors. Please call with any questions or corrections. Name Value Range Interpretation Code Description Data Anyi rce(s) Supporting Document(s) ID Date Data Source [id number] 06/22/2020 04:27:07 PM EST [facility] [place] Name Value Range Interpretation Code Description Data Anyi rce(s) Supporting Document(s) POC NOVA GLU 108 mg/dL (70-99) H [facility] [place] [facility]FOR[facility] BY [facility] ID Date Data Source [id number] 06/22/2020 02:30:00 PM EST [facility] [place] Name Value Range Interpretation Code Description Data Anyi rce(s) Supporting Document(s) SARS coronavirus 2 RNA [Presence] in Res piratory specimen by POLO with probe detection Lab [facility] This lab was reported by [facility] [place] [facility]. ID Date Data Source [id number] 06/22/2020 07:27:00 PM EST [facility] Name Value Range Interpretation Code Description Data Anyi rce(s) Supporting Document(s) SPECIMEN DESCRIPTION [facility] COVID19 RESULT (NDET) [facility] THIS ASSAY AMPLIFIES AND DETECTSTHE TARG ET RNA USING REAL-TIME PCR.NEGATIVE 2019_NCOV RT-PCR RESULTS DONOT PRECLUDE 2019_NCOV INFECTION ANDSHOULD NOT BE USED THE SOLE BASISFOR PATIENT MANAGEMENT DECISIONS. COMMENT [facility] [place] [facility] [place] UNDER AN EMERGENCY USE AUTHORIZATION(EUA ) FOR THE DETECTION AND/OR DIAGNOSISOF THE VIRUS THAT CAUSES COVID-19.RESULTS EMAILED TO [facility] AT [phone]. [phone]. FIRST TEST [facility] [place] [facility] [place] EMPLOYED IN HLTHCARE [facility] SYMPTOMATIC [facility] [place] [facility] [place] DATE OF SYMPT ONSET [facility] HOSPITALIZED [place] [facility] ICU [facility] [place] [facility] [place] CONGREGATE CARE SET [facility] [place] [facility] [place] [facility] [place] ID Date Data Source [id number] 06/22/2020 03:20:29 PM EST [facility] Name Value Range Interpretation Code Description Data Anyi rce(s) Supporting Document(s) SODIUM 144 mmol/L (136-145) [facility] [place] [facility] [place] POTASSIUM 4.0 mmol/L (3.6-5.2) [facility] [place] [facility] [place] CHLORIDE 108 mmol/L (100-108) [facility] [place] [facility] [place] CO2 31 mmol/L (22-31) [facility] [place] [facility] [place] ANION GAP 5 mmol/L (7-16) L [facility] [place] [facility] [place] UREA NITROGEN 8 mg/dL (7-24) [facility] [place] [facility] [place] CREATININE 1.01 mg/dL (0.60-1.00) H [facility] [place] [facility] [place] BUN/CREAT RATIO 7.9 RATIO (10.0-20.0) L [facility] [place] [facility] [place] GLUCOSE 140 mg/dL (70-99) H [facility] [place] [facility] [place] CALCIUM 9.7 mg/dL (8.4-10.2) [facility] [place] [facility] [place] TOTAL PROTEIN 7.0 g/dL (6.4-8.2) [facility] [place] [facility] [place] ALBUMIN 3.6 g/dL (3.2-4.5) [facility] [place] [facility] [place] GLOBULIN 3.4 g/dL (2.7-4.3) [facility] [place] [facility] [place] ALB/GLOB RATIO 1.1 RATIO [facility] [place] [facility] [place] ALKALINE PHOSPHATASE 99 U/L (45-117) [facility] [place] BILIRUBIN,TOTAL 1.1 mg/dL (0.0-1.0) H [facility] [place] [facility] [place] PLEASE NOTE:Total bilirubin results may be falselyelevated in patients taking Eltrombopag. AST (SGOT) 22 U/L (11-39) [facility] [place] [facility] [place] ALT (SGPT) 24 U/L (12-78) [facility] [place] [facility] [place] GFR 54 ml/min/1.73m2 (>59) L [facility] [place] [facility] [place] GFR ( AMER) >60 ml/min/1.73m2 (>59) [facility] [place] [facility] [place] GFR INTERPRETATION [facility] [place] --NORMAL KIDNEY FUNCTION OR MILD DISEASE - GFR >OR= 60CHRONIC KIDNEY DISEASE - GFR 15 - 59RENAL FAILURE - GFR <15 Est. GFR calculation based on the MDRDstudy equation, which assumes a steadystate for creatinine. Est. GFR should notbe used for medication dosing. ID Date Data Source [id number] 06/22/2020 02:41:40 PM EST [facility] [place] [facility] [place] Name Value Range Interpretation Code Description Data Anyi rce(s) Supporting Document(s) WBC 6.8 10*3/uL (4.1-11.0) [facility] [place] [facility] [place] RBC 4.84 10*6/uL (4.00-5.40) [facility] [place] [facility] [place] HGB 14.5 g/dL (12.0-16.0) [facility] [place] [facility] [place] HCT 42.4 % (36.0-47.0) [facility] [place] [facility] [place] PERFORMED [place] [address] [place] [address] MCV 87.7 fL (80.0-95.0) [facility] [place] [facility] [place] MCH 29.9 pg (27.0-32.0) [facility] [place] [facility] [place] MCHC 34.1 g/dL (32.0-36.0) [facility] [place] [facility] [place] RDW 14.8 % (10.5-14.5) H [facility] [place] [facility] [place] PLT 240 10*3/uL (150-450) [facility] [place] [facility] [place] MPV 8.8 fL (7.1-10.7) [facility] [place] [facility] [place] ID Date Data Source [id number] 06/20/2020 03:46:28 PM EST [facility] NT INFORMATIONPatient MRN Name Date of Age Gend*PT [id number] Ana Alarcon 1945 74 years F ---PT Location Admission Date/Time Visit ID Attending Provider --- --- --- --- EPI ID CSN Admitting Provider [id number] ---Ana AlarconMRN: [id number] for consult: Patient presents to the office [...] placement of her jejunostomy tube and a Hzbw-X-Mareefe initial neoadjuvant therapy I will also ask Dr. Carrington to consult and onherThis office visit is completed on my behalf by Dr. Michael Flynn MD06/20/20 Name Value Range Interpretation Code Description Data Anyi rce(s) Supporting Document(s) ID Date Data Source [id number] 06/16/2020 03:06:24 PM EST [facility] NT INFORMATIONPatient MRN Name Date of Age Gend*PT [id number] Ana Alacron 1945 74 years F OPPT Location Admission Date/Time Visit ID Attending Provider --- --- --- --- EPI ID CSN Admitting Provider [id number] ---Addendum created 06/16/20 1506 by Rolo Whitman CRNA Intraprocedure Flowsheets edited Name Value Range Interpretation Code Description Data [facility]) Supporting Document(s) ID Date Data Source [id number] 06/16/2020 11:48:23 AM EST [facility] NT INFORMATIONPatient MRN Name Date of Age Gend*PT [id number] Ana Alarcon 1945 74 years F OPPT Location Admission Date/Time Visit ID [facility]/16/20 0836 --- Lit Gerber DO([id number]) EPI ID CSN Admitting Provider [id number] Lit Gerber DO([id number])Endoscopic Gastroduodenoscopy with Endoscopic Ultrasound Procedure NotePatient: Ana [...] Low Setting High Applied By Endoscope ENDOSCOPE [id number] Lit Gerber DO ERCP Scope (ENDO) Radial Endoscope Ultrasound (ENDO) ENDOSCOPE RADIAL ULTRASOUND [id number] DO Agustina Linear Endoscope Ultrasound (ENDO) Endoscopic [...] rce(s) Supporting Document(s) ID Date Data Source [id number] 06/16/2020 11:04:28 AM EST [facility] NT INFORMATIONPatient MRN Name Date of Age Gend*PT [id number] Ana Alarcon 1945 74 years F OPPT Location Admission Date/Time Visit ID [facility] 06/16/20 0836 --- Lit Gerber DO([id number]) EPI ID CSN Admitting Provider [id number] Lit Gerber DO([id number])H&P reviewed. The patient was examined and there are no changes to the H&P.Lit Gerber DO11:04 AM Name Value Range Interpretation Code Description Data Anyi rce(s) Supporting Document(s) ID Date Data Source [id number] 06/16/2020 05:36:18 PM EST [facility] Name Value Range Interpretation Code Description [facility] Document(s) POC NOVA GLU 103 mg/dL (70-99) H [facility] [place] PERFOR[facility] BY [facility] ID Date Data Source [id number] 06/16/2020 07:10:00 AM EST [facility] Name Value Range Interpretation Code Description Data Anyi rce(s) Supporting Document(s) SARS coronavirus 2 RNA [Presence] in Res piratory specimen by POLO with probe detection [facility] [place] [facility] [place] This lab was reported by [facility] [place] [facility]. ID Date Data Source [id number] 06/16/2020 08:14:03 AM EST [facility] [place] [facility] Name Value Range Interpretation Code Description Data Anyi rce(s) Supporting Document(s) SPECIMEN DESCRIPTION [facility] INFLUENZA A (NEG) [facility] [place] [facility] L[facility] Y INFLUENZA B (NEG) [facility] [place] RSV (NEG) [facility] COMMENT [facility] UNDER AN EMERGENCY USE AUTHORIZATION(EUA ) FOR THE DETECTION AND/OR DIAGNOSISOF THE VIRUS THAT CAUSES COVID-19.PERFORMED AT [address] [place] [id number] COVID19 RESULT (NDET) [facility] DON[place] THIS ASSAY AMPLIFIES AND DETECTSTHE TARG ET RNA USING REAL-TIME PCR.NEGATIVE 2019_NCOV RT-PCR RESULTS DONOT PRECLUDE 2019_NCOV INFECTION ANDSHOULD NOT BE USED THE SOLE BASISFOR PATIENT MANAGEMENT DECISIONS. FIRST TEST [facility] [place] [facility] [place] EMPLOYED IN HLTHCARE [facility] [place] SYMPTOMATIC [facility] [place] [facility] [place] Y DATE OF SYMPT ONSET [facility] [place] HOSPITALIZED [facility] [place] [facility] ICU [facility] [place] [facility] [place] CONGREGATE CARE SET [facility] [place] [facility] [place] ID Date Data Source [id number] 06/14/2020 12:36:27 PM EST [facility] NT INFORMATIONPatient MRN Name Date of Age Gend*PT [id number] Ana Alarcon 1945 74 years F OPPT Location Admission Date/Time Visit ID Attending ProviderArabella Pearson 06/14/20 0944 --- Lit Gerber DO([id number]) EPI ID CSN Admitting Provider [id number] Lit Gerber DO([id number])Endoscopic Gastroduodenoscopy Procedure NotePatient: Ana MunozramsesSurgery Date: June [...] Low Setting High Applied By Endoscope ENDOSCOPE [id number] Lit Gerber DO ERCP Scope (ENDO) Radial [...] rce(s) Supporting Document(s) ID Date Data Source [id number] 06/14/2020 11:48:57 AM EST [facility] NT INFORMATIONPatient MRN Name Date of Age Gend*PT [id number] Scott Ana M 1945 74 years F OPPT Location Admission Date/Time Visit ID Attending ProviderSherrio Michel 06/14/20 0944 --- Lit Gerber DO([id number]) EPI ID [facility] Admitting Provider [id number] Lit Gerber DO([id number])HISTORY AND PHYSICALSylvia Reg AlarconMRN: [id number]: Esophageal cancerPLAN:1. Proceed with EUS for cancer [...] Take 10 mg by mouth daily 06/13/2020 [id number] Flaxseed, Linseed, (FLAXSEED OIL PO) Take by mouth Past Week at Unknown time FLUoxetine (PROZAC) 10 MG capsule Take 10 mg by mouth daily 06/13/2020 [id number] glipiZIDE (GLUCOTROL) 10 MG 24 hr tablet [...] Take 40 mg by mouth daily 06/13/2020 [id number] sitaGLIPtin (JANUVIA) 100 MG tablet Take 100 mg by mouth daily 06/13/2020 [id number] torsemide (DEMADEX) 10 MG tablet Take 10 [...] rce(s) Supporting Document(s) ID Date Data Source [id number] 06/10/2020 12:07:11 PM EST [facility] Name Value Range Interpretation Code Description Data Anyi rce(s) Supporting Document(s) EKG [facility] [id number] [file] [id number] ID Date Data Source [id number] 06/10/2020 12:02:59 PM EST [facility] NT INFORMATIONPatient MRN Name Date of Age Gend*PT [id number] Ana Alarcon 1945 74 years F OPPT Location Admission Date/Time Visit ID Attending Provider --- --- --- Lit Gerber DO([id number]) EPI ID CSN Admitting Provider [id number] ---OUTPATIENT / OBSERVATIONAL SURGICAL OR INVASIVE PROCEDUREName: [...] thyromegaly. No carotid bruits.MENTAL / NEUROLOGICAL STATUS: [id number]: Clear to auscultation. No wheezes, rhonchi or [...] parts of this document, were dictated using [employer]Key software. A reasonable attempt at proofreading has beenmade to minimize errors. Please call with any questions or corrections.* Name Value Range Interpretation Code Description Data Anyi rce(s) Supporting Document(s) ID Date Data Source [id number] 06/10/2020 08:11:31 PM EST [facility] [place] [facility] [place] Name Value Range Interpretation Code Description Data [facility] rce(s) Supporting Document(s) HEMOGLOBIN A1C @ 8.2 % (4.0-6.0) H [facility] [place] [facility] [place] Performed using Siemens [place] immunoassa y.Care must be taken when interpreting NyF2iwmnqqoe in patients with a hemoglobin variantor decreased erythrocyte lifespan. Values 5.7 - 6.4% suggest prediabetes.Values >=6.5% are diagnostic for diabetes.REFERENCE: DIABETES CARE 2018: 41(S13-S27). EST AVERAGE GLUCOSE 189 mg/dL [facility] ID Date Data Source [id number] 06/10/2020 07:11:46 PM EST [facility] [place] [facility] Name Value Range Interpretation Code Description Data [facility] Document([facility]) SODIUM 141 mmol/L (136-145) [facility] [place] [facility] [place] POTASSIUM 4.8 mmol/L (3.6-5.2) [facility] [place] [facility] [place] CHLORIDE 103 mmol/L (100-108) [facility] [place] [facility] [place] CO2 30 mmol/L (22-31) [facility] [place] [facility] ANION GAP 8 mmol/L (7-16) [facility] [place] [facility] [place] UREA NITROGEN 10 mg/dL (7-24) [facility] [place] [facility] [place] CREATININE 1.30 mg/dL (0.60-1.00) H [facility] [place] [facility] [place] BUN/CREAT RATIO 7.7 RATIO (10.0-20.0) L [facility] [place] [facility] [place] GLUCOSE 146 mg/dL (70-99) H [facility] [place] [facility] [place] CALCIUM 9.4 mg/dL (8.4-10.2) [facility] [place] [facility] [place] GFR 40 ml/min/1.73m2 (>59) L [facility] [place] [facility] [place] GFR ( AMER) 49 ml/min/1.73m2 (>59) L [facility] [place] [facility] [place] GFR INTERPRETATION [facility] [place] --NORMAL KIDNEY FUNCTION OR MILD DISEASE - GFR >OR= 60CHRONIC KIDNEY DISEASE - GFR 15 - 59RENAL FAILURE - GFR <15 Est. GFR calculation based on the MDRDstudy equation, which assumes a steadystate for creatinine. Est. GFR should notbe used for medication dosing. ID Date Data Source [id number] 06/10/2020 06:05:00 PM EST [facility] [place] [facility] [place] Name Value Range Interpretation Code Description Data Anyi rce(s) Supporting Document(s) WBC 6.3 10*3/uL (4.1-11.0) [facility] [place] [facility] [place] RBC 4.72 10*6/uL (4.00-5.40) [facility] [place] [facility] [place] HGB 13.7 g/dL (12.0-16.0) [facility] [place] [facility] [place] HCT 42.2 % (36.0-47.0) [facility] [place] [facility] [place] MCV 89.4 fL (80.0-95.0) [facility] [place] [facility] [place] MCH 29.0 pg (27.0-32.0) [facility] [place] [facility] [place] MCHC 32.4 g/dL (32.0-36.0) [facility] [place] [facility] [place] RDW 14.2 % (10.5-14.5) [facility] [place] [facility] [place] PLT 229 10*3/uL (150-450) [facility] [place] [facility] [place] MPV 8.5 fL (7.1-10.7) [facility] [place] [facility] [place] ID Date Data Source [id number] 06/10/2020 10:10:00 AM EST [facility] Name Value Range Interpretation Code Description Data Anyi rce(s) Supporting Document(s) SARS coronavirus 2 RNA [facility] This lab was ordered by [facility] and reported by [employer] ID Date Data Source [id number] 06/11/2020 03:07:37 PM EST [facility] Name Value Range Interpretation Code Description Data Anyi rce(s) Supporting Document(s) SARS-COV-2 POLO [facility] Not DetectedReference range: Not Detecte d Testing was performed using the janina(R) SARS-CoV-2 test. This nucleic acid amplification test was developed and its performance characteristics determined by [employer]. Nucleic acid amplification tests include PCR and [...] result in this assay. Performed At: [facility] [id number] Lewis Martinez MD Ph:[phone] ID Date Data Source [id number] 05/12/2020 09:27:00 AM EDT [facility] Patient: ANA ALARCON Observation Report - Phys[facility]VisitID: [id number] [place] [address] [phone], FRegistration Date/Time: 05/11/2020 12:28 Weight:103.4 kg (S). [...] Name Value Range Interpretation Code Description Data [facility](s) Supporting Document(s) ID Date Data Source [id number] 05/11/2020 04:47:00 PM [facility] TSYSORDER [id number] Name Value Range Interpretation Code Description Data [facility] Supporting Document(s) URINE RBC 3-5 /hpf 0-3 H [facility] URINE WBC 1-3 /hpf 0-5 [facility] URINE EPITHELIAL CELLS 1+ /hpf 0 [facility] URINE BACTERIA TRACE NONE SEEN [facility] URINE MUCUS TRACE NEGATIVE [facility] ID Date Data Source [id number] 05/11/2020 04:40:00 PM T [facility] ital TSYSORDER [id number] Name Value Range Interpretation Code Description Data Anyi rce(s) Supporting Document(s) URINE COLOR. [facility] URINE APPEARANCE CLEAR [facility] GLUCOSE (UA) 500 mg/dL [facility] UR[facility] BILIRUBIN NEGATIVE NEGATIVE [facility] URINE KETONE NEGATIVE mg/dL NEGATIVE [facility] SPECIFIC GRAVITY,URINE 1.010 1.001-1.035 [facility] URINE BLOOD 1+(SMALL) NEGATIVE [facility] PH,URINE 6.0 5.0-9.0 [facility] URINE PROTEIN 2+(100) mg/dL NEGATIVE [facility] al URINE UROBILINOGEN NORMAL(0.2-1) mg/dL 0-1 [facility] URINE NITRATE NEGATIVE NEGATIVE [facility] URINE LEUKOCYTE ESTERASE NEGATIVE NEGATIVE [facility] ID Date Data Source [id number] 05/11/2020 01:35:00 PM EDT [facility] l TSYSORDER [id number] Name Value Range Interpretation Code Description Data Anyi rce(s) Supporting Document(s) MAGNESIUM 2.1 mg/dL 1.8-2.4 [facility] ID Date Data Source [id number] 05/11/2020 01:35:00 PM EDT [facility] l TSYSORDER [id number] Name Value Range Interpretation Code Description Data Anyi rce(s) Supporting Document(s) LIPASE 64 U/L 73-393 L [facility] ID Date Data Source [id number] 05/11/2020 01:35:00 PM EDT [facility] l TSYSORDER [id number] Name Value Range Interpretation Code Description Data Anyi rce(s) Supporting Document(s) GLUCOSE 176 mg/dL 74-106 H [facility] BLOOD UREA NITROGEN 18 mg/dL 7-18 [facility] ital CREATININE 1.6 mg/dL 0.6-1.0 H [facility] SODIUM 138 mmol/L 136-145 [facility] POTASSIUM 4.2 mmol/L 3.5-5.1 [facility] CHLORIDE 100 mmol/L 98-107 [facility] CO2 27 mmol/L 21-32 [facility] CALCIUM 9.4 mg/dL 8.5-10.1 [facility] ANION GAP 11.0 mmol/L 5-12 [facility] GLOMERULAR FILTRATION RATE 32 mL/min [facility] GFR IS CALCULATED IN mL/min/1.73m2 FELIZ L FUNCTION: >90MILDLY DECREASED: 60-89MILDY TO MODERATELY DECREASED: 45-59 MODERATELY TO SEVERELY DECREASED: 30-44SEVERELY DECREASED: 15-29RENAL FAILURE: <15 AST 17 U/L 15-37 [facility] ALT 20 U/L 12-78 [facility] ALKALINE PHOSPHATASE 93 U/L 46-116 [facility] TOTAL BILIRUBIN 1.0 mg/dL 0.2-1.0 [facility] TOTAL PROTEIN 7.7 g/dl 6.4-8.2 [facility] ALBUMIN 3.8 gm/dL 3.4-5.0 [facility] ID Date Data Source [id number] 05/11/2020 01:19:00 PM EDT [facility] TSYSORDER [id number] Name Value Range Interpretation Code Description Data Anyi rce(s) Supporting Document(s) WHITE BLOOD COUNT 6.6 K/mm3 4.0-10.[address] [facility] al RED BLOOD COUNT 4.90 M/mm3 4.00-5.50 [facility] HEMOGLOBIN 14.0 gm/dL 12.0-16.0 [facility] HEMATOCRIT 42.9 % 36.0-48.8 [facility] MEAN CELL VOLUME 87.6 fl 80-96 [facility] MEAN CORPUSCULAR HEMOGLOBIN 28.6 pg 27.0-31.0 [facility] MEAN CORPUSCULAR HGB CONC 32.6 g/dl 32.0-36.0 [facility] RED CELL DISTRIBUTION WIDTH 13.2 % 10.0-14.5 [facility] PLATELET COUNT 259 K/mm3 172-450 [facility] MEAN PLATELET VOLUME 9.7 fl 9.0-13.0 [facility] pital GRAN % 65.4 % 50-80.0 [facility] IG% 0.5 % 0.0-0.2 H [facility] LYMPH % 23.6 % 25.0-50.0 L [facility] MONO % 8.2 % 2.0-10.0 [facility] EOS % 2.0 % 0-5.0 [facility] BASO % 0.3 % 0.0-2.0 [facility] GRAN # 4.3 K/mm3 2.0-8.00 [facility] IG# 0.0 K/mm3 0.0-0.2 [facility] LYMPH # 1.6 K/mm3 1.0-5.0 [facility] MONO # 0.5 K/mm3 0.10-1.20 [facility] EOS # 0.1 K/mm3 0.0-0.5 [facility] BASO # 0.0 K/mm3 0.0-0.2 [facility] ID Date Data Source [id number] 05/09/2020 01:18:00 PM EDT [facility] ([facility]) Name Value Range Interpretation Code Description Data Anyi rce(s) Supporting Document(s) Microscopic observation [Identifier] in Unspecified specimen by Non- gynecological cytology method Laboratory test result [facility] ([facility]) SPECIMEN: FNA Right thyroid Specimen received in Cytolyt SPECIMEN ADEQUACY: Satisfactory for evaluation CATEGORIZATION: Benign DESCRIPTIONS: 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 The background consists predominately of blood elements. COMMENTS: 05/10/2020 - [address](ASCP) 05/10/2020 0847 (Prelim) Signed STERLING BROWN MD 05/10/2020 1117 ID Date Data Source [id number] 05/09/2020 07:46:00 AM EDT [facility] ([facility]) Name Value Range Interpretation Code Description Data Anyi rce(s) Supporting Document(s) Surgical Pathology Consult Laboratory test result [facility] ([facility]) Surgical Pathology Report Name: ANA ALARCON Collection Date: 05/09/2020 00:00 Received Date: 05/09/2020 07:48 Physician(s): LINDA NGUYỄN MD VYAS,STERLING Haynes MD Specimen(s) Received A: Material received for consultation Clinical History Dysphagia. Endoscopy with stricture. Adenocarcinoma of esophagus. Please test for HER2 IHC with reflex to FISH. Diagnosis IMMUNOHISTOCHEMISTRY, ESOPHAGUS STRICTURE, BIOPSY ([id number]; 04/29/20): HER2: Negative (1+). Electronically Signed By Duarte Morejon MD;, Attending Pathologist 05/10/2020 16:16:04 Unless 'gross-only' is specified, the final diagnosis is based on a microscopic examination of customer operations representative sections of tissue. Gross Description Received from [facility] in [place], [place] is one paraffin block labeled [id number] with the corresponding pathology report. /jrs This report may include one or more immunohistochemical stain results that use analyte specific reagents. All positive and negative controls have been reviewed by the attending pathologist and are satisfactory. The tests were developed and their performance characteristics determined by [facility] Pathology department. They have not been cleared or approved by the US Food and Drug Administration. The FDA has determined that such clearance or approval is not necessary. ID Date Data Source [id number] 05/10/2020 04:16:00 PM [facility] Surgical Pathology ReportName: Mary ALARCONMRN: [id number] Number: [id number] Date: 05/09/2020 00:00Received Date: 05/09/2020 07:48Physician(s): LINDA NGUYỄN MD VYAS, SHIKHAR G, MDSpecimen(s) ReceivedA: Material received for consultationClinical HistoryDysphagia. Endoscopy with stricture. Adenocarcinoma of esophagus. Please test for HER2 IHC with reflex to FISH.DiagnosisIMMUNOHISTOCHEMISTRY, ESOPHAGUS STRICTURE, BIOPSY ([id number]; 04/29/20): HER2: Negative (1+). Electronically Signed By Duarte Morejon MD;, Attending Rxzamkylpgd17/6/2020 16:16:04 Unless 'gross-only' is specified, the final diagnosis is based on amicroscopic examination of customer operations representative sections of tissue.Gross DescriptionReceived from [facility] in [place], [place] is one paraffinblock labeled [id number] with the corresponding pathology report./jrsThis report may include one or more immunohistochemical stain results thatuse analyte specific reagents. All positive and negative controls havebeen reviewed by the attending pathologist and are satisfactory. The testswere developed and their performance characteristics determined by [facility] Pathology department. They have not been cleared or approved by the USFood and Drug Administration. The FDA has determined that such clearanceor approval is not necessary. Name Value Range Interpretation Code Description Data Anyi rce(s) Supporting Document(s) ID Date Data Source [id number] 04/29/2020 02:39:00 PM EDT [facility] ([facility]) Name Value Range Interpretation Code Description Data [facility](s) Supporting Document(s) Surgical pathology study Laboratory test result [facility] ([facility]) Addendum 1 Entered: 05/12/2020-0846 This addendum is being issued to report additional results of HER-2 testing. Esophagus, stricture, biopsy: Adenocarcinoma - 4/TR HER-2 IHC: Negative (1+) Please see the scanned documentation for the full consultation report ([id number]). 05/12/2020845 Addendum Signed____ STERLING BROWN MD 05/12/2020845 [...] BROWN MD 05/04/2020817 ID Date Data Source [id number] 04/24/2020 10:00:00 AM EDT [facility] Name Value Range Interpretation Code Description Data Anyi rce(s) Supporting Document(s) SARS coronavirus 2 RNA [facility] This lab was ordered by [facility] and reported by [employer]. ID Date Data Source [id number] 04/12/2020 10:39:00 PM EDT [facility] Patient: ANA ALARCON Observation Report - Physicians/Mid Levels HospitalVisitID: [id number] [place] [address] [phone], FRegistration Date/Time: 04/12/2020 18:08 Weight:106.5 kg. Height/Length:62 [...] rce(s) Supporting Document(s) ID Date Data Source [id number] 04/12/2020 09:48:00 PM EDT [facility] l TSYSORDER [id number] Name Value Range Interpretation Code Description Data Anyi rce(s) Supporting Document(s) URINE RBC 3-5 /hpf 0-3 H [facility] URINE WBC 1-3 /hpf 0-5 [facility] URINE EPITHELIAL CELLS 1+ /hpf [facility] URINE BACTERIA 1+ NONE SEEN [facility] URINE AMORPHOUS SEDIMENT 1+ [facility] ID Date Data Source [id number] 04/12/2020 09:40:00 PM EDT [facility] ital TSYSORDER [id number] Name Value Range Interpretation Code Description Data Anyi rce(s) Supporting Document(s) URINE COLOR. [facility] URINE APPEARANCE CLEAR [facility] SPECIFIC GRAVITY,URINE 1.010 1.001-1.035 [facility] URINE LEUKOCYTE ESTERASE TRACE NEGATIVE [facility] URINE NITRATE NEGATIVE NEGATIVE [facility] PH,URINE 5.0 5.0-9.0 [facility] URINE PROTEIN 1+(30) mg/dL NEGATIVE [facility] l URINE GLUCOSE (UA) 500 mg/dL NEGATIVE [facility] URINE KETONE NEGATIVE mg/dL NEGATIVE [facility] al URINE UROBILINOGEN NORMAL(0.2-1) mg/dL 0-1 R [facility] URINE BILIRUBIN NEGATIVE NEGATIVE [facility] URINE BLOOD TRACE NEGATIVE [facility] ID Date Data Source [id number] 04/12/2020 08:06:00 PM EDT [facility] l TSYSORDER [id number] Name Value Range Interpretation Code Description Data Anyi rce(s) Supporting Document(s) ACETONE,SERUM OR URINE NEGATIVE NEGATIVE [facility] ID Date Data Source [id number] 04/12/2020 07:53:00 PM EDT [facility] l TSYSORDER [id number] Name Value Range Interpretation Code Description Data Anyi rce(s) Supporting Document(s) PH 7.31 7.31-7.41 [facility] VENOUS PCO2 51.8 mmHg 41-51 H [facility] VENOUS PO2 39 mmHg 35-42 [facility] VENOUS BLODD O2 SATURATION 62.7 % 68-77 L [facility] VENOUS BLOOD HCO3 25.2 meq/L 24.0-25.0 H [facility] VENOUS BASE EXCESS -1.1 -3.0-3.0 [facility] VENOUS BLOOD CO2 26.8 mmol/L 23.0-32.0 [facility] ID Date Data Source [id number] 04/14/2020 10:05:00 AM EDT [facility] Name Value Range Interpretation Code Description Data Anyi rce(s) Supporting Document(s) THYROXINE (T4) 6.3 ug/dL 4.5-12.0 [facility] Performed at: RN - [facility] [place] [id number] Director: Naya Saucedo MD, Phone: [phone] ID Date Data Source [id number] 04/14/2020 10:05:00 AM EDT [facility] Name Value Range Interpretation Code Description Data Anyi rce(s) Supporting Document(s) Thyroxine (T4) 6.3 ug/dL 4.5-12.0 [facility] ID Date Data Source [id number] 04/12/2020 07:51:00 PM EDT [facility] TSYSORDER [id number] Name Value Range Interpretation Code Description Data Anyi rce(s) Supporting Document(s) Adenovirus Not Detected Detected Not [facility] Coronavirus 229E Not Detected Detected Not [facility] Coronavirus HKU1 Not Detected Detected Not [facility] Coronavirus NL63 Not Detected Detected Not [facility] Coronavirus OC43 Not Detected Detected Not [facility] Sars Cov 2 Not Detected Detected Not [facility] Metapneumovirus Not Detected Detected Not [facility] Human Rhinovirus Not Detected Detected Not [facility] Influenza A Not Detected Detected [facility] Influenza B Not Detected Detected Not [facility] Parainfluenza Virus 1 Not Detected Detected Not [facility] Parainfluenza Virus 2 Not Detected Detected Not [facility] Parainfluenza Virus 3 Not Detected Detected Not [facility] Parainfluenza Virus 4 Not Detected Detected Not [facility] Respiratory Syncytial Virus Not Detected Detected Not [facility] Bordetella parapertus ([id number]) Not Detected Detected Not [facility] Bordetella pertussis (ptxP) Not Detected Detected Not [facility] Chlamydia pneumoniae Not Detected Detected Not [facility] Mycoplasma pneumoniae Not Detected Detected Not [facility] The Above results have been determined b y using the [employer] (formerly known as [employer]Array system.[employer] is an automated in vitro diagnostic system thatutilizes nested multiplex Polymerase Chain Reaction (PCR)and high-resolution melting analysis to detect and identifymultiple nucleic acid targets from clinical specimens. ID Date Data Source [id number] 04/12/2020 07:47:00 PM EDT [facility] TSYSORDER [id number] Name Value Range Interpretation Code Description Data Anyi rce(s) Supporting Document(s) MAGNESIUM 1.6 mg/dL 1.8-2.4 L [facility] ID Date Data Source [id number] 04/12/2020 07:47:00 PM EDT [facility] [id number] Name Value Range Interpretation Code Description Data Anyi rce(s) Supporting Document(s) CREATINE PHOSPHOKINASE 63 U/L 26-192 [facility] ID Date Data Source [id number] 04/12/2020 07:47:00 PM EDT [facility] l TSYSORDER [id number] Name Value Range Interpretation Code Description Data Anyi rce(s) Supporting Document(s) GLUCOSE 225 mg/dL 74-106 H [facility] BLOOD UREA NITROGEN 30 mg/dL 7-18 H [facility] ital CREATININE 2.0 mg/dL 0.6-1.0 H [facility] SODIUM 137 mmol/L 136-145 [facility] POTASSIUM 4.2 mmol/L 3.5-5.1 [facility] CHLORIDE 98 mmol/L 98-107 [facility] CO2 31 mmol/L 21-32 [facility] CALCIUM 9.0 mg/dL 8.5-10.1 [facility] ANION GAP 8.0 mmol/L 5-12 [facility] GLOMERULAR FILTRATION RATE 24 mL/min [facility] GFR IS CALCULATED IN mL/min/1.73m2 FELIZ L FUNCTION: >90MILDLY DECREASED: 60-89MILDY TO MODERATELY DECREASED: 45-59 MODERATELY TO SEVERELY DECREASED: 30-44SEVERELY DECREASED: 15-29RENAL FAILURE: <15 AST 15 U/L 15-37 [facility] ALT 21 U/L 12-78 [facility] ALKALINE PHOSPHATASE 94 U/L 46-116 [facility] pital TOTAL BILIRUBIN 0.9 mg/dL 0.2-1.0 [facility] TOTAL PROTEIN 7.4 g/dl 6.4-8.2 [facility] ALBUMIN 3.5 gm/dL 3.4-5.0 [facility] ID Date Data Source [id number] 04/12/2020 07:47:00 PM EDT [facility] l TSYSORDER [id number] Name Value Range Interpretation Code Description Data Anyi rce(s) Supporting Document(s) LIPASE 60 U/L [id number] L [facility] ID Date Data Source [id number] 04/12/2020 07:32:00 PM EDT [facility] l TSYSORDER [id number] Name Value Range Interpretation Code Description Data Anyi rce(s) Supporting Document(s) TSH 2.21 uIU/mL 0.36-3.74 [facility] ID Date Data Source [id number] 04/12/2020 07:20:00 PM EDT [facility] TSYSORDER [id number] Name Value Range Interpretation Code Description Data Anyi rce(s) Supporting Document(s) PARTIAL THROMBOPLASTIN TIME 22.7 SECONDS 21.4-30.2 [facility] ID Date Data Source [id number] 04/12/2020 07:20:00 PM EDT [facility] TSYSORDER [id number] Name Value Range Interpretation Code Description Data Anyi rce(s) Supporting Document(s) PROTHROMBIN TIME (PATIENT) 10.2 SECONDS 9.2-11.6 [facility] INR 0.98 0.87-1.06 [facility] ID Date Data Source [id number] 04/12/2020 07:06:00 PM EDT [facility] l TSYSORDER [id number] Name Value Range Interpretation Code Description Data Anyi rce(s) Supporting Document(s) HGBA1C 11.6 % 3.8-5.6 H [facility] Diabetic > or = to 6.5%Prediabetes 5.7-6 .4%Normal <5.7 ID Date Data Source [id number] 04/12/2020 06:54:00 PM EDT [facility] l TSYSORDER [id number] Name Value Range Interpretation Code Description Data Anyi rce(s) Supporting Document(s) WHITE BLOOD COUNT 7.9 K[facility] 4.0-10.0 [facility]LO[facility] 4.68 M/mm3 4.00-5.50 [facility] HEMOGLOBIN 13.7 gm/dL 12.0-16.0 [facility] HEMATOCRIT 41.5 % 36.0-48.8 [facility] MEAN CELL VOLUME 88.7 fl 80-96 [facility] MEAN CORPUSCULAR HEMOGLOBIN 29.3 pg 27.0-31.0 [facility] MEAN CORPUSCULAR HGB CONC 33.0 g/dl 32.0-36.0 [facility] RED CELL DISTRIBUTION WIDTH 12.9 % 10.0-14.5 [facility] PLATELET COUNT 245 K/mm3 172-450 [facility] MEAN PLATELET VOLUME 10.1 fl 9.0-13.0 [facility] pital GRAN % 65.6 % 50-80.0 [facility] IG% 0.4 % 0.0-0.2 H [facility] LYMPH % 23.6 % 25.0-50.0 L [facility] MONO % 7.6 % 2.0-10.0 [facility] EOS % 2.3 % 0-5.0 [facility] BASO % 0.5 % 0.0-2.0 [facility] GRAN # 5.2 K/mm3 2.0-8.00 [facility] IG# 0.0 K/mm3 0.0-0.2 [facility] LYMPH # 1.9 K/mm3 1.0-5.0 [facility] MONO # 0.6 K/mm3 0.10-1.20 [facility] EOS # 0.2 K/mm3 0.0-0.5 [facility] BASO # 0.0 K/mm3 0.0-0.2 [facility] ID Date Data Source [id number] 04/12/2020 12:00:00 AM EDT [facility] Name Value Range Interpretation Code Description Data Anyi rce(s) Supporting Document(s) 2019 Novel Coronavirus RNA [facility] This lab was ordered by [facility] L aboratory and reported by [facility]. ID Date Data Source [id number] 10/28/2019 02:00:00 PM EDT [facility] ([facility]) Name Value Range Interpretation Code Description Data Anyi rce(s) Supporting Document(s) Magnesium [Mass/volume] in Serum or Plasma 1.9 mg/dL 1.6-2.3 [facility] ([facility]) Natriuretic peptide.B prohormone N-Terminal [Mass/volu me] in Serum or Plasma 105 pg/mL 0-301 [facility]) <content>The following cut-points have b een [...] test finding (navigational concept) Laboratory test result [facility] ([facility]) ID Date Data Source [id number] 10/29/2019 08:05:00 AM EDT [facility] Name Value Range Interpretation Code Description Data Anyi rce(s) Supporting Document(s) Magnesium 1.9 mg/dL 1.6-2.3 [facility] ID Date Data Source [id number] 10/30/2019 06:05:00 AM EDT [facility] Name Value [...] independent 300 pg/mL ID Date Data Source [id number] 10/12/2019 05:20:00 PM EDT [facility] Name Value Range Interpretation Code Description Data Anyi rce(s) Supporting Document(s) Hemoglobin A1c/Hemoglobin.total in Blood 8.4 [facility] ([facility]) ID Date Data Source [id number] 10/12/2019 05:20:00 PM EDT [facility] Name Value Range Interpretation Code Description Data Anyi rce(s) Supporting Document(s) Red Blood Count 4.37 4.00-5.40 [facility] ([facility]) White Blood Count 5.1 4.0-10.0 [facility] ([facility]) Platelets 233 172-450 [facility] ([facility]) Hematocrit 40.2 [facility] ([facility]) Hemoglobin 12.7 [facility] ([facility]) ID Date Data Source [id number] 10/12/2019 05:20:00 PM EDT [facility] Name Value Range Interpretation Code Description Data Anyi rce(s) Supporting Document(s) Magnesium Level 2.3 1.8-2.4 [facility] ([facility]) ID Date Data Source [id number] 10/12/2019 05:20:00 PM EDT [facility]) Name Value Range Interpretation Code Description Data Anyi rce(s) Supporting Document(s) Triglycerides 194 [facility] ([facility]) Cholesterol in LDL [Mass/volume] in Serum or Plasma by calculation 16 8 [facility] ([facility]) Cholesterol 269 [facility] ([facility]) HDL 62 [facility] ([facility]) Chol/HDL Ratio 4.338 [facility] ([facility]) ID Date Data Source [id number] 10/12/2019 05:20:00 PM EDT [facility] ([facility]) Name Value Range Interpretation Code Description Data Anyi rce(s) Supporting Document(s) Albumin [Mass/volume] in Serum or Plasma 3.1 [facility] ([facility]) Calcium [Mass/volume] in Serum or Plasma 8.8 [facility] ([facility]) Alanine aminotransferase [Enzymatic activity/volume] in Serum or Pl asma 21 [facility] ([facility]) Chloride [Moles/volume] in Serum or Plasma 105 [facility] ([facility]) Carbon dioxide, total [Moles/volume] in Serum or Plasma 32 [facility] ([facility]) Alkaline phosphatase [Enzymatic activity/volume] in Serum or Plasma 1 01 [facility] ([facility]) Aspartate aminotransferase [Enzymatic activity/volume] in Serum or Plasma 14 [facility] ([facility]) Potassium [Moles/volume] in Serum or Plasma 4.5 [facility] ([facility]) Protein [Mass/volume] in Serum or Plasma 6.6 [facility] ([facility]) Sodium 140 [facility] ([facility] Glucose 170 83-110 [facility] Urea nitrogen [Mass/volume] in Serum or Plasma 21 [facility] ([facility]) Creatinine For GFR 0.85 [facility] ([facility]) Procedure Social History Code Duration Value Status Description Data Source(s ) Alcohol intake 08/14/2020 12:00:00 AM EST No completed [facility] Cigarette pack-years 08/14/2020 12:00:00 AM EST UNK completed [facility] Cigarettes smoked current (pack per day) - Reported 08/14/19 12:00:00 AM EST UNK completed [facility] Smoking 08/14/2020 12:00:00 AM EST Former smoker completed Former smoker [facility] Smoking 06/27/2020 12:00:00 AM EST Former Smoker completed Former Smoker [facility] ([facility]) Smoking 06/27/2020 12:00:00 AM EST Former Smoker completed Former Smoker eCW1 ([facility]) Smoking 06/27/2020 12:00:00 AM EST Former Smoker completed Former Smoker eCW1 ([facility]) Alcohol intake 06/24/2020 12:00:00 AM EST No completed [facility] Cigarette pack-years 06/24/2020 12:00:00 AM EST UNK completed [facility] Cigarettes smoked current (pack per day) - Reported 06/24/20 12:00:00 AM EST UNK completed [facility] Smoking 06/24/2020 12:00:00 AM EST Former smoker completed Former smoker [facility] Alcohol intake 06/10/2020 12:00:00 AM EST No completed [facility] Cigarette pack-years 06/10/2020 12:00:00 AM EST UNK completed [facility] Cigarettes smoked current (pack per day) - Reported 06/10/20 12:00:00 AM EST UNK completed [facility] Smoking 06/10/2020 12:00:00 AM EST Former smoker completed Former smoker [facility] Smoking 06/02/2020 12:00:00 AM EDT Former Smoker completed Former Smoker eCW1 ([facility]) Smoking 03/02/2020 12:00:00 AM EDT Patient is a former smoker completed Patient is a former smoker [facility] ([facility]) Smoking 02/17/2020 12:00:00 AM EDT Former Smoker completed Former Smoker eCW1 ([facility]) Smoking 02/17/2020 12:00:00 AM EDT Former Smoker completed Former Smoker eCW1 ([facility]) Smoking 02/17/2020 12:00:00 AM EDT Former Smoker completed Former Smoker eCW1 ([facility]) Smoking 02/01/2020 12:00:00 AM EDT - 08/05/1995 12:00:00 AM EST Patient is a former smoker completed Patient is a former smoker [facility] Smoking 01/26/2020 12:00:00 AM EDT Former Smoker completed Former Smoker eCW1 ([facility]) Smoking 01/26/2020 12:00:00 AM EDT Former Smoker completed Former Smoker eCW1 ([facility]) Smoking 01/13/2020 12:00:00 AM EDT Former Smoker completed Former Smoker eCW1 ([facility]) Smoking 01/13/2020 12:00:00 AM EDT Former Smoker completed Former Smoker eCW1 ([facility]) Smoking 10/22/2019 12:00:00 AM EDT Former Smoker completed Former Smoker eCW1 ([facility]) Vital Signs ID Date Data Source UNK Name Value Range Interpretation Code Description Data Source(s) Oxygen saturation in Arterial blood by Pulse oximetry 98 % 98 % [facility] Respiratory rate 15 /min 15 /min [facility] Body temperature 36.33 Nicole 36.33 Nicole [facility] Heart rate 61 /min 61 /min [facility] Diastolic blood pressure 70 mm[Hg] 70 mm[Hg] [facility] Systolic blood pressure 121 mm[Hg] 121 mm[Hg] [facility] Body mass index (BMI) [Ratio] 37.86 kg/m2 37.86 kg/m2 [facility] Body weight 93.895 kg 93.895 kg [facility] Body height 157.5 cm 157.5 cm [facility] Oxygen saturation in Arterial blood by Pulse oximetry 99 % 99 % [facility] Respiratory rate 16 /min 16 /min [facility] Body temperature 36.83 Nicole 36.83 Nicole [facility] Heart rate 84 /min 84 /min [facility] Diastolic blood pressure 72 mm[Hg] 72 mm[Hg] [facility] Systolic blood pressure 125 mm[Hg] 125 mm[Hg] [facility] Body mass index (BMI) [Ratio] 40.85 kg/m2 40.85 kg/m2 [facility] Body weight 101.3 kg 101.3 kg [facility] Body height 157.5 cm 157.5 cm [facility] Oxygen saturation in Arterial blood by Pulse oximetry 96 % 96 % [facility] Diastolic blood pressure 70 mm[Hg] 70 mm[Hg] [facility] Systolic blood pressure 130 mm[Hg] 130 mm[Hg] [facility] Body mass index (BMI) [Ratio] 40.84 kg/m2 40.84 kg/m2 [facility] Body weight 101.294 kg 101.294 kg [facility] Body height 157.5 cm 157.5 cm [facility] Diastolic blood pressure mm[Hg] eCW1 ([facility]) Systolic blood pressure 120 mm[Hg] 120 mm[Hg] e CW1 ([facility]) Body temperature 98.2 [degF] 98.2 [degF] eCW1 ( [facility]) Respiratory rate 18 /min 18 /min eCW1 ([facility]) Heart rate 73 /min 73 /min eCW1 ([facility]) Body mass index (BMI) [Ratio] 42.70 kg/m2 42.70 kg/m2 eCW1 ([facility]) Body height [in_i] eCW1 ([facility]) Body weight 226 [lb_av] 226 [lb_av] eCW1 ([facility]) Body surface area Derived from formula 2.06 m2 2.06 m2 [facility] ([facility]) Body weight 108.410 kg 108.410 kg [facility] ([facility]) [place] body weight 110 [lb_av] 110 [lb_av] [facility] T ([facility]) Body mass index (BMI) [Ratio] 43.7 kg/m2 43.7 k g/m2 [facility] ([facility]) Body weight 239.00 [lb_av] 239.00 [lb_av] [facility] T ([facility]) Body height 62 [in_i] 62 [in_i] [facility] 5'2" Body surface area Derived from formula 2.06 m2 2.06 m2 [facility] ([facility]) Body weight 108.410 kg 108.410 kg [facility] ([facility]) [place] body weight 110 [lb_av] 110 [lb_av] [facility] T ([facility]) Body mass index (BMI) [Ratio] 43.7 kg/m2 43.7 k g/m2 [facility] ([facility]) Body weight 239.00 [lb_av] 239.00 [lb_av] [facility] T ([facility]) Body height 62 [in_i] 62 [in_i] [facility] ([facility]) 5'2" Diastolic blood pressure 69 mm[Hg] 69 mm[Hg] [facility] ([facility]) Lt arm Systolic blood pressure 139 mm[Hg] 139 mm[Hg] M [facility] ([facility]) Lt arm Diastolic blood pressure 53 mm[Hg] 53 mm[Hg] [facility] ([facility]) Rt Arm Systolic blood pressure 94 mm[Hg] 94 mm[Hg] M [facility] ([facility]) Rt Arm Diastolic blood pressure--sitting 66 mm[Hg] 66 mm[Hg] [facility] CBP, larhe cuff/Ra Systolic blood pressure--sitting 112 mm[Hg] 112 mm[Hg] [facility] ([facility]) CBP, larhe cuff/Ra Heart rate 73 /min 73 /min [facility] ([facility]) Body mass index (BMI) [Ratio] 45.2 kg/m2 45.2 k g/m2 [facility] ([facility]) Body height 62 [in_i] 62 [in_i] [facility] ([facility]) 5'2" Body weight 247.00 [lb_av] 247.00 [lb_av] [facility] T ([facility]) Diastolic blood pressure 65 mm[Hg] 65 mm[Hg] eCW1 ([facility]) Systolic blood pressure 110 mm[Hg] 110 mm[Hg] e CW1 ([facility]) Body temperature 98.6 [degF] 98.6 [degF] eCW1 ( [facility]) Respiratory rate 18 /min 18 /min eCW1 ([facility]) Heart rate 74 /min 74 /min eCW1 ([facility]) Body mass index (BMI) [Ratio] 47.42 kg/m2 47.42 kg/m2 eCW1 ([facility]) Body height [in_i] eCW1 ([facility]) Body weight 251 [lb_av] 251 [lb_av] eCW1 ([facility]) Diastolic blood pressure 62 mm[Hg] 62 mm[Hg] eCW1 ([facility]) Systolic blood pressure 137 mm[Hg] 137 mm[Hg] e CW1 ([facility]) Body temperature 98 [degF] 98 [degF] eCW1 ([facility]) Respiratory rate 18 /min 18 /min eCW1 ([facility]) Heart rate 79 /min 79 /min eCW1 ([facility]) Body mass index (BMI) [Ratio] 50.25 kg/m2 50.25 kg/m2 eCW1 ([facility]) Body height [in_i] eCW1 ([facility]) Body weight 266 [lb_av] 266 [lb_av] eCW1 ([facility]) Body weight 114.534 kg 114.534 kg [facility] ([facility], ) Body mass index (BMI) [Ratio] 46.2 kg/m2 46.2 k g/m2 [facility] ([facility], ) Body weight 252.50 [lb_av] 252.50 [lb_av] [facility] T ([facility], ) Body height 62 [in_i] 62 [in_i] [facility] ([facility], ) 5'2" Body temperature 97.9 [degF] 97.9 [degF] [facility], [facility] Oxygen saturation in Arterial blood by Pulse oximetry 96 % 96 % [facility] ([facility], ) Heart rate 72 /min 72 /min [facility] ([facility], ) Diastolic blood pressure 68 mm[Hg] 68 mm[Hg] [facility] ([facility], ) Systolic blood pressure 126 mm[Hg] 126 mm[Hg] M EDENT ([facility], ) Diastolic blood pressure--sitting 68 mm[Hg] 68 mm[Hg] [facility] ([facility]) CBP large adult cuff, Ra Systolic blood pressure--sitting 126 mm[Hg] 126 mm[Hg] [facility] ([facility]) CBP large adult cuff, Ra Heart rate 64 /min 64 /min [facility] ([facility]) Body mass index (BMI) [Ratio] 45.4 kg/m2 45.4 k g/m2 [facility] ([facility]) Body height 62 [in_i] 62 [in_i] [facility] ([facility]) 5'2" Body weight 248.00 [lb_av] 248.00 [lb_av] [facility] T ([facility]) Diastolic blood pressure 64 mm[Hg] 64 mm[Hg] eCW1 ([facility]) Systolic blood pressure 139 mm[Hg] 139 mm[Hg] e CW1 ([facility]) Body temperature 97.6 [degF] 97.6 [degF] eCW1 ( [facility]) Respiratory rate 18 /min 18 /min eCW1 ([facility]) Heart rate 64 /min 64 /min eCW1 ([facility]) Body mass index (BMI) [Ratio] 48.37 kg/m2 48.37 kg/m2 eCW1 ([facility]) Body height [in_us] eCW1 ([facility]) Body weight Measured 256 [lb_av] 256 [lb_av] eC W1 ([facility]) Diastolic blood pressure 63 mm[Hg] 63 mm[Hg] eCW1 ([facility]) Systolic blood pressure 103 mm[Hg] 103 mm[Hg] e CW1 ([facility]) Body temperature 98.7 [degF] 98.7 [degF] eCW1 ( [facility]) Respiratory rate 18 /min 18 /min eCW1 ([facility]) Heart rate 79 /min 79 /min eCW1 ([facility]) Body mass index (BMI) [Ratio] 47.23 kg/m2 47.23 kg/m2 eCW1 ([facility]) Body height [in_us] eCW1 ([facility]) Body weight Measured 250 [lb_av] 250 [lb_av] eC W1 ([facility]) Body weight 113.910 kg 113.910 kg [facility]) Body mass index (BMI) [Ratio] 45.9 kg/m2 45.9 k g/m2 [facility] ([facility]) Body weight 251.12 [lb_av] 251.12 [lb_av] [facility] T ([facility]) Body height 62 [in_i] 62 [in_i] [facility] ([facility]) 5'2" Oxygen saturation in Arterial blood by Pulse oximetry 97 % 97 % [facility] ([facility]) Heart rate 72 /min 72 /min [facility] ([facility]) Diastolic blood pressure 82 mm[Hg] 82 mm[Hg] [facility] ([facility]) Systolic blood pressure 130 mm[Hg] 130 mm[Hg] [facility] Deprecated Oxygen saturation in Capillary blood by Oximetry 95 % 95 % eCW1 ([facility]) Respiratory rate 22 /min 22 /min eCW1 ([facility]) Heart rate 79 /min 79 /min eCW1 ([facility]) Body temperature 98.1 [degF] 98.1 [degF] eCW1 ( [facility]) Body mass index (BMI) [Ratio] 45.65 kg/m2 45.65 kg/m2 eCW1 ([facility]) Body weight Measured 249.6 [lb_av] 249.6 [lb_av ] eCW1 ([facility]) Body height 62 [in_us] 62 [in_us] eCW1 ([facility]) Deprecated Oxygen saturation in Capillary blood by Oximetry 96 % 96 % eCW1 ([facility]) Respiratory rate 22 /min 22 /min eCW1 ([facility]) Heart rate 86 /min 86 /min eCW1 ([facility]) Body temperature 98.1 [degF] 98.1 [degF] eCW1 ( [facility]) Body mass index (BMI) [Ratio] 45.43 kg/m2 45.43 kg/m2 eCW1 ([facility]) Body weight Measured 248.4 [lb_av] 248.4 [lb_av ] eCW1 ([facility]) Body height 62 [in_us] 62 [in_us] eCW1 ([facility]) Patient Treatment Plan of Care Planned Activity Planned Date Details Description Data Source (s) Misc. Devices MIS 08/09/2020 12:00:00 AM [facility] Misc. Devices [facility] 07/06/2020 12:00:00 AM [facility] Famotidine 8 MG/ML Oral Suspension 07/06/2020 12:00:00 AM [facility] Famotidine 40 MG 06/26/2020 12:00:00 AM EST [facility]) FLUoxetine HCl 20 MG/5ML 06/26/2020 12:00:00 AM EST [facility]) Lactulose 10 GM/15ML 06/26/2020 12:00:00 AM EST [facility] ([facility]) OxyCODONE HCl 5 MG/5ML 06/26/2020 12:00:00 AM EST [facility]) Zofran ODT 4 MG 06/26/2020 12:00:00 AM EST [facility] ([facility]) Albuterol Sulfate HFA 108 (90 Base) MCG/ACT 06/26/2020 12:00:00 AM EST [facility]) Aspirin EC 81 MG 06/26/2020 12:00:00 AM EST [facility]) Ipratropium-Albuterol 0.5-2.5 (3) MG/3ML 06/26/2020 12:00:00 AM EST [facility] ([facility]) Jardiance 10 MG 06/26/2020 12:00:00 AM [facility] ([facility]) Lisinopril 20 MG 06/26/2020 12:00:00 AM [facility] ([facility]) Loperamide HCl 2 MG 06/26/2020 12:00:00 AM [facility]) Rosuvastatin Calcium 40 MG 06/26/2020 12:00:00 AM [facility] ([facility]) SITagliptin Phosphate 100 MG 06/26/2020 12:00:00 AM [facility]) Torsemide 10 MG 06/26/2020 12:00:00 AM [facility]) Oxycodone Hydrochloride 1 MG/ML Oral Solution 06/24/2020 12:00:00 A M [facility] Lactulose 667 MG/ML Oral Solution 06/24/2020 12:00:00 AM [facility] Fluoxetine 4 MG/ML Oral Solution 06/24/2020 12:00:00 AM [facility] Misc. Devices MISC 06/24/2020 12:00:00 AM [facility] Ondansetron 4 MG Disintegrating Oral Tablet 06/24/2020 12:00:00 AM [facility] Misc. Devices MISC 06/24/2020 12:00:00 AM [facility] Oxycodone Hydrochloride 1 MG/ML Oral Solution 06/24/2020 12:00:00 A M [facility] Oxycodone Hydrochloride 1 MG/ML Oral Solution 06/24/2020 12:00:00 A M [facility] Famotidine 8 MG/ML Oral Suspension 06/24/2020 12:00:00 AM [facility] Lactulose 667 MG/ML Oral Solution 06/24/2020 12:00:00 AM [facility] Oxycodone Hydrochloride 1 MG/ML Oral Solution 06/24/2020 12:00:00 A M [facility] Fluoxetine 4 MG/ML Oral Solution 06/24/2020 12:00:00 AM EST [facility] Famotidine 8 MG/ML Oral Suspension 06/24/2020 12:00:00 AM [facility] empagliflozin 10 MG Oral Tablet [Jardiance] 01/14/2020 12:00:00 AM EDT eCW1 ([facility]) empagliflozin 10 MG Oral Tablet [Jardiance] 01/14/2020 12:00:00 AM EDT eCW1 ([facility]) empagliflozin 10 MG Oral Tablet [Jardiance] 01/14/2020 12:00:00 AM EDT eCW1 ([facility]) empagliflozin 10 MG Oral Tablet [Jardiance] 01/14/2020 12:00:00 AM EDT eCW1 ([facility]) empagliflozin 10 MG Oral Tablet [Jardiance] 01/14/2020 12:00:00 AM EDT eCW1 ([facility]) empagliflozin 10 MG Oral Tablet [Jardiance] 01/14/2020 12:00:00 AM EDT eCW1 ([facility]) empagliflozin 10 MG Oral Tablet [Jardiance] 01/14/2020 12:00:00 AM EDT eCW1 ([facility]) torsemide 10 MG Oral Tablet 01/13/2020 12:00:00 AM EDT eCW1 ([facility]) torsemide 10 MG Oral Tablet 01/13/2020 12:00:00 AM EDT eCW1 ([facility]) torsemide 10 MG Oral Tablet 01/13/2020 12:00:00 AM EDT eCW1 ([facility]) torsemide 10 MG Oral Tablet 01/13/2020 12:00:00 AM EDT eCW1 ([facility]) torsemide 10 MG Oral Tablet 01/13/2020 12:00:00 AM EDT eCW1 ([facility]) torsemide 10 MG Oral Tablet 01/13/2020 12:00:00 AM EDT eCW1 ([facility]) torsemide 10 MG Oral Tablet 01/13/2020 12:00:00 AM EDT eCW1 ([facility]) Nebulizer - 10/06/2019 12:00:00 AM EST e CW1 ([facility]) Nebulizer/Tubing/Mouthpiece - 10/06/2019 12:00:00 AM EST eCW1 ([facility]) Nebulizer/Tubing/Mouthpiece - 10/06/2019 12:00:00 AM EST eCW1 ([facility]) Nebulizer - 10/06/2019 12:00:00 AM EST e CW1 ([facility]) Nebulizer/Tubing/Mouthpiece - 10/06/2019 12:00:00 AM EST eCW1 ([facility]) Nebulizer - 10/06/2019 12:00:00 AM EST e CW1 ([facility]) Prednisone 20 MG Oral Tablet 09/10/2019 12:00:00 AM EST eCW1 ([facility]) CompAir Nebulizer 1 09/10/2019 12:00:00 AM EST eCW1 ([facility]) Albuterol 0.833 MG/ML / Ipratropium Dupree 0.167 MG/M L Inhalant Solution 09/10/2019 12:00:00 AM EST eCW1 ([facility]) CompAir Nebulizer 1 09/10/2019 12:00:00 AM EST eCW1 ([facility]) Albuterol 0.833 MG/ML / Ipratropium Dupree 0.167 MG/M L Inhalant Solution 09/10/2019 12:00:00 AM EST eCW1 ([facility]) Prednisone 20 MG Oral Tablet 09/10/2019 12:00:00 AM EST eCW1 ([facility]) Comp Air Elite Compact Neb - 09/10/2019 12:00:00 AM EST eCW1 ([facility]) Albuterol 0.833 MG/ML / Ipratropium Dupree 0.167 MG/M L Inhalant Solution 09/10/2019 12:00:00 AM EST eCW1 ([facility]) Prednisone 20 MG Oral Tablet 09/10/2019 12:00:00 AM EST eCW1 ([facility]) 24 HR Glipizide 10 MG Extended Release Oral Tablet 08/18/2019 12 :00:00 AM EST eCW1 ([facility]) Albuterol Sulfate 108 (90 Base) MCG/ACT 08/10/2019 12:00:00 AM EST eCW1 ([facility]) benzonatate 200 MG Oral Capsule 07/13/2019 12:00:00 AM EST eCW1 ([facility]) Flonase 50 MCG/ACT 07/13/2019 12:00:00 AM EST eCW1 ([facility]) Amoxicillin 875 MG Oral Tablet 07/13/2019 12:00:00 AM EST eCW1 ([facility]) Flonase 50 MCG/ACT 07/13/2019 12:00:00 AM EST eCW1 ([facility]) benzonatate 200 MG Oral Capsule 07/13/2019 12:00:00 AM EST eCW1 ([facility]) Metformin hydrochloride 500 MG Oral Tablet [facility] Flaxseed, Linseed, (FLAXSEED OIL PO) [facility] Omeprazole 40 MG Delayed Release Oral Capsule [facility] 24 HR Glipizide 10 MG Extended Release Oral Tablet [facility] Fluoxetine 10 MG Oral Capsule [facility] Ondansetron 4 MG Disintegrating Oral Tablet [facility]
--- NOTE | 2020-08-16 15:10 | REP ---
INDICATION: epigastric pain/abdominal pain. COMPARISON: Chest 02/15/2020. TECHNIQUE: Supine and erect views of the abdomen are performed, as well as a frontal view of the chest. FINDINGS: There is no evidence of free intraperitoneal air. There is no evidence of bowel obstruction. No dilated bowel loops are seen. Wires overlie the abdomen. Phleboliths are seen in the pelvis. No acute infiltrate is seen in either lung. The heart is not enlarged. There is a left central venous catheter with the tip in the superior vena cava. IMPRESSION: Negative abdominal series. <Electronically signed by Marques Bell > 08/16/20 [id number]
[2020-08-16 15:34] LABS: HEMATOCRIT 35.5 % (36.0-47.0); HEMOGLOBIN 10.9 g/dl (12.0-15.5); MEAN CORPUSCULAR HEMOGLOBIN 27.9 pg (27.0-33.0); MEAN CORPUSCULAR HGB CONC 30.7 g/dl (32.0-36.5); PLATELET COUNT, AUTOMATED 167 10^3/uL (150-450); WHITE BLOOD COUNT 13.4 10^3/uL (4.0-10.0)
[2020-08-16 15:55] LABS: ATYPICAL LYMPH 2 % (0-5); LYMPHOCYTES 4 % (16-44); METAMYELOCYTES 2 % (0-0); MONOCYTES 4 % (0-5); NEUTROPHILS 71 % (28-66); PLATELET ESTIMATE NORMAL (NORMAL)
[2020-08-16 16:09] LABS: BLOOD UREA NITROGEN 16 MG/DL (7-18); CREATININE FOR GFR 0.62 MG/DL (0.55-1.30); GLUCOSE, FASTING 237 MG/DL (70-100)
[2020-08-16 16:10] LABS: ALBUMIN 2.8 GM/DL (3.2-5.2); ALT/SGPT 15 U/L (12-78); BILIRUBIN,DIRECT 0.1 MG/DL (0.0-0.2); BILIRUBIN,TOTAL 0.4 MG/DL (0.2-1.0); CALCIUM LEVEL 8.5 MG/DL (8.8-10.2); CARBON DIOXIDE LEVEL 30 MEQ/L (21-32); CHLORIDE LEVEL 103 MEQ/L (98-107); CK-MB VALUE MASS < 1.0 NG/ML (<3.6); CPK CREATINE PHOSPHOKINASE 22 U/L (26-192); FREE T4 0.97 NG/DL (0.76-1.46); GLOMERULAR FILTRATION RATE > 60.0 (>39); LIPASE 47 U/L (73-393); MAGNESIUM LEVEL 1.8 MG/DL (1.8-2.4); MB/CK RELATIVE INDEX 4.55 (< OR =4); NT-PRO BNP 683 PG/ML (<125); POTASSIUM SERUM 4.3 MEQ/L (3.5-5.1); SODIUM LEVEL 138 MEQ/L (136-145); TOTAL PROTEIN 5.4 GM/DL (6.4-8.2); TROPONIN I < 0.02 NG/ML (< 0.10)
[2020-08-16 16:46] VITALS: BP 103/58
--- NOTE | 2020-08-16 17:26 | ECGEPIP ---
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
[2020-08-17] MEDS ORDERED: OXYC5SOL11 PO (14:57)
== END 2020-08-16 17:31 | disposition home or self-care (01) ==
LOC: M ED 14:02
DX: R10.13 Epigastric pain (principal); C15.9 Malignant neoplasm of esophagus, unspecified; I49.3 Ventricular premature depolarization; E11.9 Type 2 diabetes mellitus without complications; I11.0 Hypertensive heart disease with heart failure; I50.9 Heart failure, unspecified; J44.9 Chronic obstructive pulmonary disease, unspecified; K21.9 Gastro-esophageal reflux disease without esophagitis; F41.9 Anxiety disorder, unspecified; F32.9 Major depressive disorder, single episode, unspecified; Z91.018 Allergy to other foods; Z79.899 Other long term (current) drug therapy; Z79.82 Long term (current) use of aspirin
CPT/HCPCS: 74021; 80048; 80076; 82550; 82553; 83690; 83735; 83880; 84439; 84443; 84484; 85025; 93005; 93041; 94760; 96374; 99285; J1642; J2405

== ENCOUNTER 2020-08-29 13:41 | Outpatient (RCR) | payer MEDICARE, OTHER ==
[~2020-08-29 13:41] MED LIST changes: -SODIUM CHLORIDE 0.9% INJ 10 ML SYR IV SCH
== END 2020-09-04 ==
LOC: M ONCR 13:41
PROVIDERS: ATTEND General Practice
DX: C15.5 Malignant neoplasm of lower third of esophagus (principal)

== ENCOUNTER → 2020-11-10 | Outpatient (REF) | payer MEDICARE, OTHER ==
[~2020-11-10] MED LIST changes: -LISI-538; +LISI20TA33; -OMEG1CAP4; +OMEG1CAP85
[2020-11-10 17:00] LABS: HEMOGLOBIN A1c 8.2 %
[2020-11-10 17:11] LABS: BLOOD UREA NITROGEN 20 MG/DL (7-18); CALCIUM LEVEL 9.6 MG/DL (8.8-10.2); CARBON DIOXIDE LEVEL 29 MEQ/L (21-32); CHLORIDE LEVEL 104 MEQ/L (98-107); CREATININE FOR GFR 0.86 MG/DL (0.55-1.30); GLOMERULAR FILTRATION RATE > 60.0 (>39); GLUCOSE, FASTING 146 MG/DL (70-100); POTASSIUM SERUM 4.9 MEQ/L (3.5-5.1); SODIUM LEVEL 141 MEQ/L (136-145)
== END ==
LOC: M SFHCCLAY 10:17
PROVIDERS: ATTEND Family Medicine
DX: Z01.818 Encounter for other preprocedural examination (principal); E11.42 Type 2 diabetes mellitus with diabetic polyneuropathy; I11.9 Hypertensive heart disease without heart failure
CPT/HCPCS: 80048; 83036; G0463

== ENCOUNTER → 2021-02-13 | Outpatient (CLI) | payer MEDICARE, OTHER ==
[~2021-02-13] MED LIST changes: +SCOP1PAT2 TOP
--- NOTE | 2021-02-13 17:35 | REP ---
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 Treated with radiation therapy and chemotherapy. COMPARISON: Comparison PET-CT study is from June 21, 2020.. TECHNIQUE: 1 hour 18 minutes following the intravenous injection of a 9.10 mCi dose of F-18 FDG, three-dimensional PET scintigraphy is acquired from the skull base to the proximal thighs. Triplanar noncontrast CT scanning is acquired through the same anatomic range for attenuation correction, and image registration with scan parameters optimized to minimize radiation exposure to the patient. PET scintigraphy and CT datasets were fused and displayed on a workstation with multiplanar and projection display capability. FINDINGS: Patient has known situs inversus. Head and neck soft tissues are unremarkable. There is a left-sided Mwoktl-H-Jdwv catheter terminating in the right-sided superior vena cava. There are small bilateral pleural effusions noted which is a new CT finding. There is mildly hypermetabolic FDG accumulation in the right pleural space posteriorly and medially. Maximum standard uptake value 3.21. Similarly, there is low-level hypermetabolic uptake in the right pleural space, maximum SUV value 3.29. There is a nodular infiltrate pattern in the right lower lobe of the lung which is also a new finding. Mildly hypermetabolic uptake is seen here, SUV 3.20. There is some adjacent interstitial infiltrate. This may be inflammatory, possibly aspiration related pneumonia. No other abnormal hypermetabolic uptake is seen in the lung parenchyma. There is some mural thickening in the distal esophagus but no hypermetabolic uptake is seen in the distal esophagus. There is no periesophageal or upper abdominal cammie hypermetabolic uptake. No abnormal hypermetabolic uptake is seen in the abdomen or pelvis. Feeding JT tube is noted in the right lower abdomen. IMPRESSION: The previously noted mildly increased uptake in the distal esophagus is no longer seen. There is persistent mural thickening in the distal esophagus. Today's study demonstrates new small bilateral pleural effusions with areas of mildly hypermetabolic pleural uptake and an infiltrate and nodular density in the right lower lobe with mildly hypermetabolic uptake as well. These changes are nonspecific. <Electronically signed by Memo Sanchez > 02/13/21 [id number]
== END ==
LOC: M PLARAD 09:55
PROVIDERS: ATTEND Specialist
DX: C15.8 Malignant neoplasm of overlapping sites of esophagus (principal)
CPT/HCPCS: 78815; A9552

== ENCOUNTER → 2021-05-19 | Outpatient (CLI) | payer MEDICARE, OTHER ==
[~2021-05-19] MED LIST changes: +GASTROGRAFIN SOLUTION 30ML (Q9963) As Ordered ONE; +ISOVUE-370 76% 100ML VIAL As Ordered ONE; -SCOP1PAT2 TOP; +TRAN1DIS4 TOP
--- NOTE | 2021-05-19 12:57 | REP ---
INDICATION: MET ESO CA COMPARISON: 04/06/2020 TECHNIQUE: Axial contrast enhanced images from the thoracic inlet to the upper abdomen with coronal and sagittal reformations using 100 ml Isovue 370 intravenous contrast material. This CT examination was performed using the following dose reduction techniques: Automated exposure control, adjustment of mA and/or kv according to the patient's size, and use of iterative reconstruction technique. FINDINGS: The esophagus again demonstrates circumferential mucosal thickening from the mid esophagus to the gastroesophageal junction essentially unchanged. No periesophageal mass or mediastinal adenopathy is identified. Mediastinum demonstrates relatively normal thoracic aorta, pulmonary vasculature, and heart/pericardium. There is no evidence for mediastinal adenopathy or mass lesion. An [id number]-[id number] is identified with tip extending into the right atrium. The lung turner demonstrate a subtle reticulonodular interstitial pattern primarily involving the bilateral lower lobes as well as a small ill-defined area of opacity at the right base with ground-glass opacity and small right pleural effusion. In comparison with PET-CT images, the right lower lobe opacity is decreased in size although the right pleural effusion appears increased and the bibasilar reticulonodular changes are relatively stable. Musculoskeletal structures are intact and without acute osseous abnormality. 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 IMPRESSION: 1. Relatively stable circumferential mucosal thickening to the mid/distal esophagus extending to the gastroesophageal junction. No associated mediastinal adenopathy or metastatic lesion. 2. Changes at the lung bases are nonspecific as described above. Short-term follow-up may be warranted. 3. 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 <Electronically signed by Jomar Ng > 05/19/21 [id number]
--- NOTE | 2021-05-19 13:35 | REP ---
INDICATION: MET ESO CA. COMPARISON: Nondiagnostic CT component of PET-CT dated 02/14/2020 TECHNIQUE: Standard helical technique after the intravenous administration of 100 cc Isovue 370 and oral bowel preparatory contrast administration. 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 There are no enhancing hepatic lesions. The gallbladder, adrenal glands, and kidneys are within normal limits. The spleen is U shaped but otherwise unremarkable. The abdominal aorta and para-aortic regions are within normal limits. The pancreas is fatty infiltrated but there is no evidence of a mass or ductal dilatation. There is a PEJ tube in place. The zarate of the small bowel where the tube resides are somewhat thickened, however, there is no evidence of intestinal obstruction. There is evidence of circumferential thickening of the distal esophagus proximal to and at the gastroesophageal junction which is difficult to evaluate by CT. There is no evidence of a mass or adenopathy. There is no free fluid or free air. Bone window technique throughout the exam shows the osseous structures to be within normal limits. IMPRESSION: 1. 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 2. There is no evidence of acute disease. Other findings as described above. <Electronically signed by Christopher Phelps > 05/19/21 [id number]
== END ==
LOC: M RAD 10:50
PROVIDERS: ATTEND Specialist
DX: C15.9 Malignant neoplasm of esophagus, unspecified (principal)
CPT/HCPCS: 71260; 74177; Q9963; Q9967

== ENCOUNTER 2021-07-20 17:13 | Emergency (ER) | payer MEDICARE, OTHER ==
[~2021-07-20] VITALS: Ht 157.5 cm; Wt 93.3 kg
[~2021-07-20 17:13] MED LIST changes: -FLUO10CA16; +FLUO10CA18; -GASTROGRAFIN SOLUTION 30ML (Q9963) As Ordered ONE; -ISOVUE-370 76% 100ML VIAL As Ordered ONE; +METF500T13; +OMEP-173; -OMEP-218; +ONDA-84 PO; -ONDA8TAB10 PO; -PROC10TA4 PO; +PROC10TA5 PO
[2021-07-20 17:14] VITALS: BP 150/71
[2021-08-10] MEDS ORDERED: GLIP5TAB20 (13:12)
== END 2021-07-20 18:50 | disposition left against medical advice (07) ==
LOC: M ED 17:13
DX: Z53.29 Procedure and treatment not carried out because of patient's decision for other reasons (principal)

== ENCOUNTER → 2021-07-31 | Outpatient (CLI) | payer MEDICARE, OTHER ==
[~2021-07-31] MED LIST changes: +GLIP5TAB20
== END ==
LOC: M PLARAD 10:37
PROVIDERS: ATTEND Specialist
DX: C15.8 Malignant neoplasm of overlapping sites of esophagus (principal)
CPT/HCPCS: 78815; A9552

== ENCOUNTER → 2021-08-16 | Outpatient (CLI) | payer MEDICARE, OTHER ==
[~2021-08-16] MED LIST changes: -OMEP-173; +OMEP-218
[2021-08-16 15:58] LABS: BLOOD UREA NITROGEN 23 MG/DL (7-18); CALCIUM LEVEL 8.6 MG/DL (8.8-10.2); CARBON DIOXIDE LEVEL 29 MEQ/L (21-32); CHLORIDE LEVEL 106 MEQ/L (98-107); CHOLESTEROL LEVEL 172 MG/DL (<200); CHOLESTEROL RISK RATIO 2.646 (<5); CREATININE FOR GFR 0.91 MG/DL (0.55-1.30); GLOMERULAR FILTRATION RATE > 60.0 (>39); GLUCOSE, FASTING 173 MG/DL (70-100); HDL CHOLESTEROL 65 MG/DL (>40); LDL CHOLESTEROL 62 MG/DL (<100); NON-HDL-C 107 MG/DL; POTASSIUM SERUM 4.1 MEQ/L (3.5-5.1); SODIUM LEVEL 141 MEQ/L (136-145); TRIGLYCERIDES LEVEL 223 MG/DL (<150)
[2021-08-16 17:48] LABS: HEMOGLOBIN A1c 9.9 %
== END ==
LOC: M LAB 14:55
PROVIDERS: ATTEND Family Medicine
DX: E11.65 Type 2 diabetes mellitus with hyperglycemia (principal)

== ENCOUNTER → 2021-08-22 | Outpatient (CLI) | payer MEDICARE, OTHER ==
[~2021-08-22] MED LIST changes: +ISOVUE-370 76% 100ML VIAL As Ordered ONE; +OMEP-173; -OMEP-218
== END ==
LOC: M RAD 16:32
PROVIDERS: ATTEND Specialist
DX: C15.9 Malignant neoplasm of esophagus, unspecified (principal); R51.9 Headache, unspecified
CPT/HCPCS: 70470; Q9967

== ENCOUNTER → 2022-01-15 | Outpatient (CLI) | payer MEDICARE, OTHER ==
[~2022-01-15] MED LIST changes: -ISOVUE-370 76% 100ML VIAL As Ordered ONE
== END ==
LOC: M PLARAD 08:38
PROVIDERS: ATTEND Specialist
DX: C15.8 Malignant neoplasm of overlapping sites of esophagus (principal)
CPT/HCPCS: 78815; A9552

== ENCOUNTER 2022-03-17 12:45 | Emergency (ER) | payer MEDICARE, OTHER ==
[~2022-03-17] VITALS: Ht 157.5 cm; Wt 90.9 kg
[~2022-03-17 12:45] MED LIST changes: +GLIP10TA PO
[2022-03-17 14:15] VITALS: BP 127/74
[2022-03-17] MEDS ORDERED: BOOSTRIX/ADACEL VACCINE (DIPHTH/PERTUSS/ACELL/TETANUS) 0.5ML SYR IM.IMMUN ONE (14:20)
== END 2022-03-17 15:10 | disposition home or self-care (01) ==
LOC: M ED 12:45
DX: S13.4XXA Sprain of ligaments of cervical spine, initial encounter (principal); S09.90XA Unspecified injury of head, initial encounter; W07.XXXA Fall from chair, initial encounter; I50.9 Heart failure, unspecified; Z91.018 Allergy to other foods; Z23 Encounter for immunization

== ENCOUNTER → 2022-03-26 | Outpatient (REF) | payer MEDICARE, OTHER ==
[2022-03-26 17:33] LABS: HEMATOCRIT 43.8 % (36.0-47.0); HEMOGLOBIN 14.3 g/dl (12.0-15.5); MEAN CORPUSCULAR HEMOGLOBIN 30.7 pg (27.0-33.0); MEAN CORPUSCULAR HGB CONC 32.6 g/dl (32.0-36.5); PLATELET COUNT, AUTOMATED 163 10^3/uL (150-450); RED BLOOD COUNT 4.66 10^6/uL (4.00-5.40); WHITE BLOOD COUNT 4.6 10^3/uL (4.0-10.0)
[2022-03-26 18:33] LABS: ALBUMIN 3.3 GM/DL (3.2-5.2); ALT/SGPT 19 U/L (12-78); BILIRUBIN,TOTAL 0.9 MG/DL (0.2-1.0); BLOOD UREA NITROGEN 20 MG/DL (7-18); CALCIUM LEVEL 8.8 MG/DL (8.8-10.2); CARBON DIOXIDE LEVEL 25 MEQ/L (21-32); CHLORIDE LEVEL 107 MEQ/L (98-107); CHOLESTEROL LEVEL 150 MG/DL (<200); CREATININE FOR GFR 0.95 MG/DL (0.55-1.30); GLOMERULAR FILTRATION RATE > 60.0 (>39); GLUCOSE, FASTING 247 MG/DL (70-100); HDL CHOLESTEROL 60 MG/DL (>40); LDL CHOLESTEROL 46 MG/DL (<100); NON-HDL-C 90 MG/DL; POTASSIUM SERUM 5.8 MEQ/L (3.5-5.1); SODIUM LEVEL 139 MEQ/L (136-145); TOTAL PROTEIN 6.6 GM/DL (6.4-8.2); TRIGLYCERIDES LEVEL 222 MG/DL (<150)
[2022-03-26 19:07] LABS: HEMOGLOBIN A1c 11.7 %
== END ==
LOC: M SFHCCLAY 09:16
PROVIDERS: ATTEND Nurse Practitioner Family
DX: E11.65 Type 2 diabetes mellitus with hyperglycemia (principal); E11.42 Type 2 diabetes mellitus with diabetic polyneuropathy; I10 Essential (primary) hypertension; E78.5 Hyperlipidemia, unspecified

== ENCOUNTER → 2022-04-02 | Outpatient (REF) | payer MEDICARE, OTHER | LOC: M SFHCCLAY 12:14 | PROVIDERS: ATTEND Nurse Practitioner Family | DX: E87.5 Hyperkalemia (principal) ==

== ENCOUNTER → 2022-04-27 | Outpatient (CLI) | payer MEDICARE, OTHER | LOC: M CLY 14:01 | PROVIDERS: ATTEND Nurse Practitioner Family | DX: M79.89 Other specified soft tissue disorders (principal) ==

== ENCOUNTER → 2022-05-02 | Outpatient (REF) | payer MEDICARE, OTHER ==
[2022-05-02 18:10] LABS: ALBUMIN 3.5 GM/DL (3.2-5.2); BILIRUBIN,TOTAL 0.9 MG/DL (0.2-1.0); CALCIUM LEVEL 9.3 MG/DL (8.8-10.2); CREATININE FOR GFR 1.01 MG/DL (0.55-1.30); GLOMERULAR FILTRATION RATE 56.9 (>39); MAGNESIUM LEVEL 2.1 MG/DL (1.8-2.4); POTASSIUM SERUM 4.7 MEQ/L (3.5-5.1); TOTAL PROTEIN 6.9 GM/DL (6.4-8.2)
== END ==
LOC: M SFHCCLAY 11:36
PROVIDERS: ATTEND Physician Assistant
DX: M79.604 Pain in right leg (principal); M79.605 Pain in left leg

== ENCOUNTER → 2022-05-28 | Outpatient (REF) | payer MEDICARE, OTHER ==
[2022-05-30 20:07] LABS: ANA (HEP2) Positive (.)
== END ==
LOC: M SFHCCLAY 10:36
PROVIDERS: ATTEND Nurse Practitioner Family
DX: R76.8 Other specified abnormal immunological findings in serum (principal)

== ENCOUNTER → 2022-08-22 | Outpatient (REF) | payer MEDICARE, OTHER ==
[~2022-08-22] MED LIST changes: -DOXY-350 PO; +DOXY-444 PO; +LIDO1CRE42 TOP
[2022-08-22 18:07] LABS: BASO # 0.1 10^3/uL (0.0-0.2); EOS # 0.1 10^3/uL (0.0-0.5); EOS % 1.9 % (0.0-3.0); HEMATOCRIT 44.3 % (36.0-47.0); LYMPH % 18.9 % (24.0-44.0); MEAN CORPUSCULAR HEMOGLOBIN 30.4 pg (27.0-33.0); MEAN CORPUSCULAR HGB CONC 31.6 g/dl (32.0-36.5); MEAN CORPUSCULAR VOLUME 96.1 fl (80.0-96.0); MONO # 0.3 10^3/uL (0.0-0.8); MONO % 6.5 % (2.0-8.0); NEUTROPHILS # 3.7 10^3/uL (1.5-8.5); NEUTROPHILS % 70.7 % (36.0-66.0); PLATELET COUNT, AUTOMATED 219 10^3/uL (150-450); RED BLOOD COUNT 4.61 10^6/uL (4.00-5.40); WHITE BLOOD COUNT 5.2 10^3/uL (4.0-10.0)
[2022-08-22 18:21] LABS: HEMOGLOBIN A1c 11.1 % (4.0-6.0)
[2022-08-22 18:26] LABS: FOLATE 13.8 NG/ML (>5.4); THYROID STIMULATING HORMONE 1.552 uIU/ML (0.55-4.78)
[2022-08-22 18:28] LABS: FREE T4 0.97 NG/DL (0.89-1.76); VITAMIN B12 LEVEL 342 PG/ML (211-911)
[2022-08-22 18:29] LABS: ALBUMIN 3.6 G/DL (3.2-5.2); ALKALINE PHOSPHATASE 97 U/L (46-116); ALT/SGPT 17 U/L (7.0-40); AST/SGOT 17 U/L (<34); BILIRUBIN,TOTAL 0.7 MG/DL (0.3-1.2); BLOOD UREA NITROGEN 19 MG/DL (9-23); CALCIUM LEVEL 9.2 MG/DL (8.3-10.6); CARBON DIOXIDE LEVEL 27 MMOL/L (20-31); CHLORIDE LEVEL 101 MMOL/L (98-107); CREATININE FOR GFR 0.86 MG/DL (0.55-1.30); GLOMERULAR FILTRATION RATE > 60.0 (>39); GLUCOSE, FASTING 208 MG/DL (74-106); POTASSIUM SERUM 4.9 MMOL/L (3.5-5.1); RHEUMATOID FACTOR QUANT < 3.5 IU/ML (<14); SODIUM LEVEL 138 MMOL/L (136-145); TOTAL PROTEIN 6.5 G/DL (5.7-8.2)
[2022-08-22 18:51] LABS: ERYTHROCYTE SEDIMENTATION RATE 56 mm/hr (0-30)
== END ==
LOC: M LABDRAWC 16:54
PROVIDERS: ATTEND Psychiatry & Neurology Neurology
DX: E07.9 Disorder of thyroid, unspecified (principal)

== ENCOUNTER → 2022-08-27 | Outpatient (CLI) | payer MEDICARE, OTHER ==
[~2022-08-27] MED LIST changes: +GASTROGRAFIN SOLUTION 30ML As Ordered ONE; +ISOVUE-370 76% 100ML VIAL As Ordered ONE
== END ==
LOC: M RAD 12:19
PROVIDERS: ATTEND Specialist
DX: C15.9 Malignant neoplasm of esophagus, unspecified (principal)
CPT/HCPCS: 70470; 71260; 74160; Q9963; Q9967